=== PATIENT | female | born 1945 | race Caucasian/White ===

== ENCOUNTER 2018-01-27 08:42 | Emergency (ER) | payer MEDICARE ==
[2018-01-27 08:56] VITALS: BP 151/68; PULSE 87; O2SAT 97
--- NOTE | 2018-01-27 09:12 | ERPHSYRPT ---
- History of Present Illness Time Seen by Provider: 01/27/18 08:59 Source: patient, family Exam Limitations: no limitations Patient Subjective Stated Complaint: Wound/Rash to bilateral Skin folds under belly. Triage Nursing Assessment: Pt presents to the ED with complaints of rash at base of belly, where belly folds over waist line. Pt states she had a yeast infection in area for approximately 3 months, but states drainage began last week and worsened today. Pt denies other complaints, denies pain. No distress noted, skin pwd. Pt has been using nystatin cream daily for last week. Physician History: Patient with erythematous rash in the abdominal folds area for past 3 months. Initially had redness to the area then noted to other skin lesions where there was increasing redness and skin sloughing. Patient states these areas again to have weeping lesions with bloody drainage. Patient wears depends and areas were moist. Patient tried taking care of wound by herself and have not call her primary care provider. Patient denies any fever, chills, dizziness or weakness. Patient has been using nystatin cream to area with some relief Timing/Duration: week(s) (12), intermittent Quality: burning, itchy Severity: moderate Location: other (abdomianl folds) Possible Causes: other (wetness/moisture) Modifying Factors: Improves With: scratching (worsens) Associated Symptoms: blisters, change in skin texture, rash (erythematous rash with lesions and areas of skin irritation/sloughing), No edema, No fever, No numbness, No sore throat Allergies/Adverse Reactions: cefaclor [From Ceclor] Allergy (Intermediate, Verified 01/16/15 12:41) shellfish derived Allergy (Intermediate, Verified 01/16/15 12:41) sulfamethoxazole Allergy (Intermediate, Verified 01/16/15 12:41) venom-honey bee [bee venom (honey bee)] Allergy (Intermediate, Verified 12:41) cephalexin [From Keflex] Allergy (Mild, Verified 03/06/17 09:09) mouth sores Home Medications: Gemfibrozil 600 mg [Lopid 600 mg] 600 mg PO DAILY 01/16/15 [History] PARoxetine HCl [Paroxetine HCl] 20 mg PO DAILY 01/16/15 [History] Potassium Chloride 10 Meq Tab* [Klor Con 10 MEQ] 10 meq PO BID 01/16/15 [ History] Quetiapine Fumarate [Seroquel Xr] 100 mg PO DAILY 01/16/15 [History] Valsartan [Diovan] 320 mg PO DAILY 01/16/15 [History] Hydrocodone Bit/Acetaminophen [[place] 5/325Mg] 1 tab PO Q8H PRN PRN 02/13/16 [ History] metHOTREXate sodium [Methotrexate] 4 tab PO WEEKLY 02/13/16 [History] Cetirizine HCl [Zyrtec] 10 mg PO DAILY 03/06/17 [History] Diclofenac Sodium Gel [Voltaren GEL] 2 gm TP QID 03/06/17 [History] Docusate Sodium 100 mg [Colace 100 MG] 100 mg PO BID 03/06/17 [History] Donepezil HCl 10 mg [Aricept 10 MG] 10 mg PO DAILY 03/06/17 [History] Famotidine 20 mg [Pepcid 20 MG] 2 tab PO DAILY 03/06/17 [History] Fluticasone/Vilanterol [Breo Ellipta 100-25 Mcg INH] 1 each IH BID 03/06/17 [ History] Folic Acid 1 mg PO DAILY 03/06/17 [History] Furosemide 40 mg [Lasix 40 MG] 40 mg PO BID 03/06/17 [History] Glimepiride 1 mg PO BID 03/06/17 [History] Ipratropium/Albuterol Sulfate [Iprat-Albut 0.5-3(2.5) mg/3 ml] 3 ml IH UD PRN [History] Prednisone 10 mg [Deltasone 10 mg] 10 mg PO DAILY 03/06/17 [History] Hx Tetanus, Diphtheria Vaccination/Date Given: Yes Hx Influenza Vaccination/Date Given: Yes Hx Pneumococcal Vaccination/Date Given: Yes Immunizations Up to Date: Yes - Review of Systems Constitutional: No Fever, No Chills Eyes: No Symptoms Ears, Nose, & Throat: No Symptoms Respiratory: No Symptoms, No Cough, No Dyspnea Cardiac: No Symptoms, No Chest Pain, No Edema, No Syncope Abdominal/Gastrointestinal: No Symptoms, No Abdominal Pain, No Nausea, No Vomiting, No Diarrhea Genitourinary Symptoms: No Dysuria Musculoskeletal: No Back Pain, No Neck Pain Skin: Cellulitis, Rash (erythematous rash described above), Skin Lesions Neurological: No Symptoms, No Dizziness, No Focal Weakness, No Sensory Changes Psychological: No Symptoms Endocrine: No Symptoms All Other Systems: Reviewed and Negative - Past Medical History Pertinent Past Medical History: Yes Neurological History: Stroke, TIA ENT History: Cataracts Cardiac History: Congestive Heart Failure, High Cholesterol, Hypertension Respiratory History: Asthma, Pneumonia Endocrine Medical History: Diabetes Type II Musculoskeletal History: Osteoarthritis, Osteoporosis, Rheumatoid Arthritis GI Medical History: Esophageal Disorder, Other History: Renal Disease Psycho-Social History: Anxiety, Depression Female Reproductive Disorders: No Pertinent History Other Medical History: Anemia. broken shoulder, 11/19. hiatal hernia. skin cancer- nose - Past Surgical History Past Surgical History: Yes Neuro Surgical History: No Pertinent History Cardiac: No Pertinent History Respiratory: No Pertinent History Gastrointestinal: No Pertinent History Genitourinary: No Pertinent History Musculoskeletal: Joint Replacement Female Surgical History: Hysterectomy Other Surgical History: bilateral Knee replacement x2, right hip replacement, bladder lift - Social History Smoking Status: Former smoker Exposure to second hand smoke: No Drug Use: none Patient Lives Alone: Yes - Female History Hx Now: No - Nursing Vital Signs Nursing Vital Signs: Initial Vital Signs Temperature 98.9 F 01/27/18 08:49 Pulse Rate 87 01/27/18 08:49 Respiratory Rate 16 01/27/18 08:49 Blood Pressure 151/68 01/27/18 08:49 O2 Sat by Pulse Oximetry 97 01/27/18 08:49 Pain Scale Pain Intensity 0 - Physical Exam General Appearance: no apparent distress, alert Eye Exam: PERRL/EOMI, eyes nml inspection Ears, Nose, Throat Exam: normal ENT inspection, pharynx normal, moist mucous membranes Neck Exam: normal inspection, non-tender, supple, full range of motion Respiratory Exam: normal breath sounds, lungs clear, No respiratory distress Cardiovascular Exam: regular rate/rhythm, normal heart sounds Gastrointestinal/Abdomen Exam: soft, mass, No tenderness Back Exam: normal inspection, normal range of motion, No CVA tenderness, No vertebral tenderness Extremity Exam: normal inspection, normal range of motion Neurologic Exam: alert, oriented x 3, cooperative, normal mood/affect, sensation nml, No motor deficits Skin Exam: rash (erythematous moist rash to abdominal folds area. There are 2 lesions with some bloody drainage in bilateral lower abdominal wall area. There are some satellite lesions noted) SpO2: 97 Oxygen Delivery: Room Air - Course Nursing assessment & vital signs reviewed: Yes - Progress Progress: unchanged Counseled pt/family regarding: diagnosis - Departure Time of Disposition: 09:18 Departure Disposition: Home Clinical Impression: Abdominal wall cellulitis, Dermatitis associated with moisture Condition: Stable Critical Care Time: No Referrals: SANDHYA PIPER MD [Primary Care Provider] - Instructions: Cellulitis (Skin Infection), Adult (DC), Diaper Rash (DC) Additional Instructions: Rx: Bactrim DS/nystatin powder. Keep area clean and dry. Apply Neosporin on open wounds. May take Motrin/Tylenol for pain/fever. Follow-up with your doctor in 1-2 days. Return for worse redness, pain, pus from wound, continue bleeding, fever or any problems Prescriptions: Nystatin Powder 15 gm [Nystop Powder 15 gm] 15 gm TD BID 10 Days #15 powder Sulfamethoxazole/Trimethoprim [Bactrim Ds Tablet] 1 each PO BID 10 Days #20 tablet
== END 2018-01-27 09:51 | disposition home or self-care (01) ==
LOC: ED 08:42
DX: L03.311 Cellulitis of abdominal wall (principal); L30.9 Dermatitis, unspecified; Z79.899 Other long term (current) drug therapy
CPT/HCPCS: 99283

== ENCOUNTER 2018-04-05 17:56 | Inpatient (IN) | payer MEDICARE ==
[2018-04-05] MEDS ORDERED: DUONEB 0.5-3 MG/3 ml Neb IH ONE ×2 (18:51→18:58)
--- NOTE | 2018-04-05 18:57 | ERPHSYRPT ---
- History of Present Illness Source: patient Patient Subjective Stated Complaint: PT STATES SHE HAD OUTPATIENT LABS DONE TODAY AND HER PHYSICIAN CALLED HER AND TOLD HER TO COME TO ER DUE TO HGB OF 5 AND WBC OF 2. PT STATES SHE HAS BEEN SOB FOR APPROX 1 MONTH. HAS A WOUND ULCER ON LEFT FOOT SHE STATES HAS BEEN BLEEDING SIGNIFICANTLY FOR SOME TIME FROM THAT WOUND. Triage Nursing Assessment: PT ALERT AND ORIENTED X 3. SKIN COLOR PALE. LUNG SOUNDS DIMINISHED. BOWEL SOUNDS PRESENT DENIES N,V,D. LEFT FOOT IS WRAPPED WITH GAUZE DRESSING. SKIN LOOSE. Hx Tetanus, Diphtheria Vaccination/Date Given: Yes Hx Influenza Vaccination/Date Given: Yes Hx Pneumococcal Vaccination/Date Given: Yes <DENI RAMOS - Last Filed: 04/05/18 18:51> <ROOSEVELT ELLISON - Last Filed: 04/05/18 21:39> - History of Present Illness Time Seen by Provider: 04/05/18 18:51 Physician History: mild to mod shortness of breath and [place] for one month, hx anemia Hb 5 and WBC 2 today, no chest pain, +fatigue, no fever (DENI RAMOS) I had a brief discussion with the patient. She had routine blood work by her television service engineer today. She was called by her television service engineer and told to get to the emergency room quickly because her hemoglobin was 5. She's been having shortness of breath and weakness for the last 2 months. She takes iron for anemia. (ROOSEVELT ELLISON) Allergies/Adverse Reactions: cefaclor [From Ceclor] Allergy (Intermediate, Verified 01/16/15 12:41) shellfish derived Allergy (Intermediate, Verified 01/16/15 12:41) sulfamethoxazole Allergy (Intermediate, Verified 01/16/15 12:41) venom-honey bee [bee venom (honey bee)] Allergy (Intermediate, Verified 12:41) cephalexin [From Keflex] Allergy (Mild, Verified 03/06/17 09:09) mouth sores Home Medications: Gemfibrozil 600 mg [Lopid 600 mg] 600 mg PO DAILY 01/16/15 [History] PARoxetine HCl [Paroxetine HCl] 20 mg PO DAILY 01/16/15 [History] Potassium Chloride 10 Meq Tab* [Klor Con 10 MEQ] 10 meq PO BID 01/16/15 [ History] Quetiapine Fumarate [Seroquel Xr] 100 mg PO DAILY 01/16/15 [History] Valsartan [Diovan] 160 mg PO DAILY 01/16/15 [History] Hydrocodone Bit/Acetaminophen [[place] 5/325Mg] 1 tab PO Q8H PRN PRN 02/13/16 [ History] metHOTREXate sodium [Methotrexate] 4 tab PO WEEKLY 02/13/16 [History] Cetirizine HCl [Zyrtec] 10 mg PO DAILY 03/06/17 [History] Diclofenac Sodium Gel [Voltaren GEL] 2 gm TP QID 03/06/17 [History] Docusate Sodium 100 mg [Colace 100 MG] 100 mg PO BID 03/06/17 [History] Donepezil HCl 10 mg [Aricept 10 MG] 10 mg PO DAILY 03/06/17 [History] Famotidine 20 mg [Pepcid 20 MG] 2 tab PO DAILY 03/06/17 [History] Fluticasone/Vilanterol [Breo Ellipta 100-25 Mcg INH] 1 each IH BID 03/06/17 [ History] Folic Acid 1 mg PO DAILY 03/06/17 [History] Furosemide 40 mg [Lasix 40 MG] 40 mg PO BID 03/06/17 [History] Glimepiride 1 mg PO BID 03/06/17 [History] Ipratropium/Albuterol Sulfate [Iprat-Albut 0.5-3(2.5) mg/3 ml] 3 ml IH UD PRN [History] Prednisone 10 mg [Deltasone 10 mg] 10 mg PO DAILY 03/06/17 [History] - Review of Systems Constitutional: No Fever Eyes: No Vision Changes Ears, Nose, & Throat: No Mouth Pain Respiratory: Dyspnea Cardiac: No Chest Pain, No Other Abdominal/Gastrointestinal: No Vomiting, No Melena Genitourinary Symptoms: No Dysuria Musculoskeletal: No Neck Pain Skin: Skin Lesions Neurological: No Dizziness, No Focal Weakness Hematologic/Lymphatic: Anemia <DENI RAMOS - Last Filed: 04/05/18 18:51> - Past Medical History Pertinent Past Medical History: Yes Neurological History: Stroke, TIA ENT History: Cataracts Cardiac History: Congestive Heart Failure, High Cholesterol, Hypertension Respiratory History: Asthma, Pneumonia Endocrine Medical History: Diabetes Type II Musculoskeletal History: Osteoarthritis, Osteoporosis, Rheumatoid Arthritis GI Medical History: Esophageal Disorder, Other History: Renal Disease Psycho-Social History: Anxiety, Depression Female Reproductive Disorders: No Pertinent History Other Medical History: Anemia. broken shoulder, 11/19. hiatal hernia. skin cancer- nose - Past Surgical History Past Surgical History: Yes Neuro Surgical History: No Pertinent History Cardiac: No Pertinent History Respiratory: No Pertinent History Gastrointestinal: No Pertinent History Genitourinary: No Pertinent History Musculoskeletal: Joint Replacement Female Surgical History: Hysterectomy Other Surgical History: bilateral Knee replacement x2, right hip replacement, bladder lift - Social History Smoking Status: Former smoker Exposure to second hand smoke: No Drug Use: none Patient Lives Alone: Yes <DENI RAMOS - Last Filed: 04/05/18 18:51> - Physical Exam General Appearance: no apparent distress Eye Exam: PERRL/EOMI Ears, Nose, Throat Exam: normal pharynx Neck Exam: normal inspection Respiratory Exam: No respiratory distress Cardiovascular/Chest Exam: regular rate/rhythm, edema Abdominal/Gastrointestinal Exam: soft, No tenderness Extremity Exam: pelvis stable Neurologic Exam: alert, oriented x 3, cooperative Skin Exam: warm, dry SpO2 Interpretation: normal SpO2: 97 Oxygen Delivery: Room Air <DENI RAMOS - Last Filed: 04/05/18 18:51> - Nursing Vital Signs Nursing Vital Signs: Initial Vital Signs Pulse Rate 98 H 04/05/18 17:59 Respiratory Rate 18 04/05/18 17:59 Blood Pressure 169/73 04/05/18 17:59 O2 Sat by Pulse Oximetry 98 04/05/18 17:59 - Course EKG Interpreted by Me: RATE, Sinus Rhythm, Left Schriever Deviation, NORMAL INTERVALS , NORMAL QRS, NORMAL ST-T - Radiology Exams Chest X-ray Interpretation: Interpreted by me, Negative (comp 2V chest 02/20/18.) <ROOSEVELT ELLISON - Last Filed: 04/05/18 21:39> Ordered Tests: Active Orders 24 hr Category Date Time Status [employer] STAT Care 04/05/18 18:50 Active EKG-ER Only STAT Care 04/05/18 18:49 Active IV Insertion STAT Care 04/05/18 18:49 Active Oxygen-ED Only NASAL CANNULA 2 lpm Care 04/05/18 18:49 Active Oxygen-ED Only NASAL CANNULA 2 lpm Care 04/05/18 20:17 Active CHEST 1 VIEW (PORTABLE) Stat Exams 04/05/18 18:50 Taken CBC W DIFF Stat Lab 04/05/18 19:35 Completed CMP Stat Lab 04/05/18 19:35 Completed D-DIMER QUANTITATION Stat Lab 04/05/18 19:35 Completed Manual Differential NC Stat Lab 04/05/18 19:35 Completed NT PRO BNP Stat Lab 04/05/18 19:35 Completed Occult Blood-Screening Stat Lab 04/05/18 18:55 Ordered PROTIME WITH INR Stat Lab 04/05/18 19:35 Completed TROPONIN Q3H Lab 04/05/18 19:35 Completed TROPONIN Q3H Lab 04/05/18 22:00 Ordered TROPONIN Q3H Lab 04/06/18 01:00 Ordered TROPONIN Q3H Lab 04/06/18 04:00 Ordered TROPONIN Q3H Lab 04/06/18 07:00 Ordered Respiratory Nebulizer STAT RT 04/05/18 18:51 Completed Respiratory Therapy Assessment DAILY RT 04/05/18 19:13 Completed Medication Summary Discontinued Medications Generic Name Dose Route Start Last Admin Trade Name Freq PRN Reason Stop Dose Admin Albuterol/Ipratropium 3 ml 04/05/18 18:51 04/05/18 19:05 Duoneb 0.5-3 Mg/3 Ml Neb IH 04/05/18 18:52 3 ml STAT ONE Administration Albuterol/Ipratropium Confirm 04/05/18 18:58 Duoneb 0.5-3 Mg/3 Ml Neb Administered 04/05/18 18:59 Dose 3 ml IH .STK-MED ONE Lab/Rad Data: Laboratory Result Diagrams 04/05/18 19:35 04/05/18 19:35 Laboratory Results 04/05/18 04/05/18 04/05/18 Range/Units 19:35 19:35 19:35 WBC (4.0-10.5) K/mm3 RBC (4.1-5.4) M/mm3 Hgb (12.0-16.0) gm/dl Hct (35-47) % MCV (78-100) fl MCH (26-32) pg MCHC (32-36) g/dl RDW (11.5-14.0) % Plt Count (150-450) K/mm3 MPV (6-9.5) fl Absolute Granulocytes (1.4-6.9) PT 12.9 H (9.95-12.35) SECONDS INR 1.11 (0.8-3.0) D-Dimer 644 H* (215-500) ng/mL Sodium 145 (137-145) mmol/L Potassium 4.7 (3.5-5.1) mmol/L Chloride 110 H (98-107) mmol/L Carbon Dioxide 24 (22-30) mmol/L Anion Gap 16.0 H (5-15) MEQ/L BUN 36 H (7-17) mg/dL Creatinine 1.41 H (0.52-1.04) mg/dL Estimated GFR 38.6 ML/MIN Glucose 144 H (74-106) mg/dL Calcium 8.9 (8.4-10.2) mg/dL Total Bilirubin 0.50 (0.2-1.3) mg/dL AST 28 (14-36) U/L ALT 17 (0-35) U/L Alkaline Phosphatase 119 (38-126) U/L Troponin I < 0.012 (0.000-0.034) ng/mL NT-Pro-B Natriuret Pep 330 (0-1800) pg/mL Serum Total Protein 6.9 (6.3-8.2) g/dL Albumin 4.1 (3.5-5.0) g/dL 04/05/18 Range/Units 19:35 WBC 2.0 L (4.0-10.5) K/mm3 RBC 1.33 L* (4.1-5.4) M/mm3 Hgb 4.7 L* (12.0-16.0) gm/dl Hct 15.3 L (35-47) % MCV 115.0 H (78-100) fl MCH 35.3 H (26-32) pg MCHC 30.7 L (32-36) g/dl RDW 19.2 H (11.5-14.0) % Plt Count 27 L* (150-450) K/mm3 MPV 10.3 H (6-9.5) fl Absolute Granulocytes 0.91 L (1.4-6.9) PT (9.95-12.35) SECONDS INR (0.8-3.0) D-Dimer (215-500) ng/mL Sodium (137-145) mmol/L Potassium (3.5-5.1) mmol/L Chloride (98-107) mmol/L Carbon Dioxide (22-30) mmol/L Anion Gap (5-15) MEQ/L BUN (7-17) mg/dL Creatinine (0.52-1.04) mg/dL Estimated GFR ML/MIN Glucose (74-106) mg/dL Calcium (8.4-10.2) mg/dL Total Bilirubin (0.2-1.3) mg/dL AST (14-36) U/L ALT (0-35) U/L Alkaline Phosphatase (38-126) U/L Troponin I (0.000-0.034) ng/mL NT-Pro-B Natriuret Pep (0-1800) pg/mL Serum Total Protein (6.3-8.2) g/dL Albumin (3.5-5.0) g/dL <DENI RAMOS - Last Filed: 04/05/18 18:51> - Progress Progress: unchanged Air Movement: good Blood Culture(s) Obtained: No Antibiotics given: No Discussed with : Nedra Will see patient in: hospital (observation) Counseled pt/family regarding: lab results, diagnosis, need for follow-up, rad results <ROOSEVELT ELLISON - Last Filed: 04/05/18 21:39> - Progress Progress Note: 04/05/18 18:[address] Ellison at 19:00 (DENI RAMOS) Pt care discussed and care accepted from Dr Ramos at 19:00. 04/05/18 19:15 (ROOSEVELT ELLISON) <DENI RAMOS - Last Filed: 04/05/18 18:51> - Departure Time of Disposition: 21:34 Departure Disposition: Observation (per Dr Pipre) Critical Care Time: No <ROOSEVELT ELLISON - Last Filed: 04/05/18 21:39> - Departure Clinical Impression: Anemia Condition: Stable Referrals: SANDHYA PIPER MD [Primary Care Provider] -
[2018-04-05 19:57] LABS: Granulocyte Absolute (ANC) 0.91 (1.4-6.9); Hematocrit 15.3 % (35-47); Mean Corpuscular Hemoglobin 35.3 pg (26-32); Mean Corpuscular Hgb Concent. 30.7 g/dl (32-36); Mean Platelet Volume 10.3 fl (6-9.5); Red Cell Distribution Width 19.2 % (11.5-14.0)
[2018-04-05 20:10] LABS: Hemoglobin 4.7 gm/dl (12.0-16.0); Red Blood Count 1.33 M/mm3 (4.1-5.4)
[2018-04-05 20:11] LABS: Platelet Count 27 K/mm3 (150-450)
[2018-04-05 20:30] LABS: ALBUMIN 4.1 g/dL (3.5-5.0); BILIRUBIN,TOTAL 0.5 mg/dL (0.2-1.3); Calcium 8.9 mg/dL (8.4-10.2); Creatinine 1 1.41 mg/dL (0.52-1.04); Potassium 4.7 mmol/L (3.5-5.1); Total Protein 6.9 g/dL (6.3-8.2)
[2018-04-05 21:13] LABS: INR 1.11 (0.8-3.0)
[2018-04-05 22:07] LABS: ABO TYPING O; Antibody Screen NEGATIVE (NEGATIVE); RH TYPING POSITIVE
[2018-04-05] MEDS ORDERED: Zofran 4 MG/2 ML VIAL IV PRN (22:21)
[2018-04-05] MEDS ORDERED: TYLENOL 325 MG PO PRN (22:21)
[2018-04-05] MEDS: Sodium Chloride 0.9% 500 ML 500 ML IV SCH (23:44)
[2018-04-06] MEDS ORDERED: DUONEB 0.5-3 MG/3 ml Neb IH PRN (02:15)
[2018-04-06 02:41] LABS: Neutrophils 46 % (36.0-66.0); Total Cells Counted 100
[2018-04-06 02:42] LABS: ANISOCYTOSIS 1+; BAND 1 % (0.0-2.0); Eosinophil 7 % (0.00-3.0); Hypochromia 1+; Lymphocytes 45 % (24-44); Monocyte 1 % (0.0-12.0); Platelet Estimate DECREASED (NORMAL)
[2018-04-06] MEDS: NORCO 5/325 MG PO PRN ×3 (02:47→21:58)
[2018-04-06] MEDS: Advair Hfa 115/21 Common canister IH SCH ×2 (07:26→17:27)
--- NOTE | 2018-04-06 08:47 | XRAY ---
Indication: Short of breath. Comparison: February 20, 2018. Portable chest again hyperinflated with lingular atelectasis/scarring. Remaining lungs clear. Heart is not enlarged. Bony thorax intact again with osteopenia, mild degenerative changes, and old right humeral neck fracture. Impression: Stable nonacute chest with chronic features.
[2018-04-06 08:51] LABS: Calcium 8.6 mg/dL (8.4-10.2); Creatinine 1 1.3 mg/dL (0.52-1.04); Potassium 3.9 mmol/L (3.5-5.1)
[2018-04-06 08:57] LABS: BASOPHIL % 0.5 % (0.0-0.4); Basophil (Absolute #) 0.01 (0-0.4); Eosinophil % 5.4 % (0.00-5.0); Eosinophil (Absolute #) 0.11 (0-0.5); Granulocyte Absolute (ANC) 0.82 (1.4-6.9); Granulocytes % 40.6 % (36.0-66.0); Hematocrit 21.8 % (35-47); Lymphocytes % 49.5 % (24.0-44.0); Mean Cell Volume 102.8 fl (78-100); Mean Corpuscular Hgb Concent. 32.1 g/dl (32-36); Mean Platelet Volume 8.9 fl (6-9.5); Monocyte (Absolute #) 0.08 (0.0-1.3); Red Blood Count 2.12 M/mm3 (4.1-5.4); Red Cell Distribution Width 22.4 % (11.5-14.0)
[2018-04-06 09:07] LABS: Platelet Count 17 K/mm3 (150-450)
[2018-04-06] MEDS ORDERED: NORCO 5/325 MG PO PRN (10:05)
[2018-04-06] MEDS: Paxil 20 MG PO SCH (10:42)
[2018-04-06] MEDS: Colace 100 MG PO SCH (10:42)
[2018-04-06] MEDS: Pepcid 20 MG PO SCH (10:42)
[2018-04-06] MEDS: DELTASONE 5 MG PO SCH (10:43)
[2018-04-06] MEDS: Flonase NASAL NS SCH (10:43)
[2018-04-06] MEDS: FOLATE 1 MG PO SCH (10:43)
[2018-04-06] MEDS: Lasix 40 MG PO SCH ×2 (10:43→17:11)
[2018-04-06] MEDS: Klor Con 10 MEQ PO SCH ×2 (10:43→21:59)
[2018-04-06] MEDS: CLARITIN 10 MG PO SCH (10:43)
[2018-04-06] MEDS: LOPID 600 MG PO SCH (10:44)
--- NOTE | 2018-04-06 11:50 | PCM.HP ---
History of Present Illness - Chief Complaint Chief Complaint: Patient has low hgb. 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 - Review of Systems Constitutional: No Fever, No Chills Eyes: No Symptoms Ears, Nose, & Throat: No Symptoms Respiratory: No Cough, No Short Of Breath Cardiac: No Chest Pain, No Edema, No Syncope Abdominal/Gastrointestinal: No Abdominal Pain, No Nausea, No Vomiting, No Diarrhea Genitourinary Symptoms: No Dysuria Musculoskeletal: No Back Pain, No Neck Pain Skin: No Rash Neurological: No Dizziness, No Focal Weakness, No Sensory Changes Psychological: No Symptoms Endocrine: No Symptoms Hematologic/Lymphatic: No Symptoms Immunological/Allergic: No Symptoms Medications & Allergies Home Medications: Home Medication List Gemfibrozil 600 mg [Lopid 600 mg] 600 mg PO DAILY 01/16/15 [History Confirmed 04/05/18] PARoxetine HCl [Paroxetine HCl] 20 mg PO DAILY 01/16/15 [History Confirmed 04/05] Potassium Chloride 10 Meq Tab* [Klor Con 10 MEQ] 10 meq PO BID 01/16/15 [ History Confirmed 04/05/18] Quetiapine Fumarate [Seroquel Xr] 100 mg PO HS 01/16/15 [History Confirmed 04/05] Hydrocodone Bit/Acetaminophen [[place] 5/325Mg] 1 tab PO Q6H PRN PRN 02/13/16 [ History Confirmed 04/05/18] Cetirizine HCl [Zyrtec] 10 mg PO DAILY 03/06/17 [History Confirmed 04/05/18] Diclofenac Sodium Gel [Voltaren GEL] 2 gm TP QID 03/06/17 [History Confirmed 04/05/18] Docusate Sodium 100 mg [Colace 100 MG] 100 mg PO BID 03/06/17 [History Confirmed 04/05/18] Donepezil HCl 10 mg [Aricept 10 MG] 5 mg PO HS 03/06/17 [History Confirmed 04/05/18] Famotidine 20 mg [Pepcid 20 MG] 40 mg PO DAILY 03/06/17 [History Confirmed 04/05/18] Fluticasone/Vilanterol [Breo Ellipta 100-25 Mcg INH] 1 each IH BID 03/06/17 [ History Confirmed 04/05/18] Folic Acid 1 mg PO DAILY 03/06/17 [History Confirmed 04/05/18] Furosemide 40 mg [Lasix 40 MG] 40 mg PO BID 03/06/17 [History Confirmed ] Glimepiride 1 mg PO DAILY 03/06/17 [History Confirmed 04/05/18] Ipratropium/Albuterol Sulfate [Iprat-Albut 0.5-3(2.5) mg/3 ml] 3 ml IH UD PRN [History Confirmed 04/05/18] Prednisone 10 mg [Deltasone 10 mg] 5 mg PO DAILY 03/06/17 [History Confirmed 04/05/18] Albuterol Sulfate [Ventolin Hfa] 1 puff IH QID 04/05/18 [History Confirmed 04/05] Glimepiride 0.5 mg PO DAILY 04/05/18 [History Confirmed 04/05/18] Polyvinyl Alcohol [Akwa Tears] 1 drop OP DAILY 04/05/18 [History Confirmed 04/05] Fluticasone Propionate [Flonase NASAL] 1 spray NS DAILY 04/06/18 [History Confirmed 04/06/18] Allergies/Adverse Reactions: Allergies Allergy/AdvReac Type Severity Reaction Status Date / Time cefaclor [From Ceclor] Allergy Intermediate Verified 01/16/15 12:41 shellfish derived Allergy Intermediate Verified 01/16/15 12:41 sulfamethoxazole Allergy Intermediate Verified 01/16/15 12:41 venom-honey bee Allergy Intermediate Verified 01/16/15 12:41 [bee venom (honey bee)] cephalexin [From Keflex] Allergy Mild mouth sores Verified 03/06/17 09:09 - Past Medical History Past Medical History: Yes Neurological History: Stroke, TIA ENT History: Cataracts Cardiac History: Congestive Heart Failure, High Cholesterol, Hypertension Respiratory History: Asthma, Pneumonia Endocrine Medical History: Diabetes Type II Musculoskelatal History: Osteoarthritis, Osteoporosis, Rheumatoid Arthritis GI Medical History: Esophageal Disorder, Other History: Renal Disease Pyscho-Social History: Anxiety, Depression Reproductive Disorders: No Pertinent History Comment: Anemia. broken shoulder, 11/19. hiatal hernia. skin cancer- nose - Female History Are you now?: No - Past Surgical History Past Surgical History: Yes Neuro Surgical History: No Pertinent History Cardiac History: No Pertinent History Respiratory Surgery: No Pertinent History GI Surgical History: No Pertinent History Genitourinary Surgical Hx: No Pertinent History Musculskeletal Surgical Hx: Joint Replacement Female Surgical History: Hysterectomy Other Surgical History: bilateral Knee replacement x2, right hip replacement, bladder lift - Social History Smoking Status: Former smoker Exposure to second hand smoke: No Alcohol: None Drug Use: none - Physical Exam Vital Signs: Vital Signs - 24 hr Temp Pulse Resp BP Pulse Ox 04/06/18 08:00 98.1 F 70 18 179/77 100 04/06/18 07:31 77 16 98 04/06/18 04:00 98.9 F 76 16 159/69 99 04/06/18 01:48 84 20 98 04/05/18 23:52 98.2 F 93 H 20 139/63 98 04/05/18 23:14 98.8 F 95 H 16 149/67 97 04/05/18 21:39 96 H 21 152/71 98 04/05/18 20:50 90 13 98 04/05/18 20:45 88 13 98 04/05/18 19:50 134 H 20 170/91 99 04/05/18 19:13 89 22 98 04/05/18 18:57 97 04/05/18 18:49 92 H 17 04/05/18 18:14 24 97 04/05/18 17:59 98 H 18 169/73 98 Oxygen-Last 24 hours O2 Percentage 2 Liters = 28% O2 Percentage 2 Liters = 28% O2 Percentage 2 Liters = 28% General Appearance: no apparent distress, alert Neurologic Exam: alert, oriented x 3, cooperative, normal mood/affect, nml cerebellar function, nml station & gait, sensation nml, No motor deficits Eye Exam: PERRL/EOMI, eyes nml inspection Ears, Nose, Throat Exam: normal ENT inspection, TMs normal, pharynx normal, moist mucous membranes Neck Exam: normal inspection, non-tender, supple, full range of motion Respiratory Exam: normal breath sounds, lungs clear, No respiratory distress Cardiovascular Exam: regular rate/rhythm, normal heart sounds, normal peripheral pulses Gastrointestinal/Abdomen Exam: soft, normal bowel sounds, No tenderness, No mass Back Exam: normal inspection, normal range of motion, No CVA tenderness, No vertebral tenderness Extremity Exam: normal inspection, normal range of motion, pelvis stable Skin Exam: normal color, warm, dry, No rash Lymphatic Exam: No adenopathy Results - Labs Lab/Micro Results: Accuchecks Date 04/06/18 Time 07:30 Accucheck Value: 134 Lab Results-Last 24 Hours 04/05/18 04/05/18 04/05/18 Range/Units 19:35 19:35 19:35 WBC 2.0 L (4.0-10.5) K/mm3 RBC 1.33 L* (4.1-5.4) M/mm3 Hgb 4.7 L* (12.0-16.0) gm/dl Hct 15.3 L (35-47) % MCV 115.0 H (78-100) fl MCH 35.3 H (26-32) pg MCHC 30.7 L (32-36) g/dl RDW 19.2 H (11.5-14.0) % Plt Count 27 L* (150-450) K/mm3 MPV 10.3 H (6-9.5) fl Gran % (36.0-66.0) % Eos # (Auto) (0-0.5) Absolute Lymphs (auto) (1.0-4.6) Absolute Monos (auto) (0.0-1.3) Lymphocytes % (24.0-44.0) % Monocytes % (0.0-12.0) % Eosinophils % (0.00-5.0) % Basophils % (0.0-0.4) % Absolute Granulocytes 0.91 L (1.4-6.9) Segmented Neutrophils 46 (36.0-66.0) % Band Neutrophils 1 (0.0-2.0) % Lymphocytes (Manual) 45 H (24-44) % Monocytes (Manual) 1 (0.0-12.0) % Eosinophils (Manual) 7 H (0.00-3.0) % Basophils # (0-0.4) Hypochromia 1+ Platelet Estimate DECREASED (NORMAL) RBC Morphology ABNORMAL Anisocytosis 1+ Smear Path Review Pending PT 12.9 H (9.95-12.35) SECONDS INR 1.11 (0.8-3.0) D-Dimer 644 H* (215-500) ng/mL Sodium 145 (137-145) mmol/L Potassium 4.7 (3.5-5.1) mmol/L Chloride 110 H (98-107) mmol/L Carbon Dioxide 24 (22-30) mmol/L Anion Gap 16.0 H (5-15) MEQ/L BUN 36 H (7-17) mg/dL Creatinine 1.41 H (0.52-1.04) mg/dL Estimated GFR 38.6 ML/MIN Glucose 144 H (74-106) mg/dL Calcium 8.9 (8.4-10.2) mg/dL Total Bilirubin 0.50 (0.2-1.3) mg/dL AST 28 (14-36) U/L ALT 17 (0-35) U/L Alkaline Phosphatase 119 (38-126) U/L Troponin I (0.000-0.034) ng/mL NT-Pro-B Natriuret Pep 330 (0-1800) pg/mL Serum Total Protein 6.9 (6.3-8.2) g/dL Albumin 4.1 (3.5-5.0) g/dL Stool Occult Bld Scrn ABO Group Rh Factor Antibody Screen (NEGATIVE) Crossmatch (COMPATIBLE) 04/05/18 04/05/18 04/05/18 Range/Units 19:35 19:35 19:35 WBC (4.0-10.5) K/mm3 RBC (4.1-5.4) M/mm3 Hgb (12.0-16.0) gm/dl Hct (35-47) % MCV (78-100) fl MCH (26-32) pg MCHC (32-36) g/dl RDW (11.5-14.0) % Plt Count (150-450) K/mm3 MPV (6-9.5) fl Gran % (36.0-66.0) % Eos # (Auto) (0-0.5) Absolute Lymphs (auto) (1.0-4.6) Absolute Monos (auto) (0.0-1.3) Lymphocytes % (24.0-44.0) % Monocytes % (0.0-12.0) % Eosinophils % (0.00-5.0) % Basophils % (0.0-0.4) % Absolute Granulocytes (1.4-6.9) Segmented Neutrophils (36.0-66.0) % Band Neutrophils (0.0-2.0) % Lymphocytes (Manual) (24-44) % Monocytes (Manual) (0.0-12.0) % Eosinophils (Manual) (0.00-3.0) % Basophils # (0-0.4) Hypochromia Platelet Estimate (NORMAL) RBC Morphology Anisocytosis Smear Path Review PT (9.95-12.35) SECONDS INR (0.8-3.0) D-Dimer (215-500) ng/mL Sodium (137-145) mmol/L Potassium (3.5-5.1) mmol/L Chloride (98-107) mmol/L Carbon Dioxide (22-30) mmol/L Anion Gap (5-15) MEQ/L BUN (7-17) mg/dL Creatinine (0.52-1.04) mg/dL Estimated GFR ML/MIN Glucose (74-106) mg/dL Calcium (8.4-10.2) mg/dL Total Bilirubin (0.2-1.3) mg/dL AST (14-36) U/L ALT (0-35) U/L Alkaline Phosphatase (38-126) U/L Troponin I < 0.012 (0.000-0.034) ng/mL NT-Pro-B Natriuret Pep (0-1800) pg/mL Serum Total Protein (6.3-8.2) g/dL Albumin (3.5-5.0) g/dL Stool Occult Bld Scrn ABO Group O Rh Factor POSITIVE Antibody Screen NEGATIVE (NEGATIVE) Crossmatch COMPATIBLE (COMPATIBLE) 04/05/18 04/05/18 04/05/18 Range/Units 19:35 21:30 22:22 WBC (4.0-10.5) K/mm3 RBC (4.1-5.4) M/mm3 Hgb (12.0-16.0) gm/dl Hct (35-47) % MCV (78-100) fl MCH (26-32) pg MCHC (32-36) g/dl RDW (11.5-14.0) % Plt Count (150-450) K/mm3 MPV (6-9.5) fl Gran % (36.0-66.0) % Eos # (Auto) (0-0.5) Absolute Lymphs (auto) (1.0-4.6) Absolute Monos (auto) (0.0-1.3) Lymphocytes % (24.0-44.0) % Monocytes % (0.0-12.0) % Eosinophils % (0.00-5.0) % Basophils % (0.0-0.4) % Absolute Granulocytes (1.4-6.9) Segmented Neutrophils (36.0-66.0) % Band Neutrophils (0.0-2.0) % Lymphocytes (Manual) (24-44) % Monocytes (Manual) (0.0-12.0) % Eosinophils (Manual) (0.00-3.0) % Basophils # (0-0.4) Hypochromia Platelet Estimate (NORMAL) RBC Morphology Anisocytosis Smear Path Review PT (9.95-12.35) SECONDS INR (0.8-3.0) D-Dimer (215-500) ng/mL Sodium (137-145) mmol/L Potassium (3.5-5.1) mmol/L Chloride (98-107) mmol/L Carbon Dioxide (22-30) mmol/L Anion Gap (5-15) MEQ/L BUN (7-17) mg/dL Creatinine (0.52-1.04) mg/dL Estimated GFR ML/MIN Glucose (74-106) mg/dL Calcium (8.4-10.2) mg/dL Total Bilirubin (0.2-1.3) mg/dL AST (14-36) U/L ALT (0-35) U/L Alkaline Phosphatase (38-126) U/L Troponin I < 0.012 (0.000-0.034) ng/mL NT-Pro-B Natriuret Pep (0-1800) pg/mL Serum Total Protein (6.3-8.2) g/dL Albumin (3.5-5.0) g/dL Stool Occult Bld Scrn POSITIVE ABO Group Rh Factor Antibody Screen (NEGATIVE) Crossmatch COMPATIBLE (COMPATIBLE) 08/28/18 08/28/18 08/28/18 Range/Units 02:10 08:21 08:21 WBC 2.0 L (4.0-10.5) K/mm3 RBC 2.12 L (4.1-5.4) M/mm3 Hgb 7.0 L (12.0-16.0) gm/dl Hct 21.8 L (35-47) % MCV 102.8 H (78-100) fl MCH 33.0 H (26-32) pg MCHC 32.1 (32-36) g/dl RDW 22.4 H (11.5-14.0) % Plt Count 17 L* (150-450) K/mm3 MPV 8.9 (6-9.5) fl Gran % 40.6 (36.0-66.0) % Eos # (Auto) 0.11 (0-0.5) Absolute Lymphs (auto) 1.00 (1.0-4.6) Absolute Monos (auto) 0.08 (0.0-1.3) Lymphocytes % 49.5 H (24.0-44.0) % Monocytes % 4.0 (0.0-12.0) % Eosinophils % 5.4 H (0.00-5.0) % Basophils % 0.5 (0.0-0.4) % Absolute Granulocytes 0.82 L (1.4-6.9) Segmented Neutrophils (36.0-66.0) % Band Neutrophils (0.0-2.0) % Lymphocytes (Manual) (24-44) % Monocytes (Manual) (0.0-12.0) % Eosinophils (Manual) (0.00-3.0) % Basophils # 0.01 (0-0.4) Hypochromia Platelet Estimate (NORMAL) RBC Morphology Anisocytosis Smear Path Review PT (9.95-12.35) SECONDS INR (0.8-3.0) D-Dimer (215-500) ng/mL Sodium (137-145) mmol/L Potassium (3.5-5.1) mmol/L Chloride (98-107) mmol/L Carbon Dioxide (22-30) mmol/L Anion Gap (5-15) MEQ/L BUN (7-17) mg/dL Creatinine (0.52-1.04) mg/dL Estimated GFR ML/MIN Glucose (74-106) mg/dL Calcium (8.4-10.2) mg/dL Total Bilirubin (0.2-1.3) mg/dL AST (14-36) U/L ALT (0-35) U/L Alkaline Phosphatase (38-126) U/L Troponin I < 0.012 < 0.012 (0.000-0.034) ng/mL NT-Pro-B Natriuret Pep (0-1800) pg/mL Serum Total Protein (6.3-8.2) g/dL Albumin (3.5-5.0) g/dL Stool Occult Bld Scrn ABO Group Rh Factor Antibody Screen (NEGATIVE) Crossmatch (COMPATIBLE) 04/06/18 Range/Units 08:21 WBC (4.0-10.5) K/mm3 RBC (4.1-5.4) M/mm3 Hgb (12.0-16.0) gm/dl Hct (35-47) % MCV (78-100) fl MCH (26-32) pg MCHC (32-36) g/dl RDW (11.5-14.0) % Plt Count (150-450) K/mm3 MPV (6-9.5) fl Gran % (36.0-66.0) % Eos # (Auto) (0-0.5) Absolute Lymphs (auto) (1.0-4.6) Absolute Monos (auto) (0.0-1.3) Lymphocytes % (24.0-44.0) % Monocytes % (0.0-12.0) % Eosinophils % (0.00-5.0) % Basophils % (0.0-0.4) % Absolute Granulocytes (1.4-6.9) Segmented Neutrophils (36.0-66.0) % Band Neutrophils (0.0-2.0) % Lymphocytes (Manual) (24-44) % Monocytes (Manual) (0.0-12.0) % Eosinophils (Manual) (0.00-3.0) % Basophils # (0-0.4) Hypochromia Platelet Estimate (NORMAL) RBC Morphology Anisocytosis Smear Path Review PT (9.95-12.35) SECONDS INR (0.8-3.0) D-Dimer (215-500) ng/mL Sodium 145 (137-145) mmol/L Potassium 3.9 (3.5-5.1) mmol/L Chloride 111 H (98-107) mmol/L Carbon Dioxide 23 (22-30) mmol/L Anion Gap 15.0 (5-15) MEQ/L BUN 30 H (7-17) mg/dL Creatinine 1.30 H (0.52-1.04) mg/dL Estimated GFR 42.4 ML/MIN Glucose 120 H (74-106) mg/dL Calcium 8.6 (8.4-10.2) mg/dL Total Bilirubin (0.2-1.3) mg/dL AST (14-36) U/L ALT (0-35) U/L Alkaline Phosphatase (38-126) U/L Troponin I (0.000-0.034) ng/mL NT-Pro-B Natriuret Pep (0-1800) pg/mL Serum Total Protein (6.3-8.2) g/dL Albumin (3.5-5.0) g/dL Stool Occult Bld Scrn ABO Group Rh Factor Antibody Screen (NEGATIVE) Crossmatch (COMPATIBLE) Accuchecks Date 04/06/18 Time 07:30 Accucheck Value: 134 - Radiology Impressions Radiology Exams & Impressions: Radiology Procedures Category Date Time Status CHEST 1 VIEW (PORTABLE) Stat Exams 04/05/18 18:50 Completed - Other Procedures and Tests Respiratory Therapy 04/05/18 22:21 Oxygen NASAL CANNULA 2 lpm 04/06/18 01:30 Respiratory Therapy Assessment DAILY Assessment/Plan (1) Anemia Current Visit: Yes Status: Acute Qualifiers: 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
[2018-04-06] MEDS ORDERED: Amaryl 2 MG PO SCH (12:00)
[2018-04-06 13:26] LABS: Slide Review 1 YES
[2018-04-06] MEDS: Voltaren GEL TP SCH ×3 (14:10→22:01)
--- NOTE | 2018-04-06 14:57 | CONS ---
CONSULT DATE: 04/06/2018 This patient is seen for Dr. Saulo Olvera who is education reporter for our group today 04/06/2018. He notified of consult today. HISTORY: The patient came in and reportedly had a hemoglobin of 4.7. On admission she was given 2 units. She had white blood cell count of 2. Her hemoglobin was up to 7. She denies any current or prior bloody stools. PAST MEDICAL HISTORY: Heart disease, hypertension, hypercholesterolemia, diabetes, chronic obstructive pulmonary disease, history of pneumonia, osteoarthritis, renal disease. She has some depression and anxiety. History of transient ischemic attack in the past. History of broken shoulder in the past. Skin cancer in the past. PAST SURGICAL HISTORY: Hysterectomy in the past. Bilateral knee replacement x2. She had four knee replacements. She had right hip replacement. HOME MEDICATIONS: She is on prednisone 10 mg and uses for chronic obstructive pulmonary disease. She has Seroquel, Klor-Con, Aqua Tears, fluoxetine, ipratropium, Albuterol, hydrocodone, glimepiride, Gemfibrozil, Lasix, folic acid, Breo Ellipta, Flonase, Pepcid, Aricept, Colace, Voltaren, Zyrtec, Ventolin HFA. She had taken some iron in the past. ALLERGIES: CECLOR, KEFLEX BUT SHE HAS TAKEN PENICILLIN OK IN THE PAST. SULFA. SHELLFISH, BEE VENOM. FAMILY HISTORY: Negative in regards to this problem. SOCIAL HISTORY: No current smoking. No alcohol abuse. REVIEW OF SYSTEMS: Twelve systems reviewed per admission assessment. No chest pain or palpitations. A little shortness of breath. She is on some oxygen. She denied any bright bloody stools. She has some chronic mid abdominal aches unchanged. She said she had a hernia but she has no upper midline incisions. She has a history of hiatal hernia. LAB DATA AND TESTS: Hemoglobin is up to 7 from 4.7 after transfusion of a couple of units. PHYSICAL EXAMINATION: GENERAL: A chronically ill female in no acute distress. HEENT: Sclera nonicteric. CHEST: Equal excursion, labored respirations. CVS: Regular rhythm and pulse. ABDOMEN: Obese, soft. She complains of upper abdomen hernia although there are no incisions in this area. I am not sure what she is talking about with history of hiatal hernia. EXTREMITIES: No significant edema. NEURO: Alert, moving extremities grossly symmetrically. No gross motor deficits noted. RECTAL: Deferred timed to endoscopy. IMPRESSION: Severe anemia, some black stools, some history of iron use, unclear etiology. It could be gastritis, peptic ulcer disease, lower GI or small bowel etiology. Either way no emergent surgery necessary. She is not NPO so I do not feel she is a candidate for upper endoscopy at this moment otherwise could add her today. I feel she would benefit from upper and lower endoscopy as she has not had either one in a couple of years. I have a partner, Dr. Natalie Olvera, will be here tomorrow afternoon and will see if she has some time to add the case and if not will be with Dr. Olvera who could possibly just do colonoscopy. Again, no emergent surgery necessary but EGD and colonoscopy this admission. Risks and benefits explained in detail including but not limited to bleeding or infection, risk of bowel injury or perforation possibly requiring open procedure, risk of missed or nondiagnosis or incomplete exam possibly requiring barium enema, other studies or procedures, PillCam, other studies or referral, general risk of anesthesia or sedation but not limited to. She understands and agrees to the planned procedure and will see if Dr. Natalie Olvera has time to add on for a double scope tomorrow for EGD and colonoscopy otherwise may be . Again, this patient was seen for Dr. Saulo Olvera who is education reporter for group today.
[2018-04-06] MEDS ORDERED: Golytely Solution 4000 ML PO ONE (17:15)
[2018-04-06] MEDS ORDERED: Aricept 10 MG PO SCH (22:00)
[2018-04-06] MEDS ORDERED: QUETIAPINE FUMARATE 100 MG PO SCH (22:00)
[2018-04-06] MEDS ORDERED: Seroquel 100 MG PO SCH (22:00)
[2018-04-07] MEDS: Colace 100 MG PO SCH ×2 (00:33→09:44)
[2018-04-07] MEDS: Sodium Chloride 0.9% 500 ML 500 ML IV SCH (04:46)
[2018-04-07 07:15] VITALS: BP 136/61
[2018-04-07] MEDS: Advair Hfa 115/21 Common canister IH SCH (07:23)
[2018-04-07 07:31] VITALS: PULSE 92; O2SAT 96
[2018-04-07] MEDS ORDERED: Amaryl 2 MG PO SCH (08:00)
[2018-04-07 08:06] LABS: Mean Cell Volume 103.4 fl (78-100); Mean Corpuscular Hgb Concent. 32.4 g/dl (32-36); Mean Platelet Volume 10.3 fl (6-9.5); Red Blood Count 2.03 M/mm3 (4.1-5.4); Red Cell Distribution Width 22.4 % (11.5-14.0)
[2018-04-07 08:19] LABS: Mean Corpuscular Hemoglobin 33.4 pg (26-32); White Blood Count 0.8 K/mm3 (4.0-10.5)
[2018-04-07 08:20] LABS: Hemoglobin 6.8 gm/dl (12.0-16.0); Platelet Count 14 K/mm3 (150-450)
[2018-04-07] MEDS ORDERED: Lactated Ringers 1,000 ML IV SCH (08:30)
[2018-04-07 08:47] LABS: ALBUMIN 4.3 g/dL (3.5-5.0); ANION GAP 17.1 MEQ/L (5-15); BILIRUBIN,TOTAL 0.8 mg/dL (0.2-1.3); Calcium 9.1 mg/dL (8.4-10.2); Creatinine 1 1.14 mg/dL (0.52-1.04); Potassium 3.8 mmol/L (3.5-5.1); Total Protein 7.3 g/dL (6.3-8.2)
[2018-04-07] MEDS: Lasix 40 MG PO SCH (09:43)
[2018-04-07] MEDS: Klor Con 10 MEQ PO SCH (09:43)
[2018-04-07] MEDS: DELTASONE 5 MG PO SCH (09:43)
[2018-04-07] MEDS: CLARITIN 10 MG PO SCH (09:43)
[2018-04-07] MEDS: FOLATE 1 MG PO SCH (09:43)
[2018-04-07] MEDS: Paxil 20 MG PO SCH (09:43)
[2018-04-07] MEDS: Pepcid 20 MG PO SCH (09:43)
[2018-04-07] MEDS: Flonase NASAL NS SCH (09:44)
[2018-04-07] MEDS: LOPID 600 MG PO SCH (09:44)
[2018-04-07] MEDS: Voltaren GEL TP SCH (09:45)
[2018-04-07] MEDS: NORCO 5/325 MG PO PRN (09:49)
[2018-04-07 09:54] LABS: Slide Review YES
[2018-04-07] MEDS ORDERED: NON-FORMULARY ITEM (Cetirizine Hcl [Zyrtec] 10 MG) PO SCH (10:00)
[2018-04-07] MEDS ORDERED: DELTASONE 10 MG PO SCH (10:00)
[2018-04-07] MEDS ORDERED: GLIMEPIRIDE 0.5 MG PO SCH (10:00)
[2018-04-07] MEDS ORDERED: NON-FORMULARY ITEM (Glimepiride [Glimepiride] 1 MG) PO SCH (10:00)
[2018-04-07] MEDS ORDERED: Artificial Tears 15 ML OP SCH (10:00)
--- NOTE | 2018-04-07 11:21 | PCM.DS ---
Discharge Summary Date of Admission: 04/06/18 11:40 Admitting Physician: SANDHYA PIPER Consults: Consults on Case 04/06/18 12:10 Consult Surgery ROUTINE Primary Care Provider: SANDHYA PIPER Allergies Allergies cefaclor [From Ceclor] Allergy (Intermediate, Verified 01/16/15 12:41) shellfish derived Allergy (Intermediate, Verified 01/16/15 12:41) sulfamethoxazole Allergy (Intermediate, Verified 01/16/15 12:41) venom-honey bee [bee venom (honey bee)] Allergy (Intermediate, Verified 12:41) cephalexin [From Keflex] Allergy (Mild, Verified 03/06/17 09:09) mouth sores Hospital Summary - Hospital Course Hospital Course: Chief Complaint Diagnosis ANEMIA Allergies Allergy/AdvReac Type Severity Reaction Status Date / Time cefaclor [From Ceclor] Allergy Intermediate Verified 01/16/15 12:41 shellfish derived Allergy Intermediate Verified 01/16/15 12:41 sulfamethoxazole Allergy Intermediate Verified 01/16/15 12:41 venom-honey bee Allergy Intermediate Verified 01/16/15 12:41 [bee venom (honey bee)] cephalexin [From Keflex] Allergy Mild mouth sores Verified 03/06/17 09:09 Vital Signs (Last 24 hours) Temp Pulse Resp BP Pulse Ox 04/07/18 07:28 92 H 16 96 04/07/18 07:14 97.4 F 74 18 136/61 97 04/07/18 04:00 98.4 F 69 19 134/60 97 04/07/18 00:00 97.8 F 73 18 160/72 97 04/06/18 20:00 98.5 F 71 18 152/75 98 04/06/18 19:39 98 04/06/18 17:31 72 18 99 04/06/18 16:00 98.2 F 74 18 153/69 95 04/06/18 12:00 18 04/06/18 11:50 98.3 F 85 18 143/65 98 Home Medications Medication Instructions Recorded Confirmed Last Taken Type Albuterol Sulfate [Ventolin Hfa] 1 puff IH QID 04/05/18 04/05/18 Unknown History Glimepiride 0.5 mg PO DAILY 04/05/18 04/05/18 Unknown History Polyvinyl Alcohol [Akwa Tears] 1 drop OP DAILY 04/05/18 04/05/18 Unknown History Fluticasone Propionate [Flonase 1 spray NS DAILY 04/06/18 04/06/18 Unknown History NASAL] Current Medications Generic Name Dose Route Start Last Admin Trade Name Freq PRN Reason Stop Dose Admin Acetaminophen 650 mg 04/05/18 22:21 04/06/18 17:16 Tylenol 325 Mg PO 05/05/18 22:20 650 mg Q4H PRN PRN Administration PAIN AND/OR FEVER Hydrocodone Bitart/Acetaminophen 1 tab 04/06/18 02:43 04/07/18 09:49 Gardner 5/325 Mg PO 04/11/18 02:42 1 tab Q6H PRN PRN Administration PAIN Albuterol/Ipratropium 3 ml 04/06/18 02:15 Duoneb 0.5-3 Mg/3 Ml Neb IH 05/06/18 02:14 Q4HPRN PRN SHORTNESS OF BREATH/WHEEZING Artificial Tears 0 ml 04/07/18 10:00 04/07/18 09:59 Artificial Tears 15 Ml OP 05/07/18 09:59 Not Given DAILY PAOLA Diclofenac Sodium 0 gm 04/06/18 13:00 04/07/18 09:45 Voltaren Gel TP 05/06/18 12:59 1 gm QID PAOLA Administration Docusate Sodium 100 mg 04/06/18 10:00 04/07/18 09:44 Colace 100 Mg PO 05/06/18 09:59 Not Given BID PAOLA Donepezil HCl 5 mg 04/06/18 22:00 04/06/18 21:59 Aricept 10 Mg PO 05/06/18 21:59 5 mg HS PAOLA Administration Famotidine 40 mg 04/06/18 10:00 04/07/18 09:43 Pepcid 20 Mg PO 05/06/18 09:59 40 mg DAILY PAOLA Administration Fluticasone Propionate 0 gm 04/06/18 10:00 04/07/18 09:44 Flonase Nasal NS 05/06/18 09:59 16 gm DAILY PAOLA Administration Folic Acid 1 mg 04/06/18 10:00 04/07/18 09:43 Folate 1 Mg PO 05/06/18 09:59 1 mg DAILY PAOLA Administration Furosemide 40 mg 04/06/18 10:00 04/07/18 09:43 Lasix 40 Mg PO 05/06/18 09:59 40 mg BID DIURETIC PAOLA Administration Gemfibrozil 600 mg 04/06/18 10:00 04/07/18 09:44 Lopid 600 Mg PO 05/06/18 09:59 600 mg DAILY PAOLA Administration Glimepiride 1 mg 04/06/18 12:00 04/06/18 12:34 Amaryl 2 Mg PO 05/06/18 11:59 1 mg 1200 PAOLA Administration Glimepiride 0.5 mg 04/07/18 08:00 04/07/18 09:18 Amaryl 2 Mg PO 05/07/18 07:59 Not Given QAM@0800 PAOLA Sodium Chloride 500 mls @ 30 mls/hr 04/05/18 23:45 04/07/18 04:46 Sodium Chloride 0.9% 500 Ml IV 05/05/18 23:44 30 mls/hr .[id number] PAOLA Administration Lactated Ringer's 1,000 mls @ 50 mls/hr 04/07/18 08:30 Lactated Ringers IV 05/07/18 08:29 .Q20H PAOLA Loratadine 10 mg 04/06/18 10:00 04/07/18 09:43 Claritin 10 Mg PO 05/06/18 09:59 10 mg DAILY PAOLA Administration Ondansetron HCl 4 mg 04/05/18 22:21 Zofran 4 Mg/2 Ml Vial IV 05/05/18 22:20 Q6H PRN PRN NAUSEA/VOMITING Paroxetine HCl 20 mg 04/06/18 10:00 04/07/18 09:43 Paxil 20 Mg PO 05/06/18 09:59 20 mg DAILY PAOLA Administration Potassium Chloride 10 meq 04/06/18 10:00 04/07/18 09:43 Klor Con 10 Meq PO 05/06/18 09:59 10 meq BID PAOLA Administration Prednisone 5 mg 04/06/18 10:00 04/07/18 09:43 Deltasone 5 Mg PO 05/06/18 09:59 5 mg DAILY PAOLA Administration Quetiapine Fumarate 100 mg 04/06/18 22:00 04/06/18 22:00 Seroquel 100 Mg PO 05/06/18 21:59 100 mg HS PAOLA Administration Fluticasone/Salmeterol 2 puff 04/06/18 07:00 04/07/18 07:23 Advair Hfa 115/21 Common Canister* 05/06/18 06:59 2 puff BIDRT PAOLA Administration Discontinued Medications Generic Name Dose Route Start Last Admin Trade Name Jhonatanq PRN Reason Stop Dose Admin Albuterol/Ipratropium 3 ml 04/05/18 18:51 04/05/18 19:05 Duoneb 0.5-3 Mg/3 Ml Neb IH 04/05/18 18:52 3 ml STAT ONE Administration Albuterol/Ipratropium Confirm 04/05/18 18:58 Duoneb 0.5-3 Mg/3 Ml Neb Administered 04/05/18 18:59 Dose 3 ml IH .STK-MED ONE Polyethylene Glycol/Electrolytes 4,000 ml 04/06/18 17:15 04/06/18 17:11 Golytely Solution 4000 Ml PO 04/06/18 17:16 4,000 ml ONCE@1400 ONE Administration Intake & Output (Last 24 hours) 04/04/18 04/05/18 04/06/18 04/07/18 11:59 11:59 11:59 11:59 Intake Total 760 3000 Output Total 600 1200 Balance 160 1800 Weight 79.8 kg Laboratory Results (Last 24 hours) 04/07/18 04/07/18 04/06/18 08:13 08:00 08:21 WBC 0.8 L* RBC 2.03 L Hgb 6.8 L* Hct 21.0 L MCV 103.4 H MCH 33.4 H MCHC 32.4 RDW 22.4 H Plt Count 14 L* MPV 10.3 H Smear Path Review Sodium 147 H Potassium 3.8 Chloride 108 H Carbon Dioxide 26 Anion Gap 17.1 H BUN 26 H Creatinine 1.14 H Estimated GFR 49.4 Glucose 65 L Hemoglobin A1c Estim Average Glucose Calcium 9.1 Total Bilirubin 0.80 AST 22 ALT 16 Alkaline Phosphatase 108 Serum Total Protein 7.3 Albumin 4.3 Slides for Path Review YES YES Direct Antiglob Test 04/05/18 04/05/18 04/05/18 19:35 19:35 19:35 WBC RBC Hgb Hct MCV MCH MCHC RDW Plt Count MPV Smear Path Review Sodium Potassium Chloride Carbon Dioxide Anion Gap BUN Creatinine Estimated GFR Glucose Hemoglobin A1c 5.8 Estim Average Glucose 119.8 Calcium Total Bilirubin AST ALT Alkaline Phosphatase Serum Total Protein Albumin Slides for Path Review Direct Antiglob Test NEGATIVE Orders (Last 24 hours) Category Date Time Status Admission Status Change [Change to Full Admit] ROUTINE Care 04/06/18 11:40 Active CO2 Monitoring STAT Care 04/07/18 07:31 Completed Consent,Obtain ROUTINE Care 04/06/18 17:05 Active Isolation, Initiate & Maintain Q12H Care 04/07/18 08:47 Active Miscellaneous Nursing Order ROUTINE Care 04/06/18 17:43 Active Consult Surgery ROUTINE Cons 04/06/18 12:10 Active 1800 Calorie ADA Diet 04/07/18 Breakfast Active Discharge Routine Discharge 04/07/18 Ordered Discharge/Telephone Order Routine Discharge 04/07/18 Active CBC Urgent Lab 04/07/18 08:00 Completed CMP Urgent Lab 04/07/18 08:13 Completed PLATELETS,TO INFUSE Stat Lab 04/06/18 17:30 Completed Diclofenac Sodium Gel [Voltaren GEL] Med 04/06/18 13:00 Active 0 gm TP QID Donepezil HCl 10 mg [Aricept 10 MG] Med 04/06/18 22:00 Active 5 mg PO HS Glimepiride 2 mg [Amaryl 2 MG] Med 04/07/18 08:00 Active 0.5 mg PO QAM@0800 Glimepiride 2 mg [Amaryl 2 MG] Med 04/06/18 12:00 Active 1 mg PO 1200 Polyvinyl Alcohol Tears [Artificial Tears 15 ML] Med 04/07/18 10:00 Active 0 ml OP DAILY Quetiapine Fumarate 100 mg [Seroquel 100 MG] Med 04/06/18 22:00 Active 100 mg PO HS Ringers Solution,Lactated [Lactated Ringers] 1,000 ml Med 04/07/18 08:30 Active IV 50 mls/hr Sod Sulf/Sod/Nahco3/KCl/Peg's* [Golytely Solution 4000 Med 04/06/18 17:15 Discontinued ML] 4,000 ml PO ONCE@1400 ONE Patient Care Notes (Last 24 hours) 04/07/18 08:45 (created 04/07/18 08:58) Case Management Note by Ely Jacobo DR. CALLED TO REPORT THAT PT WILL TRANSFER TO [facility], ONCOLOGY FLOOR, C/O DR. Tiago ACE. WILL CONSULT DR. HATTIE MALDONADO (HEMATOLOGY/ONCOLOGY). PLACE IN REVERSE ISOLATION. Initialized on 04/07/18 08:58 - END OF NOTE 04/07/18 08:31 Nursing Note by Nay Lockhart Lab called and said CBC PLATELET COUNT WHITE COUNT 0.8 HGB 6.[address] PL[address] Piper he cancelled the colonscopy, and will be in to look at the Pt. I did let [facility] know of this. Initialized on 04/07/18 08:31 - END OF NOTE 04/07/18 07:02 Nursing Note by Godwin Newman Second unit of platelets infused, pt tolerated well, VS stable, post platelet count ordered Initialized on 04/07/18 07:02 - END OF NOTE 04/07/18 06:23 Nursing Note by Godwin Newman Infused 1 unit of platelets, pt tolerated well, VS stable Initialized on 04/07/18 06:23 - END OF NOTE 04/07/18 04:00 (created 04/07/18 06:31) Nursing Note by Godwin Newman Pt only able to drink 1/2 of prep, states she tried to drink as much as she could but fell asleep, assisted pt to commode, liquid not clear and brown in color Initialized on 04/07/18 06:31 - END OF NOTE 04/06/18 17:22 Nursing Note by Nay Lockhart Informed Pt. that she needs to drink all this by midnight for the prep to work. Pt. stated "I will try." Initialized on 04/06/18 17:22 - END OF NOTE 04/06/18 12:12 Nursing Note by Lori Park group contacted Initialized on 08/28/18 12:12 - END OF NOTE Patient complete blood count noted, will transfer patient to [facility] for further hematology-oncology speciality care - Vitals & Intake/Output Vital Signs: Vital Signs Temperature 97.4 F 04/07/18 07:14 Pulse Rate 92 H 04/07/18 07:28 Respiratory Rate 16 04/07/18 07:28 Blood Pressure 136/61 04/07/18 07:14 O2 Sat by Pulse Oximetry 96 04/07/18 07:28 Oxygen-Last Documented O2 Percentage 2 Liters = 28% Intake & Output: Intake & Output 04/04/18 04/05/18 04/06/18 04/07/18 11:59 11:59 11:59 11:59 Intake Total 760 3000 Output Total 600 1200 Balance 160 1800 Weight 79.8 kg - Lab Result Diagrams: 04/07/18 08:00 04/07/18 08:13 Lab Results-Last 24 Hrs: Accuchecks Date 04/06/18 Date 04/06/18 Date 04/06/18 Time 22:00 Time 16:30 Time 11:30 Accucheck Value: 173 Accucheck Value: 207 Accucheck Value: 112 Lab Results-Last 24 Hours 04/05/18 04/05/18 04/05/18 Range/Units 19:35 19:35 19:35 WBC (4.0-10.5) K/mm3 RBC (4.1-5.4) M/mm3 Hgb (12.0-16.0) gm/dl Hct (35-47) % MCV (78-100) fl MCH (26-32) pg MCHC (32-36) g/dl RDW (11.5-14.0) % Plt Count (150-450) K/mm3 MPV (6-9.5) fl Smear Path Review Sodium (137-145) mmol/L Potassium (3.5-5.1) mmol/L Chloride (98-107) mmol/L Carbon Dioxide (22-30) mmol/L Anion Gap (5-15) MEQ/L BUN (7-17) mg/dL Creatinine (0.52-1.04) mg/dL Estimated GFR ML/MIN Glucose (74-106) mg/dL Hemoglobin A1c 5.8 (4.6-5.9) % Estim Average Glucose 119.8 mg/dL Calcium (8.4-10.2) mg/dL Total Bilirubin (0.2-1.3) mg/dL AST (14-36) U/L ALT (0-35) U/L Alkaline Phosphatase (38-126) U/L Serum Total Protein (6.3-8.2) g/dL Albumin (3.5-5.0) g/dL Slides for Path Review Direct Antiglob Test NEGATIVE (NEGATIVE) 04/06/18 04/07/18 04/07/18 Range/Units 08:21 08:00 08:13 WBC 0.8 L* (4.0-10.5) K/mm3 RBC 2.03 L (4.1-5.4) M/mm3 Hgb 6.8 L* (12.0-16.0) gm/dl Hct 21.0 L (35-47) % MCV 103.4 H (78-100) fl MCH 33.4 H (26-32) pg MCHC 32.4 (32-36) g/dl RDW 22.4 H (11.5-14.0) % Plt Count 14 L* (150-450) K/mm3 MPV 10.3 H (6-9.5) fl Smear Path Review Sodium 147 H (137-145) mmol/L Potassium 3.8 (3.5-5.1) mmol/L Chloride 108 H (98-107) mmol/L Carbon Dioxide 26 (22-30) mmol/L Anion Gap 17.1 H (5-15) MEQ/L BUN 26 H (7-17) mg/dL Creatinine 1.14 H (0.52-1.04) mg/dL Estimated GFR 49.4 ML/MIN Glucose 65 L (74-106) mg/dL Hemoglobin A1c (4.6-5.9) % Estim Average Glucose mg/dL Calcium 9.1 (8.4-10.2) mg/dL Total Bilirubin 0.80 (0.2-1.3) mg/dL AST 22 (14-36) U/L ALT 16 (0-35) U/L Alkaline Phosphatase 108 (38-126) U/L Serum Total Protein 7.3 (6.3-8.2) g/dL Albumin 4.3 (3.5-5.0) g/dL Slides for Path Review YES YES Direct Antiglob Test (NEGATIVE) Micro Results-Entire Visit: Accuchecks Date 04/06/18 Date 04/06/18 Date 04/06/18 Time 22:00 Time 16:30 Time 11:30 Accucheck Value: 173 Accucheck Value: 207 Accucheck Value: 112 - Radiology Exams Ordered Rad Exams-Entire Visit: Radiology Procedures Category Date Time Status CHEST 1 VIEW (PORTABLE) Stat Exams 04/05/18 18:50 Completed - Procedures and Test Procedures and Tests throughout Hospitalization: Therapy Orders & Screens 04/05/18 18:51 Respiratory Nebulizer STAT Comment: Diagnosis: Shortness of Breath 04/05/18 19:13 Respiratory Therapy Assessment DAILY Comment: Diagnosis: Shortness of Breath 04/05/18 22:21 Oxygen NASAL CANNULA 2 lpm Comment: Diagnosis: Shortness of Breath 04/06/18 00:28 OT Screen per Nursing Assess ONCE Comment: Protocol Order Physician Instructions: Greater than 3 points order OT Admission Screening Reason For Exam: Triggered on Admission Diagnosis: anemia Open Wound/Cellutlitis/Pressure Ulcers: Yes Acute Fx/ORIF/Change in wt bearing status: No Severe MUSCULOSKELETAL pain: No ADL Dysfunction: No Acute CVA w/Hemiparesis/Hemiplegia: No Decreased Functional Mobility/Strength: No Sprain/Strain: No Acute Post-op Mobility Dysfunction: No Total Points: 5 PT Screen per Nursing Assess ONCE Comment: Protocol Order Physician Instructions: Greater than 3 points order PT Admission Screenin Reason For Exam: Triggered on Admission Diagnosis: anemia Open Wound/Cellutlitis/Pressure Ulcers: Yes Acute Fx/ORIF/Change in wt bearing status: No Severe MUSCULOSKELETAL pain: No ADL Dysfunction: No Acute CVA w/Hemiparesis/Hemiplegia: No Decreased Functional Mobility/Strength: No Sprain/Strain: No Acute Post-op Mobility Dysfunction: No Total Points: 5 RT Screen per Nursing Assess ONCE Comment: Protocol Order Physician Instructions: Greater than 3 points order RT Admission Screen Reason For Exam: Triggered on Admission Diagnosis: anemia Diagnosis: anemia Home O2: No Asthma: No CHF: Yes Home CPAP/BIPAP: No Home Nebs/MDI: Yes Total Points: 8 04/06/18 01:30 Respiratory Therapy Assessment DAILY Comment: Diagnosis: anemia 04/06/18 07:00 Respiratory MDI BID Comment: Diagnosis: anemia Discharge Exam General Appearance: no apparent distress, alert Neurologic Exam: alert, oriented x 3, cooperative, normal mood/affect, nml cerebellar function, sensation nml, No motor deficits Skin Exam: normal color, warm, dry Eye Exam: PERRL, EOMI, eyes nml inspection Ears, Nose, Throat Exam: normal ENT inspection, pharynx normal, moist mucous membranes Neck Exam: normal inspection, non-tender, supple, full range of motion Respiratory Exam: normal breath sounds, lungs clear, No respiratory distress Cardiovascular Exam: regular rate/rhythm, normal heart sounds Gastrointestinal/Abdomen Exam: soft, No tenderness, No mass Extremity Exam: normal inspection, normal range of motion Back Exam: normal inspection, normal range of motion, No CVA tenderness, No vertebral tenderness Pelvic Exam: deferred Rectal Exam: deferred Final Diagnosis/Problem List - Final Discharge Diagnosis/Problem (1) Pancytopenia, acquired Current Visit: Yes Status: Acute Assessment & Plan: will transfer patient for further care (2) Anemia Current Visit: Yes Status: Acute (3) Anemia of chronic renal failure Current Visit: Yes Status: Chronic (4) Hypertensive heart AND renal disease Current Visit: Yes Status: Chronic (5) Rheumatoid arthritis of hand joint Current Visit: Yes Status: Chronic - Discharge Discharge Date: 04/07/18 Disposition: DC TO [facility] Condition: Stable Prescriptions: No Action Potassium Chloride 10 Meq Tab* [Klor Con 10 MEQ] 10 meq PO BID PARoxetine HCl [Paroxetine HCl] 20 mg PO DAILY Gemfibrozil 600 mg [Lopid 600 mg] 600 mg PO DAILY Quetiapine Fumarate [Seroquel Xr] 100 mg PO HS Hydrocodone Bit/Acetaminophen [Gardner 5/325Mg] 1 tab PO Q6H PRN PRN PRN Reason: Pain Famotidine 20 mg [Pepcid 20 MG] 40 mg PO DAILY Folic Acid 1 mg PO DAILY Furosemide 40 mg [Lasix 40 MG] 40 mg PO BID Ipratropium/Albuterol Sulfate [Iprat-Albut 0.5-3(2.5) mg/3 ml] 3 ml IH UD PRN PRN Reason: copd Prednisone 10 mg [Deltasone 10 mg] 5 mg PO DAILY Fluticasone/Vilanterol [Breo Ellipta 100-25 Mcg INH] 1 each IH BID Donepezil HCl 10 mg [Aricept 10 MG] 5 mg PO HS Docusate Sodium 100 mg [Colace 100 MG] 100 mg PO BID Cetirizine HCl [Zyrtec] 10 mg PO DAILY Diclofenac Sodium Gel [Voltaren GEL] 2 gm TP QID Glimepiride 1 mg PO DAILY Polyvinyl Alcohol [Akwa Tears] 1 drop OP DAILY Glimepiride 0.5 mg PO DAILY Albuterol Sulfate [Ventolin Hfa] 1 puff IH QID Fluticasone Propionate [Flonase NASAL] 1 spray NS DAILY Instructions: Autoimmune Hemolytic Anemia Follow up with: HERSON SHARMA [NON-STAFF PHY W/O PRIVILEGES] - 08/06/18 11:15 am
== END 2018-04-07 11:27 | disposition short-term general hospital (02) | DRG 812 ==
LOC: ED 17:56 → MED SURG 22:16 → OBSVTOIN 04-06 11:40
PROVIDERS: ADMIT General Practice; ATTEND General Practice
DX: D63.8 Anemia in other chronic diseases classified elsewhere (principal); I13.0 Hypertensive heart and chronic kidney disease with heart failure and stage 1 through stage 4 chronic kidney disease, or unspecified chronic kidney disease; D64.9 Anemia, unspecified; Z86.73 Personal history of transient ischemic attack (TIA), and cerebral infarction without residual deficits; F41.8 Other specified anxiety disorders; I50.9 Heart failure, unspecified; E78.00 Pure hypercholesterolemia, unspecified; I10 Essential (primary) hypertension; J45.909 Unspecified asthma, uncomplicated; E11.9 Type 2 diabetes mellitus without complications; N18.9 Chronic kidney disease, unspecified; M19.90 Unspecified osteoarthritis, unspecified site; D63.1 Anemia in chronic kidney disease; M81.0 Age-related osteoporosis without current pathological fracture; M06.9 Rheumatoid arthritis, unspecified; Z85.828 Personal history of other malignant neoplasm of skin; Z79.899 Other long term (current) drug therapy
CPT/HCPCS: 36000; 36415; 71045; 80048; 80053; 82270; 82962; 83880; 84484; 85025; 85027; 85379; 85610; 86850; 86880; 86900; 86901; 86922; 87210; 93268; 94250; 94640; 94760; 99285; P9016; P9034; 36430; A9270-GY; G0378

== ENCOUNTER 2018-11-26 17:31 | Inpatient (IN) | payer MEDICARE ==
[2018-11-26] MEDS ORDERED: Levofloxacin 500MG/100ML D5W 500 MG/100 ML BAG IV STA (18:00)
[2018-11-26] MEDS ORDERED: DUONEB 0.5-3 MG/3 ml Neb IH ONE ×3 (18:10→23:14)
--- NOTE | 2018-11-26 18:11 | ERPHSYRPT ---
- History of Present Illness Time Seen by Provider: 11/26/18 17:45 Source: patient Exam Limitations: clinical condition Patient Subjective Stated Complaint: increasing confusion and loss of time for past 3 days, hx of UTIs, feels dehydrated Triage Nursing Assessment: Arrived by EMS, healthcare staff has noticed confusion for the past 3 days, vitals wnl, bilateral lower extremities edema and red, A&O x3, pulses normal, walks with a cane Physician History: PATIENT WITH A HISTORY OF CONGESTIVE HEART FAILURE, HYPERTENSION, TYPE 2 DIABETES AND RHEMUMATOID ARTHRITIS COMPLAINS OF A PRODUCTIVE COUGH X 3 DAYS, SHORTNESS OF BREATH, AND CONFUSION PER ASSISTANCE LIVING STAFF. DENIES FEVER, CHILLS OR CHEST PAIN. Activities at Onset: none Severity of Dyspnea-Max: moderate Severity of Dyspnea-Current: moderate Possible Cause: occasional episodes Associated Symptoms: cough International travel in last 2 weeks: No Allergies/Adverse Reactions: cefaclor [From Ceclor] Allergy (Intermediate, Verified 11/26/18 17:51) shellfish derived Allergy (Intermediate, Verified 11/26/18 17:51) sulfamethoxazole Allergy (Intermediate, Verified 11/26/18 17:51) venom-honey bee [bee venom (honey bee)] Allergy (Intermediate, Verified 17:51) cephalexin [From Keflex] Allergy (Mild, Verified 11/26/18 17:51) mouth sores Home Medications: Gemfibrozil 600 mg [Lopid 600 mg] 600 mg PO DAILY 01/16/15 [History] PARoxetine HCl [Paroxetine HCl] 20 mg PO DAILY 01/16/15 [History] Potassium Chloride 10 Meq Tab* [Klor Con 10 MEQ] 10 meq PO BID 01/16/15 [ History] Quetiapine Fumarate [Seroquel Xr] 100 mg PO HS 01/16/15 [History] Hydrocodone Bit/Acetaminophen [[place] 5/325Mg] 1 tab PO Q6H PRN PRN 02/13/16 [ History] Cetirizine HCl [Zyrtec] 10 mg PO DAILY 03/06/17 [History] Diclofenac Sodium Gel [Voltaren GEL] 2 gm TP QID 03/06/17 [History] Docusate Sodium 100 mg [Colace 100 MG] 100 mg PO BID 03/06/17 [History] Donepezil HCl 10 mg [Aricept 10 MG] 5 mg PO HS 03/06/17 [History] Famotidine 20 mg [Pepcid 20 MG] 40 mg PO DAILY 03/06/17 [History] Fluticasone/Vilanterol [Breo Ellipta 100-25 Mcg INH] 1 each IH BID 03/06/17 [ History] Folic Acid 1 mg PO DAILY 03/06/17 [History] Furosemide 40 mg [Lasix 40 MG] 40 mg PO DAILY 03/06/17 [History] Glimepiride 1 mg PO DAILY 03/06/17 [History] Ipratropium/Albuterol Sulfate [Iprat-Albut 0.5-3(2.5) mg/3 ml] 3 ml IH UD PRN [History] Prednisone 10 mg [Deltasone 10 mg] 10 mg PO DAILY 03/06/17 [History] Polyvinyl Alcohol [Akwa Tears] 1 drop OP DAILY 04/05/18 [History] Fluticasone Propionate [Flonase NASAL] 1 spray NS DAILY 04/06/18 [History] Adalimumab [Humira(Cf) Pen] 1 unit SQ UD 11/26/18 [History] Albuterol/Ipratropium 3ml Neb* [DUONEB 0.5-3 MG/3 ml Neb] 3 ml IH QID [History] Amlodipine Besylate 5 mg [Norvasc 5 mg] 2.5 mg PO DAILY 11/26/18 [History] Calcium Carbonate/Vitamin D3 [Oyster Shell Calcium-Vit D Tab] 1 each PO TID [History] Darifenacin Hydrobromide [Darifenacin ER] 7.5 mg PO DAILY 11/26/18 [History] Losartan Potassium 50 mg [Cozaar 50 MG] 100 mg PO DAILY 11/26/18 [History] Omeprazole 20 mg PO DAILY 11/26/18 [History] Torsemide 20 mg [Demadex 20 mg] 10 mg PO DAILY 11/26/18 [History] Hx Tetanus, Diphtheria Vaccination/Date Given: Yes Hx Influenza Vaccination/Date Given: Yes Hx Pneumococcal Vaccination/Date Given: Yes - Review of Systems Constitutional: No Fever, No Chills Eyes: No Symptoms Ears, Nose, & Throat: No Symptoms Respiratory: Cough, Dyspnea Cardiac: No Symptoms, No Chest Pain, No Edema, No Syncope Abdominal/Gastrointestinal: No Symptoms, No Abdominal Pain, No Nausea, No Vomiting, No Diarrhea Genitourinary Symptoms: No Symptoms, No Dysuria Musculoskeletal: No Symptoms, No Back Pain, No Neck Pain Skin: No Rash Neurological: No Dizziness, No Focal Weakness, No Sensory Changes Psychological: No Symptoms Endocrine: No Symptoms All Other Systems: Reviewed and Negative - Past Medical History Pertinent Past Medical History: Yes Neurological History: Stroke, TIA ENT History: Cataracts Cardiac History: Congestive Heart Failure, High Cholesterol, Hypertension Respiratory History: Asthma, Pneumonia Endocrine Medical History: Diabetes Type II Musculoskeletal History: Osteoarthritis, Osteoporosis, Rheumatoid Arthritis GI Medical History: Esophageal Disorder, Other History: Renal Disease Psycho-Social History: Anxiety, Depression Female Reproductive Disorders: No Pertinent History Other Medical History: Anemia. broken shoulder, 11/19. hiatal hernia. skin cancer- nose - Past Surgical History Past Surgical History: Yes Neuro Surgical History: No Pertinent History Cardiac: No Pertinent History Respiratory: No Pertinent History Gastrointestinal: No Pertinent History Genitourinary: No Pertinent History Musculoskeletal: Joint Replacement Female Surgical History: Hysterectomy Other Surgical History: bilateral Knee replacement x2, right hip replacement, bladder lift - Social History Smoking Status: Former smoker Exposure to second hand smoke: No Drug Use: none Patient Lives Alone: Yes - Nursing Vital Signs Nursing Vital Signs: Initial Vital Signs Temperature 97.8 F 11/26/18 17:32 Pulse Rate 100 H 11/26/18 17:32 Blood Pressure 143/71 11/26/18 17:32 O2 Sat by Pulse Oximetry 95 11/26/18 17:32 Pain Scale Pain Intensity 7 - Physical Exam General Appearance: no apparent distress Eye Exam: PERRL/EOMI Ears, Nose, Throat Exam: hearing grossly normal Neck Exam: normal inspection, supple Respiratory Exam: diminished breath sounds, other (DENIES WHEEZES, RHONCHI) Cardiovascular/Chest Exam: normal heart sounds, regular rate/rhythm Abdominal/Gastrointestinal Exam: soft, normal bowel sounds, No tenderness, No distention, No mass Extremity Exam: non-tender, normal range of motion, normal inspection, no calf tenderness, no pedal edema Peripheral Pulses Exam: carotid (R): 2+, carotid (L): 2+, femoral (R): 2+, femoral (L): 2+, dorsalis-pedis (R): 2+, dorsalis-pedis (L): 2+ Neurologic Exam: alert, oriented x 3, cooperative, 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, sensation nml, No motor deficits Skin Exam: normal color, warm, No dry SpO2 Interpretation: normal SpO2: 95 O2 Delivery: Room Air - Course EKG Interpreted by Me: RATE, Sinus Rhythm, Sinus Tach, Left [place] Deviation, 1st degree AV Block - Radiology Exams Chest X-ray Interpretation: Interpreted by me (NO EVIDENCE OF INFILTRATES) - CT Exams Head CT Interpretation: Tele-radiologist Report (NO DEFINITE ACUTE INTRACRANIAL FINDINGS, THERE IS BIFRONTAL ENCEPHALOMALACIA) Ordered Tests: Active Orders 24 hr Category Date Time Status Form Tamper Operator STAT Care 11/26/18 18:02 Active Clean Catch Urine Specimen STAT Care 11/26/18 18:00 Active EKG-ER Only STAT Care 11/26/18 18:00 Active IV Insertion STAT Care 11/26/18 18:00 Active Oxygen-ED Only Nasal Cannula 2 lpm Care 11/26/18 18:00 Active CHEST 1 VIEW (PORTABLE) Stat Exams 11/26/18 18:02 Taken HEAD WITHOUT CONTRAST [CT] Stat Exams 11/26/18 18:11 Taken BLOOD CULTURE Stat Lab 11/26/18 18:45 Received CBC W DIFF Stat Lab 11/26/18 18:45 Completed CMP Stat Lab 11/26/18 18:45 Completed Lactic Acid Stat Lab 11/26/18 18:20 Completed Lactic Acid Stat Lab 11/26/18 20:26 Ordered PROTIME WITH INR Stat Lab 11/26/18 18:45 Completed TROPONIN Q3H Lab 11/26/18 18:45 Completed TROPONIN Q3H Lab 11/26/18 21:15 Ordered TROPONIN Q3H Lab 11/27/18 00:15 Ordered TROPONIN Q3H Lab 11/27/18 03:15 Ordered TROPONIN Q3H Lab 11/27/18 06:15 Ordered UA W/RFX UR CULTURE Stat Lab 11/26/18 19:01 Completed Peak Expiratory Flow Rate ONCE RT 11/26/18 18:37 Active Respiratory Nebulizer STAT RT 11/26/18 18:10 Completed Respiratory Therapy Assessment DAILY RT 11/26/18 18:30 Active Medication Summary Generic Name Dose Route Start Last Admin Trade Name Freq PRN Reason Stop Dose Admin Sodium Chloride 1,000 mls @ 500 mls/hr 11/26/18 19:15 11/26/18 19:36 Sodium Chloride 0.9% 1000 Ml IV 12/26/18 19:14 500 mls/hr .Q2H PAOLA Administration Discontinued Medications Generic Name Dose Route Start Last Admin Trade Name Peace PRN Reason Stop Dose Admin Hydrocodone Bitart/Acetaminophen 1 tab 11/26/18 18:50 11/26/18 19:23 [place] 5/325 Mg PO 11/26/18 18:51 1 tab STAT ONE Administration Hydrocodone Bitart/Acetaminophen Confirm 11/26/18 19:06 [place] 5/325 Mg Administered 11/26/18 19:07 Dose 1 tab .ROUTE .STK-MED ONE Albuterol/Ipratropium 3 ml 11/26/18 18:10 11/26/18 18:34 Duoneb 0.5-3 Mg/3 Ml Neb IH 11/26/18 18:11 3 ml STAT ONE Administration Albuterol/Ipratropium Confirm 11/26/18 18:17 Duoneb 0.5-3 Mg/3 Ml Neb Administered 11/26/18 18:18 Dose 3 ml IH .STK-MED ONE Levofloxacin/Dextrose 500 mg in 100 mls @ 100 mls/hr 11/26/18 18:00 11/26/18 19:29 Levofloxacin 500mg/100ml D5w IV 11/26/18 18:59 Infused STAT STA Infusion Levofloxacin/Dextrose Confirm 11/26/18 18:27 Levofloxacin 500mg/100ml D5w Administered 11/26/18 18:28 Dose 500 mg in 100 mls @ ud IV .STK-MED ONE Lab/Rad Data: Laboratory Result Diagrams 11/26/18 18:45 11/26/18 18:45 Laboratory Results 11/26/18 11/26/18 11/26/18 Range/Units Unknown 19:01 18:45 WBC (4.0-10.5) K/mm3 RBC (4.1-5.4) M/mm3 Hgb (12.0-16.0) gm/dl Hct (35-47) % MCV (78-100) fl MCH (26-32) pg MCHC (32-36) g/dl RDW (11.5-14.0) % Plt Count (150-450) K/mm3 MPV (6-9.5) fl Gran % (36.0-66.0) % Eos # (Auto) (0-0.5) Absolute Lymphs (auto) (1.0-4.6) Absolute Monos (auto) (0.0-1.3) Lymphocytes % (24.0-44.0) % Monocytes % (0.0-12.0) % Eosinophils % (0.00-5.0) % Basophils % (0.0-0.4) % Absolute Granulocytes (1.4-6.9) Basophils # (0-0.4) PT (9.95-12.35) SECONDS INR (0.8-3.0) Sodium (137-145) mmol/L Potassium (3.5-5.1) mmol/L Chloride (98-107) mmol/L Carbon Dioxide (22-30) mmol/L Anion Gap (5-15) MEQ/L BUN (7-17) mg/dL Creatinine (0.52-1.04) mg/dL Estimated GFR ML/MIN Glucose (74-106) mg/dL Lactic Acid (0.4-2.0) Calcium (8.4-10.2) mg/dL Total Bilirubin (0.2-1.3) mg/dL AST (14-36) U/L ALT (0-35) U/L Alkaline Phosphatase (38-126) U/L Troponin I 0.013 (0.000-0.034) ng/mL Serum Total Protein (6.3-8.2) g/dL Albumin (3.5-5.0) g/dL Urine Color YELLOW (YELLOW) Urine Appearance SLIGHTLY CLOUDY (CLEAR) Urine pH 5.0 (5-6) Ur Specific Kermit 1.010 (1.005-1.025) Urine Protein 100 (Negative) Urine Ketones NEGATIVE (NEGATIVE) Urine Blood NEGATIVE (0-5) Shiv/ul Urine Nitrite NEGATIVE (NEGATIVE) Urine Bilirubin NEGATIVE (NEGATIVE) Urine Urobilinogen NEGATIVE (0-1) mg/dL Ur Leukocyte Esterase NEGATIVE (NEGATIVE) Urine WBC (Auto) 3-5 (0-5) /HPF Urine RBC (Auto) NONE (0-2) /HPF U Hyaline Cast (Auto) 6-10 (0-2) /LPF U Epithel Cells (Auto) RARE (FEW) /HPF Urine Bacteria (Auto) NONE (NEGATIVE) /HPF Urine Mucus (Auto) SLIGHT (NEGATIVE) /HPF Urine Culture Reflexed NO (NO) Urine Glucose 150 (NEGATIVE) mg/dL Influenza Type A Ag NEGATIVE (NEGATIVE) Influenza Type B Ag NEGATIVE (NEGATIVE) RSV (PCR) NEGATIVE (Negative) 11/26/18 11/26/18 11/26/18 Range/Units 18:45 18:45 18:45 WBC 7.3 (4.0-10.5) K/mm3 RBC 3.15 L (4.1-5.4) M/mm3 Hgb 10.2 L (12.0-16.0) gm/dl Hct 32.5 L (35-47) % MCV 103.2 H (78-100) fl MCH 32.3 H (26-32) pg MCHC 31.4 L (32-36) g/dl RDW 14.6 H (11.5-14.0) % Plt Count 169 (150-450) K/mm3 MPV 9.9 H (6-9.5) fl Gran % 57.9 (36.0-66.0) % Eos # (Auto) 0.32 (0-0.5) Absolute Lymphs (auto) 1.93 (1.0-4.6) Absolute Monos (auto) 0.80 (0.0-1.3) Lymphocytes % 26.4 (24.0-44.0) % Monocytes % 10.9 (0.0-12.0) % Eosinophils % 4.4 (0.00-5.0) % Basophils % 0.4 (0.0-0.4) % Absolute Granulocytes 4.23 (1.4-6.9) Basophils # 0.03 (0-0.4) PT 13.0 H (9.95-12.35) SECONDS INR 1.12 (0.8-3.0) Sodium 137 (137-145) mmol/L Potassium 3.5 (3.5-5.1) mmol/L Chloride 96 L (98-107) mmol/L Carbon Dioxide 29 (22-30) mmol/L Anion Gap 15.1 H (5-15) MEQ/L BUN 30 H (7-17) mg/dL Creatinine 2.13 H (0.52-1.04) mg/dL Estimated GFR 24.0 ML/MIN Glucose 340 H (74-106) mg/dL Lactic Acid (0.4-2.0) Calcium 10.6 H (8.4-10.2) mg/dL Total Bilirubin 0.60 (0.2-1.3) mg/dL AST 43 H (14-36) U/L ALT 28 (0-35) U/L Alkaline Phosphatase 110 (38-126) U/L Troponin I (0.000-0.034) ng/mL Serum Total Protein 7.2 (6.3-8.2) g/dL Albumin 3.8 (3.5-5.0) g/dL Urine Color (YELLOW) Urine Appearance (CLEAR) Urine pH (5-6) Ur Specific [place] (1.005-1.025) Urine Protein (Negative) Urine Ketones (NEGATIVE) Urine Blood (0-5) Shiv/ul Urine Nitrite (NEGATIVE) Urine Bilirubin (NEGATIVE) Urine Urobilinogen (0-1) mg/dL Ur Leukocyte Esterase (NEGATIVE) Urine WBC (Auto) (0-5) /HPF Urine RBC (Auto) (0-2) /HPF U Hyaline Cast (Auto) (0-2) /LPF U Epithel Cells (Auto) (FEW) /HPF Urine Bacteria (Auto) (NEGATIVE) /HPF Urine Mucus (Auto) (NEGATIVE) /HPF Urine Culture Reflexed (NO) Urine Glucose (NEGATIVE) mg/dL Influenza Type A Ag (NEGATIVE) Influenza Type B Ag (NEGATIVE) RSV (PCR) (Negative) 11/26/18 Range/Units 18:20 WBC (4.0-10.5) K/mm3 RBC (4.1-5.4) M/mm3 Hgb (12.0-16.0) gm/dl Hct (35-47) % MCV (78-100) fl MCH (26-32) pg MCHC (32-36) g/dl RDW (11.5-14.0) % Plt Count (150-450) K/mm3 MPV (6-9.5) fl Gran % (36.0-66.0) % Eos # (Auto) (0-0.5) Absolute Lymphs (auto) (1.0-4.6) Absolute Monos (auto) (0.0-1.3) Lymphocytes % (24.0-44.0) % Monocytes % (0.0-12.0) % Eosinophils % (0.00-5.0) % Basophils % (0.0-0.4) % Absolute Granulocytes (1.4-6.9) Basophils # (0-0.4) PT (9.95-12.35) SECONDS INR (0.8-3.0) Sodium (137-145) mmol/L Potassium (3.5-5.1) mmol/L Chloride (98-107) mmol/L Carbon Dioxide (22-30) mmol/L Anion Gap (5-15) MEQ/L BUN (7-17) mg/dL Creatinine (0.52-1.04) mg/dL Estimated GFR ML/MIN Glucose (74-106) mg/dL Lactic Acid 2.5 H (0.4-2.0) Calcium (8.4-10.2) mg/dL Total Bilirubin (0.2-1.3) mg/dL AST (14-36) U/L ALT (0-35) U/L Alkaline Phosphatase (38-126) U/L Troponin I (0.000-0.034) ng/mL Serum Total Protein (6.3-8.2) g/dL Albumin (3.5-5.0) g/dL Urine Color (YELLOW) Urine Appearance (CLEAR) Urine pH (5-6) Ur Specific [place] (1.005-1.025) Urine Protein (Negative) Urine Ketones (NEGATIVE) Urine Blood (0-5) Shiv/ul Urine Nitrite (NEGATIVE) Urine Bilirubin (NEGATIVE) Urine Urobilinogen (0-1) mg/dL Ur Leukocyte Esterase (NEGATIVE) Urine WBC (Auto) (0-5) /HPF Urine RBC (Auto) (0-2) /HPF U Hyaline Cast (Auto) (0-2) /LPF U Epithel Cells (Auto) (FEW) /HPF Urine Bacteria (Auto) (NEGATIVE) /HPF Urine Mucus (Auto) (NEGATIVE) /HPF Urine Culture Reflexed (NO) Urine Glucose (NEGATIVE) mg/dL Influenza Type A Ag (NEGATIVE) Influenza Type B Ag (NEGATIVE) RSV (PCR) (Negative) - Progress Progress Note: 11/26/18 20:44 ADMINISTERED DUONEB AEROSOL TX, IV NORMAL SALINE 500ML/HR LEVAQUIN 500MG IVPB AFTER 2 SETS OF BLOOD CULTURES OBTAINED.,LACTIC ACID 2.5 Blood Culture(s) Obtained: Yes Antibiotics given: Yes Discussed with Dr.: Harrington (DISCUSSED WITH DR HARRINGTON AT FOR OBSERVATION) - Departure Departure Disposition: Observation Clinical Impression: ACUTE EXACERBATION COPD, CONFUSION Condition: Stable Critical Care Time: No Referrals: BIANCA GOSS [Primary Care Provider] -
[2018-11-26 18:26] LABS: Lactic Acid 2.5 (0.4-2.0)
[2018-11-26] MEDS ORDERED: Levofloxacin 500MG/100ML D5W 500 MG/100 ML BAG IV ONE (18:27)
[2018-11-26] MEDS ORDERED: NORCO 5/325 MG PO ONE (18:50)
[2018-11-26] MEDS ORDERED: NORCO 5/325 MG ONE (19:06)
[2018-11-26 19:14] LABS: BASOPHIL % 0.4 % (0.0-0.4); Basophil (Absolute #) 0.03 (0-0.4); Eosinophil % 4.4 % (0.00-5.0); Eosinophil (Absolute #) 0.32 (0-0.5); Granulocyte Absolute (ANC) 4.23 (1.4-6.9); Granulocytes % 57.9 % (36.0-66.0); Hematocrit 32.5 % (35-47); Hemoglobin 10.2 gm/dl (12.0-16.0); Lymphocyte (Absolute #) 1.93 (1.0-4.6); Lymphocytes % 26.4 % (24.0-44.0); Mean Cell Volume 103.2 fl (78-100); Mean Corpuscular Hgb Concent. 31.4 g/dl (32-36); Mean Platelet Volume 9.9 fl (6-9.5); Monocytes % 10.9 % (0.0-12.0); Platelet Count 169 K/mm3 (150-450); Red Blood Count 3.15 M/mm3 (4.1-5.4); Red Cell Distribution Width 14.6 % (11.5-14.0); White Blood Count 7.3 K/mm3 (4.0-10.5)
[2018-11-26] MEDS ORDERED: Sodium Chloride 0.9% 1000 ML 1,000 ML IV SCH ×2 (19:15→21:28)
[2018-11-26 19:16] LABS: Mean Corpuscular Hemoglobin 32.3 pg (26-32)
[2018-11-26 19:16] LABS: Appearance SLIGHTLY CLOUDY (CLEAR); Bilirubin NEGATIVE (NEGATIVE); Blood NEGATIVE Ery/ul (0-5); Epithelial Cells RARE /HPF (FEW); Glucose 150 mg/dL (NEGATIVE); Ketones NEGATIVE (NEGATIVE); Leukocyte Esterase NEGATIVE (NEGATIVE); Mucus SLIGHT /HPF (NEGATIVE); Nitrite NEGATIVE (NEGATIVE); Protein,Urine Dip 100 (Negative); Urobilinogen NEGATIVE mg/dL (0-1)
[2018-11-26 19:30] LABS: INR 1.12 (0.8-3.0)
[2018-11-26] MEDS ORDERED: Sodium Chloride 0.9% 1000 ML 1,000 ML ONE (19:32)
[2018-11-26 19:34] LABS: ALBUMIN 3.8 g/dL (3.5-5.0); ANION GAP 15.1 MEQ/L (5-15); BILIRUBIN,TOTAL 0.6 mg/dL (0.2-1.3); Calcium 10.6 mg/dL (8.4-10.2); Creatinine 1 2.13 mg/dL (0.52-1.04); Potassium 3.5 mmol/L (3.5-5.1); Total Protein 7.2 g/dL (6.3-8.2)
[2018-11-26 20:15] LABS: INFLUENZA A NEGATIVE (NEGATIVE); INFLUENZA B NEGATIVE (NEGATIVE); RESPIRATORY SYNCTIAL VIRUS NEGATIVE (Negative)
[2018-11-26] MEDS ORDERED: NovoLIN R ONE (20:44)
[2018-11-26] MEDS ORDERED: NovoLIN R IV ONE (20:49)
[2018-11-26 20:55] LABS: Lactic Acid 2.2 (0.4-2.0)
[2018-11-26] MEDS ORDERED: Xopenex 1.25 MG/0.5 ML UD NEBULE IH PRN (21:28)
[2018-11-26] MEDS ORDERED: DUONEB 0.5-3 MG/3 ml Neb IH SCH (23:00)
--- NOTE | 2018-11-26 23:12 | XRAY ---
Indication: Cough 3 days. Weakness. Comparison: April 05, 2018. Portable chest unchanged again hyperinflated with lingular atelectasis/scarring. Remaining heart and lungs unremarkable. Bony thorax intact again with mild osteopenia, degenerative changes, and old right humeral neck fracture. Impression: Stable nonacute chest with chronic features.
[2018-11-27] MEDS: Aricept 10 MG PO SCH ×2 (00:26→21:35)
[2018-11-27] MEDS: Seroquel 100 MG PO SCH ×2 (00:28→21:35)
[2018-11-27] MEDS: Klor Con 10 MEQ PO SCH ×3 (00:28→21:34)
[2018-11-27] MEDS: Colace 100 MG PO SCH ×3 (00:29→21:34)
[2018-11-27] MEDS: solu-MEDROL 125 MG IV SCH ×5 (00:31→23:44)
[2018-11-27] MEDS: NORCO 5/325 MG PO PRN ×4 (01:40→23:44)
[2018-11-27] MEDS: NovoLOG Insulin SQ PRN ×3 (07:37→17:18)
--- NOTE | 2018-11-27 07:54 | XRAY ---
Indication: Confusion. Weakness. Multiple contiguous axial images obtained through the head without contrast. Comparison: February 13, 2016. Stable age-appropriate global atrophy and mild periventricular degenerative micro-ischemia bilaterally. New patchy bilateral occipital lobe subcortical hypoattenuations without mass effect, probable old infarcts. No acute intracranial hemorrhage, abnormal extra-axial fluid collection, or mass effect. Fourth ventricle is midline without hydrocephalus. Bony calvarium intact. Partially visualized right maxillary sinus 1 cm polyp/retention cyst. Remaining visualized paranasal sinuses and mastoid air cells are clear. Impression: 1. Again normal aging brain including atrophy and degenerative micro-ischemia. 2. New bilateral occipital lobe subcortical hypoattenuations, probable old infarcts. MRI may yield further information if there remains further clinical concern. 3. No acute intracranial abnormalities. 4. Incidental right maxillary sinus polyp/retention cyst. Comment: Preliminary interpretation was made by [facility]. No discrepancy. CTDI 67.80
[2018-11-27] MEDS: Amaryl 2 MG PO SCH (08:53)
[2018-11-27] MEDS: NORVASC 5 MG PO SCH (09:47)
[2018-11-27] MEDS: Lasix 40 MG PO SCH (09:47)
[2018-11-27] MEDS: Cozaar 50 MG PO SCH (09:48)
[2018-11-27] MEDS: Pepcid 20 MG PO SCH (09:48)
[2018-11-27] MEDS: Levaquin 250MG/50ML D5W 250 MG/50 ML BAG IV SCH (09:53)
[2018-11-27] MEDS ORDERED: Tessalon Perles 100 MG PO PRN (09:55)
[2018-11-27] MEDS ORDERED: DEMADEX 20 MG PO SCH (10:00)
[2018-11-27] MEDS: Tessalon Perles 100 MG PO PRN (10:03)
[2018-11-27] MEDS: DUONEB 0.5-3 MG/3 ml Neb IH SCH ×5 (10:53→19:24)
[2018-11-27] MEDS ORDERED: Lasix 40 MG PO SCH (11:00)
[2018-11-27] MEDS ORDERED: NORVASC 5 MG PO SCH (11:00)
[2018-11-27] MEDS: FOLATE 1 MG PO SCH (11:28)
[2018-11-27] MEDS: Voltaren GEL TP SCH ×4 (11:29→21:46)
[2018-11-27] MEDS: Artificial Tears 15 ML OP SCH (11:31)
[2018-11-27] MEDS: Flonase NASAL NS SCH (11:31)
[2018-11-27] MEDS: Protonix 40MG Tablet PO SCH (11:32)
[2018-11-27] MEDS: Advair Hfa 115/21 Common canister IH SCH ×2 (14:28→19:26)
[2018-11-27] MEDS ORDERED: NovoLOG Insulin SQ ONE ×2 (19:40→21:00)
[2018-11-27] MEDS ORDERED: Lantus Insulin SQ ONE (21:00)
[2018-11-28] MEDS: Tessalon Perles 100 MG PO PRN ×3 (03:17→21:14)
[2018-11-28 05:43] LABS: Basophil (Absolute #) 0 (0-0.4); Eosinophil % 0.1 % (0.00-5.0); Eosinophil (Absolute #) 0.01 (0-0.5); Granulocytes % 91.4 % (36.0-66.0); Hematocrit 28.1 % (35-47); Hemoglobin 8.8 gm/dl (12.0-16.0); Lymphocyte (Absolute #) 0.39 (1.0-4.6); Lymphocytes % 5.7 % (24.0-44.0); Mean Cell Volume 102.2 fl (78-100); Mean Corpuscular Hgb Concent. 31.3 g/dl (32-36); Mean Platelet Volume 9.9 fl (6-9.5); Monocyte (Absolute #) 0.19 (0.0-1.3); Monocytes % 2.8 % (0.0-12.0); Platelet Count 131 K/mm3 (150-450); Red Blood Count 2.75 M/mm3 (4.1-5.4); Red Cell Distribution Width 13.9 % (11.5-14.0); White Blood Count 6.8 K/mm3 (4.0-10.5)
[2018-11-28 05:51] LABS: ANION GAP 15.2 MEQ/L (5-15); Calcium 8.9 mg/dL (8.4-10.2); Creatinine 1 2.02 mg/dL (0.52-1.04); Potassium 3.7 mmol/L (3.5-5.1)
[2018-11-28] MEDS: solu-MEDROL 125 MG IV SCH ×3 (06:04→21:20)
[2018-11-28] MEDS: NORCO 5/325 MG PO PRN ×2 (06:05→19:27)
[2018-11-28 06:30] LABS: Slide Review 1 YES
[2018-11-28] MEDS: NovoLOG Insulin SQ PRN ×3 (07:36→21:12)
[2018-11-28] MEDS: DUONEB 0.5-3 MG/3 ml Neb IH SCH ×4 (08:32→19:42)
[2018-11-28] MEDS: Advair Hfa 115/21 Common canister IH SCH ×2 (08:33→19:43)
[2018-11-28] MEDS: Levaquin 250MG/50ML D5W 250 MG/50 ML BAG IV SCH (09:55)
[2018-11-28] MEDS: FOLATE 1 MG PO SCH (09:56)
[2018-11-28] MEDS: Amaryl 2 MG PO SCH (09:56)
[2018-11-28] MEDS: NORVASC 5 MG PO SCH (09:56)
[2018-11-28] MEDS: Klor Con 10 MEQ PO SCH ×2 (09:56→21:13)
[2018-11-28] MEDS: Protonix 40MG Tablet PO SCH (09:57)
[2018-11-28] MEDS: Paxil 20 MG PO SCH (09:57)
[2018-11-28] MEDS: Artificial Tears 15 ML OP SCH (09:58)
[2018-11-28] MEDS: Colace 100 MG PO SCH ×2 (09:58→21:13)
[2018-11-28] MEDS: Pepcid 20 MG PO SCH (09:58)
[2018-11-28] MEDS: Lasix 40 MG PO SCH (09:58)
[2018-11-28] MEDS ORDERED: Pepcid 20 MG PO SCH (10:00)
[2018-11-28] MEDS: Flonase NASAL NS SCH (10:00)
[2018-11-28] MEDS: Voltaren GEL TP SCH ×4 (10:01→21:21)
[2018-11-28] MEDS: Cozaar 50 MG PO SCH (10:01)
[2018-11-28] MEDS ORDERED: NovoLOG Insulin SQ ONE ×2 (11:24→19:27)
[2018-11-28] MEDS ORDERED: Lantus Insulin SQ ONE (11:40)
[2018-11-28] MEDS: Seroquel 100 MG PO SCH (21:14)
[2018-11-28] MEDS: Aricept 10 MG PO SCH (21:14)
[2018-11-29] MEDS: Tessalon Perles 100 MG PO PRN ×2 (00:07→07:51)
[2018-11-29] MEDS: solu-MEDROL 125 MG IV SCH ×3 (05:30→22:12)
[2018-11-29] MEDS: NORCO 5/325 MG PO PRN ×3 (05:30→22:12)
[2018-11-29 05:58] LABS: Hematocrit 28.8 % (35-47); Mean Cell Volume 102.1 fl (78-100); Mean Corpuscular Hemoglobin 31.9 pg (26-32); Mean Corpuscular Hgb Concent. 31.3 g/dl (32-36); Mean Platelet Volume 9.8 fl (6-9.5); Platelet Count 140 K/mm3 (150-450); Red Blood Count 2.82 M/mm3 (4.1-5.4); Red Cell Distribution Width 14.2 % (11.5-14.0)
[2018-11-29 06:31] LABS: ALBUMIN 3.6 g/dL (3.5-5.0); ANION GAP 17.3 MEQ/L (5-15); BILIRUBIN,TOTAL 0.3 mg/dL (0.2-1.3); Calcium 8.4 mg/dL (8.4-10.2); Creatinine 1 2.06 mg/dL (0.52-1.04); Potassium 3.5 mmol/L (3.5-5.1); Total Protein 6.7 g/dL (6.3-8.2)
[2018-11-29] MEDS: DUONEB 0.5-3 MG/3 ml Neb IH SCH ×4 (07:16→19:19)
[2018-11-29] MEDS: Advair Hfa 115/21 Common canister IH SCH ×2 (07:16→19:20)
[2018-11-29] MEDS: Amaryl 2 MG PO SCH (07:45)
[2018-11-29] MEDS: NovoLOG Insulin SQ PRN ×4 (07:46→22:12)
--- NOTE | 2018-11-29 08:38 | HP ---
CHIEF COMPLAINT: Confusion, productive cough, rheumatoid arthritis. HISTORY OF PRESENT ILLNESS: The patient is a 73 year-old white female a resident of a local assisted care living. The patient was having problems with increasing pain with her rheumatoid arthritis and productive cough and becoming more and more confused. She presented to the emergency room with the above complaints. The patient apparently recently had been changed over to a new biologic agent for injections weekly for her rheumatoid arthritis which has likely made her more susceptible to infection. The patient reports that she does have some night sweats along to clear to white productive cough. PAST MEDICAL/SURGICAL HISTORY: Again the patient's past medical history is significant for the severe rheumatoid arthritis, diabetes mellitus type 2, depression, mild dementia, hypertension and osteoporosis. HOME MEDICATIONS: Currently are Lopid 600 mg a day, fluoxetine 20 mg a day, potassium 10 mEq b.i.d., Seroquel 100 mg at night, hydrocodone 5/325 mg PRN pain, Zyrtec 10 mg a day, Voltaren gel, Colace 100 mg b.i.d., benazepril 5 mg at night, Pepcid 40 mg a day, Breo Ellipta, folic acid, Lasix 40 mg a day, Glimepiride 1 mg a day, ipratropium-albuterol MDI, prednisone 10 mg daily, fluticasone nasal spray, Humira injections, DuoNeb, Amlodipine 5 mg, Darifenacin extended release 7.5 mg a day, losartan 100 mg a day, omeprazole 20 mg a day, Torsemide 20 mg a day. ALLERGIES: CECLOR, SULFA, KEFLEX, METHOTREXATE. SHELLFISH, BEE VENOM. PHYSICAL EXAMINATION: Revealed an obese, white female currently in no distress. She is currently alert and oriented x3. Her temperature on admission was temperature 97.8F, pulse 100, blood pressure 143/71. O2 saturation 95%. HEENT: Normocephalic, atraumatic. Pupils equal round reactive to light. Extraocular movements intact. Oropharynx is pink and moist. NECK: Supple without lymphadenopathy, thyromegaly or JVD. CHEST: Clear to auscultation. HEART: Regular rate and rhythm. ABDOMEN: Soft without palpable masses. EXTREMITIES: Without cyanosis, clubbing or edema although she has ulnar deviation of the fingers consistent with severe rheumatoid arthritis. NEUROLOGIC: She is alert and oriented x3 with no focal deficits. LAB DATA AND TESTS: Sugar 340, BUN 30, creatinine 2.13. Electrolytes were normal. Liver enzymes were slightly elevated with AST of 43. International normalized ratio 1.12. Troponins 0.013. UA showed slightly cloudy urine with specific gravity of 1.010, white blood cells 3 to 5 per high power field, negative nitrite. Lactic acid 2.5. White blood cell count 7,300 with hemoglobin 10.2, PLT count 169,000. Influenza A/B and respiratory syncytial virus were negative. She had subsequent troponins less than 0.012. CT scan of the head revealed a normal aging brain with degenerative microischemia, bilateral occipital lobe subcortical hypoattenuation probably old, incidental maxillary sinusitis. ASSESSMENT: A patient with recent bronchitis, flare up of her rheumatoid arthritis and new institution of Humira. The patient is more clear this morning after IV fluid hydration. She has been placed on Solu-Medrol for rheumatoid arthritis and Levaquin for possible bacterial infection leading to bronchitis. We will continue the present medical course. The patient is already improving somewhat and will likely require at least of couple days with the present therapy before being able to return back to her assisted care living situation.
[2018-11-29] MEDS: Colace 100 MG PO SCH ×2 (10:04→22:13)
[2018-11-29] MEDS: Paxil 20 MG PO SCH (10:04)
[2018-11-29] MEDS: Cozaar 50 MG PO SCH (10:04)
[2018-11-29] MEDS: Pepcid 20 MG PO SCH (10:04)
[2018-11-29] MEDS: NORVASC 5 MG PO SCH (10:04)
[2018-11-29] MEDS: Klor Con 10 MEQ PO SCH ×2 (10:04→22:13)
[2018-11-29] MEDS: FOLATE 1 MG PO SCH (10:04)
[2018-11-29] MEDS: Flonase NASAL NS SCH (10:08)
[2018-11-29] MEDS: Artificial Tears 15 ML OP SCH (10:08)
[2018-11-29] MEDS: Lasix 40 MG PO SCH (10:08)
[2018-11-29] MEDS: Protonix 40MG Tablet PO SCH (10:08)
[2018-11-29] MEDS: Voltaren GEL TP SCH ×4 (10:09→22:13)
[2018-11-29] MEDS: Levaquin 250MG/50ML D5W 250 MG/50 ML BAG IV SCH (10:13)
[2018-11-29] MEDS ORDERED: Lantus Insulin SQ ONE (11:25)
--- NOTE | 2018-11-29 12:01 | PCM.HP ---
History of Present Illness - Chief Complaint Chief Complaint: c/o cough and chest congestion History of Present Illness: is a 73 year old female.increasing confusion and loss of time for past 3 days, hx of UTIs, feels dehydrated - Review of Systems Constitutional: No Fever, No Chills Eyes: No Symptoms Ears, Nose, & Throat: No Symptoms Respiratory: No Cough, No Short Of Breath Cardiac: No Chest Pain, No Edema, No Syncope Abdominal/Gastrointestinal: No Abdominal Pain, No Nausea, No Vomiting, No Diarrhea Genitourinary Symptoms: No Dysuria Musculoskeletal: No Back Pain, No Neck Pain Skin: No Rash Neurological: No Dizziness, No Focal Weakness, No Sensory Changes Psychological: No Symptoms Endocrine: No Symptoms Hematologic/Lymphatic: No Symptoms Immunological/Allergic: No Symptoms Medications & Allergies Home Medications: Home Medication List Gemfibrozil 600 mg [Lopid 600 mg] 600 mg PO DAILY 01/16/15 [History Confirmed 11/26/18] PARoxetine HCl [Paroxetine HCl] 20 mg PO DAILY 01/16/15 [History Confirmed 11/26] Potassium Chloride 10 Meq Tab* [Klor Con 10 MEQ] 10 meq PO BID 01/16/15 [ History Confirmed 11/26/18] Quetiapine Fumarate [Seroquel Xr] 100 mg PO HS 01/16/15 [History Confirmed 11/26] Hydrocodone Bit/Acetaminophen [[place] 5/325Mg] 1 tab PO Q6H PRN PRN 02/13/16 [ History Confirmed 11/26/18] Cetirizine HCl [Zyrtec] 10 mg PO DAILY 03/06/17 [History Confirmed 11/26/18] Diclofenac Sodium Gel [Voltaren GEL] 2 gm TP QID 03/06/17 [History Confirmed 11/26/18] Docusate Sodium 100 mg [Colace 100 MG] 100 mg PO BID 03/06/17 [History Confirmed 11/26/18] Donepezil HCl 10 mg [Aricept 10 MG] 5 mg PO HS 03/06/17 [History Confirmed 11/26/18] Famotidine 20 mg [Pepcid 20 MG] 40 mg PO DAILY 03/06/17 [History Confirmed 11/26/18] Fluticasone/Vilanterol [Breo Ellipta 100-25 Mcg INH] 1 each IH BID 03/06/17 [ History Confirmed 11/26/18] Folic Acid 1 mg PO DAILY 03/06/17 [History Confirmed 11/26/18] Furosemide 40 mg [Lasix 40 MG] 40 mg PO DAILY 03/06/17 [History Confirmed 11/26/18] Glimepiride 1 mg PO DAILY 03/06/17 [History Confirmed 11/26/18] Ipratropium/Albuterol Sulfate [Iprat-Albut 0.5-3(2.5) mg/3 ml] 3 ml IH UD PRN [History Confirmed 11/26/18] Prednisone 10 mg [Deltasone 10 mg] 10 mg PO DAILY 03/06/17 [History Confirmed 11/26/18] Polyvinyl Alcohol [Akwa Tears] 1 drop OP DAILY 04/05/18 [History Confirmed 11/26] Fluticasone Propionate [Flonase NASAL] 1 spray NS DAILY 04/06/18 [History Confirmed 11/26/18] Adalimumab [Humira(Cf) Pen] 1 unit SQ UD 11/26/18 [History Confirmed 11/26/18] Albuterol/Ipratropium 3ml Neb* [DUONEB 0.5-3 MG/3 ml Neb] 3 ml IH QID [History Confirmed 11/26/18] Amlodipine Besylate 5 mg [Norvasc 5 mg] 2.5 mg PO DAILY 11/26/18 [History Confirmed 11/26/18] Calcium Carbonate/Vitamin D3 [Oyster Shell Calcium-Vit D Tab] 1 each PO TID [History Confirmed 11/26/18] Losartan Potassium 50 mg [Cozaar 50 MG] 100 mg PO DAILY 11/26/18 [History Confirmed 11/26/18] Omeprazole 20 mg PO DAILY 11/26/18 [History Confirmed 11/26/18] Torsemide 20 mg [Demadex 20 mg] 10 mg PO DAILY 11/26/18 [History Confirmed 11/26/18] Allergies/Adverse Reactions: Allergies Allergy/AdvReac Type Severity Reaction Status Date / Time cefaclor [From Ceclor] Allergy Intermediate Verified 11/26/18 17:51 shellfish derived Allergy Intermediate Verified 11/26/18 17:51 sulfamethoxazole Allergy Intermediate Verified 11/26/18 17:51 venom-honey bee Allergy Intermediate Verified 11/26/18 17:51 [bee venom (honey bee)] cephalexin [From Keflex] Allergy Mild mouth sores Verified 11/26/18 17:51 - Past Medical History Past Medical History: Yes Neurological History: Stroke, TIA ENT History: Cataracts Cardiac History: Congestive Heart Failure, High Cholesterol, Hypertension Respiratory History: Asthma, COPD, Pneumonia Endocrine Medical History: Diabetes Type II Musculoskelatal History: Osteoarthritis, Osteoporosis, Rheumatoid Arthritis GI Medical History: Esophageal Disorder, GERD, Other History: Renal Disease Pyscho-Social History: Anxiety, Depression Reproductive Disorders: No Pertinent History Comment: Anemia. broken shoulder, 11/19. hiatal hernia. skin cancer- nose - Female History Are you now?: No - Past Surgical History Past Surgical History: Yes Neuro Surgical History: No Pertinent History Cardiac History: No Pertinent History Respiratory Surgery: No Pertinent History GI Surgical History: No Pertinent History Genitourinary Surgical Hx: No Pertinent History Musculskeletal Surgical Hx: Joint Replacement Female Surgical History: Hysterectomy Other Surgical History: bilateral Knee replacement x2, right hip replacement, bladder lift - Social History Smoking Status: Former smoker Exposure to second hand smoke: No Alcohol: None Drug Use: none - Physical Exam Vital Signs: Vital Signs - 24 hr Temp Pulse Resp BP Pulse Ox 11/29/18 11:34 98.1 F 86 18 160/72 97 11/29/18 10:47 88 18 95 11/29/18 08:00 97.8 F 62 16 167/72 95 11/29/18 07:19 62 16 95 11/29/18 04:00 98.2 F 70 18 138/65 96 11/29/18 00:00 19 11/28/18 23:54 97.8 F 97 H 19 128/59 93 L 11/28/18 20:00 20 11/28/18 19:49 98.1 F 83 20 139/62 98 11/28/18 19:46 98 H 20 98 11/28/18 16:00 18 11/28/18 15:45 98.6 F 101 H 18 122/58 95 11/28/18 14:46 85 16 100 General Appearance: no apparent distress, alert Neurologic Exam: alert, oriented x 3, cooperative, normal mood/affect, nml cerebellar function, nml station & gait, sensation nml, No motor deficits Eye Exam: PERRL/EOMI, eyes nml inspection Ears, Nose, Throat Exam: normal ENT inspection, TMs normal, pharynx normal, moist mucous membranes Neck Exam: normal inspection, non-tender, supple, full range of motion Respiratory Exam: diminished breath sounds, crackles/rales, rhonchi, wheezing, No respiratory distress Cardiovascular Exam: regular rate/rhythm, normal heart sounds, normal peripheral pulses Gastrointestinal/Abdomen Exam: soft, normal bowel sounds, No tenderness, No mass Back Exam: normal inspection, normal range of motion, No CVA tenderness, No vertebral tenderness Extremity Exam: normal inspection, normal range of motion, pelvis stable Skin Exam: normal color, warm, dry, No rash Lymphatic Exam: No adenopathy Results - Labs Lab/Micro Results: Accuchecks Date 11/28/18 Date 11/28/18 Time 22:00 Time 16:30 Accucheck Value: 454 Accucheck Value: 474 Lab Results-Last 24 Hours 11/28/18 11/29/18 11/29/18 Range/Units 11:43 05:19 05:19 WBC 6.0 (4.0-10.5) K/mm3 RBC 2.82 L (4.1-5.4) M/mm3 Hgb 9.0 L (12.0-16.0) gm/dl Hct 28.8 L (35-47) % MCV 102.1 H (78-100) fl MCH 31.9 (26-32) pg MCHC 31.3 L (32-36) g/dl RDW 14.2 H (11.5-14.0) % Plt Count 140 L (150-450) K/mm3 MPV 9.8 H (6-9.5) fl Sodium 140 (137-145) mmol/L Potassium 3.5 (3.5-5.1) mmol/L Chloride 103 (98-107) mmol/L Carbon Dioxide 23 (22-30) mmol/L Anion Gap 17.3 H (5-15) MEQ/L BUN 47 H (7-17) mg/dL Creatinine 2.06 H (0.52-1.04) mg/dL Estimated GFR 25.0 ML/MIN Glucose 581 H* 385 H (74-106) mg/dL Calcium 8.4 (8.4-10.2) mg/dL Total Bilirubin 0.30 (0.2-1.3) mg/dL AST 23 (14-36) U/L ALT 25 (0-35) U/L Alkaline Phosphatase 84 (38-126) U/L Serum Total Protein 6.7 (6.3-8.2) g/dL Albumin 3.6 (3.5-5.0) g/dL Microbiology 11/26/18 18:45 Blood Culture - Preliminary Blood NO GROWTH TO DATE 11/26/18 18:35 Blood Culture - Preliminary Blood NO GROWTH TO DATE Accuchecks Date 11/28/18 Date 11/28/18 Time 22:00 Time 16:30 Accucheck Value: 454 Accucheck Value: 474 Assessment/Plan (1) Acute exacerbation of chronic obstructive pulmonary disease (COPD) Current Visit: Yes Status: Acute Assessment & Plan: Last Vital Signs Temp 98.1 F 11/29/18 11:34 Pulse 86 11/29/18 11:34 Resp 18 11/29/18 11:34 BP 160/72 11/29/18 11:34 Pulse Ox 97 11/29/18 11:34 Allergies cefaclor [From Ceclor] Allergy (Intermediate, Verified 11/26/18 17:51) shellfish derived Allergy (Intermediate, Verified 11/26/18 17:51) sulfamethoxazole Allergy (Intermediate, Verified 11/26/18 17:51) venom-honey bee [bee venom (honey bee)] Allergy (Intermediate, Verified 17:51) cephalexin [From Keflex] Allergy (Mild, Verified 11/26/18 17:51) mouth sores Active Medications Hydrocodone Bitart/Acetaminophen ([place] 5/325 Mg) 1 tab PO Q6H PRN PRN PRN Reason: PAIN Stop: 12/01/18 23:28 Last Admin: 11/29/18 05:30 Dose: 1 tab Albuterol/Ipratropium (Duoneb 0.5-3 Mg/3 Ml Neb) 3 ml IH QIDRT [facility] Stop: 12/27/18 06:59 Last Admin: 11/29/18 10:45 Dose: 3 ml Amlodipine Besylate (Norvasc 5 Mg) 2.5 mg PO QAM [facility] Stop: 12/27/18 09:59 Last Admin: 11/29/18 10:04 Dose: 2.5 mg Artificial Tears (Artificial Tears 15 Ml) 0 ml OP DAILY [facility] Stop: 12/27/18 10:59 Last Admin: 11/29/18 10:08 Dose: 15 ml Benzonatate (Tessalon Perles 100 Mg) 100 mg PO BID PRN PRN PRN Reason: COUGH Stop: 12/27/18 09:56 Last Admin: 11/29/18 07:51 Dose: 100 mg Diclofenac Sodium (Voltaren Gel) 2 gm TP QID [facility] Stop: 12/27/18 12:59 Last Admin: 11/29/18 10:09 Dose: Not Given Docusate Sodium (Colace 100 Mg) 100 mg PO BID [facility] Stop: 12/26/18 21:59 Last Admin: 11/29/18 10:04 Dose: 100 mg Donepezil HCl (Aricept 10 Mg) 5 mg PO HS [facility] Stop: 12/26/18 21:59 Last Admin: 11/28/18 21:14 Dose: 5 mg Famotidine (Pepcid 20 Mg) 40 mg PO DAILY [facility] Stop: 12/27/18 09:59 Last Admin: 11/29/18 10:04 Dose: 40 mg Fluticasone Propionate (Flonase Nasal) 0 gm NS DAILY [facility] Stop: 12/27/18 10:59 Last Admin: 11/29/18 10:08 Dose: 1 gm Folic Acid (Folate 1 Mg) 1 mg PO DAILY [facility] Stop: 12/27/18 10:59 Last Admin: 11/29/18 10:04 Dose: 1 mg Furosemide (Lasix 40 Mg) 40 mg PO DAILY [facility] Stop: 12/27/18 09:59 Last Admin: 11/29/18 10:08 Dose: 40 mg Glimepiride (Amaryl 2 Mg) 1 mg PO BREAKFAST [facility] Stop: 12/27/18 07:59 Last Admin: 11/29/18 07:45 Dose: 1 mg Levofloxacin/Dextrose (Levaquin 250mg/50ml D5w) 250 mg in 50 mls @ 50 mls/hr IV Q24H10 [facility] Stop: 12/27/18 09:59 Last Admin: 11/29/18 10:13 Dose: 50 mls/hr Insulin Aspart (Novolog Insulin) 0 unit SQ UD PRN PRN Reason: HYPERGLYCEMIA Stop: 12/27/18 19:27 Last Admin: 11/29/18 07:46 Dose: 11 unit Levalbuterol HCl (Xopenex 1.25 Mg/0.5 Ml Ud Nebule) 1.25 mg IH Q2HPRN PRN PRN Reason: DIFFICULTY BREATHING Stop: 12/26/18 21:27 Losartan Potassium (Cozaar 50 Mg) 100 mg PO DAILY [facility] Stop: 12/27/18 09:59 Last Admin: 11/29/18 10:04 Dose: 100 mg Methylprednisolone Sodium Succinate (Solu-Medrol 125 Mg) 60 mg IV Q8HT [facility] Stop: 12/28/18 13:59 Last Admin: 11/29/18 05:30 Dose: 60 mg Pantoprazole Sodium (Protonix 40mg Tablet) 40 mg PO DAILY [facility] Stop: 12/27/18 11:14 Last Admin: 11/29/18 10:08 Dose: 40 mg Paroxetine HCl (Paxil 20 Mg) 20 mg PO DAILY [facility] Stop: 12/28/18 09:59 Last Admin: 11/29/18 10:04 Dose: 20 mg Potassium Chloride (Klor Con 10 Meq) 10 meq PO BID [facility] Stop: 12/26/18 21:59 Last Admin: 11/29/18 10:04 Dose: 10 meq Quetiapine Fumarate (Seroquel 100 Mg) 100 mg PO HS [facility] Stop: 12/26/18 21:59 Last Admin: 11/28/18 21:14 Dose: 100 mg Fluticasone/Salmeterol (Advair Hfa 115/21 Common Canister*) 2 puff IH BIDRT [facility] Stop: 12/27/18 06:59 Last Admin: 11/29/18 07:16 Dose: 2 puff Intake & Output 11/29/18 11/30/18 11:59 11:59 Intake Total 2460 Balance 2460 Weight 91.2 kg Lab Tests 11/28/18 11/29/18 11/29/18 11:43 05:19 05:19 WBC 6.0 RBC 2.82 L Hgb 9.0 L Hct 28.8 L MCV 102.1 H MCH 31.9 MCHC 31.3 L RDW 14.2 H Plt Count 140 L MPV 9.8 H Sodium 140 Potassium 3.5 Chloride 103 Carbon Dioxide 23 Anion Gap 17.3 H BUN 47 H Creatinine 2.06 H Estimated GFR 25.0 Glucose 581 H* 385 H Calcium 8.4 Total Bilirubin 0.30 AST 23 ALT 25 Alkaline Phosphatase 84 Serum Total Protein 6.7 Albumin 3.6 Microbiology 11/26/18 18:45 Blood Blood Culture - Preliminary NO GROWTH TO DATE 11/26/18 18:35 Blood Blood Culture - Preliminary NO GROWTH TO DATE Code(s): J44.1 - CHRONIC OBSTRUCTIVE PULMONARY DISEASE W (ACUTE) EXACERBATION (2) Rheumatoid arthritis of foot Current Visit: No Status: Acute Code(s): M06.9 - RHEUMATOID ARTHRITIS, UNSPECIFIED (3) Anemia of chronic renal failure Current Visit: No Status: Chronic Code(s): N18.9 - CHRONIC KIDNEY DISEASE, UNSPECIFIED; D63.1 - ANEMIA IN CHRONIC KIDNEY DISEASE (4) Hypertensive heart AND renal disease Current Visit: No Status: Chronic Code(s): I13.10 - HYP HRT & CHR KDNY DIS W /O HRT FAIL, W STG 1-4/UNSP CHR KDNY (5) Rheumatoid arthritis of hand joint Current Visit: No Status: Chronic Code(s): M06.9 - RHEUMATOID ARTHRITIS, UNSPECIFIED
[2018-11-29] MEDS: Seroquel 100 MG PO SCH (22:13)
[2018-11-29] MEDS: Aricept 10 MG PO SCH (22:13)
[2018-11-30] MEDS: solu-MEDROL 125 MG IV SCH (05:38)
[2018-11-30] MEDS: NORCO 5/325 MG PO PRN (05:38)
[2018-11-30 07:10] VITALS: BP 168/74
[2018-11-30] MEDS: DUONEB 0.5-3 MG/3 ml Neb IH SCH (07:22)
[2018-11-30] MEDS: Advair Hfa 115/21 Common canister IH SCH (07:25)
[2018-11-30 07:30] VITALS: PULSE 85; O2SAT 91
[2018-11-30] MEDS: NovoLOG Insulin SQ PRN (07:43)
[2018-11-30] MEDS: Amaryl 2 MG PO SCH (07:43)
[2018-11-30] MEDS: Tessalon Perles 100 MG PO PRN (07:43)
[2018-11-30] MEDS: Lasix 40 MG PO SCH (09:02)
[2018-11-30] MEDS: NORVASC 5 MG PO SCH (09:02)
[2018-11-30] MEDS: Klor Con 10 MEQ PO SCH (09:02)
[2018-11-30] MEDS: Cozaar 50 MG PO SCH (09:02)
[2018-11-30] MEDS: Pepcid 20 MG PO SCH (09:02)
[2018-11-30] MEDS: Paxil 20 MG PO SCH (09:03)
[2018-11-30] MEDS: Voltaren GEL TP SCH (09:03)
[2018-11-30] MEDS: Levaquin 250MG/50ML D5W 250 MG/50 ML BAG IV SCH (09:03)
[2018-11-30] MEDS: Flonase NASAL NS SCH (09:03)
[2018-11-30] MEDS: Colace 100 MG PO SCH (09:03)
[2018-11-30] MEDS: FOLATE 1 MG PO SCH (09:03)
[2018-11-30] MEDS: Protonix 40MG Tablet PO SCH (09:03)
[2018-11-30] MEDS: Artificial Tears 15 ML OP SCH (09:03)
== END 2018-11-30 09:22 | DRG 192 ==
LOC: ED 17:31 → MED SURG 21:22 → OBSVTOIN 11-27 09:50
PROVIDERS: ADMIT General Practice; ATTEND General Practice
DX: J44.1 Chronic obstructive pulmonary disease with (acute) exacerbation (principal); I13.10 Hypertensive heart and chronic kidney disease without heart failure, with stage 1 through stage 4 chronic kidney disease, or unspecified chronic kidney disease; E11.22 Type 2 diabetes mellitus with diabetic chronic kidney disease; D63.1 Anemia in chronic kidney disease; N18.9 Chronic kidney disease, unspecified; M06.9 Rheumatoid arthritis, unspecified; E78.00 Pure hypercholesterolemia, unspecified; F03.90 Unspecified dementia, unspecified severity, without behavioral disturbance, psychotic disturbance, mood disturbance, and anxiety; Z79.899 Other long term (current) drug therapy; R41.0 Disorientation, unspecified
CPT/HCPCS: 36415; 70450; 71045; 80048; 80053; 81001; 82947; 82962; 83036; 83605; 84484; 85025; 85027; 85610; 87040; 87631; 93005; 93041; 93268; 94150; 94640; 94760; 94762; 96360; 96361; 96365; 96375; 99285; G0378; J1956; J2930; A9270-GY

== ENCOUNTER 2019-01-28 08:21 | Inpatient (IN) | payer MEDICARE ==
[2019-01-28] MEDS ORDERED: MORPHINE SULFATE 2 MG INJ IV ONE ×2 (08:39→11:42)
[2019-01-28] MEDS ORDERED: Zofran 4 MG/2 ML VIAL IV ONE (08:39)
--- NOTE | 2019-01-28 08:52 | ERPHSYRPT ---
- History of Present Illness Time Seen by Provider: 01/28/19 08:24 Source: patient Exam Limitations: no limitations Patient Subjective Stated Complaint: pt here for via ambulance for a fall at 0400 this morning, pt states she dropped something and when she went to pick it up she lost her balance and fell, she co pain to left rib area and states she hit her head, she has aslo had a cough over a week Triage Nursing Assessment: pt alert, arrived per ambulance, alert, and oriented , resp easy, has non productive cough, moves all ext well, no bruising or abrasions noted, Physician History: Pt states, she went to the bathroom at 4 AM today, she fell on her way back, she could not get up spent 3-4 hours on the floor, she hit her head and left ribs, both knees, denies LOC, severe headaches, or difficulty breathing, no vomiting, other complaints, she is alert and oriented x4, but did not have her alarm on her. Her main complaint is left rib pain and tenderness. Occurred: this morning, hours ago (5) Reason for Fall: tripped Injuries/Pain Location: head, chest Loss of Consciousness: no loss of consciousness Quality: sharpness Severity of Pain-Max: moderate Severity of Pain-Current: moderate Modifying Factors: Improves With: immobilization, movement Associated Symptoms (Fall): denies symptoms, No abdominal pain, No confusion, No chest pain, No seizures, No shortness of breath, No slurred speech, No vomiting, No vision changes Allergies/Adverse Reactions: cefaclor [From Ceclor] Allergy (Intermediate, Verified 01/28/19 08:33) shellfish derived Allergy (Intermediate, Verified 01/28/19 08:33) sulfamethoxazole Allergy (Intermediate, Verified 01/28/19 08:33) venom-honey bee [bee venom (honey bee)] Allergy (Intermediate, Verified 08:33) cephalexin [From Keflex] Allergy (Mild, Verified 01/28/19 08:33) mouth sores Home Medications: Gemfibrozil 600 mg [Lopid 600 mg] 600 mg PO DAILY 01/16/15 [History] PARoxetine HCl [Paroxetine HCl] 20 mg PO DAILY 01/16/15 [History] Potassium Chloride 10 Meq Tab* [Klor Con 10 MEQ] 10 meq PO BID 01/16/15 [ History] Quetiapine Fumarate [Seroquel Xr] 100 mg PO HS 01/16/15 [History] Hydrocodone Bit/Acetaminophen [[place] 5/325Mg] 1 tab PO Q6H PRN PRN 02/13/16 [ History] Cetirizine HCl [Zyrtec] 10 mg PO DAILY 03/06/17 [History] Diclofenac Sodium Gel [Voltaren GEL] 2 gm TP QID 03/06/17 [History] Docusate Sodium 100 mg [Colace 100 MG] 100 mg PO BID 03/06/17 [History] Donepezil HCl 10 mg [Aricept 10 MG] 5 mg PO HS 03/06/17 [History] Famotidine 20 mg [Pepcid 20 MG] 40 mg PO DAILY 03/06/17 [History] Fluticasone/Vilanterol [Breo Ellipta 100-25 Mcg INH] 1 each IH BID 03/06/17 [ History] Folic Acid 1 mg PO DAILY 03/06/17 [History] Furosemide 40 mg [Lasix 40 MG] 40 mg PO DAILY 03/06/17 [History] Glimepiride 1 mg PO DAILY 03/06/17 [History] Ipratropium/Albuterol Sulfate [Iprat-Albut 0.5-3(2.5) mg/3 ml] 3 ml IH UD PRN [History] Prednisone 10 mg [Deltasone 10 mg] 10 mg PO DAILY 03/06/17 [History] Polyvinyl Alcohol [Artificial Tears] 1 drop OP DAILY 04/05/18 [History] Fluticasone Propionate [Flonase NASAL] 1 spray NS DAILY 04/06/18 [History] Adalimumab [Humira(Cf) Pen] 1 unit SQ UD 11/26/18 [History] Albuterol/Ipratropium 3ml Neb* [DUONEB 0.5-3 MG/3 ml Neb] 3 ml IH QID [History] Amlodipine Besylate 5 mg [Norvasc 5 mg] 2.5 mg PO DAILY 11/26/18 [History] Calcium Carbonate/Vitamin D3 [Oyster Shell 500-Vit D3 200 Tb] 1 each PO TID [History] Losartan Potassium 50 mg [Cozaar 50 MG] 100 mg PO DAILY 11/26/18 [History] Omeprazole 20 mg PO DAILY 11/26/18 [History] Torsemide 20 mg [Demadex 20 mg] 10 mg PO DAILY 11/26/18 [History] Hx Tetanus, Diphtheria Vaccination/Date Given: Yes Hx Influenza Vaccination/Date Given: Yes Hx Pneumococcal Vaccination/Date Given: Yes Immunizations Up to Date: Yes - Review of Systems Constitutional: No Symptoms Eyes: No Symptoms Ears, Nose, & Throat: No Symptoms Respiratory: Other (left lower rib pain) Cardiac: No Symptoms Abdominal/Gastrointestinal: No Symptoms Genitourinary Symptoms: No Symptoms Musculoskeletal: No Symptoms Skin: No Symptoms Neurological: No Symptoms All Other Systems: Reviewed and Negative - Past Medical History Pertinent Past Medical History: Yes Neurological History: Stroke, TIA ENT History: Cataracts Cardiac History: Congestive Heart Failure, High Cholesterol, Hypertension Respiratory History: Asthma, COPD, Pneumonia Endocrine Medical History: Diabetes Type II Musculoskeletal History: Osteoarthritis, Osteoporosis, Rheumatoid Arthritis GI Medical History: Esophageal Disorder, GERD, Other History: Renal Disease Psycho-Social History: Anxiety, Depression Female Reproductive Disorders: No Pertinent History Other Medical History: Anemia. broken shoulder, 11/19. hiatal hernia. skin cancer- nose - Past Surgical History Past Surgical History: Yes Neuro Surgical History: No Pertinent History Cardiac: No Pertinent History Respiratory: No Pertinent History Gastrointestinal: No Pertinent History Genitourinary: No Pertinent History Musculoskeletal: Joint Replacement Female Surgical History: Hysterectomy Other Surgical History: bilateral Knee replacement x2, right hip replacement, bladder lift - Social History Smoking Status: Former smoker Exposure to second hand smoke: No Drug Use: none Patient Lives Alone: No - Female History Hx Last Menstrual Period: post Hx Now: No - Nursing Vital Signs Nursing Vital Signs: Initial Vital Signs Temperature 100.6 F 01/28/19 08:27 Pulse Rate 120 H 01/28/19 08:27 Respiratory Rate 24 01/28/19 08:27 Blood Pressure 105/61 01/28/19 08:27 O2 Sat by Pulse Oximetry 94 L 01/28/19 08:27 Pain Scale Pain Intensity 0 - [place] Score Best Eye Response (Miguel A): (4) open spontaneously Best Verbal Response (Miguel A): (5) oriented Best Motor Response (Miguel A): (6) obeys commands Miguel A Total: 15 - Physical Exam General Appearance: no apparent distress Head Injury: no evidence of injury Eye Exam: PERRL/EOMI, eyes nml inspection ENT Exam: airway nml, No evidence of ENT injury Neck Exam: supple, trachea midline, normal alignment, normal inspection, tender lateral, No mid-line tenderness Respiratory/Chest Exam: chest tenderness (left lower anterior ribs, no crepitations or subcutaneous emphysema, no swelling, no ecchymosis.), normal breath sounds, No respiratory distress, No ecchymosis, No crepitus, No decreased breath sounds, No wheezing Cardiovascular Exam: normal heart sounds, regular rate/rhythm, normal peripheral pulses, No murmur, No edema Gastrointestinal Exam: soft, normal bowel sounds, tenderness (LUQ: moderate) Back Exam: normal inspection, CVA tenderness (left, mild) Extremity Exam: other (right anterior knee: old suffusion (dark, pigmented color ) no deformity, good, pain free motions. Left olecranon: slightly bruised, no deformity, good, pain free movements, good distal pulses an sensation.) Peripheral Pulses: dorsalis-pedis (R): 2+, dorsalis-pedis (L): 2+ Neurologic Exam: alert, oriented x 3, cooperative, normal mood/affect Skin Exam: normal color, warm, dry, No petechiae, No diaphoresis SpO2 Interpretation: normal SpO2: 94 O2 Delivery: Room Air - Course Nursing assessment & vital signs reviewed: Yes EKG Interpreted by Me: RATE, Sinus Tach (116/min), Left Lohn Deviation, Non- specific ST Changes, Other (LaFB) - Radiology Exams Left Ribs X-ray Interpretation: Reviewed by me, Negative Chest X-ray Interpretation: Reviewed by me, Negative Left Elbow X-ray Interpretation: Reviewed by me, Other (severe DJD, questionable radial head fracture) - CT Exams Abdomen/Pelvis CT Interpretation: Tele-radiologist Report, Other (bibasilar nodular infiltrates ) Head CT Interpretation: Negative, Tele-radiologist Report Cervical Spine CT Interpretation: Negative, Tele-radiologist Report Ordered Tests: Active Orders 24 hr Category Date Time Status EKG-ER Only STAT Care 01/28/19 08:39 Active IV Insertion STAT Care 01/28/19 08:39 Active Orthostatic Vital Signs STAT Care 01/28/19 09:57 Active ABDOMEN AND PELVIS W/0 CONTRAS [CT] Stat Exams 01/28/19 08:40 Completed CERVICAL SPINE WO CONTRAST [CT] Stat Exams 01/28/19 08:41 Completed CHEST 2 VIEWS (PA AND LAT) Stat Exams 01/28/19 08:40 Completed ELBOW (MINIMUM 3 VIEWS) Stat Exams 01/28/19 08:43 Completed HEAD WITHOUT CONTRAST [CT] Stat Exams 01/28/19 08:41 Completed RIBS UNILATERAL Stat Exams 01/28/19 08:43 Completed BLOOD CULTURE Stat Lab 01/28/19 10:25 Received CBC W DIFF Stat Lab 01/28/19 09:45 Completed CK-Creatinine Phosphokinase Stat Lab 01/28/19 09:45 Completed CMP Stat Lab 01/28/19 09:45 Completed CULTURE,URINE Stat Lab 01/28/19 10:33 Received Lactic Acid Stat Lab 01/28/19 10:02 Completed Lactic Acid Stat Lab 01/28/19 12:40 Ordered Manual Differential NC Stat Lab 01/28/19 09:45 Completed PROTIME WITH INR Stat Lab 01/28/19 09:45 Completed TROPONIN Q3H Lab 01/28/19 09:45 Completed TROPONIN Q3H Lab 01/28/19 11:50 Completed TROPONIN Q3H Lab 01/28/19 14:45 Ordered TROPONIN Q3H Lab 01/28/19 17:45 Ordered TROPONIN Q3H Lab 01/28/19 20:45 Ordered UA W/RFX UR CULTURE Stat Lab 01/28/19 10:33 Completed Medication Summary Generic Name Dose Route Start Last Admin Trade Name Freq PRN Reason Stop Dose Admin Sodium Chloride 1,000 mls @ 100 mls/hr 01/28/19 08:45 01/28/19 10:30 Sodium Chloride 0.9% 1000 Ml IV 02/27/19 08:44 999 mls/hr .Q10H PAOLA Infusion Discontinued Medications Generic Name Dose Route Start Last Admin Trade Name Freq PRN Reason Stop Dose Admin Sodium Chloride 500 mls @ 999 mls/hr 01/28/19 10:02 01/28/19 10:29 Sodium Chloride 0.9% 1000 Ml IV 01/28/19 10:32 Not Given .Q31M STA Levofloxacin/Dextrose 500 mg in 100 mls @ 100 mls/hr 01/28/19 11:19 01/28/19 11:31 Levofloxacin 500mg/100ml D5w IV 01/28/19 12:18 100 ml/hr STAT STA 100 mls/hr Administration Levofloxacin/Dextrose Confirm 01/28/19 11:30 Levofloxacin 500mg/100ml D5w Administered 01/28/19 11:31 Dose 500 mg in 100 mls @ ud IV .STK-MED ONE Morphine Sulfate 2 mg 01/28/19 08:39 01/28/19 09:38 Morphine Sulfate 2 Mg Inj IV 01/28/19 08:40 2 mg STAT ONE Administration Morphine Sulfate Confirm 01/28/19 09:37 Morphine Sulfate 2 Mg Inj Administered 01/28/19 09:38 Dose 2 mg .ROUTE .STK-MED ONE Morphine Sulfate 2 mg 01/28/19 11:42 01/28/19 12:03 Morphine Sulfate 2 Mg Inj IV 01/28/19 11:43 2 mg STAT ONE Administration Morphine Sulfate Confirm 01/28/19 12:02 Morphine Sulfate 2 Mg Inj Administered 01/28/19 12:03 Dose 2 mg .ROUTE .STK-MED ONE Ondansetron HCl 4 mg 01/28/19 08:39 01/28/19 09:38 Zofran 4 Mg/2 Ml Vial IV 01/28/19 08:40 4 mg STAT ONE Administration Ondansetron HCl Confirm 01/28/19 09:37 Zofran 4 Mg/2 Ml Vial Administered 01/28/19 09:38 Dose 4 mg .ROUTE .STK-MED ONE Lab/Rad Data: Laboratory Result Diagrams 01/28/19 09:45 01/28/19 09:45 Laboratory Results 01/28/19 01/28/19 01/28/19 Range/Units 11:50 10:33 10:02 WBC (4.0-10.5) K/mm3 RBC (4.1-5.4) M/mm3 Hgb (12.0-16.0) gm/dl Hct (35-47) % MCV (78-100) fl MCH (26-32) pg MCHC (32-36) g/dl RDW (11.5-14.0) % Plt Count (150-450) K/mm3 MPV (6-9.5) fl Absolute Granulocytes (1.4-6.9) Segmented Neutrophils (36.0-66.0) % Band Neutrophils (0.0-2.0) % Lymphocytes (Manual) (24-44) % Monocytes (Manual) (0.0-12.0) % Eosinophils (Manual) (0.00-3.0) % Basophils (Manual) (0.0-1.0) % Toxic Granulation Platelet Estimate (NORMAL) RBC Morphology Polychromasia Anisocytosis PT (9.95-12.35) SECONDS INR (0.8-3.0) Sodium (137-145) mmol/L Potassium (3.5-5.1) mmol/L Chloride (98-107) mmol/L Carbon Dioxide (22-30) mmol/L Anion Gap (5-15) MEQ/L BUN (7-17) mg/dL Creatinine (0.52-1.04) mg/dL Estimated GFR ML/MIN Glucose (74-106) mg/dL Lactic Acid 2.2 H (0.4-2.0) Calcium (8.4-10.2) mg/dL Total Bilirubin (0.2-1.3) mg/dL AST (14-36) U/L ALT (0-35) U/L Alkaline Phosphatase (38-126) U/L Creatine Kinase (30-135) U/L Troponin I 0.048 H* (0.000-0.034) ng/mL Serum Total Protein (6.3-8.2) g/dL Albumin (3.5-5.0) g/dL Urine Color YELLOW (YELLOW) Urine Appearance SLIGHTLY CLOUDY (CLEAR) Urine pH 6.0 (5-6) Ur Specific [place] 1.018 (1.005-1.025) Urine Protein >=500 (Negative) Urine Ketones NEGATIVE (NEGATIVE) Urine Blood NEGATIVE (0-5) Shiv/ul Urine Nitrite NEGATIVE (NEGATIVE) Urine Bilirubin NEGATIVE (NEGATIVE) Urine Urobilinogen NEGATIVE (0-1) mg/dL Ur Leukocyte Esterase TRACE (NEGATIVE) Urine WBC (Auto) 26-50 (0-5) /HPF Urine RBC (Auto) 0-2 (0-2) /HPF U Epithel Cells (Auto) NONE (FEW) /HPF Urine Bacteria (Auto) NONE (NEGATIVE) /HPF Urine Mucus (Auto) SLIGHT (NEGATIVE) /HPF Urine Culture Reflexed YES (NO) Urine Glucose 50 (NEGATIVE) mg/dL 01/28/19 01/28/19 01/28/19 Range/Units 09:45 09:45 09:45 WBC (4.0-10.5) K/mm3 RBC (4.1-5.4) M/mm3 Hgb (12.0-16.0) gm/dl Hct (35-47) % MCV (78-100) fl MCH (26-32) pg MCHC (32-36) g/dl RDW (11.5-14.0) % Plt Count (150-450) K/mm3 MPV (6-9.5) fl Absolute Granulocytes (1.4-6.9) Segmented Neutrophils (36.0-66.0) % Band Neutrophils (0.0-2.0) % Lymphocytes (Manual) (24-44) % Monocytes (Manual) (0.0-12.0) % Eosinophils (Manual) (0.00-3.0) % Basophils (Manual) (0.0-1.0) % Toxic Granulation Platelet Estimate (NORMAL) RBC Morphology Polychromasia Anisocytosis PT 14.4 H (9.95-12.35) SECONDS INR 1.27 (0.8-3.0) Sodium (137-145) mmol/L Potassium (3.5-5.1) mmol/L Chloride (98-107) mmol/L Carbon Dioxide (22-30) mmol/L Anion Gap (5-15) MEQ/L BUN (7-17) mg/dL Creatinine (0.52-1.04) mg/dL Estimated GFR ML/MIN Glucose (74-106) mg/dL Lactic Acid (0.4-2.0) Calcium (8.4-10.2) mg/dL Total Bilirubin (0.2-1.3) mg/dL AST (14-36) U/L ALT (0-35) U/L Alkaline Phosphatase (38-126) U/L Creatine Kinase 39 (30-135) U/L Troponin I 0.047 H* (0.000-0.034) ng/mL Serum Total Protein (6.3-8.2) g/dL Albumin (3.5-5.0) g/dL Urine Color (YELLOW) Urine Appearance (CLEAR) Urine pH (5-6) Ur Specific [place] (1.005-1.025) Urine Protein (Negative) Urine Ketones (NEGATIVE) Urine Blood (0-5) Shiv/ul Urine Nitrite (NEGATIVE) Urine Bilirubin (NEGATIVE) Urine Urobilinogen (0-1) mg/dL Ur Leukocyte Esterase (NEGATIVE) Urine WBC (Auto) (0-5) /HPF Urine RBC (Auto) (0-2) /HPF U Epithel Cells (Auto) (FEW) /HPF Urine Bacteria (Auto) (NEGATIVE) /HPF Urine Mucus (Auto) (NEGATIVE) /HPF Urine Culture Reflexed (NO) Urine Glucose (NEGATIVE) mg/dL 01/28/19 01/28/19 Range/Units 09:45 09:45 WBC 24.8 H (4.0-10.5) K/mm3 RBC 3.74 L (4.1-5.4) M/mm3 Hgb 11.7 L (12.0-16.0) gm/dl Hct 37.6 (35-47) % MCV 100.5 H (78-100) fl MCH 31.2 (26-32) pg MCHC 31.1 L (32-36) g/dl RDW 15.0 H (11.5-14.0) % Plt Count 222 (150-450) K/mm3 MPV 9.0 (6-9.5) fl Absolute Granulocytes 20.34 H (1.4-6.9) Segmented Neutrophils 63 (36.0-66.0) % Band Neutrophils 19 H (0.0-2.0) % Lymphocytes (Manual) 9 L (24-44) % Monocytes (Manual) 7 (0.0-12.0) % Eosinophils (Manual) 1 (0.00-3.0) % Basophils (Manual) 1 (0.0-1.0) % Toxic Granulation RARE Platelet Estimate NORMAL (NORMAL) RBC Morphology ABNORMAL Polychromasia 1+ Anisocytosis 1+ PT (9.95-12.35) SECONDS INR (0.8-3.0) Sodium 141 (137-145) mmol/L Potassium 3.5 (3.5-5.1) mmol/L Chloride 102 (98-107) mmol/L Carbon Dioxide 25 (22-30) mmol/L Anion Gap 17.6 H (5-15) MEQ/L BUN 29 H (7-17) mg/dL Creatinine 1.92 H (0.52-1.04) mg/dL Estimated GFR 27.0 ML/MIN Glucose 184 H (74-106) mg/dL Lactic Acid (0.4-2.0) Calcium 9.3 (8.4-10.2) mg/dL Total Bilirubin 1.10 (0.2-1.3) mg/dL AST 18 (14-36) U/L ALT 15 (0-35) U/L Alkaline Phosphatase 88 (38-126) U/L Creatine Kinase (30-135) U/L Troponin I (0.000-0.034) ng/mL Serum Total Protein 7.7 (6.3-8.2) g/dL Albumin 4.0 (3.5-5.0) g/dL Urine Color (YELLOW) Urine Appearance (CLEAR) Urine pH (5-6) Ur Specific [place] (1.005-1.025) Urine Protein (Negative) Urine Ketones (NEGATIVE) Urine Blood (0-5) Shiv/ul Urine Nitrite (NEGATIVE) Urine Bilirubin (NEGATIVE) Urine Urobilinogen (0-1) mg/dL Ur Leukocyte Esterase (NEGATIVE) Urine WBC (Auto) (0-5) /HPF Urine RBC (Auto) (0-2) /HPF U Epithel Cells (Auto) (FEW) /HPF Urine Bacteria (Auto) (NEGATIVE) /HPF Urine Mucus (Auto) (NEGATIVE) /HPF Urine Culture Reflexed (NO) Urine Glucose (NEGATIVE) mg/dL - Progress Progress: improved Progress Note: 01/28/19 13:07 Pt feels better after IV Morphine, Zofran, and fluids, she has been stable, reviewed her tests and discussed with DR Sneed, along with her current condition, he accepted patient to be admitted to Telemetry, patient was informed and agreed. Her repeat troponin 0.048, basically unchanged. She was started on IV Levaquin after blood and urine cultures. Discussed with : Nedra Will see patient in: hospital (full admit) Counseled pt/family regarding: lab results, diagnosis, rad results - Departure Departure Disposition: In-patient Admission Clinical Impression: Elevated troponin Urinary tract infection Qualifiers: Urinary tract infection type: site unspecified Hematuria presence: without hematuria Qualified Code(s): N39.0 - Urinary tract infection, site not specified Contusion of rib on left side Qualifiers: Encounter type: initial encounter Qualified Code(s): S20.212A - Contusion of left front wall of thorax, initial encounter Head injury Qualifiers: Encounter type: initial encounter Qualified Code(s): S09.90XA - Unspecified injury of head, initial encounter Radial head fracture, closed Qualifiers: Encounter type: initial encounter Fracture alignment: nondisplaced Laterality: left Qualified Code(s): S52.125A - Nondisplaced fracture of head of left radius , initial encounter for closed fracture Condition: Stable Critical Care Time: No Referrals: BIANCA GOSS [Primary Care Provider] -
[2019-01-28] MEDS ORDERED: Sodium Chloride 0.9% 1000 ML 1,000 ML ONE (09:37)
[2019-01-28] MEDS ORDERED: MORPHINE SULFATE 2 MG INJ ONE ×2 (09:37→12:02)
[2019-01-28] MEDS ORDERED: Zofran 4 MG/2 ML VIAL ONE (09:37)
[2019-01-28] MEDS: Sodium Chloride 0.9% 1000 ML 1,000 ML IV SCH ×2 (09:38→21:29)
--- NOTE | 2019-01-28 09:39 | XRAY ---
Indication: Status post fall. Multiple contiguous axial images obtained through the head without contrast. Comparison: November 26, 2018. Stable age-appropriate global atrophy, moderate periventricular degenerative micro-ischemia, and bilateral occipital lobe infarcts. No acute intracranial hemorrhage, abnormal extra-axial fluid collection, or mass effect. Fourth ventricle is midline. Bony calvarium intact. Again partially visualized right maxilla sinus polyp/retention cyst. Remaining visualized paranasal sinuses and mastoid air cells are clear. Impression: Stable CT head without contrast exam again demonstrating atrophy, degenerative micro-ischemia, bilateral occipital lobe infarcts, and right maxillary sinus polyp/retention cyst. No new/acute findings. CT DI 51.90
--- NOTE | 2019-01-28 09:46 | XRAY ---
Indication: Status post fall. Multiple contiguous axial images obtained through the cervical spine. Sagittal and coronal reformatted images obtained. Comparison: None. Axial images negative for acute fracture, suspicious bony lesions, or spinal canal stenosis. Minimal C4-C6 degenerative endplate spurring and mild multilevel bilateral degenerative facet hypertrophy. Also moderate atlantoaxial degenerative arthropathy. Sagittal and coronal reformatted images demonstrates cervical lordotic straightening positional versus paraspinal spasm and dextroscoliosis centered at C5. No acute compression fracture, subluxation, or jumped facet. Normal craniocervical junction. Visualized noncontrasted soft tissues demonstrates mild bilateral carotid calcifications. CT head reported separately. Impression: 1. Cervical lordotic straightening, positional versus paraspinal spasm. 2. Negative acute fracture/subluxation. 3. Mild multilevel degenerative changes and dextroscoliosis. CT DI 53.84
[2019-01-28 09:47] LABS: Hematocrit 37.6 % (35-47); Hemoglobin 11.7 gm/dl (12.0-16.0); Mean Cell Volume 100.5 fl (78-100); Mean Corpuscular Hgb Concent. 31.1 g/dl (32-36); Platelet Count 222 K/mm3 (150-450); Red Blood Count 3.74 M/mm3 (4.1-5.4); White Blood Count 24.8 K/mm3 (4.0-10.5)
[2019-01-28 09:49] LABS: Mean Corpuscular Hemoglobin 31.2 pg (26-32)
--- NOTE | 2019-01-28 09:51 | XRAY ---
Indication: Left abdomen pain. Status post fall. Cough. Multiple contiguous axial images obtained through the abdomen and pelvis without contrast as ordered. Comparison: None Lung bases demonstrate minimal scattered patchy bilateral lower lobe interstitial alveolar opacities without consolidation or effusion. Heart is not enlarged. Small hiatal hernia. Noncontrasted stomach and bowel loops appear nonobstructed. Normal appendix. Minimal sigmoid diverticulosis. Previous hysterectomy. No free fluid/air. Gallbladder markedly distended with a few tiny gallstones/gravel in the dependent portion. No gallbladder wall thickening or biliary distention. 1.8 cm right upper pole renal cyst. Remaining liver, pancreas, spleen, adrenal glands, kidneys, ureters, and bladder appear unremarkable for noncontrast exam. Mild scattered vascular calcifications, especially origin of the SMA and both renal arteries. No AAA. Osseous structures demonstrates mild/moderate multilevel degenerative spondylosis, greatest lower lumbar spine. Right hip arthroplasty with intact bipolar prosthesis. Old right inferior pubic bone fracture. Impression: 1. Abnormally distended gallbladder with tiny gallstones/gravel. Gallbladder sonogram may yield further information. 2. Incidental small hiatal hernia, sigmoid diverticulosis, right renal cysts, and scattered arteriosclerotic disease. 3. Minimal interstitial alveolar opacities in both lung bases. Rule out pneumonitis. CT DI 21.96
[2019-01-28 09:54] LABS: INR 1.27 (0.8-3.0); PROTIME 14.4 SECONDS (9.95-12.35)
[2019-01-28 09:58] LABS: ANION GAP 17.6 MEQ/L (5-15); BILIRUBIN,TOTAL 1.1 mg/dL (0.2-1.3); Calcium 9.3 mg/dL (8.4-10.2); Creatinine 1 1.92 mg/dL (0.52-1.04); Potassium 3.5 mmol/L (3.5-5.1); Total Protein 7.7 g/dL (6.3-8.2)
[2019-01-28 10:27] LABS: ANISOCYTOSIS 1+; BAND 19 % (0.0-2.0); Basophil 1 % (0.0-1.0); Eosinophil 1 % (0.00-3.0); Lymphocytes 9 % (24-44); Monocyte 7 % (0.0-12.0); Neutrophils 63 % (36.0-66.0); Platelet Estimate NORMAL (NORMAL); Total Cells Counted 100
[2019-01-28 10:28] LABS: Polychromasia 1+; Toxic Granulation RARE
[2019-01-28 10:29] LABS: Granulocyte Absolute (ANC) 20.34 (1.4-6.9)
[2019-01-28 10:40] LABS: Appearance SLIGHTLY CLOUDY (CLEAR); Bilirubin NEGATIVE (NEGATIVE); Blood NEGATIVE Ery/ul (0-5); Glucose 50 mg/dL (NEGATIVE); Ketones NEGATIVE (NEGATIVE); Leukocyte Esterase TRACE (NEGATIVE); Mucus SLIGHT /HPF (NEGATIVE); Nitrite NEGATIVE (NEGATIVE); Protein,Urine Dip >=500 (Negative); RBC 0-2 /HPF (0-2); Specific Gravity 1.018 (1.005-1.025); Urobilinogen NEGATIVE mg/dL (0-1); WBC 26-50 /HPF (0-5)
[2019-01-28 10:40] LABS: Lactic Acid 2.2 (0.4-2.0)
[2019-01-28] MEDS ORDERED: Levofloxacin 500MG/100ML D5W 500 MG/100 ML BAG IV STA (11:19)
[2019-01-28] MEDS ORDERED: Levofloxacin 500MG/100ML D5W 500 MG/100 ML BAG IV ONE (11:30)
--- NOTE | 2019-01-28 11:49 | XRAY ---
Indication: Status post fall. Comparison: None 2 views of the left ribs demonstrates osteopenia, mild multilevel degenerative spondylosis, and advanced left shoulder degenerative arthropathy. No other bony, articular, or soft tissue abnormalities.
--- NOTE | 2019-01-28 11:49 | XRAY ---
Indication: Status post fall. Comparison: November 26, 2018. PA/lateral chest again hyperinflated with lingular fibrosis/scarring. No focal infiltrate, consolidation, or large effusion. Heart is not enlarged. Bony thorax intact again with osteopenia and degenerative changes. Impression: Stable nonacute hyperinflated chest with chronic features.
--- NOTE | 2019-01-28 11:53 | XRAY ---
Indication: Status post fall. Comparison: None 3 views of the left elbow demonstrates anterior elbow joint curvilinear ossification on the crosstable lateral view concerning for radial head fracture. Elsewhere osteopenia and moderate degenerative changes including the olecranon process spurring. Soft tissues unremarkable.
[2019-01-28] MEDS ORDERED: NovoLOG Insulin SQ PRN (13:15)
[2019-01-28] MEDS ORDERED: CODEINE PHOSPHATE PO PRN (16:15)
[2019-01-28] MEDS ORDERED: GUAIFENESIN PO PRN (16:15)
[2019-01-28] MEDS ORDERED: Artificial Tears 15 ML OP PRN (16:15)
[2019-01-28] MEDS ORDERED: MEDICATION INTERVENTION PO SCH (16:45)
[2019-01-28] MEDS: ENOXAPARIN SODIUM SQ SCH (17:57)
[2019-01-28] MEDS: Robitussin AC Syrup Unit Dose Cup PO PRN ×2 (18:00→22:32)
[2019-01-28] MEDS: Voltaren GEL TP SCH ×2 (18:04→22:35)
[2019-01-28] MEDS ORDERED: DUONEB 0.5-3 MG/3 ml Neb IH SCH (19:00)
[2019-01-28] MEDS: NORCO 7.5/325 MG TAB PO PRN (20:34)
[2019-01-28] MEDS: TYLENOL 325 MG PO PRN (20:35)
[2019-01-28] MEDS: Ditropan XL 5 MG PO SCH (21:28)
[2019-01-28] MEDS: Calcium 500MG W/Vit D Tablet PO SCH (21:28)
[2019-01-28] MEDS: NORVASC 5 MG PO SCH (21:28)
[2019-01-28] MEDS: Advair Hfa 115/21 Common canister IH SCH (21:36)
[2019-01-28] MEDS ORDERED: NON-FORMULARY ITEM (Fluticasone/Vilanterol [Breo Ellipta 100-25 Mcg Inh] 1 EACH) IH SCH (22:00)
[2019-01-29] MEDS: NORCO 7.5/325 MG TAB PO PRN ×4 (02:28→23:33)
[2019-01-29] MEDS: Robitussin AC Syrup Unit Dose Cup PO PRN ×3 (02:28→21:32)
[2019-01-29 06:01] LABS: BASOPHIL % 0.1 % (0.0-0.4); Basophil (Absolute #) 0.02 (0-0.4); Eosinophil % 2.3 % (0.00-5.0); Eosinophil (Absolute #) 0.38 (0-0.5); Granulocyte Absolute (ANC) 12.36 (1.4-6.9); Granulocytes % 76.5 % (36.0-66.0); Hematocrit 32.4 % (35-47); Hemoglobin 9.8 gm/dl (12.0-16.0); Lymphocyte (Absolute #) 2.27 (1.0-4.6); Mean Cell Volume 102.5 fl (78-100); Mean Corpuscular Hgb Concent. 30.2 g/dl (32-36); Mean Platelet Volume 8.9 fl (6-9.5); Monocytes % 7.1 % (0.0-12.0); Platelet Count 177 K/mm3 (150-450); Red Blood Count 3.16 M/mm3 (4.1-5.4); Red Cell Distribution Width 15.4 % (11.5-14.0); White Blood Count 16.2 K/mm3 (4.0-10.5)
[2019-01-29 06:19] LABS: ANION GAP 15.9 MEQ/L (5-15); Calcium 7.7 mg/dL (8.4-10.2); Creatinine 1 3.15 mg/dL (0.52-1.04); Potassium 3.8 mmol/L (3.5-5.1)
--- NOTE | 2019-01-29 08:01 | PCM.HP ---
History of Present Illness - Chief Complaint Chief Complaint: left shoulder injury, pneumonia History of Present Illness: is a 74 year old female.pt states she dropped something and when she went to pick it up she lost her balance and fell, she co pain to left rib area and states she hit her head, she has aslo had a cough over a week. She went to the bathroom at 4 AM today, she fell on her way back, she could not get up spent 3-4 hours on the floor, she hit her head and left ribs, both knees, denies LOC, severe headaches, or difficulty breathing, no vomiting, other complaints, she is alert and oriented x4, but did not have her alarm on her. Her main complaint is left rib pain and tenderness. - Review of Systems Constitutional: Fever, Chills, Weakness Eyes: No Symptoms Ears, Nose, & Throat: No Symptoms Respiratory: Cough, Orthopnea, Short Of Breath Cardiac: No Chest Pain, No Edema, No Syncope Abdominal/Gastrointestinal: No Abdominal Pain, No Nausea, No Vomiting, No Diarrhea Genitourinary Symptoms: No Dysuria Musculoskeletal: Arthralgias, Back Pain, Neck Pain, Fall, Joint Redness, Joint Pain, Joint Swelling (left elbow) Skin: No Rash Neurological: No Dizziness, No Focal Weakness, No Sensory Changes Psychological: No Symptoms Endocrine: No Symptoms Hematologic/Lymphatic: No Symptoms Immunological/Allergic: No Symptoms Medications & Allergies Home Medications: Home Medication List Gemfibrozil 600 mg [Lopid 600 mg] 600 mg PO DAILY 01/16/15 [History Confirmed 01/29/19] Cetirizine HCl [Zyrtec] 10 mg PO DAILY 03/06/17 [History Confirmed 01/29/19] Diclofenac Sodium Gel [Voltaren GEL] 2 gm TP QID 03/06/17 [History Confirmed 01/29/19] Fluticasone/Vilanterol [Breo Ellipta 100-25 Mcg INH] 1 each IH BID 03/06/17 [ History Confirmed 01/29/19] Folic Acid 1 mg PO DAILY 03/06/17 [History Confirmed 01/29/19] Furosemide 40 mg [Lasix 40 MG] 40 mg PO DAILY 03/06/17 [History Confirmed 01/29/19] Glimepiride 1 mg PO DAILY 03/06/17 [History Confirmed 01/29/19] Polyvinyl Alcohol [Artificial Tears] 1 drop OP BIDPRN PRN 04/05/18 [History Confirmed 01/29/19] Fluticasone Propionate [Flonase NASAL] 1 spray NS DAILY 04/06/18 [History Confirmed 01/29/19] Albuterol/Ipratropium 3ml Neb* [DUONEB 0.5-3 MG/3 ml Neb] 3 ml IH QID [History Confirmed 01/29/19] Amlodipine Besylate 5 mg [Norvasc 5 mg] 2.5 mg PO HS 11/26/18 [History Confirmed 01/29/19] Calcium Carbonate/Vitamin D3 [Oyster Shell 500-Vit D3 200 Tb] 1 each PO TID [History Confirmed 01/29/19] Losartan Potassium 50 mg [Cozaar 50 MG] 100 mg PO DAILY 11/26/18 [History Confirmed 01/29/19] Omeprazole 20 mg PO DAILY 11/26/18 [History Confirmed 01/29/19] Torsemide 20 mg [Demadex 20 mg] 10 mg PO DAILY 11/26/18 [History Confirmed 01/29/19] Codeine Phosphate/Guaifenesin [Cheratussin AC Syrup] 10 ml PO Q4HPRN PRN [History Confirmed 01/29/19] Darifenacin Hydrobromide [Darifenacin ER] 7.5 mg PO DAILY 01/28/19 [History Confirmed 01/29/19] Ergocalciferol (Vitamin D2) [Vitamin D2] 1 cap PO UD 01/28/19 [History Confirmed 01/29/19] Hydrocodone Bit/Acetaminophen [Hydrocodon-Acetaminoph 7.5-325] 7.5 mg PO Q6HPRN PRN 01/28/19 [History Confirmed 01/29/19] Oxybutynin Chloride [Oxybutynin Chloride ER] 5 mg PO 199901/28/19 [History Confirmed 01/29/19] Allergies/Adverse Reactions: Allergies Allergy/AdvReac Type Severity Reaction Status Date / Time cefaclor [From [facility]] Allergy Intermediate Verified 01/28/19 08:33 shellfish derived Allergy Intermediate Verified 01/28/19 08:33 sulfamethoxazole Allergy Intermediate Verified 01/28/19 08:33 venom-honey bee Allergy Intermediate Verified 01/28/19 08:33 [bee venom (honey bee)] cephalexin [From Keflex] Allergy Mild mouth sores Verified 01/28/19 08:33 - Past Medical History Past Medical History: Yes Neurological History: Stroke, TIA ENT History: Cataracts Cardiac History: Congestive Heart Failure, High Cholesterol, Hypertension Respiratory History: Asthma, COPD, Pneumonia Endocrine Medical History: Diabetes Type II Musculoskelatal History: Osteoarthritis, Osteoporosis, Rheumatoid Arthritis GI Medical History: Esophageal Disorder, GERD, Other History: Renal Disease Pyscho-Social History: Anxiety, Depression Reproductive Disorders: No Pertinent History Comment: Anemia. broken shoulder, 11/19. hiatal hernia. skin cancer- nose - Female History Hx Last Menstrual Period: post Are you now?: No - Past Surgical History Past Surgical History: Yes Neuro Surgical History: No Pertinent History Cardiac History: No Pertinent History Respiratory Surgery: No Pertinent History GI Surgical History: No Pertinent History Genitourinary Surgical Hx: No Pertinent History Musculskeletal Surgical Hx: Joint Replacement Female Surgical History: Hysterectomy Other Surgical History: bilateral Knee replacement x2, right hip replacement, bladder lift - Social History Smoking Status: Former smoker How long have you smoked: 20 yrs Exposure to second hand smoke: Yes Alcohol: None Drug Use: none - Physical Exam Vital Signs: Vital Signs - 24 hr Temp Pulse Resp BP Pulse Ox 01/29/19 04:00 98.5 F 82 18 119/58 94 L 01/29/19 00:00 98.8 F 89 20 102/59 96 01/28/19 21:38 111 H 16 92 L 01/28/19 20:00 103.2 F 114 H 18 119/60 96 01/28/19 15:52 99 F 115 H 16 117/56 91 L 01/28/19 13:24 118 H 22 117/77 96 01/28/19 13:14 94 L 01/28/19 12:00 64 16 132/91 89 L 01/28/19 10:23 70 16 174/80 98 01/28/19 09:15 116 H 16 110/66 96 01/28/19 08:27 100.6 F 120 H 24 105/61 94 L Oxygen-Last 24 hours O2 Percentage 2 Liters = 28% O2 Percentage 2 Liters = 28% O2 Percentage 2 Liters = 28% General Appearance: mild distress, alert Neurologic Exam: alert, oriented x 3, cooperative, No motor deficits Eye Exam: PERRL/EOMI, eyes nml inspection Ears, Nose, Throat Exam: normal ENT inspection, TMs normal, pharynx normal, moist mucous membranes Neck Exam: normal inspection, non-tender, supple, full range of motion Respiratory Exam: chest tenderness, crackles/rales, rhonchi, wheezing, No respiratory distress Cardiovascular Exam: regular rate/rhythm, normal heart sounds, normal peripheral pulses Gastrointestinal/Abdomen Exam: soft, normal bowel sounds, No tenderness, No mass Back Exam: normal inspection, normal range of motion, No CVA tenderness, No vertebral tenderness Extremity Exam: normal inspection, normal range of motion, pelvis stable Skin Exam: normal color, warm, dry, No rash Wound Assessment: Skin/Wound Assessment Wound/Incision Assessment Start: 01/28/19 16: 29 Text: Status: Active Freq: Q6H Protocol: Document 01/29/19 02:00 EG (Rec: 01/29/19 03:28 EG [id number]) Wound/Incision Assessment Right Posterior Medial Buttock Wound Assessment Shift Assessment Wound Type Pressure Ulcer Wound Stage Stage II Drainage Amount None Length (cm) (cm) 2 Width (cm) (cm) 1 Surrounding Tissue [place] Comment see photo in chart Wound Photo Photo Taken Yes Date: 01/28/19 Time: 16:30 Lymphatic Exam: No adenopathy Results - Labs Lab/Micro Results: Accuchecks Accucheck Value: 114 Accucheck Value: 85 Accucheck Value: 93 Accucheck Value: 175 Lab Results-Last 24 Hours 01/28/19 01/28/19 01/28/19 Range/Units 09:45 09:45 09:45 WBC 24.8 H (4.0-10.5) K/mm3 RBC 3.74 L (4.1-5.4) M/mm3 Hgb 11.7 L (12.0-16.0) gm/dl Hct 37.6 (35-47) % MCV 100.5 H (78-100) fl MCH 31.2 (26-32) pg MCHC 31.1 L (32-36) g/dl RDW 15.0 H (11.5-14.0) % Plt Count 222 (150-450) K/mm3 MPV 9.0 (6-9.5) fl Gran % (36.0-66.0) % Eos # (Auto) (0-0.5) Absolute Lymphs (auto) (1.0-4.6) Absolute Monos (auto) (0.0-1.3) Lymphocytes % (24.0-44.0) % Monocytes % (0.0-12.0) % Eosinophils % (0.00-5.0) % Basophils % (0.0-0.4) % Absolute Granulocytes 20.34 H (1.4-6.9) Segmented Neutrophils 63 (36.0-66.0) % Band Neutrophils 19 H (0.0-2.0) % Lymphocytes (Manual) 9 L (24-44) % Monocytes (Manual) 7 (0.0-12.0) % Eosinophils (Manual) 1 (0.00-3.0) % Basophils (Manual) 1 (0.0-1.0) % Basophils # (0-0.4) Toxic Granulation RARE Platelet Estimate NORMAL (NORMAL) RBC Morphology ABNORMAL Polychromasia 1+ Anisocytosis 1+ PT 14.4 H (9.95-12.35) SECONDS INR 1.27 (0.8-3.0) Sodium 141 (137-145) mmol/L Potassium 3.5 (3.5-5.1) mmol/L Chloride 102 (98-107) mmol/L Carbon Dioxide 25 (22-30) mmol/L Anion Gap 17.6 H (5-15) MEQ/L BUN 29 H (7-17) mg/dL Creatinine 1.92 H (0.52-1.04) mg/dL Estimated GFR 27.0 ML/MIN Glucose 184 H (74-106) mg/dL Lactic Acid (0.4-2.0) Calcium 9.3 (8.4-10.2) mg/dL Total Bilirubin 1.10 (0.2-1.3) mg/dL AST 18 (14-36) U/L ALT 15 (0-35) U/L Alkaline Phosphatase 88 (38-126) U/L Creatine Kinase (30-135) U/L Troponin I (0.000-0.034) ng/mL Serum Total Protein 7.7 (6.3-8.2) g/dL Albumin 4.0 (3.5-5.0) g/dL Prealbumin (17.6-36.0) mg/dL Urine Color (YELLOW) Urine Appearance (CLEAR) Urine pH (5-6) Ur Specific [place] (1.005-1.025) Urine Protein (Negative) Urine Ketones (NEGATIVE) Urine Blood (0-5) Shiv/ul Urine Nitrite (NEGATIVE) Urine Bilirubin (NEGATIVE) Urine Urobilinogen (0-1) mg/dL Ur Leukocyte Esterase (NEGATIVE) Urine WBC (Auto) (0-5) /HPF Urine RBC (Auto) (0-2) /HPF U Epithel Cells (Auto) (FEW) /HPF Urine Bacteria (Auto) (NEGATIVE) /HPF Urine Mucus (Auto) (NEGATIVE) /HPF Urine Culture Reflexed (NO) Urine Glucose (NEGATIVE) mg/dL 01/28/19 01/28/19 01/28/19 Range/Units 09:45 09:45 10:02 WBC (4.0-10.5) K/mm3 RBC (4.1-5.4) M/mm3 Hgb (12.0-16.0) gm/dl Hct (35-47) % MCV (78-100) fl MCH (26-32) pg MCHC (32-36) g/dl RDW (11.5-14.0) % Plt Count (150-450) K/mm3 MPV (6-9.5) fl Gran % (36.0-66.0) % Eos # (Auto) (0-0.5) Absolute Lymphs (auto) (1.0-4.6) Absolute Monos (auto) (0.0-1.3) Lymphocytes % (24.0-44.0) % Monocytes % (0.0-12.0) % Eosinophils % (0.00-5.0) % Basophils % (0.0-0.4) % Absolute Granulocytes (1.4-6.9) Segmented Neutrophils (36.0-66.0) % Band Neutrophils (0.0-2.0) % Lymphocytes (Manual) (24-44) % Monocytes (Manual) (0.0-12.0) % Eosinophils (Manual) (0.00-3.0) % Basophils (Manual) (0.0-1.0) % Basophils # (0-0.4) Toxic Granulation Platelet Estimate (NORMAL) RBC Morphology Polychromasia Anisocytosis PT (9.95-12.35) SECONDS INR (0.8-3.0) Sodium (137-145) mmol/L Potassium (3.5-5.1) mmol/L Chloride (98-107) mmol/L Carbon Dioxide (22-30) mmol/L Anion Gap (5-15) MEQ/L BUN (7-17) mg/dL Creatinine (0.52-1.04) mg/dL Estimated GFR ML/MIN Glucose (74-106) mg/dL Lactic Acid 2.2 H (0.4-2.0) Calcium (8.4-10.2) mg/dL Total Bilirubin (0.2-1.3) mg/dL AST (14-36) U/L ALT (0-35) U/L Alkaline Phosphatase (38-126) U/L Creatine Kinase 39 (30-135) U/L Troponin I 0.047 H* (0.000-0.034) ng/mL Serum Total Protein (6.3-8.2) g/dL Albumin (3.5-5.0) g/dL Prealbumin (17.6-36.0) mg/dL Urine Color (YELLOW) Urine Appearance (CLEAR) Urine pH (5-6) Ur Specific [place] (1.005-1.025) Urine Protein (Negative) Urine Ketones (NEGATIVE) Urine Blood (0-5) Shiv/ul Urine Nitrite (NEGATIVE) Urine Bilirubin (NEGATIVE) Urine Urobilinogen (0-1) mg/dL Ur Leukocyte Esterase (NEGATIVE) Urine WBC (Auto) (0-5) /HPF Urine RBC (Auto) (0-2) /HPF U Epithel Cells (Auto) (FEW) /HPF Urine Bacteria (Auto) (NEGATIVE) /HPF Urine Mucus (Auto) (NEGATIVE) /HPF Urine Culture Reflexed (NO) Urine Glucose (NEGATIVE) mg/dL 01/28/19 01/28/19 01/28/19 Range/Units 10:33 11:50 12:40 WBC (4.0-10.5) K/mm3 RBC (4.1-5.4) M/mm3 Hgb (12.0-16.0) gm/dl Hct (35-47) % MCV (78-100) fl MCH (26-32) pg MCHC (32-36) g/dl RDW (11.5-14.0) % Plt Count (150-450) K/mm3 MPV (6-9.5) fl Gran % (36.0-66.0) % Eos # (Auto) (0-0.5) Absolute Lymphs (auto) (1.0-4.6) Absolute Monos (auto) (0.0-1.3) Lymphocytes % (24.0-44.0) % Monocytes % (0.0-12.0) % Eosinophils % (0.00-5.0) % Basophils % (0.0-0.4) % Absolute Granulocytes (1.4-6.9) Segmented Neutrophils (36.0-66.0) % Band Neutrophils (0.0-2.0) % Lymphocytes (Manual) (24-44) % Monocytes (Manual) (0.0-12.0) % Eosinophils (Manual) (0.00-3.0) % Basophils (Manual) (0.0-1.0) % Basophils # (0-0.4) Toxic Granulation Platelet Estimate (NORMAL) RBC Morphology Polychromasia Anisocytosis PT (9.95-12.35) SECONDS INR (0.8-3.0) Sodium (137-145) mmol/L Potassium (3.5-5.1) mmol/L Chloride (98-107) mmol/L Carbon Dioxide (22-30) mmol/L Anion Gap (5-15) MEQ/L BUN (7-17) mg/dL Creatinine (0.52-1.04) mg/dL Estimated GFR ML/MIN Glucose (74-106) mg/dL Lactic Acid 1.8 (0.4-2.0) Calcium (8.4-10.2) mg/dL Total Bilirubin (0.2-1.3) mg/dL AST (14-36) U/L ALT (0-35) U/L Alkaline Phosphatase (38-126) U/L Creatine Kinase (30-135) U/L Troponin I 0.048 H* (0.000-0.034) ng/mL Serum Total Protein (6.3-8.2) g/dL Albumin (3.5-5.0) g/dL Prealbumin (17.6-36.0) mg/dL Urine Color YELLOW (YELLOW) Urine Appearance SLIGHTLY CLOUDY (CLEAR) Urine pH 6.0 (5-6) Ur Specific [place] 1.018 (1.005-1.025) Urine Protein >=500 (Negative) Urine Ketones NEGATIVE (NEGATIVE) Urine Blood NEGATIVE (0-5) Shiv/ul Urine Nitrite NEGATIVE (NEGATIVE) Urine Bilirubin NEGATIVE (NEGATIVE) Urine Urobilinogen NEGATIVE (0-1) mg/dL Ur Leukocyte Esterase TRACE (NEGATIVE) Urine WBC (Auto) 26-50 (0-5) /HPF Urine RBC (Auto) 0-2 (0-2) /HPF U Epithel Cells (Auto) NONE (FEW) /HPF Urine Bacteria (Auto) NONE (NEGATIVE) /HPF Urine Mucus (Auto) SLIGHT (NEGATIVE) /HPF Urine Culture Reflexed YES (NO) Urine Glucose 50 (NEGATIVE) mg/dL 01/28/19 01/28/19 01/28/19 Range/Units 14:45 18:05 18:25 WBC (4.0-10.5) K/mm3 RBC (4.1-5.4) M/mm3 Hgb (12.0-16.0) gm/dl Hct (35-47) % MCV (78-100) fl MCH (26-32) pg MCHC (32-36) g/dl RDW (11.5-14.0) % Plt Count (150-450) K/mm3 MPV (6-9.5) fl Gran % (36.0-66.0) % Eos # (Auto) (0-0.5) Absolute Lymphs (auto) (1.0-4.6) Absolute Monos (auto) (0.0-1.3) Lymphocytes % (24.0-44.0) % Monocytes % (0.0-12.0) % Eosinophils % (0.00-5.0) % Basophils % (0.0-0.4) % Absolute Granulocytes (1.4-6.9) Segmented Neutrophils (36.0-66.0) % Band Neutrophils (0.0-2.0) % Lymphocytes (Manual) (24-44) % Monocytes (Manual) (0.0-12.0) % Eosinophils (Manual) (0.00-3.0) % Basophils (Manual) (0.0-1.0) % Basophils # (0-0.4) Toxic Granulation Platelet Estimate (NORMAL) RBC Morphology Polychromasia Anisocytosis PT (9.95-12.35) SECONDS INR (0.8-3.0) Sodium (137-145) mmol/L Potassium (3.5-5.1) mmol/L Chloride (98-107) mmol/L Carbon Dioxide (22-30) mmol/L Anion Gap (5-15) MEQ/L BUN (7-17) mg/dL Creatinine (0.52-1.04) mg/dL Estimated GFR ML/MIN Glucose (74-106) mg/dL Lactic Acid (0.4-2.0) Calcium (8.4-10.2) mg/dL Total Bilirubin (0.2-1.3) mg/dL AST (14-36) U/L ALT (0-35) U/L Alkaline Phosphatase (38-126) U/L Creatine Kinase (30-135) U/L Troponin I 0.045 H* 0.044 H* (0.000-0.034) ng/mL Serum Total Protein (6.3-8.2) g/dL Albumin (3.5-5.0) g/dL Prealbumin 14.67 L (17.6-36.0) mg/dL Urine Color (YELLOW) Urine Appearance (CLEAR) Urine pH (5-6) Ur Specific [place] (1.005-1.025) Urine Protein (Negative) Urine Ketones (NEGATIVE) Urine Blood (0-5) Shiv/ul Urine Nitrite (NEGATIVE) Urine Bilirubin (NEGATIVE) Urine Urobilinogen (0-1) mg/dL Ur Leukocyte Esterase (NEGATIVE) Urine WBC (Auto) (0-5) /HPF Urine RBC (Auto) (0-2) /HPF U Epithel Cells (Auto) (FEW) /HPF Urine Bacteria (Auto) (NEGATIVE) /HPF Urine Mucus (Auto) (NEGATIVE) /HPF Urine Culture Reflexed (NO) Urine Glucose (NEGATIVE) mg/dL 01/28/19 01/29/19 01/29/19 Range/Units 21:27 05:35 05:35 WBC 16.2 H (4.0-10.5) K/mm3 RBC 3.16 L (4.1-5.4) M/mm3 Hgb 9.8 L (12.0-16.0) gm/dl Hct 32.4 L (35-47) % MCV 102.5 H (78-100) fl MCH 31.0 (26-32) pg MCHC 30.2 L (32-36) g/dl RDW 15.4 H (11.5-14.0) % Plt Count 177 (150-450) K/mm3 MPV 8.9 (6-9.5) fl Gran % 76.5 H (36.0-66.0) % Eos # (Auto) 0.38 (0-0.5) Absolute Lymphs (auto) 2.27 (1.0-4.6) Absolute Monos (auto) 1.15 (0.0-1.3) Lymphocytes % 14.0 L (24.0-44.0) % Monocytes % 7.1 (0.0-12.0) % Eosinophils % 2.3 (0.00-5.0) % Basophils % 0.1 (0.0-0.4) % Absolute Granulocytes 12.36 H (1.4-6.9) Segmented Neutrophils (36.0-66.0) % Band Neutrophils (0.0-2.0) % Lymphocytes (Manual) (24-44) % Monocytes (Manual) (0.0-12.0) % Eosinophils (Manual) (0.00-3.0) % Basophils (Manual) (0.0-1.0) % Basophils # 0.02 (0-0.4) Toxic Granulation Platelet Estimate (NORMAL) RBC Morphology Polychromasia Anisocytosis PT (9.95-12.35) SECONDS INR (0.8-3.0) Sodium 138 (137-145) mmol/L Potassium 3.8 (3.5-5.1) mmol/L Chloride 101 (98-107) mmol/L Carbon Dioxide 25 (22-30) mmol/L Anion Gap 15.9 H (5-15) MEQ/L BUN 43 H (7-17) mg/dL Creatinine 3.15 H (0.52-1.04) mg/dL Estimated GFR 15.2 ML/MIN Glucose 88 (74-106) mg/dL Lactic Acid (0.4-2.0) Calcium 7.7 L D (8.4-10.2) mg/dL Total Bilirubin (0.2-1.3) mg/dL AST (14-36) U/L ALT (0-35) U/L Alkaline Phosphatase (38-126) U/L Creatine Kinase (30-135) U/L Troponin I 0.043 H* (0.000-0.034) ng/mL Serum Total Protein (6.3-8.2) g/dL Albumin (3.5-5.0) g/dL Prealbumin (17.6-36.0) mg/dL Urine Color (YELLOW) Urine Appearance (CLEAR) Urine pH (5-6) Ur Specific [place] (1.005-1.025) Urine Protein (Negative) Urine Ketones (NEGATIVE) Urine Blood (0-5) Shiv/ul Urine Nitrite (NEGATIVE) Urine Bilirubin (NEGATIVE) Urine Urobilinogen (0-1) mg/dL Ur Leukocyte Esterase (NEGATIVE) Urine WBC (Auto) (0-5) /HPF Urine RBC (Auto) (0-2) /HPF U Epithel Cells (Auto) (FEW) /HPF Urine Bacteria (Auto) (NEGATIVE) /HPF Urine Mucus (Auto) (NEGATIVE) /HPF Urine Culture Reflexed (NO) Urine Glucose (NEGATIVE) mg/dL Accuchecks Accucheck Value: 114 Accucheck Value: 85 Accucheck Value: 93 Accucheck Value: 175 - Radiology Impressions Radiology Exams & Impressions: Radiology Procedures Category Date Time Status ABDOMEN AND PELVIS W/0 CONTRAS [CT] Stat Exams 01/28/19 08:40 Completed CERVICAL SPINE WO CONTRAST [CT] Stat Exams 01/28/19 08:41 Completed CHEST 2 VIEWS (PA AND LAT) Stat Exams 01/28/19 08:40 Completed ELBOW (MINIMUM 3 VIEWS) Stat Exams 01/28/19 08:43 Completed HEAD WITHOUT CONTRAST [CT] Stat Exams 01/28/19 08:41 Completed RIBS UNILATERAL Stat Exams 01/28/19 08:43 Completed - Other Procedures and Tests Respiratory Therapy 01/28/19 13:15 Oxygen Nasal Cannula 2 lpm 01/28/19 16:58 Peak Expiratory Flow Rate ONCE Respiratory Therapy Assessment DAILY Assessment/Plan (1) Pneumonia Current Visit: Yes Status: Acute Qualifiers: Pneumonia type: due to unspecified organism Lung location: unspecified part of lung Assessment & Plan: Last Vital Signs Temp 98.5 F 01/29/19 04:00 Pulse 82 01/29/19 04:00 Resp 18 01/29/19 04:00 BP 119/58 01/29/19 04:00 Pulse Ox 94 L 01/29/19 04:00 Allergies cefaclor [From Ceclor] Allergy (Intermediate, Verified 01/28/19 08:33) shellfish derived Allergy (Intermediate, Verified 01/28/19 08:33) sulfamethoxazole Allergy (Intermediate, Verified 01/28/19 08:33) venom-honey bee [bee venom (honey bee)] Allergy (Intermediate, Verified 08:33) cephalexin [From Keflex] Allergy (Mild, Verified 01/28/19 08:33) mouth sores Active Medications Acetaminophen (Tylenol 325 Mg) 650 mg PO Q4H PRN PRN PRN Reason: PAIN AND/OR FEVER Stop: 02/27/19 13:14 Last Admin: 01/28/19 20:35 Dose: 650 mg Hydrocodone Bitart/Acetaminophen (Stout 7.5/325 Mg Tab) 1 tab PO Q6HPRN PRN PRN Reason: PAIN Stop: 02/02/19 16:14 Last Admin: 01/29/19 02:28 Dose: 1 tab Albuterol/Ipratropium (Duoneb 0.5-3 Mg/3 Ml Neb) 3 ml IH Q4HPRN PRN PRN Reason: SHORTNESS OF BREATH/WHEEZING Stop: 02/27/19 13:14 Amlodipine Besylate (Norvasc 5 Mg) 2.5 mg PO HS [facility] Stop: 02/27/19 21:59 Last Admin: 01/28/19 21:28 Dose: 2.5 mg Artificial Tears (Artificial Tears 15 Ml) 0 ml OP BIDPRN PRN PRN Reason: dry eyes Stop: 02/27/19 16:14 Calcium Carbonate (Calcium 500mg W/Vit D Tablet) 1 tab PO TID [facility] Stop: 02/27/19 21:59 Last Admin: 01/28/19 21:28 Dose: 1 tab Diclofenac Sodium (Voltaren Gel) 2 gm TP QID [facility] Stop: 02/27/19 16:59 Last Admin: 01/28/19 22:35 Dose: 2 gm Enoxaparin Sodium (Enoxaparin Sodium) 30 mg SQ DAILY [facility] Stop: 02/27/19 16:59 Last Admin: 01/28/19 17:57 Dose: 30 mg Ergocalciferol (Vitamin D2) 50,000 unit PO 1000 [facility] Stop: 03/08/19 09:59 Fluticasone Propionate (Flonase Nasal) 0 gm NS DAILY [facility] Stop: 02/28/19 09:59 Folic Acid (Folate 1 Mg) 1 mg PO DAILY [facility] Stop: 02/28/19 09:59 Furosemide (Lasix 40 Mg) 40 mg PO DAILY [facility] Stop: 02/28/19 09:59 Gemfibrozil (Lopid 600 Mg) 600 mg PO DAILY [facility] Stop: 02/28/19 09:59 Glimepiride (Amaryl 2 Mg) 1 mg PO BREAKFAST [facility] Stop: 02/28/19 07:59 Guaifenesin/Codeine Phosphate (Robitussin Ac Syrup Unit Dose Cup) 10 ml PO Q4H PRN PRN PRN Reason: COUGH Stop: 02/27/19 16:31 Last Admin: 01/29/19 02:28 Dose: 10 ml Sodium Chloride (Sodium Chloride 0.9% 1000 Ml) 1,000 mls @ 100 mls/hr IV .Q10H [facility] Stop: 02/27/19 08:44 Last Admin: 01/28/19 21:29 Dose: 999 mls/hr Levofloxacin/Dextrose (Levaquin 250mg/50ml D5w) 250 mg in 50 mls @ 50 mls/hr IV DAILY [facility] Stop: 02/28/19 09:59 Insulin Aspart (Novolog Insulin) 0 unit SQ UD PRN PRN Reason: HYPERGLYCEMIA Stop: 02/27/19 13:14 Last Admin: 01/28/19 18:14 Dose: 3 unit Loratadine (Claritin 10 Mg) 10 mg PO DAILY [facility] Stop: 02/28/19 09:59 Losartan Potassium (Cozaar 50 Mg) 100 mg PO DAILY [facility] Stop: 02/28/19 09:59 Miscellaneous Information (Medication Intervention) 1 each PO .RN TO CHECK ON PAOLA Stop: 02/27/19 16:44 Morphine Sulfate (Morphine Sulfate 2 Mg Inj) 2 mg IV Q4H PRN PRN PRN Reason: PAIN Stop: 02/02/19 13:14 Ondansetron HCl (Zofran 4 Mg/2 Ml Vial) 4 mg IV Q6H PRN PRN PRN Reason: NAUSEA/VOMITING Stop: 02/27/19 13:14 Oxybutynin Chloride (Ditropan Xl 5 Mg) 5 mg PO 1999 [facility] Stop: 02/27/19 19:59 Last Admin: 01/28/19 21:28 Dose: 5 mg Pantoprazole Sodium (Protonix 40mg Tablet) 40 mg PO DAILY [facility] Stop: 02/28/19 09:59 Fluticasone/Salmeterol (Advair Hfa Common Canister*) 2 puff IH BIDRT [facility] Stop: 02/27/19 18:59 Last Admin: 01/28/19 21:36 Dose: 2 puff Torsemide (Demadex 20 Mg) 10 mg PO DAILY [facility] Stop: 02/28/19 09:59 Intake & Output 01/28/19 01/29/19 11:59 11:59 Intake Total 2410 Balance 2410 Weight 81.647 kg 79.1 kg Orders 01/28/19 16:15 Hydrocodone /APAP 7.5/325 mg [Stout 7.5/325 mg Tab] 1 tab PO Q6HPRN PRN Polyvinyl Alcohol Tears [Artificial Tears 15 ML] 0 ml OP BIDPRN PRN 01/28/19 16:32 Guaifenesin/Codeine 5 ml [Robitussin AC Syrup Unit Dose Cup] 10 ml PO Q4H PRN PRN 01/28/19 16:45 Medication Intervention 1 each PO .RN TO CHECK ON 01/28/19 16:58 Peak Expiratory Flow Rate ONCE Respiratory Therapy Assessment DAILY 01/28/19 17:00 Diclofenac Sodium Gel [Voltaren GEL] 2 gm TP QID Enoxaparin Sodium [Enoxaparin Sodium] 30 mg SQ DAILY 01/28/19 19:00 Fluticasone/Salmeterol 115/21 [Advair Hfa Common canister*] 2 puff IH BIDRT 01/28/19 20:00 Oxybutynin Chloride Xl 5 mg [Ditropan XL 5 MG] 5 mg PO 199901/28/19 21:38 Pulse Oximetry .spot check 01/28/19 22:00 Amlodipine Besylate 5 mg [Norvasc 5 mg] 2.5 mg PO HS Calcium Carb/Vitamin D 500 mg* [Calcium 500MG W/Vit D Tablet] 1 tab PO TID 01/29/19 08:00 Glimepiride 2 mg [Amaryl 2 MG] 1 mg PO BREAKFAST 01/29/19 10:00 Fluticasone Propionate [Flonase NASAL] 0 gm NS DAILY Folic Acid 1 mg [Folate 1 mg] 1 mg PO DAILY Furosemide 40 mg [Lasix 40 MG] 40 mg PO DAILY Gemfibrozil 600 mg [Lopid 600 mg] 600 mg PO DAILY Levofloxacin [Levaquin 250MG/50ML D5W] 250 mg in 50 ml IV DAILY Loratadine 10 mg [Claritin 10 mg] 10 mg PO DAILY Losartan Potassium 50 mg [Cozaar 50 MG] 100 mg PO DAILY PANTOPRAZOLE 40 mg Tablet [Protonix 40MG Tablet] 40 mg PO DAILY Torsemide 20 mg [Demadex 20 mg] 10 mg PO DAILY 02/06/19 10:00 Ergocalciferol (Vitamin D2) [Vitamin D2] 50,000 unit PO 1000 Lab Tests 01/28/19 01/28/19 01/28/19 09:45 09:45 09:45 WBC 24.8 H RBC 3.74 L Hgb 11.7 L Hct 37.6 MCV 100.5 H MCH 31.2 MCHC 31.1 L RDW 15.0 H Plt Count 222 MPV 9.0 Gran % Eos # (Auto) Absolute Lymphs (auto) Absolute Monos (auto) Lymphocytes % Monocytes % Eosinophils % Basophils % Absolute Granulocytes 20.34 H Segmented Neutrophils 63 Band Neutrophils 19 H Lymphocytes (Manual) 9 L Monocytes (Manual) 7 Eosinophils (Manual) 1 Basophils (Manual) 1 Basophils # Toxic Granulation RARE Platelet Estimate NORMAL RBC Morphology ABNORMAL Polychromasia 1+ Anisocytosis 1+ PT 14.4 H INR 1.27 Sodium 141 Potassium 3.5 Chloride 102 Carbon Dioxide 25 Anion Gap 17.6 H BUN 29 H Creatinine 1.92 H Estimated GFR 27.0 Glucose 184 H Lactic Acid Calcium 9.3 Total Bilirubin 1.10 AST 18 ALT 15 Alkaline Phosphatase 88 Creatine Kinase Troponin I Serum Total Protein 7.7 Albumin 4.0 Prealbumin Urine Color Urine Appearance Urine pH Ur Specific [place] Urine Protein Urine Ketones Urine Blood Urine Nitrite Urine Bilirubin Urine Urobilinogen Ur Leukocyte Esterase Urine WBC (Auto) Urine RBC (Auto) U Epithel Cells (Auto) Urine Bacteria (Auto) Urine Mucus (Auto) Urine Culture Reflexed Urine Glucose 01/28/19 01/28/19 01/28/19 09:45 09:45 10:02 WBC RBC Hgb Hct MCV MCH MCHC RDW Plt Count MPV Gran % Eos # (Auto) Absolute Lymphs (auto) Absolute Monos (auto) Lymphocytes % Monocytes % Eosinophils % Basophils % Absolute Granulocytes Segmented Neutrophils Band Neutrophils Lymphocytes (Manual) Monocytes (Manual) Eosinophils (Manual) Basophils (Manual) Basophils # Toxic Granulation Platelet Estimate RBC Morphology Polychromasia Anisocytosis PT INR Sodium Potassium Chloride Carbon Dioxide Anion Gap BUN Creatinine Estimated GFR Glucose Lactic Acid 2.2 H Calcium Total Bilirubin AST ALT Alkaline Phosphatase Creatine Kinase 39 Troponin I 0.047 H* Serum Total Protein Albumin Prealbumin Urine Color Urine Appearance Urine pH Ur Specific [place] Urine Protein Urine Ketones Urine Blood Urine Nitrite Urine Bilirubin Urine Urobilinogen Ur Leukocyte Esterase Urine WBC (Auto) Urine RBC (Auto) U Epithel Cells (Auto) Urine Bacteria (Auto) Urine Mucus (Auto) Urine Culture Reflexed Urine Glucose 01/28/19 01/28/19 01/28/19 10:33 11:50 12:40 WBC RBC Hgb Hct MCV MCH MCHC RDW Plt Count MPV Gran % Eos # (Auto) Absolute Lymphs (auto) Absolute Monos (auto) Lymphocytes % Monocytes % Eosinophils % Basophils % Absolute Granulocytes Segmented Neutrophils Band Neutrophils Lymphocytes (Manual) Monocytes (Manual) Eosinophils (Manual) Basophils (Manual) Basophils # Toxic Granulation Platelet Estimate RBC Morphology Polychromasia Anisocytosis PT INR Sodium Potassium Chloride Carbon Dioxide Anion Gap BUN Creatinine Estimated GFR Glucose Lactic Acid 1.8 Calcium Total Bilirubin AST ALT Alkaline Phosphatase Creatine Kinase Troponin I 0.048 H* Serum Total Protein Albumin Prealbumin Urine Color YELLOW Urine Appearance SLIGHTLY CLOUDY Urine pH 6.0 Ur Specific [place] 1.018 Urine Protein >=500 Urine Ketones NEGATIVE Urine Blood NEGATIVE Urine Nitrite NEGATIVE Urine Bilirubin NEGATIVE Urine Urobilinogen NEGATIVE Ur Leukocyte Esterase TRACE Urine WBC (Auto) 26-50 Urine RBC (Auto) 0-2 U Epithel Cells (Auto) NONE Urine Bacteria (Auto) NONE Urine Mucus (Auto) SLIGHT Urine Culture Reflexed YES Urine Glucose 50 01/28/19 01/28/19 01/28/19 14:45 18:05 18:25 WBC RBC Hgb Hct MCV MCH MCHC RDW Plt Count MPV Gran % Eos # (Auto) Absolute Lymphs (auto) Absolute Monos (auto) Lymphocytes % Monocytes % Eosinophils % Basophils % Absolute Granulocytes Segmented Neutrophils Band Neutrophils Lymphocytes (Manual) Monocytes (Manual) Eosinophils (Manual) Basophils (Manual) Basophils # Toxic Granulation Platelet Estimate RBC Morphology Polychromasia Anisocytosis PT INR Sodium Potassium Chloride Carbon Dioxide Anion Gap BUN Creatinine Estimated GFR Glucose Lactic Acid Calcium Total Bilirubin AST ALT Alkaline Phosphatase Creatine Kinase Troponin I 0.045 H* 0.044 H* Serum Total Protein Albumin Prealbumin 14.67 L Urine Color Urine Appearance Urine pH Ur Specific [place] Urine Protein Urine Ketones Urine Blood Urine Nitrite Urine Bilirubin Urine Urobilinogen Ur Leukocyte Esterase Urine WBC (Auto) Urine RBC (Auto) U Epithel Cells (Auto) Urine Bacteria (Auto) Urine Mucus (Auto) Urine Culture Reflexed Urine Glucose 01/28/19 01/29/19 01/29/19 21:27 05:35 05:35 WBC 16.2 H RBC 3.16 L Hgb 9.8 L Hct 32.4 L MCV 102.5 H MCH 31.0 MCHC 30.2 L RDW 15.4 H Plt Count 177 MPV 8.9 Gran % 76.5 H Eos # (Auto) 0.38 Absolute Lymphs (auto) 2.27 Absolute Monos (auto) 1.15 Lymphocytes % 14.0 L Monocytes % 7.1 Eosinophils % 2.3 Basophils % 0.1 Absolute Granulocytes 12.36 H Segmented Neutrophils Band Neutrophils Lymphocytes (Manual) Monocytes (Manual) Eosinophils (Manual) Basophils (Manual) Basophils # 0.02 Toxic Granulation Platelet Estimate RBC Morphology Polychromasia Anisocytosis PT INR Sodium 138 Potassium 3.8 Chloride 101 Carbon Dioxide 25 Anion Gap 15.9 H BUN 43 H Creatinine 3.15 H Estimated GFR 15.2 Glucose 88 Lactic Acid Calcium 7.7 L D Total Bilirubin AST ALT Alkaline Phosphatase Creatine Kinase Troponin I 0.043 H* Serum Total Protein Albumin Prealbumin Urine Color Urine Appearance Urine pH Ur Specific [place] Urine Protein Urine Ketones Urine Blood Urine Nitrite Urine Bilirubin Urine Urobilinogen Ur Leukocyte Esterase Urine WBC (Auto) Urine RBC (Auto) U Epithel Cells (Auto) Urine Bacteria (Auto) Urine Mucus (Auto) Urine Culture Reflexed Urine Glucose Code(s): J18.9 - PNEUMONIA, UNSPECIFIED ORGANISM (2) Urinary tract infection Current Visit: Yes Status: Acute Qualifiers: Urinary tract infection type: site unspecified Hematuria presence: without hematuria Qualified Code(s): N39.0 - Urinary tract infection, site not specified Code(s): N39.0 - URINARY TRACT INFECTION, SITE NOT SPECIFIED (3) Contusion of rib on left side Current Visit: Yes Status: Acute Qualifiers: Encounter type: initial encounter Qualified Code(s): S20.212A - Contusion of left front wall of thorax, initial encounter Code(s): S20.212A - CONTUSION OF LEFT FRONT WALL OF THORAX, INITIAL ENCOUNTER (4) Radial head fracture, closed Current Visit: Yes Status: Acute Qualifiers: Encounter type: initial encounter Fracture alignment: nondisplaced Laterality: left Qualified Code(s): S52.125A - Nondisplaced fracture of head of left radius, initial encounter for closed fracture Code(s): S52.123A - DISP FX OF HEAD OF UNSP RADIUS, INIT FOR CLOS FX
[2019-01-29] MEDS: DUONEB 0.5-3 MG/3 ml Neb IH PRN ×3 (08:07→15:22)
[2019-01-29] MEDS: Advair Hfa 115/21 Common canister IH SCH ×2 (08:08→19:31)
[2019-01-29] MEDS: Amaryl 2 MG PO SCH (08:37)
[2019-01-29] MEDS: DEMADEX 20 MG PO SCH (08:45)
[2019-01-29] MEDS: FOLATE 1 MG PO SCH (08:45)
[2019-01-29] MEDS: Calcium 500MG W/Vit D Tablet PO SCH ×3 (08:46→21:32)
[2019-01-29] MEDS: Lasix 40 MG PO SCH (08:46)
[2019-01-29] MEDS: CLARITIN 10 MG PO SCH (08:46)
[2019-01-29] MEDS: Cozaar 50 MG PO SCH (08:46)
[2019-01-29] MEDS: Protonix 40MG Tablet PO SCH (08:46)
[2019-01-29] MEDS: Flonase NASAL NS SCH (08:50)
[2019-01-29] MEDS: LOPID 600 MG PO SCH (08:51)
[2019-01-29] MEDS: ENOXAPARIN SODIUM SQ SCH (08:56)
[2019-01-29] MEDS: Voltaren GEL TP SCH ×4 (09:24→21:33)
[2019-01-29] MEDS ORDERED: DARIFENACIN HYDROBROMIDE 7.5 MG PO SCH (10:00)
[2019-01-29] MEDS ORDERED: Levaquin 250MG/50ML D5W 250 MG/50 ML BAG IV SCH (10:00)
[2019-01-29] MEDS ORDERED: Levofloxacin 500MG/100ML D5W 500 MG/100 ML BAG IV SCH (10:00)
[2019-01-29] MEDS ORDERED: NON-FORMULARY ITEM (Cetirizine Hcl [Zyrtec] 10 MG) PO SCH (10:00)
[2019-01-29] MEDS ORDERED: NON-FORMULARY ITEM (Glimepiride [Glimepiride] 1 MG) PO SCH (10:00)
[2019-01-29] MEDS: Sodium Chloride 0.9% 1000 ML 1,000 ML IV SCH ×2 (10:08→20:11)
[2019-01-29] MEDS: TYLENOL 325 MG PO PRN ×2 (14:49→23:56)
[2019-01-29] MEDS: Zofran 4 MG/2 ML VIAL IV PRN (16:08)
[2019-01-29] MEDS: DUONEB 0.5-3 MG/3 ml Neb IH SCH (19:30)
[2019-01-29] MEDS: NORVASC 5 MG PO SCH (21:32)
[2019-01-29] MEDS: Ditropan XL 5 MG PO SCH (21:33)
[2019-01-29] MEDS: MORPHINE SULFATE 2 MG INJ IV PRN (23:56)
[2019-01-30] MEDS: Robitussin AC Syrup Unit Dose Cup PO PRN ×3 (06:08→20:43)
[2019-01-30] MEDS: NORCO 7.5/325 MG TAB PO PRN ×3 (06:08→20:43)
[2019-01-30] MEDS: Sodium Chloride 0.9% 1000 ML 1,000 ML IV SCH ×2 (06:15→19:32)
--- NOTE | 2019-01-30 07:44 | PCM.NOTE ---
Date and Time: 01/30/19 0743 Subjective Assessment: still c/o cough, last 24 hours events noted - Review of Systems Constitutional: No Fever, No Chills Eyes: No Symptoms Ears, Nose, & Throat: No Symptoms Respiratory: Cough, Short Of Breath Cardiac: No Chest Pain, No Edema, No Syncope Abdominal/Gastrointestinal: No Abdominal Pain, No Nausea, No Vomiting, No Diarrhea Genitourinary Symptoms: No Dysuria Musculoskeletal: No Back Pain, No Neck Pain Skin: No Rash Neurological: No Dizziness, No Focal Weakness, No Sensory Changes Psychological: No Symptoms Endocrine: No Symptoms Hematologic/Lymphatic: No Symptoms Immunological/Allergic: No Symptoms Objective Exam General Appearance: no apparent distress, alert Neurologic Exam: alert, oriented x 3, cooperative, normal mood/affect, nml cerebellar function, sensation nml, No motor deficits Skin Exam: normal color, warm, dry Wound Assessment: Skin/Wound Assessment Wound/Incision Assessment Start: 01/28/19 16: 29 Text: Status: Active Freq: Q6H Protocol: Document 01/30/19 02:00 EG (Rec: 01/30/19 04:13 EG [id number]) Wound/Incision Assessment Right Posterior Medial Buttock Wound Assessment Shift Assessment Wound Type Pressure Ulcer Wound Stage Stage II Drainage Amount None Length (cm) (cm) 2 Width (cm) (cm) 1 Surrounding Tissue [place] Comment see photo in chart Wound Photo Photo Taken Yes Date: 01/28/19 Time: 16:30 Eye Exam: PERRL, EOMI, eyes nml inspection Ears, Nose, Throat Exam: normal ENT inspection, pharynx normal, moist mucous membranes Neck Exam: normal inspection, non-tender, supple, full range of motion Respiratory Exam: diminished breath sounds, crackles/rales, rhonchi, wheezing, No respiratory distress Cardiovascular Exam: regular rate/rhythm, normal heart sounds Gastrointestinal/Abdomen Exam: soft, No tenderness, No mass Extremity Exam: normal inspection, normal range of motion Back Exam: normal inspection, normal range of motion, No CVA tenderness, No vertebral tenderness Pelvic Exam: deferred Rectal Exam: deferred OBJECTIVE DATA Vital Signs: Vital Signs - 24 hr Temp Pulse Resp BP Pulse Ox 01/30/19 07:41 97.7 F 67 20 128/58 96 01/30/19 04:00 98.6 F 87 20 129/63 98 01/30/19 00:25 100.6 F 102 H 22 137/63 91 L 01/29/19 20:00 98.8 F 97 H 20 102/49 95 01/29/19 19:31 94 H 20 93 L 01/29/19 16:00 99.9 F 104 H 20 100/50 94 L 01/29/19 15:24 84 18 96 01/29/19 12:00 99.9 F 87 21 141/62 95 01/29/19 11:25 91 H 18 93 L 01/29/19 08:24 87 18 91 L 01/29/19 08:00 98.6 F 86 20 124/62 93 L Oxygen-Last 24 hours O2 Percentage 2 Liters = 28% O2 Percentage 2 Liters = 28% O2 Percentage 2 Liters = 28% O2 Percentage 2 Liters = 28% O2 Percentage 2 Liters = 28% O2 Percentage 2 Liters = 28% O2 Percentage 2 Liters = 28% Pain Assessment - Last Documented Pain Intensity 8 Pain Scale Used 0-10 Pain Scale Intake and Output: Intake & Output 01/27/19 01/28/19 01/29/19 01/30/19 11:59 11:59 11:59 11:59 Intake Total 2410 5360 Balance 2410 5360 Weight 81.647 kg 79.1 kg Lab Results: Accuchecks Date 01/30/19 Time 06:30 Time 04:30 Accucheck Value: 80 Accucheck Value: 61 Accucheck Value: 80 Accucheck Value: 56 Accucheck Value: 111 Accucheck Value: 89 Accucheck Value: 99 Accucheck Value: 76 Radiology Exams: Radiology Procedures Category Date Time Status ABDOMEN AND PELVIS W/0 CONTRAS [CT] Stat Exams 01/28/19 08:40 Completed CERVICAL SPINE WO CONTRAST [CT] Stat Exams 01/28/19 08:41 Completed CHEST 2 VIEWS (PA AND LAT) Stat Exams 01/28/19 08:40 Completed ELBOW (MINIMUM 3 VIEWS) Stat Exams 01/28/19 08:43 Completed HEAD WITHOUT CONTRAST [CT] Stat Exams 01/28/19 08:41 Completed RIBS UNILATERAL Stat Exams 01/28/19 08:43 Completed Multi-Disciplinary Progress Notes: Multi-Disciplinary Progress Notes 01/29/19 10:11 Pharmacy Note by Bobby Black Estimated creatinine clearance worse today at 13ml/min. Will reduce Levaquin to q48h schedule. Initialized on 01/29/19 10:11 - END OF NOTE Assessment/Plan (1) Pneumonia Current Visit: Yes Status: Acute Qualifiers: Pneumonia type: due to unspecified organism Lung location: unspecified part of lung Code(s): J18.9 - PNEUMONIA, UNSPECIFIED ORGANISM (2) Urinary tract infection Current Visit: Yes Status: Acute Qualifiers: Urinary tract infection type: site unspecified Hematuria presence: without hematuria Qualified Code(s): N39.0 - Urinary tract infection, site not specified Code(s): N39.0 - URINARY TRACT INFECTION, SITE NOT SPECIFIED (3) Contusion of rib on left side Current Visit: Yes Status: Acute Qualifiers: Encounter type: initial encounter Qualified Code(s): S20.212A - Contusion of left front wall of thorax, initial encounter Code(s): S20.212A - CONTUSION OF LEFT FRONT WALL OF THORAX, INITIAL ENCOUNTER (4) Radial head fracture, closed Current Visit: Yes Status: Acute Qualifiers: Encounter type: initial encounter Fracture alignment: nondisplaced Laterality: left Qualified Code(s): S52.125A - Nondisplaced fracture of head of left radius, initial encounter for closed fracture Code(s): S52.123A - DISP FX OF HEAD OF UNSP RADIUS, INIT FOR CLOS FX
[2019-01-30] MEDS: Amaryl 2 MG PO SCH (08:38)
[2019-01-30] MEDS ORDERED: NovoLOG Insulin SQ PRN (08:40)
[2019-01-30] MEDS: Cozaar 50 MG PO SCH (09:20)
[2019-01-30] MEDS: Protonix 40MG Tablet PO SCH (09:20)
[2019-01-30] MEDS: CLARITIN 10 MG PO SCH (09:20)
[2019-01-30] MEDS: Lasix 40 MG PO SCH (09:20)
[2019-01-30] MEDS: FOLATE 1 MG PO SCH (09:20)
[2019-01-30] MEDS: DEMADEX 20 MG PO SCH (09:20)
[2019-01-30] MEDS: Calcium 500MG W/Vit D Tablet PO SCH ×3 (09:20→22:26)
[2019-01-30] MEDS: Voltaren GEL TP SCH ×4 (09:21→22:27)
[2019-01-30] MEDS: LOPID 600 MG PO SCH (09:21)
[2019-01-30] MEDS: Flonase NASAL NS SCH (09:24)
[2019-01-30] MEDS: ENOXAPARIN SODIUM SQ SCH (09:24)
[2019-01-30] MEDS: Advair Hfa 115/21 Common canister IH SCH ×2 (09:29→21:29)
[2019-01-30] MEDS: DUONEB 0.5-3 MG/3 ml Neb IH SCH ×4 (09:29→21:27)
[2019-01-30] MEDS: Zofran 4 MG/2 ML VIAL IV PRN (13:41)
[2019-01-30] MEDS: MORPHINE SULFATE 2 MG INJ IV PRN (15:21)
[2019-01-30] MEDS ORDERED: D50W 50 ml Abboject IV ONE (20:21)
[2019-01-30] MEDS ORDERED: D50W 50ML Vial IV ONE (20:30)
[2019-01-30] MEDS: Ditropan XL 5 MG PO SCH (20:43)
[2019-01-30] MEDS: NORVASC 5 MG PO SCH (22:26)
[2019-01-31] MEDS: Dextrose 5%-NS IV Solution 1000 ML 1,000 ML IV SCH ×2 (00:07→12:57)
[2019-01-31] MEDS: Robitussin AC Syrup Unit Dose Cup PO PRN ×3 (03:26→21:18)
[2019-01-31] MEDS: TYLENOL 325 MG PO PRN ×2 (04:31→15:56)
[2019-01-31] MEDS: Advair Hfa 115/21 Common canister IH SCH ×2 (07:47→20:34)
[2019-01-31] MEDS: DUONEB 0.5-3 MG/3 ml Neb IH SCH ×3 (07:47→15:20)
--- NOTE | 2019-01-31 08:47 | XRAY ---
Indication: Short of breath. Comparison: January 28, 2019. Portable chest remains hyperinflated with bibasilar atelectasis/scarring and right upper lobe calcified granuloma. New right mid peripheral infiltrate/atelectasis. Heart is not enlarged. Bony thorax intact again with mild osteopenia, degenerative changes, and old right humeral neck fracture. Impression: New right midlung infiltrate/atelectasis. Correlate clinically. Comment: Right lung finding not reported on preliminary interpretation by the ER clinician. Telephone report given to Dr. Alfaro at 0843 hrs. on January 31, 2019.
[2019-01-31] MEDS ORDERED: Colace 100 MG PO PRN (09:16)
[2019-01-31 09:49] LABS: Hemoglobin 7.9 gm/dl (12.0-16.0); Mean Cell Volume 100.4 fl (78-100); Mean Corpuscular Hemoglobin 30.5 pg (26-32); Mean Corpuscular Hgb Concent. 30.4 g/dl (32-36); Mean Platelet Volume 8.9 fl (6-9.5); Platelet Count 142 K/mm3 (150-450); Red Blood Count 2.59 M/mm3 (4.1-5.4); Red Cell Distribution Width 15.1 % (11.5-14.0); White Blood Count 9.1 K/mm3 (4.0-10.5)
[2019-01-31] MEDS: NORCO 7.5/325 MG TAB PO PRN ×2 (09:51→21:21)
[2019-01-31] MEDS: Cozaar 50 MG PO SCH ×2 (09:51→15:23)
[2019-01-31] MEDS: DEMADEX 20 MG PO SCH (09:51)
[2019-01-31] MEDS: Protonix 40MG Tablet PO SCH (09:51)
[2019-01-31] MEDS: Calcium 500MG W/Vit D Tablet PO SCH ×3 (09:52→21:17)
[2019-01-31] MEDS: FOLATE 1 MG PO SCH (09:52)
[2019-01-31] MEDS: Voltaren GEL TP SCH ×4 (09:52→21:56)
[2019-01-31] MEDS: Lasix 40 MG PO SCH (09:52)
[2019-01-31] MEDS: Tessalon Perles 100 MG PO SCH ×4 (09:52→21:17)
[2019-01-31] MEDS: ENOXAPARIN SODIUM SQ SCH (09:53)
[2019-01-31] MEDS: CLARITIN 10 MG PO SCH (09:53)
[2019-01-31] MEDS: Flonase NASAL NS SCH (09:53)
[2019-01-31] MEDS: LOPID 600 MG PO SCH (09:56)
[2019-01-31] MEDS ORDERED: Levaquin 250MG/50ML D5W 250 MG/50 ML BAG IV SCH (10:00)
[2019-01-31 10:06] LABS: ALBUMIN 2.8 g/dL (3.5-5.0); ANION GAP 14.9 MEQ/L (5-15); BILIRUBIN,TOTAL 0.5 mg/dL (0.2-1.3); Calcium 8.2 mg/dL (8.4-10.2); Creatinine 1 2.89 mg/dL (0.52-1.04); Potassium 3.9 mmol/L (3.5-5.1)
[2019-01-31] MEDS: MORPHINE SULFATE 2 MG INJ IV PRN (13:06)
[2019-01-31] MEDS: Coreg 3.125 MG PO SCH (15:24)
[2019-01-31] MEDS ORDERED: Cardizem IV 50 MG/10 ML IV ONE (16:16)
[2019-01-31] MEDS ORDERED: CARDIZEM DRIP 100 MG/100 ML D5W 100 ML IV PRN (17:40)
[2019-01-31] MEDS: Ditropan XL 5 MG PO SCH (21:17)
[2019-01-31] MEDS: NORVASC 5 MG PO SCH (21:17)
[2019-01-31] MEDS ORDERED: Coreg 3.125 MG PO SCH (22:00)
[2019-02-01] MEDS: Dextrose 5%-NS IV Solution 1000 ML 1,000 ML IV SCH (01:02)
[2019-02-01] MEDS: DUONEB 0.5-3 MG/3 ml Neb IH SCH (02:45)
[2019-02-01] MEDS: Advair Hfa 115/21 Common canister IH SCH (07:50)
[2019-02-01] MEDS: DEMADEX 20 MG PO SCH (09:29)
[2019-02-01] MEDS: ENOXAPARIN SODIUM SQ SCH (09:29)
[2019-02-01] MEDS: FOLATE 1 MG PO SCH (09:29)
[2019-02-01] MEDS: Lasix 40 MG PO SCH (09:29)
[2019-02-01] MEDS: Cozaar 50 MG PO SCH (09:29)
[2019-02-01] MEDS: Calcium 500MG W/Vit D Tablet PO SCH (09:29)
[2019-02-01] MEDS: LOPID 600 MG PO SCH (09:30)
[2019-02-01] MEDS: Flonase NASAL NS SCH (09:30)
[2019-02-01] MEDS: Coreg 3.125 MG PO SCH (09:30)
[2019-02-01] MEDS: Tessalon Perles 100 MG PO SCH ×2 (09:30→12:49)
[2019-02-01] MEDS: Protonix 40MG Tablet PO SCH (09:30)
[2019-02-01] MEDS: Voltaren GEL TP SCH ×2 (09:31→13:18)
[2019-02-01] MEDS: CLARITIN 10 MG PO SCH (09:32)
--- NOTE | 2019-02-01 11:33 | PCM.NOTE ---
Date and Time: 01/31/19 1131 Subjective Assessment: doing ok, heart rate is around 140, - Review of Systems Constitutional: No Fever, No Chills Eyes: No Symptoms Ears, Nose, & Throat: No Symptoms Respiratory: No Cough, No Short Of Breath Cardiac: Palpitations, No Chest Pain, No Edema, No Syncope Abdominal/Gastrointestinal: No Abdominal Pain, No Nausea, No Vomiting, No Diarrhea Genitourinary Symptoms: No Dysuria Musculoskeletal: No Back Pain, No Neck Pain Skin: No Rash Neurological: No Dizziness, No Focal Weakness, No Sensory Changes Psychological: No Symptoms Endocrine: No Symptoms Hematologic/Lymphatic: No Symptoms Immunological/Allergic: No Symptoms Objective Exam General Appearance: no apparent distress, alert Neurologic Exam: alert, oriented x 3, cooperative, normal mood/affect, nml cerebellar function, sensation nml, No motor deficits Skin Exam: normal color, warm, dry Wound Assessment: Skin/Wound Assessment Wound/Incision Assessment Start: 01/28/19 16: 29 Text: Status: Active Freq: Q6H Protocol: Document 02/01/19 08:00 BA (Rec: 02/01/19 08:15 BA [id number]) Wound/Incision Assessment Left Medial Buttock Wound Assessment Shift Assessment Wound Type Pressure Ulcer Wound Stage Stage II Drainage Amount None General Appearance Unapproximated Wound Bed Greatest Portion Pale [place] Surrounding Tissue [place] Comment barrier rikki applied, repos w pillows Right Posterior Medial Buttock Wound Assessment Shift Assessment Wound Type Pressure Ulcer Wound Stage Stage II Drainage Amount None Surrounding Tissue [place] Comment repositioning w pillows Eye Exam: PERRL, EOMI, eyes nml inspection Ears, Nose, Throat Exam: normal ENT inspection, pharynx normal, moist mucous membranes Neck Exam: normal inspection, non-tender, supple, full range of motion Respiratory Exam: normal breath sounds, lungs clear, No respiratory distress Cardiovascular Exam: regular rate/rhythm, normal heart sounds Gastrointestinal/Abdomen Exam: soft, No tenderness, No mass Extremity Exam: normal inspection, normal range of motion Back Exam: normal inspection, normal range of motion, No CVA tenderness, No vertebral tenderness Pelvic Exam: deferred Rectal Exam: deferred OBJECTIVE DATA Vital Signs: Vital Signs - 24 hr Temp Pulse Resp BP BP Pulse Ox 02/01/19 08:00 99.8 F 82 22 109/48 96 02/01/19 07:00 99.2 F 82 18 120/46 95 02/01/19 05:45 82 20 105/49 96 02/01/19 04:29 99.8 F 89 21 135/52 97 02/01/19 03:55 99.8 F 88 22 135/52 98 02/01/19 03:00 91 H 24 126/55 98 02/01/19 02:00 87 24 110/76 98 02/01/19 00:45 100.2 F 88 14 134/56 96 02/01/19 00:00 100.2 F 88 14 134/68 99 01/31/19 23:33 91 H 01/31/19 23:00 88 14 113/69 99 01/31/19 22:00 91 H 22 113/53 98 01/31/19 21:00 95 H 21 113/69 98 01/31/19 20:34 93 H 19 98 01/31/19 20:00 98.1 F 90 24 113/53 92 L 01/31/19 19:00 98.1 F 87 24 113/53 92 L 01/31/19 18:15 139 H 26 H 104/75 96 01/31/19 18:03 130 H 18 104/75 01/31/19 16:00 98.4 F 132 H 18 125/58 94 L 01/31/19 11:47 98.5 F 102 H 18 95/66 96 Oxygen-Last 24 hours O2 Percentage 2 Liters = 28% O2 Percentage 2 Liters = 28% O2 Percentage 2 Liters = 28% O2 Percentage 2 Liters = 28% O2 Percentage 2 Liters = 28% O2 Percentage 2 Liters = 28% O2 Percentage 2 Liters = 28% O2 Percentage 2 Liters = 28% O2 Percentage 2 Liters = 28% O2 Percentage 2 Liters = 28% O2 Percentage 2 Liters = 28% O2 Percentage 2 Liters = 28% O2 Percentage 2 Liters = 28% O2 Percentage 2 Liters = 28% O2 Percentage 2 Liters = 28% O2 Percentage 3 Liters = 32% O2 Percentage 3 Liters = 32% Oxygen Flowrate (L/min)-RT 2 Pain Assessment - Last Documented Pain Intensity 3 Pain Scale Used 0-10 Pain Scale,FLACC Intake and Output: Intake & Output 01/29/19 01/30/19 01/31/19 02/01/19 11:59 11:59 11:59 11:59 Intake Total 9113 5360 1432 2451 Output Total 600 1300 Balance 2410 5360 832 1151 Weight 79.1 kg 87.4 kg Lab Results: Accuchecks Date 02/01/19 Date 02/01/19 Date 02/01/19 Date 01/31/19 Date 01/31/19 Date 01/31/19 Time 07:30 Time 03:40 Time 00:15 Time 21:00 Time 16:30 Time 12:00 Accucheck Value: 200 Accucheck Value: 184 Accucheck Value: 193 Accucheck Value: 217 Accucheck Value: 182 Accucheck Value: 149 Radiology Exams: Radiology Procedures Category Date Time Status CHEST 1 VIEW (PORTABLE) Routine Exams 01/31/19 06:00 Completed Multi-Disciplinary Progress Notes: Multi-Disciplinary Progress Notes 01/31/19 12:29 Case Management Note by Ely Jacobo MD ORDER TO DC TO [facility] WHEN BED AVAILABLE, SALINE LOCK WITH ROUTINE FLUSH, LEVAQUIN 250MG IV Q48 HOURS X 5 DOSES, TESSALON PERLE 100MG PO QID X 5 DAYS, CONTINUE HOME MEDS, PT/OT EVAL AND TREAT, ACCU CHECK AC/ HS, 2L OXYGEN NEEDED TO KEEP SPO2 >92% - 1800 ADA AND CARDIAC DIET. Initialized on 01/31/19 12:29 - END OF NOTE Assessment/Plan (1) Pneumonia Current Visit: Yes Status: Acute Qualifiers: Pneumonia type: due to unspecified organism Lung location: unspecified part of lung Code(s): J18.9 - PNEUMONIA, UNSPECIFIED ORGANISM (2) Urinary tract infection Current Visit: Yes Status: Acute Qualifiers: Urinary tract infection type: site unspecified Hematuria presence: without hematuria Qualified Code(s): N39.0 - Urinary tract infection, site not specified Code(s): N39.0 - URINARY TRACT INFECTION, SITE NOT SPECIFIED (3) Contusion of rib on left side Current Visit: Yes Status: Acute Qualifiers: Encounter type: initial encounter Qualified Code(s): S20.212A - Contusion of left front wall of thorax, initial encounter Code(s): S20.212A - CONTUSION OF LEFT FRONT WALL OF THORAX, INITIAL ENCOUNTER (4) Radial head fracture, closed Current Visit: Yes Status: Acute Qualifiers: Encounter type: initial encounter Fracture alignment: nondisplaced Laterality: left Qualified Code(s): S52.125A - Nondisplaced fracture of head of left radius, initial encounter for closed fracture Code(s): S52.123A - DISP FX OF HEAD OF UNSP RADIUS, INIT FOR CLOS FX (5) Atrial fibrillation Current Visit: Yes Status: Acute Qualifiers: Atrial fibrillation type: paroxysmal Qualified Code(s): I48.0 - Paroxysmal atrial fibrillation Assessment & Plan: will start on cardizem drip Code(s): I48.91 - UNSPECIFIED ATRIAL FIBRILLATION
--- NOTE | 2019-02-01 11:39 | PCM.DS ---
Discharge Summary Date of Admission: 01/31/19 17:41 Date of Discharge: 02/01/2019 Admitting Physician: SANDHYA PIPER Primary Care Provider: CRIS Allergies Allergies cefaclor [From Ceclor] Allergy (Intermediate, Verified 01/28/19 08:33) shellfish derived Allergy (Intermediate, Verified 01/28/19 08:33) sulfamethoxazole Allergy (Intermediate, Verified 01/28/19 08:33) venom-honey bee [bee venom (honey bee)] Allergy (Intermediate, Verified 08:33) cephalexin [From Keflex] Allergy (Mild, Verified 01/28/19 08:33) mouth sores Hospital Summary - Hospital Course Hospital Course: Last Vital Signs Temp 99.8 F 02/01/19 08:00 Pulse 82 02/01/19 08:00 Resp 22 02/01/19 08:00 BP 109/48 02/01/19 08:00 Pulse Ox 96 02/01/19 08:00 Allergies cefaclor [From Ceclor] Allergy (Intermediate, Verified 01/28/19 08:33) shellfish derived Allergy (Intermediate, Verified 01/28/19 08:33) sulfamethoxazole Allergy (Intermediate, Verified 01/28/19 08:33) venom-honey bee [bee venom (honey bee)] Allergy (Intermediate, Verified 08:33) cephalexin [From Keflex] Allergy (Mild, Verified 01/28/19 08:33) mouth sores Active Medications Acetaminophen (Tylenol 325 Mg) 650 mg PO Q4H PRN PRN PRN Reason: PAIN AND/OR FEVER Stop: 02/27/19 13:14 Last Admin: 01/31/19 15:56 Dose: 650 mg Hydrocodone Bitart/Acetaminophen ([place] 7.5/325 Mg Tab) 1 tab PO Q6HPRN PRN PRN Reason: PAIN Stop: 02/02/19 16:14 Last Admin: 01/31/19 21:21 Dose: 1 tab Albuterol/Ipratropium (Duoneb 0.5-3 Mg/3 Ml Neb) 3 ml IH Q4HPRN PRN PRN Reason: SHORTNESS OF BREATH/WHEEZING Stop: 02/27/19 13:14 Last Admin: 01/29/19 15:22 Dose: 3 ml Albuterol/Ipratropium (Duoneb 0.5-3 Mg/3 Ml Neb) 3 ml IH QIDRT [facility] Stop: 02/28/19 18:59 Last Admin: 02/01/19 02:45 Dose: Not Given Amlodipine Besylate (Norvasc 5 Mg) 2.5 mg PO HS [facility] Stop: 02/27/19 21:59 Last Admin: 01/31/19 21:17 Dose: 2.5 mg Artificial Tears (Artificial Tears 15 Ml) 0 ml OP BIDPRN PRN PRN Reason: dry eyes Stop: 02/27/19 16:14 Last Admin: 01/31/19 16:01 Dose: 1 ml Benzonatate (Tessalon Perles 100 Mg) 100 mg PO QID [facility] Stop: 03/02/19 09:59 Last Admin: 02/01/19 09:30 Dose: 100 mg Calcium Carbonate (Calcium 500mg W/Vit D Tablet) 1 tab PO TID [facility] Stop: 02/27/19 21:59 Last Admin: 02/01/19 09:29 Dose: 1 tab Carvedilol (Coreg 3.125 Mg) 3.125 mg PO BID [facility] Stop: 03/02/19 15:13 Last Admin: 02/01/19 09:30 Dose: 3.125 mg Diclofenac Sodium (Voltaren Gel) 2 gm TP QID [facility] Stop: 02/27/19 16:59 Last Admin: 02/01/19 09:31 Dose: 2 gm Docusate Sodium (Colace 100 Mg) 100 mg PO BIDPRN PRN PRN Reason: CONSTIPATION Stop: 03/02/19 09:15 Last Admin: 01/31/19 09:52 Dose: 100 mg Enoxaparin Sodium (Enoxaparin Sodium) 30 mg SQ DAILY [facility] Stop: 02/27/19 16:59 Last Admin: 02/01/19 09:29 Dose: 30 mg Ergocalciferol (Vitamin D2) 50,000 unit PO 1000 [facility] Stop: 03/08/19 09:59 Fluticasone Propionate (Flonase Nasal) 0 gm NS DAILY [facility] Stop: 02/28/19 09:59 Last Admin: 02/01/19 09:30 Dose: 1 gm Folic Acid (Folate 1 Mg) 1 mg PO DAILY [facility] Stop: 02/28/19 09:59 Last Admin: 02/01/19 09:29 Dose: 1 mg Furosemide (Lasix 40 Mg) 40 mg PO DAILY [facility] Stop: 02/28/19 09:59 Last Admin: 02/01/19 09:29 Dose: 40 mg Gemfibrozil (Lopid 600 Mg) 600 mg PO DAILY [facility] Stop: 02/28/19 09:59 Last Admin: 02/01/19 09:30 Dose: 600 mg Glimepiride (Amaryl 2 Mg) 1 mg PO BREAKFAST [facility] Stop: 02/28/19 07:59 Last Admin: 01/30/19 08:38 Dose: Not Given Guaifenesin/Codeine Phosphate (Robitussin Ac Syrup Unit Dose Cup) 10 ml PO Q4H PRN PRN PRN Reason: COUGH Stop: 02/27/19 16:31 Last Admin: 01/31/19 21:18 Dose: 10 ml Levofloxacin/Dextrose (Levaquin 250mg/50ml D5w) 250 mg in 50 mls @ 50 mls/hr IV Q48H [facility] Stop: 03/02/19 09:59 Last Admin: 01/31/19 09:54 Dose: 50 mls/hr Dextrose/Sodium Chloride (Dextrose 5%-Ns Iv Solution 1000 Ml) 1,000 mls @ 100 mls/hr IV .Q10H [facility] Stop: 03/02/19 00:00 Last Admin: 02/01/19 01:02 Dose: 100 mls/hr Diltiazem HCl (Cardizem Drip 100 Mg/100 Ml D5w) 100 mls @ 5 mls/hr IV .Q20H PRN ; Protocol PRN Reason: HEART RATE/ A-FIB Stop: 03/02/19 17:39 Last Admin: 01/31/19 18:03 Dose: 10 mg/hr, 10 mls/hr Insulin Aspart (Novolog Insulin) 0 unit SQ UD PRN PRN Reason: HYPERGLYCEMIA Stop: 03/01/19 08:39 Loratadine (Claritin 10 Mg) 10 mg PO DAILY [facility] Stop: 02/28/19 09:59 Last Admin: 02/01/19 09:32 Dose: 10 mg Losartan Potassium (Cozaar 50 Mg) 100 mg PO DAILY [facility] Stop: 02/28/19 09:59 Last Admin: 02/01/19 09:29 Dose: 100 mg Miscellaneous Information (Medication Intervention) 1 each PO .RN TO CHECK ON PAOLA Stop: 02/27/19 16:44 Morphine Sulfate (Morphine Sulfate 2 Mg Inj) 2 mg IV Q4H PRN PRN PRN Reason: PAIN Stop: 02/02/19 13:14 Last Admin: 01/31/19 13:06 Dose: 2 mg Ondansetron HCl (Zofran 4 Mg/2 Ml Vial) 4 mg IV Q6H PRN PRN PRN Reason: NAUSEA/VOMITING Stop: 02/27/19 13:14 Last Admin: 01/30/19 13:41 Dose: 4 mg Oxybutynin Chloride (Ditropan Xl 5 Mg) 5 mg PO 2000 [facility] Stop: 02/27/19 19:59 Last Admin: 01/31/19 21:17 Dose: 5 mg Pantoprazole Sodium (Protonix 40mg Tablet) 40 mg PO DAILY [facility] Stop: 02/28/19 09:59 Last Admin: 02/01/19 09:30 Dose: 40 mg Fluticasone/Salmeterol (Advair Hfa 115/21 Common Canister*) 2 puff IH BIDRT [facility] Stop: 02/27/19 18:59 Last Admin: 02/01/19 07:50 Dose: 2 puff Torsemide (Demadex 20 Mg) 10 mg PO DAILY [facility] Stop: 02/28/19 09:59 Last Admin: 02/01/19 09:29 Dose: 10 mg Intake & Output 01/31/19 02/01/19 11:59 11:59 Intake Total 1432 2451 Output Total 600 1300 Balance 832 1151 Weight 87.4 kg Orders 01/31/19 15:14 Carvedilol 3.125 mg [Coreg 3.125 MG] 3.125 mg PO BID 01/31/19 17:40 Diltiazem HCl 100 mg/100 ml [Cardizem Drip 100 mg/100 ml D5w] 100 ml IV 5 mg/hr 01/31/19 17:41 Miscellaneous Nursing Order ROUTINE 02/06/19 10:00 Ergocalciferol (Vitamin D2) [Vitamin D2] 50,000 unit PO 1000 Micro[facility] 01/31/19 03:10 Urine, Indwelling Catheter Urine Culture - Final NO GROWTH - Vitals & Intake/Output Vital Signs: Vital Signs Temperature 99.8 F 02/01/19 08:00 Pulse Rate 82 02/01/19 08:00 Respiratory Rate 22 02/01/19 08:00 Blood Pressure 109/48 02/01/19 08:00 O2 Sat by Pulse Oximetry 96 02/01/19 08:00 Oxygen-Last Documented O2 Percentage 2 Liters = 28% Intake & Output: Intake & Output 01/29/19 01/30/19 01/31/19 02/01/19 11:59 11:59 11:59 11:59 Intake Total 2410 5360 1432 2451 Output Total 600 1300 Balance 2410 5360 832 1151 Weight 79.1 kg 87.4 kg - Lab Result Diagrams: 01/31/19 09:46 01/31/19 09:46 Lab Results-Last 24 Hrs: Accuchecks Date 02/01/19 Date 02/01/19 Date 02/01/1901/31/19 Date 01/31/19 Date 01/31/19 Time 07:30 Time 03:40 Time 00:15 Time 21:00 Time 16:30 Time 12:00 Accucheck Value: 200 Accucheck Value: 184 Accucheck Value: 193 Accucheck Value: 217 Accucheck Value: 182 Accucheck Value: 149 Micro Results-Entire Visit: Microbiology 01/31/19 03:10 Urine Culture - Final Urine, Indwelling Catheter NO GROWTH 01/28/19 10:33 Urine Culture - Final Urine, Catheterized Proteus Mirabilis 01/28/19 10:25 Blood Culture - Preliminary Blood NO GROWTH TO DATE 01/28/19 09:40 Blood Culture - Preliminary Blood NO GROWTH TO DATE Accuchecks Date 02/01/19 Date 02/01/19 Date 02/01/19 Date 01/31/19 Date 01/31/19 Date 01/31/19 Time 07:30 Time 03:40 Time 00:15 Time 21:00 Time 16:30 Time 12:00 Accucheck Value: 200 Accucheck Value: 184 Accucheck Value: 193 Accucheck Value: 217 Accucheck Value: 182 Accucheck Value: 149 - Radiology Exams Ordered Rad Exams-Entire Visit: Radiology Procedures Category Date Time Status CHEST 1 VIEW (PORTABLE) Routine Exams 01/31/19 06:00 Completed - Procedures and Test Procedures and Tests throughout Hospitalization: Therapy Orders & Screens 01/28/19 13:15 Oxygen Nasal Cannula 2 lpm Comment: 01/28/19 16:58 Peak Expiratory Flow Rate ONCE Comment: Reason For Exam: Diagnosis: left shoulder injury, pneumonia Respiratory Therapy Assessment DAILY Comment: Diagnosis: left shoulder injury, pneumonia 01/29/19 08:11 Flutter Therapy UD Comment: Diagnosis: left shoulder injury, pneumonia Discharge Exam General Appearance: no apparent distress, alert Neurologic Exam: alert, oriented x 3, cooperative, normal mood/affect, nml cerebellar function, sensation nml, No motor deficits Eye Exam: PERRL, EOMI, eyes nml inspection Ears, Nose, Throat Exam: normal ENT inspection, pharynx normal, moist mucous membranes Neck Exam: normal inspection, non-tender, supple, full range of motion Respiratory Exam: normal breath sounds, lungs clear, No respiratory distress Cardiovascular Exam: regular rate/rhythm, normal heart sounds Gastrointestinal/Abdomen Exam: soft, No tenderness, No mass Pelvic Exam: deferred Rectal Exam: deferred Back Exam: normal inspection, normal range of motion, No CVA tenderness, No vertebral tenderness Extremity Exam: normal inspection, normal range of motion Skin Exam: normal color, warm, dry Wound Assessment: Skin/Wound Assessment Wound/Incision Assessment Start: 01/28/19 16: 29 Text: Status: Active Freq: Q6H Protocol: Document 02/01/19 08:00 (Rec: 02/01/19 08:15 [id number]) Wound/Incision Assessment Left Medial Buttock Wound Assessment Shift Assessment Wound Type Pressure Ulcer Wound Stage Stage II Drainage Amount None General Appearance Unapproximated Wound Bed Greatest Portion Pale [place] Surrounding Tissue [place] Comment barrier rikki applied, repos w pillows Right Posterior Medial Buttock Wound Assessment Shift Assessment Wound Type Pressure Ulcer Wound Stage Stage II Drainage Amount None Surrounding Tissue [place] Comment repositioning w pillows Final Diagnosis/Problem List - Final Discharge Diagnosis/Problem (1) Atrial fibrillation Current Visit: Yes Status: Resolved Code(s): I48.91 - UNSPECIFIED ATRIAL FIBRILLATION (2) Pneumonia Current Visit: Yes Status: Resolved Code(s): J18.9 - PNEUMONIA, UNSPECIFIED ORGANISM (3) Urinary tract infection Current Visit: Yes Status: Resolved Code(s): N39.0 - URINARY TRACT INFECTION , SITE NOT SPECIFIED (4) Contusion of rib on left side Current Visit: Yes Status: Resolved Code(s): S20.212A - CONTUSION OF LEFT FRONT WALL OF THORAX, INITIAL ENCOUNTER (5) Radial head fracture, closed Current Visit: Yes Status: Chronic Code(s): S52.123A - DISP FX OF HEAD OF UNSP RADIUS, INIT FOR CLOS FX - Discharge Discharge Date: 02/01/19 Disposition: Skilled Care @ [facility] Condition: Stable Prescriptions: New Levofloxacin/D5w [Levofloxacin 250 mg/50 ml-D5w] 250 mg IV Q48H #5 piggyback Normal Saline [Saline Flush] 5 ml IJ Q8H 10 Days disp.syrin Benzonatate [Tessalon Perle] 100 mg PO QID 5 Days #20 capsule Carvedilol 3.125 mg [Coreg 3.125 MG] 3.125 mg PO BID #60 tablet Levofloxacin [Levaquin] 250 mg PO Q48H #5 tablet Continue Gemfibrozil 600 mg [Lopid 600 mg] 600 mg PO DAILY Folic Acid 1 mg PO DAILY Furosemide 40 mg [Lasix 40 MG] 40 mg PO DAILY Fluticasone/Vilanterol [Breo Ellipta 100-25 Mcg INH] 1 each IH BID Cetirizine HCl [Zyrtec] 10 mg PO DAILY Diclofenac Sodium Gel [Voltaren GEL] 2 gm TP QID Glimepiride 1 mg PO DAILY Polyvinyl Alcohol [Artificial Tears] 1 drop OP BIDPRN PRN PRN Reason: dry eyes Fluticasone Propionate [Flonase NASAL] 1 spray NS DAILY Torsemide 20 mg [Demadex 20 mg] 10 mg PO DAILY Omeprazole 20 mg PO DAILY Albuterol/Ipratropium 3ml Neb* [DUONEB 0.5-3 MG/3 ml Neb] 3 ml IH QID Calcium Carbonate/Vitamin D3 [Oyster Shell 500-Vit D3 200 Tb] 1 each PO TID Losartan Potassium 50 mg [Cozaar 50 MG] 100 mg PO DAILY Amlodipine Besylate 5 mg [Norvasc 5 mg] 2.5 mg PO HS Codeine Phosphate/Guaifenesin [Cheratussin AC Syrup] 10 ml PO Q4HPRN PRN PRN Reason: Cough Darifenacin Hydrobromide [Darifenacin ER] 7.5 mg PO DAILY Ergocalciferol (Vitamin D2) [Vitamin D2] 1 cap PO UD Hydrocodone Bit/Acetaminophen [Hydrocodon-Acetaminoph 7.5-325] 7.5 mg PO Q6HPRN PRN PRN Reason: Pain Oxybutynin Chloride [Oxybutynin Chloride ER] 5 mg PO 1999 Additional Instructions: [facility] ORDERS: PT/OT EVAL AND TREAT SEE ATTACHED FOR CURRENT MED ORDERS SALINE LOCK WITH ROUTINE FLUSH AACU CHECK AC/HS 1800 ADA CARDIAC DIET 2L OXYGEN PER NC KEEP SPO2 > 92% Follow up with: BIANCA GOSS [Primary Care Provider] - 1 Week SANDHYA PIPER MD [Family Provider] - 1 Week
[2019-02-01] MEDS: NORCO 7.5/325 MG TAB PO PRN (12:49)
[2019-02-01 13:04] VITALS: PULSE 80
[2019-02-01 13:33] VITALS: BP 111/50; O2SAT 98
[2019-02-06] MEDS ORDERED: VITAMIN D2 PO SCH (10:00)
== END 2019-02-01 14:20 | DRG 308 ==
LOC: ED 08:21 → OBSVTOIN 14:00 → INTOOBSV 14:00 → UNDOADMOB 14:00 → ICU 14:00 → UNDOADMOB 01-31 17:41 → INTOOBSV 01-31 17:41 → OBSVTOIN 01-31 17:41 → ICU 01-31 17:41 → UNDODISIN 02-01 14:20
PROVIDERS: ADMIT General Practice; ATTEND General Practice
DX: I48.91 Unspecified atrial fibrillation (principal); J18.9 Pneumonia, unspecified organism; N39.0 Urinary tract infection, site not specified; E11.9 Type 2 diabetes mellitus without complications; I10 Essential (primary) hypertension; L89.322 Pressure ulcer of left buttock, stage 2; L89.312 Pressure ulcer of right buttock, stage 2; R51 Headache; R79.89 Other specified abnormal findings of blood chemistry; J44.9 Chronic obstructive pulmonary disease, unspecified; S52.125A Nondisplaced fracture of head of left radius, initial encounter for closed fracture; E78.00 Pure hypercholesterolemia, unspecified; S20.212A Contusion of left front wall of thorax, initial encounter; W18.30XA Fall on same level, unspecified, initial encounter; Y92.002 Bathroom of unspecified non-institutional (private) residence as the place of occurrence of the external cause; Z86.73 Personal history of transient ischemic attack (TIA), and cerebral infarction without residual deficits; Z79.899 Other long term (current) drug therapy
CPT/HCPCS: 36000; 36415; 70450; 71045; 71046; 71100; 72125; 73080; 74176; 80048; 80053; 81001; 82550; 82962; 83605; 84134; 84484; 85025; 85027; 85610; 87040; 87077; 87086; 87186; 93005; 94150; 94640; 94667; 94668; 94760; 96360; 96361; 96365; 96374; 96375; 96376; 99285; J1650; J1956; J2270; J2405; A9270-GY

== ENCOUNTER 2019-02-02 11:14 | Emergency (ER) | payer MEDICARE ==
[2019-02-02 11:25] VITALS: BP 107/47
[2019-02-02] MEDS ORDERED: DUONEB 0.5-3 MG/3 ml Neb IH ONE ×2 (11:29→11:49)
--- NOTE | 2019-02-02 11:36 | ERPHSYRPT ---
- History of Present Illness Time Seen by Provider: 02/02/19 11:31 Source: patient, senior living records Physician History: 74-year-old white female with history of cataracts, CVA, TIA, congestive heart failure, hyperlipidemia, high blood pressure, asthma, COPD, pneumonia, diabetes type 2 Patient recently admitted after having a fall with complaint of a left rib contusion, urinary tract infection and had elevated troponin Patient apparently during hospital admission was noted to have a pneumonia. Patient apparently transferred to the senior living. Patient apparently noted the senior living to be short of breath with wheezing. Patient on my arrival appears to be somewhat somnolent she complains of pain in her left lower ribs. States that she's been short of breath. Past medical history includes cataracts, CVA, TIA, congestive heart failure, hyperlipidemia, high blood pressure, asthma, COPD, pneumonia, diabetes type 2, osteoarthritis, osteoporosis, rheumatoid arthritis, esophageal disorder, GERD, renal disease, anxiety, depression, anemia, fractured shoulder, hiatal hernia, skin cancer to the nose. past surgical history includes joint replacement hysterectomy, bilateral knee replacement, left hip replaced. Timing/Duration: today Activities at Onset: none Severity of Dyspnea-Max: moderate Severity of Dyspnea-Current: mild Associated Symptoms: chest pain/discomfort (pain left ribs), wheezing, painful breathing, No edema, No fever, No insomnia, No loss of appetite, No lightheadedness, No weakness, No ankle swelling, No chills, No hemoptysis, No calf pain, No dizziness, No heaviness, No lightheadedness, No leg swelling, No muscle spasms feet, No muscle spasms hands, No productive cough, No sweating, No tightness, No tingling face International travel in last 2 weeks: No Allergies/Adverse Reactions: cefaclor [From Ceclor] Allergy (Intermediate, Verified 01/28/19 08:33) shellfish derived Allergy (Intermediate, Verified 01/28/19 08:33) sulfamethoxazole Allergy (Intermediate, Verified 01/28/19 08:33) venom-honey bee [bee venom (honey bee)] Allergy (Intermediate, Verified 08:33) cephalexin [From Keflex] Allergy (Mild, Verified 01/28/19 08:33) mouth sores Home Medications: Gemfibrozil 600 mg [Lopid 600 mg] 600 mg PO DAILY 01/16/15 [History] Cetirizine HCl [Zyrtec] 10 mg PO DAILY 03/06/17 [History] Diclofenac Sodium Gel [Voltaren GEL] 2 gm TP QID 03/06/17 [History] Fluticasone/Vilanterol [Breo Ellipta 100-25 Mcg INH] 1 each IH BID 03/06/17 [ History] Folic Acid 1 mg PO DAILY 03/06/17 [History] Furosemide 40 mg [Lasix 40 MG] 40 mg PO DAILY 03/06/17 [History] Glimepiride 1 mg PO DAILY 03/06/17 [History] Polyvinyl Alcohol [Artificial Tears] 1 drop OP BIDPRN PRN 04/05/18 [History] Fluticasone Propionate [Flonase NASAL] 1 spray NS DAILY 04/06/18 [History] Albuterol/Ipratropium 3ml Neb* [DUONEB 0.5-3 MG/3 ml Neb] 3 ml IH QID [History] Amlodipine Besylate 5 mg [Norvasc 5 mg] 2.5 mg PO HS 11/26/18 [History] Calcium Carbonate/Vitamin D3 [Oyster Shell 500-Vit D3 200 Tb] 1 each PO TID [History] Losartan Potassium 50 mg [Cozaar 50 MG] 100 mg PO DAILY 11/26/18 [History] Omeprazole 20 mg PO DAILY 11/26/18 [History] Torsemide 20 mg [Demadex 20 mg] 10 mg PO DAILY 11/26/18 [History] Codeine Phosphate/Guaifenesin [Cheratussin AC Syrup] 10 ml PO Q4HPRN PRN [History] Darifenacin Hydrobromide [Darifenacin ER] 7.5 mg PO DAILY 01/28/19 [History] Ergocalciferol (Vitamin D2) [Vitamin D2] 1 cap PO UD 01/28/19 [History] Hydrocodone Bit/Acetaminophen [Hydrocodon-Acetaminoph 7.5-325] 7.5 mg PO Q6HPRN PRN 01/28/19 [History] Oxybutynin Chloride [Oxybutynin Chloride ER] 5 mg PO 199901/28/19 [History] Hx Tetanus, Diphtheria Vaccination/Date Given: Yes Hx Influenza Vaccination/Date Given: Yes Hx Pneumococcal Vaccination/Date Given: Yes - Review of Systems Constitutional: No Fever, No Chills Eyes: No Symptoms Ears, Nose, & Throat: No Symptoms Respiratory: Cough, Dyspnea, Wheezing, Other (left rib pain) Cardiac: Chest Pain (left rib pain) Abdominal/Gastrointestinal: No Abdominal Pain, No Nausea, No Vomiting, No Diarrhea Genitourinary Symptoms: No Dysuria Musculoskeletal: No Back Pain, No Neck Pain Skin: No Rash Neurological: No Dizziness, No Focal Weakness, No Sensory Changes Psychological: No Symptoms Endocrine: No Symptoms All Other Systems: Reviewed and Negative - Past Medical History Pertinent Past Medical History: Yes Neurological History: Stroke, TIA ENT History: Cataracts Cardiac History: Congestive Heart Failure, High Cholesterol, Hypertension Respiratory History: Asthma, COPD, Pneumonia Endocrine Medical History: Diabetes Type II Musculoskeletal History: Osteoarthritis, Osteoporosis, Rheumatoid Arthritis GI Medical History: Esophageal Disorder, GERD, Other History: Renal Disease Psycho-Social History: Anxiety, Depression Female Reproductive Disorders: No Pertinent History Other Medical History: Anemia. broken shoulder, 11/19. hiatal hernia. skin cancer- nose - Past Surgical History Past Surgical History: Yes Neuro Surgical History: No Pertinent History Cardiac: No Pertinent History Respiratory: No Pertinent History Gastrointestinal: No Pertinent History Genitourinary: No Pertinent History Musculoskeletal: Joint Replacement Female Surgical History: Hysterectomy Other Surgical History: bilateral Knee replacement x2, right hip replacement, bladder lift - Social History Smoking Status: Former smoker How long have you smoked: 20 yrs Exposure to second hand smoke: Yes Drug Use: none Patient Lives Alone: No - Nursing Vital Signs Nursing Vital Signs: Initial Vital Signs Temperature 99.6 F 02/02/19 11:15 Pulse Rate 89 02/02/19 11:15 Respiratory Rate 22 02/02/19 11:15 Blood Pressure 107/47 02/02/19 11:15 O2 Sat by Pulse Oximetry 94 L 02/02/19 11:15 Pain Scale Pain Intensity 5 - Physical Exam General Appearance: mild distress, other (patient somnolent, arouses easily. 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 as tested, normal mood/affect, sensation nml, No alert (somnolent arouses easily), No oriented x 3 (oriented to self) Skin Exam: normal color, warm, No dry SpO2 Interpretation: normal (94%) SpO2: 94 O2 Delivery: Nasal Cannula (4l) - Course Nursing assessment & vital signs reviewed: Yes EKG Interpreted by Me: RATE (84 bpm), Sinus Rhythm, NORMAL AXIS, Other (EKG: Sinus rhythm, 84 beats per minute, normal axis, no acute ST or T wave changes, compared to January 28, 2019) - Radiology Exams Chest X-ray Interpretation: Discussed w/ radiologist (chest x-ray: Impression: Portable chest unchanged demonstrating bibasilar atelectasis/scarring left greater than right. Right mid lung infiltrate/atelectasis, and humeral neck fracture technique uppAP portable technique. 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 Care 02/02/19 11:29 Active EKG-ER Only STAT Care 02/02/19 11:29 Active IV Insertion STAT Care 02/02/19 11:29 Active Oxygen-ED Only Nasal Cannula 4 lpm Care 02/02/19 11:42 Active Pulse Oximetry (ED) STAT Care 02/02/19 11:29 Active CHEST 1 VIEW (PORTABLE) Stat Exams 02/02/19 11:29 Completed AMYLASE Stat Lab 02/02/19 12:05 Completed BLOOD CULTURE Stat Lab 02/02/19 12:00 Received CBC W DIFF Stat Lab 02/02/19 11:50 Completed CMP Stat Lab 02/02/19 11:50 Completed CULTURE,URINE Stat Lab 02/02/19 11:36 Ordered D-DIMER QUANTITATION Stat Lab 02/02/19 11:50 Completed LIPASE Stat Lab 02/02/19 12:05 Completed Lactic Acid Stat Lab 02/02/19 11:45 Completed Manual Differential NC Stat Lab 02/02/19 11:50 Completed NT PRO BNP Stat Lab 02/02/19 11:50 Completed PROTIME WITH INR Stat Lab 02/02/19 11:50 Completed PTT Stat Lab 02/02/19 11:50 Completed TROPONIN Q3H Lab 02/02/19 11:50 Completed TROPONIN Q3H Lab 02/02/19 14:43 Completed UA W/RFX UR CULTURE Stat Lab 02/02/19 12:00 Completed VENOUS BLOOD GAS Stat Lab 02/02/19 11:45 Completed Respiratory Therapy Assessment DAILY RT 02/02/19 11:58 Active Medication Summary Discontinued Medications Generic Name Dose Route Start Last Admin Trade Name Freq PRN Reason Stop Dose Admin Albuterol/Ipratropium 3 ml 02/02/19 11:29 02/02/19 11:54 Duoneb 0.5-3 Mg/3 Ml Neb IH 02/02/19 11:30 3 ml STAT ONE Administration Albuterol/Ipratropium Confirm 02/02/19 11:49 Duoneb 0.5-3 Mg/3 Ml Neb Administered 02/02/19 11:50 Dose 3 ml IH .STK-MED ONE Sodium Chloride 1,000 mls @ 100 mls/hr 02/02/19 12:45 02/02/19 12:50 Sodium Chloride 0.9% 1000 Ml IV 03/04/19 12:44 100 mls/hr .Q10H PAOLA Administration Levofloxacin/Dextrose 500 mg in 100 mls @ 100 mls/hr 02/02/19 14:06 02/02/19 14:30 Levofloxacin 500mg/100ml D5w IV 02/02/19 15:05 100 mls/hr STAT STA 100 mls/hr Administration Levofloxacin/Dextrose Confirm 02/02/19 14:07 Levofloxacin 500mg/100ml D5w Administered 02/02/19 14:08 Dose 500 mg in 100 mls @ ud IV .STK-MED ONE Sodium Chloride Confirm 02/02/19 12:44 Sodium Chloride 0.9% 1000 Ml Administered 02/02/19 12:45 Dose 1,000 mls @ ud .ROUTE .STK-MED ONE Lab/Rad Data: Laboratory Result Diagrams 02/02/19 11:50 02/02/19 11:50 Laboratory Results 02/02/19 02/02/19 02/02/19 Range/Units 14:43 12:05 12:00 WBC (4.0-10.5) K/mm3 RBC (4.1-5.4) M/mm3 Hgb (12.0-16.0) gm/dl Hct (35-47) % MCV (78-100) fl MCH (26-32) pg MCHC (32-36) g/dl RDW (11.5-14.0) % Plt Count (150-450) K/mm3 MPV (6-9.5) fl Segmented Neutrophils (36.0-66.0) % Band Neutrophils (0.0-2.0) % Lymphocytes (Manual) (24-44) % Monocytes (Manual) (0.0-12.0) % Eosinophils (Manual) (0.00-3.0) % Basophils (Manual) (0.0-1.0) % Hypochromia Toxic Granulation Platelet Estimate (NORMAL) RBC Morphology Polychromasia PT (9.95-12.35) SECONDS INR (0.8-3.0) APTT (25.3-37.0) SECONDS D-Dimer (215-500) ng/mL pO2/FiO2 Ratio % VBG pH (7.32-7.42) VBG pCO2 at Pat Temp (42-55) mm/Hg VBG pO2 at Pat Temp (25-40) mm/Hg VBG HCO3 (22-28) meq/L VBG O2 Sat (Yary) (95-100) VBG Base Excess (-2.0-2.0) VBG Hemoglobin VBG Carboxyhemoglobin (0.0-6.9) % T HGB POC Potassium (3.5-5.1) Sodium (137-145) mmol/L Potassium (3.5-5.1) mmol/L Chloride (98-107) mmol/L Carbon Dioxide (22-30) mmol/L Anion Gap (5-15) MEQ/L BUN (7-17) mg/dL Creatinine (0.52-1.04) mg/dL Estimated GFR ML/MIN Glucose (74-106) mg/dL Lactic Acid (0.4-2.0) Calcium (8.4-10.2) mg/dL Total Bilirubin (0.2-1.3) mg/dL AST (14-36) U/L ALT (0-35) U/L Alkaline Phosphatase (38-126) U/L Troponin I < 0.012 (0.000-0.034) ng/mL NT-Pro-B Natriuret Pep (0-1800) pg/mL Serum Total Protein (6.3-8.2) g/dL Albumin (3.5-5.0) g/dL Amylase 44 (30-110) U/L Lipase 71 (23-300) U/L Urine Color YELLOW (YELLOW) Urine Appearance SLIGHTLY CLOUDY (CLEAR) Urine pH 5.0 (5-6) Ur Specific [place] 1.006 (1.005-1.025) Urine Protein NEGATIVE (Negative) Urine Ketones NEGATIVE (NEGATIVE) Urine Blood MODERATE (0-5) Shiv/ul Urine Nitrite NEGATIVE (NEGATIVE) Urine Bilirubin NEGATIVE (NEGATIVE) Urine Urobilinogen NEGATIVE (0-1) mg/dL Ur Leukocyte Esterase NEGATIVE (NEGATIVE) Urine WBC (Auto) 3-5 (0-5) /HPF Urine RBC (Auto) 0-2 (0-2) /HPF U Epithel Cells (Auto) RARE (FEW) /HPF Urine Bacteria (Auto) RARE (NEGATIVE) /HPF Urine Mucus (Auto) SLIGHT (NEGATIVE) /HPF Urine Culture Reflexed NO (NO) Urine Glucose NEGATIVE (NEGATIVE) mg/dL 02/02/19 02/02/19 02/02/19 Range/Units 11:50 11:50 11:50 WBC (4.0-10.5) K/mm3 RBC (4.1-5.4) M/mm3 Hgb (12.0-16.0) gm/dl Hct (35-47) % MCV (78-100) fl MCH (26-32) pg MCHC (32-36) g/dl RDW (11.5-14.0) % Plt Count (150-450) K/mm3 MPV (6-9.5) fl Segmented Neutrophils (36.0-66.0) % Band Neutrophils (0.0-2.0) % Lymphocytes (Manual) (24-44) % Monocytes (Manual) (0.0-12.0) % Eosinophils (Manual) (0.00-3.0) % Basophils (Manual) (0.0-1.0) % Hypochromia Toxic Granulation Platelet Estimate (NORMAL) RBC Morphology Polychromasia PT 15.5 H (9.95-12.35) SECONDS INR 1.36 (0.8-3.0) APTT 37.2 H (25.3-37.0) SECONDS D-Dimer 1974 H* (215-500) ng/mL pO2/FiO2 Ratio % VBG pH (7.32-7.42) VBG pCO2 at Pat Temp (42-55) mm/Hg VBG pO2 at Pat Temp (25-40) mm/Hg VBG HCO3 (22-28) meq/L VBG O2 Sat (Yary) (95-100) VBG Base Excess (-2.0-2.0) VBG Hemoglobin VBG Carboxyhemoglobin (0.0-6.9) % T HGB POC Potassium (3.5-5.1) Sodium 144 (137-145) mmol/L Potassium 3.9 (3.5-5.1) mmol/L Chloride 110 H (98-107) mmol/L Carbon Dioxide 21 L (22-30) mmol/L Anion Gap 17.0 H (5-15) MEQ/L BUN 41 H (7-17) mg/dL Creatinine 3.00 H (0.52-1.04) mg/dL Estimated GFR 16.1 ML/MIN Glucose 104 (74-106) mg/dL Lactic Acid (0.4-2.0) Calcium 9.7 (8.4-10.2) mg/dL Total Bilirubin 0.50 (0.2-1.3) mg/dL AST 30 (14-36) U/L ALT 16 (0-35) U/L Alkaline Phosphatase 102 (38-126) U/L Troponin I < 0.012 (0.000-0.034) ng/mL NT-Pro-B Natriuret Pep 3160 H (0-1800) pg/mL Serum Total Protein 6.6 (6.3-8.2) g/dL Albumin 3.0 L (3.5-5.0) g/dL Amylase (30-110) U/L Lipase (23-300) U/L Urine Color (YELLOW) Urine Appearance (CLEAR) Urine pH (5-6) Ur Specific [place] (1.005-1.025) Urine Protein (Negative) Urine Ketones (NEGATIVE) Urine Blood (0-5) Shiv/ul Urine Nitrite (NEGATIVE) Urine Bilirubin (NEGATIVE) Urine Urobilinogen (0-1) mg/dL Ur Leukocyte Esterase (NEGATIVE) Urine WBC (Auto) (0-5) /HPF Urine RBC (Auto) (0-2) /HPF U Epithel Cells (Auto) (FEW) /HPF Urine Bacteria (Auto) (NEGATIVE) /HPF Urine Mucus (Auto) (NEGATIVE) /HPF Urine Culture Reflexed (NO) Urine Glucose (NEGATIVE) mg/dL 02/02/19 02/02/19 Range/Units 11:50 11:45 WBC 9.1 (4.0-10.5) K/mm3 RBC 2.81 L (4.1-5.4) M/mm3 Hgb 8.7 L (12.0-16.0) gm/dl Hct 28.6 L (35-47) % MCV 101.8 H (78-100) fl MCH 30.9 (26-32) pg MCHC 30.4 L (32-36) g/dl RDW 15.4 H (11.5-14.0) % Plt Count 188 (150-450) K/mm3 MPV 9.1 (6-9.5) fl Segmented Neutrophils 82 H (36.0-66.0) % Band Neutrophils 3 H (0.0-2.0) % Lymphocytes (Manual) 8 L (24-44) % Monocytes (Manual) 2 (0.0-12.0) % Eosinophils (Manual) 4 H (0.00-3.0) % Basophils (Manual) 1 (0.0-1.0) % Hypochromia 1+ Toxic Granulation 1+ Platelet Estimate NORMAL (NORMAL) RBC Morphology ABNORMAL Polychromasia 1+ PT (9.95-12.35) SECONDS INR (0.8-3.0) APTT (25.3-37.0) SECONDS D-Dimer (215-500) ng/mL pO2/FiO2 Ratio 36.0 % VBG pH 7.27 L (7.32-7.42) VBG pCO2 at Pat Temp 46 (42-55) mm/Hg VBG pO2 at Pat Temp 40 (25-40) mm/Hg VBG HCO3 21.1 L (22-28) meq/L VBG O2 Sat (Yary) 74.2 L (95-100) VBG Base Excess -5.9 L (-2.0-2.0) VBG Hemoglobin 14.7 VBG Carboxyhemoglobin 1.7 (0.0-6.9) % T HGB POC Potassium 3.9 (3.5-5.1) Sodium (137-145) mmol/L Potassium (3.5-5.1) mmol/L Chloride (98-107) mmol/L Carbon Dioxide (22-30) mmol/L Anion Gap (5-15) MEQ/L BUN (7-17) mg/dL Creatinine (0.52-1.04) mg/dL Estimated GFR ML/MIN Glucose (74-106) mg/dL Lactic Acid 0.9 (0.4-2.0) Calcium (8.4-10.2) mg/dL Total Bilirubin (0.2-1.3) mg/dL AST (14-36) U/L ALT (0-35) U/L Alkaline Phosphatase (38-126) U/L Troponin I (0.000-0.034) ng/mL NT-Pro-B Natriuret Pep (0-1800) pg/mL Serum Total Protein (6.3-8.2) g/dL Albumin (3.5-5.0) g/dL Amylase (30-110) U/L Lipase (23-300) U/L Urine Color (YELLOW) Urine Appearance (CLEAR) Urine pH (5-6) Ur Specific [place] (1.005-1.025) Urine Protein (Negative) Urine Ketones (NEGATIVE) Urine Blood (0-5) Shiv/ul Urine Nitrite (NEGATIVE) Urine Bilirubin (NEGATIVE) Urine Urobilinogen (0-1) mg/dL Ur Leukocyte Esterase (NEGATIVE) Urine WBC (Auto) (0-5) /HPF Urine RBC (Auto) (0-2) /HPF U Epithel Cells (Auto) (FEW) /HPF Urine Bacteria (Auto) (NEGATIVE) /HPF Urine Mucus (Auto) (NEGATIVE) /HPF Urine Culture Reflexed (NO) Urine Glucose (NEGATIVE) mg/dL - Progress Progress: improved Air Movement: fair Progress Note: 02/02/19 14:38 This is a 74-year-old white female with history of cataracts, CVA, TIA, congestive heart failure, hyperlipidemia, high blood pressure, asthma, COPD, pneumonia, diabetes type 2, osteoarthritis, osteoporosis, rheumatoid arthritis, esophageal disorder, GERD, renal disease, anxiety, depression, anemia Patient is brought from the senior living patient was recently admitted to this hospital after a fall she was noted to have increased troponin she was also have a chest contusion also noted to have a urinary tract infection During her hospital stay patient apparently was noted to have a right middle lobe pneumonia she was treated with Levaquin And she is also noted to have COPD. She was transferred back to the senior living yesterday. However was noted this morning to be short of breath and wheezing at the senior living. On arrival patient was somewhat somnolent but easily aroused and was able to talk and converse she did moan when disturbed this appears to be fairly constant the patient did not appear to be in acute distress she had somewhat decreased breath sounds patient had stable vitals with a temperature of 99 6 rectally pulse 89 respiration 22 blood pressure 107/47 saturations were 94% patient with a CBC white blood cell 9.1 hemoglobin 8.7 hematocrit 28.6 platelets were 188 unfortunately the patient's d-dimer was 1974 patient had an INR of 1.36 Patient with venous gases showing a pH of 7.2 7P CO2 was 46 patient's chemistry sodium 144 potassium 3.9 chloride 110 bicarbonate 21 BUN 41 creatinine 3.0 glucose 100 for patient's troponin was less than 0.012 BNP was 3160 lactate was 0.9 patient's chest x-ray showed unchanged by basilar atelectasis/scarring left greater than right and in the right midlung infiltrate/atelectasis in right upper lobe calcified granuloma patient was given IV normal saline 100 mL per hour she was given duo neb treatment. And patient was given Levaquin 500 mg IV. I've discussed the case with Dr. Rico The diagnosis was 1 pneumonia 2. COPD 3. Elevated d-dimer 4. Renal failure Dr. Rico was concerned with the patient's increasing BUN and creatinine she apparently had a substantial increase since the earlier in January. And this appears to be increasing over time he felt that it would be best if the patient be transferred to [facility] where she would have access to a renal physician as well as other specialist. I contacted Dr. Bernard through [facility] one call and discussed the patient's case with him and he has accepted the patient for transfer. . - Departure Departure Disposition: Transfer Clinical Impression: Shortness of breath, increased d-dimer Pneumonia Qualifiers: Pneumonia type: due to unspecified organism Laterality: right Lung location: middle lobe of lung Qualified Code(s): J18.1 - Lobar pneumonia, unspecified organism COPD (chronic obstructive pulmonary disease) Qualifiers: COPD type: COPD with acute exacerbation Qualified Code(s): J44.1 - Chronic obstructive pulmonary disease with (acute) exacerbation Renal failure Qualifiers: Renal failure chronicity: acute on chronic Acute renal failure type: unspecified Chronic kidney disease stage: unspecified stage Qualified Code(s): N17.9 - Acute kidney failure, unspecified Condition: Fair Critical Care Time: No Referrals: BIANCA GOSS [Primary Care Provider] - Instructions: Chronic Obstructive Pulmonary Disease
[2019-02-02 12:13] LABS: Lactic Acid 0.9 (0.4-2.0); VBG BASE EXCESS -5.9 (-2.0-2.0); VBG CARBOXYHEMOGLOBIN 1.7 % T HGB (0.0-6.9); VBG HCO3- 21.1 meq/L (22-28); VBG HEMOGLOBIN 14.7; VBG O2 SATURATION 74.2 (95-100); VBG POTASSIUM 3.9 (3.5-5.1); VBG pH 7.27 (7.32-7.42)
--- NOTE | 2019-02-02 12:30 | XRAY ---
Indication: Short of breath. Comparison: 2 days ago. Portable chest unchanged again demonstrating bibasilar atelectasis/scarring left greater than right, right midlung infiltrate/atelectasis, and right upper lobe calcified granuloma. Heart is not enlarged for AP portable technique. Bony thorax again demonstrates osteopenia, degenerative changes, and old right humeral neck fracture.
[2019-02-02 12:41] LABS: AMYLASE 44 U/L (30-110)
[2019-02-02] MEDS ORDERED: Sodium Chloride 0.9% 1000 ML 1,000 ML ONE (12:44)
[2019-02-02] MEDS ORDERED: Sodium Chloride 0.9% 1000 ML 1,000 ML IV SCH (12:45)
[2019-02-02 12:51] LABS: BILIRUBIN,TOTAL 0.5 mg/dL (0.2-1.3); Calcium 9.7 mg/dL (8.4-10.2); Potassium 3.9 mmol/L (3.5-5.1); Total Protein 6.6 g/dL (6.3-8.2)
[2019-02-02 12:56] LABS: Appearance SLIGHTLY CLOUDY (CLEAR); Bacteria RARE /HPF (NEGATIVE); Bilirubin NEGATIVE (NEGATIVE); Blood MODERATE Ery/ul (0-5); Epithelial Cells RARE /HPF (FEW); Glucose NEGATIVE (NEGATIVE); Ketones NEGATIVE (NEGATIVE); Leukocyte Esterase NEGATIVE (NEGATIVE); Mucus SLIGHT /HPF (NEGATIVE); Nitrite NEGATIVE (NEGATIVE); Protein,Urine Dip NEGATIVE (Negative); RBC 0-2 /HPF (0-2); Specific Gravity 1.006 (1.005-1.025); Urobilinogen NEGATIVE mg/dL (0-1)
[2019-02-02 13:10] LABS: INR 1.36 (0.8-3.0); PROTIME 15.5 SECONDS (9.95-12.35)
[2019-02-02 13:12] LABS: PTT 37.2 SECONDS (25.3-37.0)
[2019-02-02 13:24] LABS: Hematocrit 28.6 % (35-47); Hemoglobin 8.7 gm/dl (12.0-16.0); Mean Cell Volume 101.8 fl (78-100); Mean Corpuscular Hemoglobin 30.9 pg (26-32); Mean Corpuscular Hgb Concent. 30.4 g/dl (32-36); Mean Platelet Volume 9.1 fl (6-9.5); Platelet Count 188 K/mm3 (150-450); Red Blood Count 2.81 M/mm3 (4.1-5.4); Red Cell Distribution Width 15.4 % (11.5-14.0); White Blood Count 9.1 K/mm3 (4.0-10.5)
[2019-02-02] MEDS ORDERED: Levofloxacin 500MG/100ML D5W 500 MG/100 ML BAG IV STA (14:06)
[2019-02-02] MEDS ORDERED: Levofloxacin 500MG/100ML D5W 500 MG/100 ML BAG IV ONE (14:07)
[2019-02-02 14:22] LABS: BAND 3 % (0.0-2.0); Basophil 1 % (0.0-1.0); Eosinophil 4 % (0.00-3.0); Lymphocytes 8 % (24-44); Monocyte 2 % (0.0-12.0); Neutrophils 82 % (36.0-66.0); Total Cells Counted 100
[2019-02-02 14:23] LABS: Platelet Estimate NORMAL (NORMAL); Toxic Granulation 1+
[2019-02-02 14:34] LABS: Hypochromia 1+; Polychromasia 1+
[2019-02-02 14:39] VITALS: PULSE 90
[2019-02-02 14:43] VITALS: O2SAT 94
== END 2019-02-02 15:27 | disposition short-term general hospital (02) ==
LOC: ED 11:14
DX: R79.89 Other specified abnormal findings of blood chemistry (principal); J18.1 Lobar pneumonia, unspecified organism; J44.1 Chronic obstructive pulmonary disease with (acute) exacerbation; N17.9 Acute kidney failure, unspecified; Z86.73 Personal history of transient ischemic attack (TIA), and cerebral infarction without residual deficits; I50.9 Heart failure, unspecified; R06.02 Shortness of breath; E78.5 Hyperlipidemia, unspecified; J45.909 Unspecified asthma, uncomplicated; E11.9 Type 2 diabetes mellitus without complications; M19.90 Unspecified osteoarthritis, unspecified site; M81.0 Age-related osteoporosis without current pathological fracture; F41.8 Other specified anxiety disorders; M06.9 Rheumatoid arthritis, unspecified; Z79.899 Other long term (current) drug therapy
CPT/HCPCS: 36000; 36415; 71045; 80053; 81001; 82150; 82805; 83605; 83690; 83880; 84484; 85025; 85379; 85610; 85730; 87040; 87086; 93005; 93041; 94640; 96360; 96365; 99285; J1956; A9270-GY

== ENCOUNTER 2019-03-28 08:12 | Emergency (ER) | payer MEDICARE ==
[2019-03-28] MEDS ORDERED: BENADRYL 50 MG/ML IV ONE (08:28)
[2019-03-28] MEDS ORDERED: Reglan 10 MG/2 ML IV ONE (08:28)
[2019-03-28] MEDS ORDERED: TORAdol 30 mg Injection IV ONE (08:28)
[2019-03-28] MEDS ORDERED: Sodium Chloride 0.9% 1000 ML 1,000 ML IV SCH (08:30)
[2019-03-28] MEDS ORDERED: Catapres 0.1 MG PO ONE (08:31)
--- NOTE | 2019-03-28 08:36 | ERPHSYRPT ---
- History of Present Illness Time Seen by Provider: 03/28/19 08:20 Source: patient Exam Limitations: no limitations Physician History: Pt started c/o frontal headaches 2 days ago, vomited once this morning, did not take her medications this morning, nauseated, her blood pressure was elevated, called 911. She denies focal weakness, chest pain, SOB, slurred speech, but c/o double vision. Timing/Duration: day(s) (2) Quality: throbbing Head Pain Location: frontal Severity of Pain-Max: severe Severity of Pain-Current: severe Recent Head Trauma: occasional headaches Associated Symptoms: nausea/vomiting Previous symptoms: same symptoms as today Allergies/Adverse Reactions: cefaclor [From Ceclor] Allergy (Intermediate, Verified 01/28/19 08:33) shellfish derived Allergy (Intermediate, Verified 01/28/19 08:33) sulfamethoxazole Allergy (Intermediate, Verified 01/28/19 08:33) venom-honey bee [bee venom (honey bee)] Allergy (Intermediate, Verified 08:33) cephalexin [From Keflex] Allergy (Mild, Verified 01/28/19 08:33) mouth sores Home Medications: Gemfibrozil 600 mg [Lopid 600 mg] 600 mg PO DAILY 01/16/15 [History] Cetirizine HCl [Zyrtec] 10 mg PO DAILY 03/06/17 [History] Diclofenac Sodium Gel [Voltaren GEL] 2 gm TP QID 03/06/17 [History] Fluticasone/Vilanterol [Breo Ellipta 100-25 Mcg INH] 1 each IH BID 03/06/17 [ History] Folic Acid 1 mg PO DAILY 03/06/17 [History] Furosemide 40 mg [Lasix 40 MG] 40 mg PO DAILY 03/06/17 [History] Glimepiride 1 mg PO DAILY 03/06/17 [History] Polyvinyl Alcohol [Artificial Tears] 1 drop OP BIDPRN PRN 04/05/18 [History] Fluticasone Propionate [Flonase NASAL] 1 spray NS DAILY 04/06/18 [History] Albuterol/Ipratropium 3ml Neb* [DUONEB 0.5-3 MG/3 ml Neb] 3 ml IH QID [History] Amlodipine Besylate 5 mg [Norvasc 5 mg] 2.5 mg PO HS 11/26/18 [History] Calcium Carbonate/Vitamin D3 [Oyster Shell 500-Vit D3 200 Tb] 1 each PO TID [History] Losartan Potassium 50 mg [Cozaar 50 MG] 100 mg PO DAILY 11/26/18 [History] Omeprazole 20 mg PO DAILY 11/26/18 [History] Torsemide 20 mg [Demadex 20 mg] 10 mg PO DAILY 11/26/18 [History] Codeine Phosphate/Guaifenesin [Cheratussin AC Syrup] 10 ml PO Q4HPRN PRN [History] Darifenacin Hydrobromide [Darifenacin ER] 7.5 mg PO DAILY 01/28/19 [History] Ergocalciferol (Vitamin D2) [Vitamin D2] 1 cap PO UD 01/28/19 [History] Hydrocodone Bit/Acetaminophen [Hydrocodon-Acetaminoph 7.5-325] 7.5 mg PO Q6HPRN PRN 01/28/19 [History] Oxybutynin Chloride [Oxybutynin Chloride ER] 5 mg PO 2000 01/28/19 [History] Hx Tetanus, Diphtheria Vaccination/Date Given: Yes Hx Influenza Vaccination/Date Given: Yes Hx Pneumococcal Vaccination/Date Given: Yes - Review of Systems Constitutional: No Symptoms Eyes: Double Vision Ears, Nose, & Throat: No Symptoms Respiratory: No Symptoms Cardiac: No Symptoms Abdominal/Gastrointestinal: Nausea, Vomiting Genitourinary Symptoms: No Symptoms Musculoskeletal: No Symptoms Skin: No Symptoms Neurological: Headache All Other Systems: Reviewed and Negative - Past Medical History Pertinent Past Medical History: Yes Neurological History: Stroke, TIA ENT History: Cataracts Cardiac History: Congestive Heart Failure, High Cholesterol, Hypertension Respiratory History: Asthma, COPD, Pneumonia Endocrine Medical History: Diabetes Type II Musculoskeletal History: Osteoarthritis, Osteoporosis, Rheumatoid Arthritis GI Medical History: Esophageal Disorder, GERD, Other History: Renal Disease Psycho-Social History: Anxiety, Depression Female Reproductive Disorders: No Pertinent History Other Medical History: Anemia. broken shoulder, 11/19. hiatal hernia. skin cancer- nose - Past Surgical History Past Surgical History: Yes Neuro Surgical History: No Pertinent History Cardiac: No Pertinent History Respiratory: No Pertinent History Gastrointestinal: No Pertinent History Genitourinary: No Pertinent History Musculoskeletal: Joint Replacement Female Surgical History: Hysterectomy Other Surgical History: bilateral Knee replacement x2, right hip replacement, bladder lift - Social History Smoking Status: Former smoker How long have you smoked: 20 yrs Exposure to second hand smoke: Yes Drug Use: none Patient Lives Alone: No - Nursing Vital Signs Nursing Vital Signs: Initial Vital Signs Temperature 98.4 F 03/28/19 08:20 Pulse Rate 90 03/28/19 08:20 Respiratory Rate 20 03/28/19 08:20 Blood Pressure 178/102 03/28/19 08:20 O2 Sat by Pulse Oximetry 97 03/28/19 08:20 Pain Scale Pain Intensity 9 - Physical Exam General Appearance: no apparent distress Eye Exam: PERRL/EOMI, eyes nml inspection Ears, Nose, Throat Exam: pharynx normal, dry mucous membranes Neck Exam: normal inspection, non-tender, supple, No mass, No carotid bruit, No JVD Respiratory Exam: normal breath sounds, lungs clear, airway intact, No chest tenderness Cardiovascular Exam: regular rate/rhythm, normal heart sounds, normal peripheral pulses, No murmur Gastrointestinal/Abdominal Exam: soft, normal bowel sounds, No tenderness Back Exam: normal inspection, No CVA tenderness, No vertebral tenderness Extremity Exam: normal inspection, other (chronic stasis changes on both ankles) Mental Status Exam: alert, oriented x 3, 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: normal speech Motor/Sensory Exam: no motor deficit DTR Exam: bicep (R): 2+, bicep (L): 2+, knee (R): 2+, knee (L): 2+ Skin Exam: normal color, warm, dry, No rash, No petechiae, No diaphoresis Lymphatic Exam: No adenopathy SpO2 Interpretation: normal O2 Delivery: Room Air - Course Nursing assessment & vital signs reviewed: Yes EKG Interpreted by Me: RATE (87/min), Left Roxana Deviation, NORMAL INTERVALS, Non -specific ST Changes ([facility]) - Radiology Exams Chest X-ray Interpretation: Reviewed by me, Negative (minimal bibasilar atelectasism / scarring and cardiomegaly) - CT Exams Head CT Interpretation: Tele-radiologist Report, Other (stable atrophy, degenerative micro ischemia and bilateral occipital lobe infarcts, no new abnormalities.) Ordered Tests: Active Orders 24 hr Category Date Time Status Financial Administrative Assistant STAT Care 03/28/19 08:29 Active EKG-ER Only STAT Care 03/28/19 08:30 Active IV Insertion STAT Care 03/28/19 08:28 Active Pulse Oximetry (ED) STAT Care 03/28/19 08:28 Active cath [Cath for Specimen-Straight] STAT Care 03/28/19 10:08 Active CHEST 1 VIEW (PORTABLE) Stat Exams 03/28/19 08:31 Completed HEAD WITHOUT CONTRAST [CT] Stat Exams 03/28/19 08:29 Completed CBC W DIFF Stat Lab 03/28/19 09:00 Completed CK-Creatinine Phosphokinase Stat Lab 03/28/19 09:00 Completed CMP Stat Lab 03/28/19 09:00 Completed Erythrocyte Sedimentation Rate Stat Lab 03/28/19 09:00 Completed NT PRO BNP Stat Lab 03/28/19 09:00 Completed PROTIME WITH INR Stat Lab 03/28/19 09:00 Completed TROPONIN Q3H Lab 03/28/19 09:00 Completed TROPONIN Q3H Lab 03/28/19 11:10 Received TROPONIN Q3H Lab 03/28/19 14:30 Ordered TROPONIN Q3H Lab 03/28/19 17:30 Ordered TROPONIN Q3H Lab 03/28/19 20:30 Ordered UA W/RFX UR CULTURE Stat Lab 03/28/19 Completed Medication Summary Generic Name Dose Route Start Last Admin Trade Name Freq PRN Reason Stop Dose Admin Sodium Chloride 1,000 mls @ 100 mls/hr 03/28/19 08:30 03/28/19 09:23 Sodium Chloride 0.9% 1000 Ml IV 04/27/19 08:29 100 mls/hr .Q10H PAOLA Administration Discontinued Medications Generic Name Dose Route Start Last Admin Trade Name Freq PRN Reason Stop Dose Admin Clonidine 0.1 mg 03/28/19 08:31 03/28/19 09:23 Catapres 0.1 Mg PO 03/28/19 08:32 0.1 mg STAT ONE Administration Clonidine Confirm 03/28/19 09:13 Catapres 0.1 Mg Administered 03/28/19 09:14 Dose 0.1 mg .ROUTE .STK-MED ONE Diphenhydramine HCl 25 mg 03/28/19 08:28 03/28/19 09:22 Benadryl 50 Mg/Ml IV 03/28/19 08:29 25 mg STAT ONE Administration Diphenhydramine HCl Confirm 03/28/19 09:13 Benadryl 50 Mg/Ml Administered 03/28/19 09:14 Dose 50 mg .ROUTE .STK-MED ONE Fentanyl Citrate 50 mcg 03/28/19 10:08 03/28/19 10:20 Sublimaze 100 Mcg/2 Ml IV 03/28/19 10:09 50 mcg STAT ONE Administration Fentanyl Citrate Confirm 03/28/19 10:18 Sublimaze 100 Mcg/2 Ml Administered 03/28/19 10:19 Dose 100 mcg .ROUTE .STK-MED ONE Ketorolac Tromethamine 30 mg 03/28/19 08:28 03/28/19 09:34 Toradol 30 Mg Injection IV 03/28/19 08:29 30 mg STAT ONE Administration Ketorolac Tromethamine Confirm 03/28/19 09:33 Toradol 30 Mg Injection Administered 03/28/19 09:34 Dose 30 mg .ROUTE .STK-MED ONE Metoclopramide HCl 10 mg 03/28/19 08:28 03/28/19 09:22 Reglan 10 Mg/2 Ml IV 03/28/19 08:29 10 mg STAT ONE Administration Metoclopramide HCl Confirm 03/28/19 09:14 Reglan 10 Mg/2 Ml Administered 03/28/19 09:15 Dose 10 mg .ROUTE .STK-MED ONE Potassium Bicarbonate 25 meq 03/28/19 10:16 03/28/19 10:49 K-Lyte 25 Meq PO 03/28/19 10:17 25 meq STAT ONE Administration Potassium Bicarbonate Confirm 03/28/19 10:48 K-Lyte 25 Meq Administered 03/28/19 10:49 Dose 25 meq .ROUTE .STK-MED ONE Lab/Rad Data: Laboratory Result Diagrams 03/28/19 09:00 03/28/19 09:00 Laboratory Results 03/28/19 03/28/19 03/28/19 Range/Units Unknown 09:00 09:00 WBC (4.0-10.5) K/mm3 RBC (4.1-5.4) M/mm3 Hgb (12.0-16.0) gm/dl Hct (35-47) % MCV (78-100) fl MCH (26-32) pg MCHC (32-36) g/dl RDW (11.5-14.0) % Plt Count (150-450) K/mm3 MPV (6-9.5) fl Gran % (36.0-66.0) % Eos # (Auto) (0-0.5) Absolute Lymphs (auto) (1.0-4.6) Absolute Monos (auto) (0.0-1.3) Lymphocytes % (24.0-44.0) % Monocytes % (0.0-12.0) % Eosinophils % (0.00-5.0) % Basophils % (0.0-0.4) % Absolute Granulocytes (1.4-6.9) Basophils # (0-0.4) ESR (0-20) mm/hr PT (9.95-12.35) SECONDS INR (0.8-3.0) Sodium (137-145) mmol/L Potassium (3.5-5.1) mmol/L Chloride (98-107) mmol/L Carbon Dioxide (22-30) mmol/L Anion Gap (5-15) MEQ/L BUN (7-17) mg/dL Creatinine (0.52-1.04) mg/dL Estimated GFR ML/MIN Glucose (74-106) mg/dL Calcium (8.4-10.2) mg/dL Total Bilirubin (0.2-1.3) mg/dL AST (14-36) U/L ALT (0-35) U/L Alkaline Phosphatase (38-126) U/L Creatine Kinase < 20 L (30-135) U/L Troponin I 0.019 (0.000-0.034) ng/mL NT-Pro-B Natriuret Pep 3930 H (0-1800) pg/mL Serum Total Protein (6.3-8.2) g/dL Albumin (3.5-5.0) g/dL Urine Color YELLOW (YELLOW) Urine Appearance CLEAR (CLEAR) Urine pH 6.0 (5-6) Ur Specific [place] 1.015 (1.005-1.025) Urine Protein >=500 (Negative) Urine Ketones NEGATIVE (NEGATIVE) Urine Blood NEGATIVE (0-5) Shiv/ul Urine Nitrite NEGATIVE (NEGATIVE) Urine Bilirubin NEGATIVE (NEGATIVE) Urine Urobilinogen NEGATIVE (0-1) mg/dL Ur Leukocyte Esterase NEGATIVE (NEGATIVE) Urine WBC (Auto) 0-2 (0-5) /HPF Urine RBC (Auto) 3-5 (0-2) /HPF U Epithel Cells (Auto) NONE (FEW) /HPF Urine Bacteria (Auto) RARE (NEGATIVE) /HPF Urine Mucus (Auto) SLIGHT (NEGATIVE) /HPF Urine Culture Reflexed NO (NO) Urine Glucose 150 (NEGATIVE) mg/dL 03/28/19 03/28/19 03/28/19 Range/Units 09:00 09:00 09:00 WBC 7.4 (4.0-10.5) K/mm3 RBC 3.58 L (4.1-5.4) M/mm3 Hgb 11.1 L (12.0-16.0) gm/dl Hct 35.9 (35-47) % MCV 100.3 H (78-100) fl MCH 31.0 (26-32) pg MCHC 30.9 L (32-36) g/dl RDW 16.0 H (11.5-14.0) % Plt Count 161 (150-450) K/mm3 MPV 9.1 (6-9.5) fl Gran % 64.9 (36.0-66.0) % Eos # (Auto) 0.23 (0-0.5) Absolute Lymphs (auto) 1.66 (1.0-4.6) Absolute Monos (auto) 0.69 (0.0-1.3) Lymphocytes % 22.4 L (24.0-44.0) % Monocytes % 9.3 (0.0-12.0) % Eosinophils % 3.1 (0.00-5.0) % Basophils % 0.3 (0.0-0.4) % Absolute Granulocytes 4.81 (1.4-6.9) Basophils # 0.02 (0-0.4) ESR 98 H (0-20) mm/hr PT 12.6 H (9.95-12.35) SECONDS INR 1.11 (0.8-3.0) Sodium 143 (137-145) mmol/L Potassium 3.1 L (3.5-5.1) mmol/L Chloride 108 H (98-107) mmol/L Carbon Dioxide 26 (22-30) mmol/L Anion Gap 13.0 (5-15) MEQ/L BUN 23 H (7-17) mg/dL Creatinine 1.58 H (0.52-1.04) mg/dL Estimated GFR 33.8 ML/MIN Glucose 196 H (74-106) mg/dL Calcium 9.7 (8.4-10.2) mg/dL Total Bilirubin 0.50 (0.2-1.3) mg/dL AST 21 (14-36) U/L ALT 13 (0-35) U/L Alkaline Phosphatase 108 (38-126) U/L Creatine Kinase (30-135) U/L Troponin I (0.000-0.034) ng/mL NT-Pro-B Natriuret Pep (0-1800) pg/mL Serum Total Protein 7.1 (6.3-8.2) g/dL Albumin 3.6 (3.5-5.0) g/dL Urine Color (YELLOW) Urine Appearance (CLEAR) Urine pH (5-6) Ur Specific [place] (1.005-1.025) Urine Protein (Negative) Urine Ketones (NEGATIVE) Urine Blood (0-5) Shiv/ul Urine Nitrite (NEGATIVE) Urine Bilirubin (NEGATIVE) Urine Urobilinogen (0-1) mg/dL Ur Leukocyte Esterase (NEGATIVE) Urine WBC (Auto) (0-5) /HPF Urine RBC (Auto) (0-2) /HPF U Epithel Cells (Auto) (FEW) /HPF Urine Bacteria (Auto) (NEGATIVE) /HPF Urine Mucus (Auto) (NEGATIVE) /HPF Urine Culture Reflexed (NO) Urine Glucose (NEGATIVE) mg/dL - Progress Progress: improved Air Movement: good Progress Note: 03/28/19 11:46 Pt states, she fees much better, headaches resolved, denies double vision, her blood pressure is controlled: 156/76, no nausea, dizziness, chest pain, or other complaints. We reviewed her results, called Dr Sneed, discussed our findings and her current condition, he agreed to discharge her home and he will follow up in few days as an outpatient. Pt was informed and agreed. Blood Culture(s) Obtained: No Antibiotics given: No Discussed with : Nedra Will see patient in: office Counseled pt/family regarding: lab results, diagnosis, need for follow-up, rad results - Departure Departure Disposition: Home Clinical Impression: Headache Qualifiers: Headache type: unspecified Headache chronicity pattern: acute headache Intractability: not intractable Qualified Code(s): R51 - Headache Hypertension Qualifiers: Hypertension type: unspecified Qualified Code(s): I10 - Essential (primary) hypertension Clinical Impression: (Ruled Out): Hypotension, Dermatitis associated with moisture Condition: Good Critical Care Time: No Referrals: BIANCA GOSS [Primary Care Provider] - Instructions: Headache, Adult (DC), High Blood Pressure (DC) Additional Instructions: Rest x 2-3 days, and continue blood pressure medicines as directed, follow up with your physician in 2-3 days, return if severe headaches, vomiting, severe weakness, dizziness, chest pain, or blood pressure > 200/120!
[2019-03-28 09:13] LABS: BASOPHIL % 0.3 % (0.0-0.4); Basophil (Absolute #) 0.02 (0-0.4); Eosinophil % 3.1 % (0.00-5.0); Eosinophil (Absolute #) 0.23 (0-0.5); Granulocyte Absolute (ANC) 4.81 (1.4-6.9); Granulocytes % 64.9 % (36.0-66.0); Hematocrit 35.9 % (35-47); Hemoglobin 11.1 gm/dl (12.0-16.0); Lymphocyte (Absolute #) 1.66 (1.0-4.6); Lymphocytes % 22.4 % (24.0-44.0); Mean Cell Volume 100.3 fl (78-100); Mean Corpuscular Hgb Concent. 30.9 g/dl (32-36); Mean Platelet Volume 9.1 fl (6-9.5); Monocyte (Absolute #) 0.69 (0.0-1.3); Monocytes % 9.3 % (0.0-12.0); Platelet Count 161 K/mm3 (150-450); Red Blood Count 3.58 M/mm3 (4.1-5.4); White Blood Count 7.4 K/mm3 (4.0-10.5)
[2019-03-28] MEDS ORDERED: Catapres 0.1 MG ONE (09:13)
[2019-03-28] MEDS ORDERED: BENADRYL 50 MG/ML ONE (09:13)
[2019-03-28] MEDS ORDERED: Sodium Chloride 0.9% 1000 ML 1,000 ML ONE (09:14)
[2019-03-28] MEDS ORDERED: Reglan 10 MG/2 ML ONE (09:14)
[2019-03-28 09:16] LABS: INR 1.11 (0.8-3.0); PROTIME 12.6 SECONDS (9.95-12.35)
[2019-03-28 09:21] LABS: ALBUMIN 3.6 g/dL (3.5-5.0); BILIRUBIN,TOTAL 0.5 mg/dL (0.2-1.3); Calcium 9.7 mg/dL (8.4-10.2); Creatinine 1 1.58 mg/dL (0.52-1.04); Potassium 3.1 mmol/L (3.5-5.1); Total Protein 7.1 g/dL (6.3-8.2)
[2019-03-28 09:29] LABS: NT PRO BNP 3930 pg/mL (0-1800)
[2019-03-28 09:33] LABS: CK-Creatinine Phosphokinase < 20 U/L (30-135)
[2019-03-28] MEDS ORDERED: TORAdol 30 mg Injection ONE (09:33)
[2019-03-28 09:40] LABS: Erythrocyte Sedimentation Rate 98 mm/hr (0-20)
--- NOTE | 2019-03-28 09:41 | XRAY ---
Indication: Headache. High blood pressure. Multiple contiguous axial images obtained through the head without contrast. Comparison: January 28, 2019. Stable age-appropriate global atrophy, moderate periventricular degenerative micro-ischemia bilaterally, and bilateral occipital lobe infarcts. No acute intracranial hemorrhage, abnormal extra-axial fluid collection, or mass effect. Fourth ventricle is midline. Bony calvarium intact. Visualized paranasal sinuses and mastoid air cells are clear. Impression: Stable atrophy, degenerative micro-ischemia, and bilateral occipital lobe infarcts. No new or acute intracranial abnormalities. CT DI 67.00
--- NOTE | 2019-03-28 09:42 | XRAY ---
Indication: Vomiting. Headache. Comparison: February 02, 2019. Portable chest demonstrates stable minimal bibasilar atelectasis/scarring and borderline cardiomegaly. Remaining heart and lungs unremarkable. No new/acute findings.
[2019-03-28] MEDS ORDERED: SUBLIMAZE 100 MCG/2 ML IV ONE (10:08)
[2019-03-28] MEDS ORDERED: K-LYTE 25 MEQ PO ONE (10:16)
[2019-03-28] MEDS ORDERED: SUBLIMAZE 100 MCG/2 ML ONE (10:18)
[2019-03-28 10:44] LABS: Appearance CLEAR (CLEAR); Bacteria RARE /HPF (NEGATIVE); Bilirubin NEGATIVE (NEGATIVE); Blood NEGATIVE Ery/ul (0-5); Glucose 150 mg/dL (NEGATIVE); Ketones NEGATIVE (NEGATIVE); Leukocyte Esterase NEGATIVE (NEGATIVE); Mucus SLIGHT /HPF (NEGATIVE); Nitrite NEGATIVE (NEGATIVE); Protein,Urine Dip >=500 (Negative); Specific Gravity 1.015 (1.005-1.025); Urobilinogen NEGATIVE mg/dL (0-1); WBC 0-2 /HPF (0-5)
[2019-03-28] MEDS ORDERED: K-LYTE 25 MEQ ONE (10:48)
[2019-03-28 12:13] VITALS: BP 156/78; PULSE 72; O2SAT 96
== END 2019-03-28 12:11 | disposition home or self-care (01) ==
LOC: ED 08:12
DX: R51 Headache (principal); I10 Essential (primary) hypertension; I95.9 Hypotension, unspecified; L30.9 Dermatitis, unspecified; Z79.899 Other long term (current) drug therapy; E11.9 Type 2 diabetes mellitus without complications; J44.9 Chronic obstructive pulmonary disease, unspecified; I50.9 Heart failure, unspecified; E78.00 Pure hypercholesterolemia, unspecified; N28.9 Disorder of kidney and ureter, unspecified; F41.9 Anxiety disorder, unspecified; F32.9 Major depressive disorder, single episode, unspecified
CPT/HCPCS: 36000; 36415; 70450; 71045; 80053; 81001; 82550; 83880; 84484; 85025; 85610; 85652; 93005; 93041; 94760; 96360; 96361; 96374; 96375; 99285; P9612; J1200; J1885; J3010; A9270-GY

== ENCOUNTER 2019-05-18 12:55 | Emergency (ER) | payer MEDICARE ==
--- NOTE | 2019-05-18 13:32 | ERPHSYRPT ---
- History of Present Illness Time Seen by Provider: 05/18/19 13:32 Source: patient, EMS, skilled nursing records Exam Limitations: no limitations Patient Subjective Stated Complaint: Pt fell at home on carpet and hit her left forehead, right hand, left wrist, large bruise to the left forehead, left wrist and right hand Triage Nursing Assessment: Pt brought to ER via EMS, hypertensive, hx of RA and is complaining of pain everywhere, pulses normal, denies losing consciousness Physician History: 74 y/o white female fell and hit head and landed on her hands as well at [place]. 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 no loc. pt has sever rheumatoid arthritis Occurred: just prior to arrival Reason for Fall: tripped, fell from standing pos Injuries/Pain Location: head, upper extremity Loss of Consciousness: no loss of consciousness Quality: aching Severity of Pain-Max: mild Severity of Pain-Current: mild Associated Symptoms (Fall): extremity injury, headache (mild), No neck pain Allergies/Adverse Reactions: cefaclor [From Ceclor] Allergy (Intermediate, Verified 05/18/19 13:21) shellfish derived Allergy (Intermediate, Verified 05/18/19 13:21) sulfamethoxazole Allergy (Intermediate, Verified 05/18/19 13:21) venom-honey bee [bee venom (honey bee)] Allergy (Intermediate, Verified 13:21) cephalexin [From Keflex] Allergy (Mild, Verified 05/18/19 13:21) mouth sores Home Medications: Gemfibrozil 600 mg [Lopid 600 mg] 600 mg PO BID 01/16/15 [History] Diclofenac Sodium Gel [Voltaren GEL] 2 gm TP Q4H 03/06/17 [History] Folic Acid 1 mg PO DAILY 03/06/17 [History] Glimepiride 2 mg PO DAILY 03/06/17 [History] Amlodipine Besylate 5 mg [Norvasc 5 mg] 5 mg PO HS 11/26/18 [History] Calcium Carbonate/Vitamin D3 [Oyster Shell 500-Vit D3 200 Tb] 1 each PO TID [History] Darifenacin Hydrobromide [Darifenacin ER] 7.5 mg PO DAILY 01/28/19 [History] Albuterol 8 gm Mdi Hfa [Ventolin Hfa MDI] 2 puffs PO QID 05/18/19 [History ] Bumetanide 1 mg PO BID 05/18/19 [History] Cholecalciferol (Vitamin D3) [Vitamin D3] 1,000 unit PO DAILY 05/18/19 [History] Docusate Sodium [Stool Softener] 200 mg PO DAILY 05/18/19 [History] Donepezil HCl [Aricept] 5 mg PO HS 05/18/19 [History] Famotidine [Pepcid] 40 mg PO DAILY 05/18/19 [History] Ferrous Sulfate 325 mg [Feosol 325 mg] 325 mg PO BID 05/18/19 [History] Fluticasone/Salmeterol 115/21 [Advair Hfa 115/21 Common canister*] 2 puffs PO BID 05/18/19 [History] Gabapentin 200 mg PO BID 05/18/19 [History] Magnesium Oxide [Magnesium] 400 mg PO DAILY 05/18/19 [History] Nystatin Cream 30 gm [Nystop 30 gm Cream] 1 gm TP TID 05/18/19 [History] Paroxetine HCl 20 mg [Paxil 20 MG] 20 mg PO DAILY 05/18/19 [History] Prednisone 10 mg [Deltasone 10 mg] 10 mg PO DAILY 05/18/19 [History] Quetiapine Fumarate 25 mg [Seroquel 25 MG] 25 mg PO DAILY 05/18/19 [ History] Solifenacin Succinate [Vesicare] 5 mg PO DAILY 05/18/19 [History] Tofacitinib Citrate [Xeljanz] 5 mg PO DAILY 05/18/19 [History] Hx Tetanus, Diphtheria Vaccination/Date Given: Yes Hx Influenza Vaccination/Date Given: Yes Hx Pneumococcal Vaccination/Date Given: Yes - Review of Systems Constitutional: No Symptoms Eyes: No Symptoms Ears, Nose, & Throat: No Symptoms Respiratory: No Symptoms Cardiac: No Symptoms Abdominal/Gastrointestinal: No Symptoms Genitourinary Symptoms: No Symptoms Musculoskeletal: Arthralgias, Fall, Injury, Myalgias Neurological: Headache (mild) Psychological: No Symptoms Endocrine: No Symptoms Hematologic/Lymphatic: No Symptoms Immunological/Allergic: No Symptoms All Other Systems: Reviewed and Negative - Past Medical History Pertinent Past Medical History: Yes Neurological History: Stroke, TIA ENT History: Cataracts Cardiac History: Congestive Heart Failure, High Cholesterol, Hypertension Respiratory History: Asthma, COPD, Pneumonia Endocrine Medical History: Diabetes Type II Musculoskeletal History: Osteoarthritis, Osteoporosis, Rheumatoid Arthritis GI Medical History: Esophageal Disorder, GERD, Other History: Renal Disease Psycho-Social History: Anxiety, Depression Female Reproductive Disorders: No Pertinent History Other Medical History: Anemia. broken shoulder, 11/19. hiatal hernia. skin cancer- nose - Past Surgical History Past Surgical History: Yes Neuro Surgical History: No Pertinent History Cardiac: No Pertinent History Respiratory: No Pertinent History Gastrointestinal: No Pertinent History Genitourinary: No Pertinent History Musculoskeletal: Joint Replacement Female Surgical History: Hysterectomy Other Surgical History: bilateral Knee replacement x2, right hip replacement, bladder lift - Social History Smoking Status: Former smoker How long have you smoked: 20 yrs Exposure to second hand smoke: No Drug Use: none Patient Lives Alone: No - Female History Hx Now: No - Nursing Vital Signs Nursing Vital Signs: Initial Vital Signs Temperature 98.0 F 05/18/19 12:57 Pulse Rate 104 H 05/18/19 12:57 Blood Pressure 216/101 05/18/19 12:57 O2 Sat by Pulse Oximetry 96 05/18/19 12:57 Pain Scale Pain Intensity 8 - Pandora Coma Score Best Eye Response (Pandora): (4) open spontaneously Best Verbal Response (Pandora): (5) oriented Best Motor Response (Pandora): (6) obeys commands Pandora Total: 15 - Physical Exam General Appearance: mild distress, alert, anxiety Head Injury: contusions, ecchymosis (left forehead) Eye Exam: PERRL/EOMI, eyes nml inspection ENT Exam: airway nml, nml ext.inspection Neck Exam: supple, trachea midline, full range of motion, normal alignment Respiratory/Chest Exam: normal breath sounds, No chest tenderness, No respiratory distress, No ecchymosis, No crepitus Cardiovascular Exam: normal heart sounds, regular rate/rhythm Gastrointestinal Exam: soft, normal bowel sounds, No tenderness Extremity Exam: tenderness (bilat hands and left wrist. severe ra) Neurologic Exam: alert, oriented x 3, cooperative, vp software II-XII nml as tested Skin Exam: normal color, warm, dry SpO2 Interpretation: normal SpO2: 96 O2 Delivery: Room Air - Course Nursing assessment & vital signs reviewed: Yes Ordered Tests: Active Orders 24 hr Category Date Time Status CERVICAL SPINE WO CONTRAST [CT] Stat Exams 05/18/19 13:46 Completed HAND (MINIMUM 3 VIEWS) Stat Exams 05/18/19 13:33 Completed HAND (MINIMUM 3 VIEWS) Stat Exams 05/18/19 13:34 Completed HEAD WITHOUT CONTRAST [CT] Stat Exams 05/18/19 13:32 Completed WRIST (MIN 3 VIEWS) Stat Exams 05/18/19 13:33 Completed Medication Summary Discontinued Medications Generic Name Dose Route Start Last Admin Trade Name Peace PRN Reason Stop Dose Admin Hydrocodone Bitart/Acetaminophen 1 tab 05/18/19 13:42 05/18/19 14:49 [place] 7.5/325 Mg Tab PO 05/18/19 13:43 1 tab STAT ONE Administration Clonidine 0.1 mg 05/18/19 15:23 05/18/19 15:30 Catapres 0.1 Mg PO 05/18/19 15:24 0.1 mg STAT ONE Administration Clonidine Confirm 05/18/19 15:28 Catap[place] 0.1 Mg Administered 05/18/19 15:29 Dose 0.1 mg .ROUTE .STK-MED ONE - Progress Progress: improved, pain not gone completely, re-examined Progress Note: 05/18/19 15:[address] scans negative for acute processes. 05/18/19 16:23 bp improved. no new complaints. pt still to take this afternoons bp med at [facility] Counseled pt/family regarding: diagnosis, need for follow-up, rad results - Departure Departure Disposition: Home Clinical Impression: Fall, Contusion, Asymptomatic hypertensive urgency Condition: Stable Critical Care Time: Yes Critical Care Time(excluding separately billable procedures): Critical 30-74 mins Referrals: BIANCA GOSS [Primary Care Provider] - Additional Instructions: take medications as prescribed. primary doctor to address high blood pressure issues as an outpatient
[2019-05-18] MEDS ORDERED: NORCO 7.5/325 MG TAB PO ONE (13:42)
--- NOTE | 2019-05-18 14:14 | XRAY ---
Indication: Pain. Arthritis. Comparison: None 3 views of the right hand demonstrates 4th finger ring, osteopenia, advanced osteoarthritis all MCP/IP joints with ulnar deviation, moderate wrist degenerative changes, and mild vascular calcifications. No other bony, articular, or soft tissue abnormalities.
--- NOTE | 2019-05-18 14:30 | XRAY ---
Indication: Pain. Arthritis. Comparison: None 3 views of the left wrist demonstrate osteopenia and advanced degenerative changes as evidence by joint space loss, sclerosis, and spurring. No other bony, articular, or soft tissue abnormalities.
--- NOTE | 2019-05-18 14:30 | XRAY ---
Indication: Pain. Arthritis. Comparison: None 3 views of the left hand demonstrates 4th finger ring, osteopenia, moderate/advanced osteoarthritis all MCP/IP joints with ulnar deviation, and advanced wrist degenerative changes. No other bony, articular, or soft tissue abnormalities.
--- NOTE | 2019-05-18 14:56 | XRAY ---
Indication: Left frontal/temporal pain and bruising following fall. Multiple contiguous axial images obtained through the head without contrast. Comparison: March 28, 2019. New small left frontal scalp hematoma. Stable age-appropriate global atrophy, moderate periventricular degenerative micro-ischemia bilaterally, and bilateral occipital lobe infarcts. No acute intracranial hemorrhage, abnormal extra- axial fluid collection, or mass effect. Fourth ventricle is midline. Bony calvarium intact. Visualized paranasal sinuses and mastoid air cells are clear. Impression: New left frontal scalp hematoma without underlying fracture. Stable atrophy, degenerative micro-ischemia, and bilateral occipital lobe infarcts. No acute intracranial abnormalities. CT DI 51.54
--- NOTE | 2019-05-18 15:00 | XRAY ---
Indication: Pain following post fall. Multiple contiguous axial images obtained through the cervical spine. Sagittal and coronal reformatted images obtained. Comparison: None. Stable osteopenia. Axial images again negative for acute fracture, suspicious bony lesions, or spinal canal stenosis. Stable C4-C6 degenerative endplate spurring, atlantoaxial degenerative arthropathy, and mild multilevel bilateral degenerative facet hypertrophy. Sagittal and coronal reformatted images again demonstrates cervical lordotic straightening positional versus paraspinal spasm and dextroscoliosis centered at C5. No acute compression fracture, subluxation, or jumped facet. Normal craniocervical junction. Visualized noncontrasted soft tissues again demonstrates mild bilateral carotid calcifications. CT head reported separately. Impression: 1. Stable cervical lordotic straightening, positional versus paraspinal spasm. 2. Again negative acute fracture/subluxation. 3. Stable incidental osteopenia, multilevel degenerative changes, dextroscoliosis, and carotid calcifications. CT DI 55.38
[2019-05-18] MEDS ORDERED: Catapres 0.1 MG PO ONE (15:23)
[2019-05-18] MEDS ORDERED: Catapres 0.1 MG ONE (15:28)
[2019-05-18 16:22] VITALS: BP 186/92; PULSE 105; O2SAT 96
== END 2019-05-18 16:39 | disposition home or self-care (01) ==
LOC: ED 12:55
DX: S00.83XA Contusion of other part of head, initial encounter (principal); M79.642 Pain in left hand; M79.641 Pain in right hand; M25.532 Pain in left wrist; W18.39XA Other fall on same level, initial encounter; Y93.89 Activity, other specified; Y92.129 Unspecified place in nursing home as the place of occurrence of the external cause; R51 Headache; M06.9 Rheumatoid arthritis, unspecified; Z79.899 Other long term (current) drug therapy; M79.10 Myalgia, unspecified site; I50.9 Heart failure, unspecified; E78.00 Pure hypercholesterolemia, unspecified; I10 Essential (primary) hypertension; J45.909 Unspecified asthma, uncomplicated; J44.9 Chronic obstructive pulmonary disease, unspecified; E11.9 Type 2 diabetes mellitus without complications; M81.0 Age-related osteoporosis without current pathological fracture; N28.9 Disorder of kidney and ureter, unspecified; F41.9 Anxiety disorder, unspecified; F32.9 Major depressive disorder, single episode, unspecified
CPT/HCPCS: 70450; 72125; 73110; 73130; 99284; 99291; A9270-GY

== ENCOUNTER 2019-05-22 09:00 | Observation (INO) | payer MEDICARE ==
[2019-05-22] MEDS ORDERED: Sodium Chloride 0.9% 1000 ML 1,000 ML IV STA (09:23)
[2019-05-22] MEDS ORDERED: Zofran 4 MG/2 ML VIAL IV PRN (09:23)
--- NOTE | 2019-05-22 09:35 | PCM.HP ---
History of Present Illness - Chief Complaint Chief Complaint: c/o fever, weakness for 3 days, had fall early AM History of Present Illness: is a 74 year old female with significant past medical history of rheumatoid arthritis, chronic renal insufficiency secondary to rheumatoid arthritis and hypertension, type 2 diabetes mellitus, hypertension, chronic congestive heart failure, started having fever and weakness for last 2-3 days associated with loss of appetite today morning she fell at her home, so she was brought into [facility] and from where she was admitted as a direct admit. - Review of Systems Constitutional: Fever, Chills, Lethargy, Weakness Eyes: No Symptoms Ears, Nose, & Throat: No Symptoms Respiratory: Cough, Short Of Breath Cardiac: Orthopnea, No Chest Pain, No Edema, No Syncope Abdominal/Gastrointestinal: No Abdominal Pain, No Nausea, No Vomiting, No Diarrhea Genitourinary Symptoms: No Dysuria Musculoskeletal: Fall, Other (left scalp hematoma), No Back Pain, No Neck Pain Skin: No Rash Neurological: Dizziness, No Focal Weakness, No Sensory Changes Psychological: No Symptoms Endocrine: No Symptoms Hematologic/Lymphatic: Easy Bruising Immunological/Allergic: No Symptoms Medications & Allergies Home Medications: Home Medication List Gemfibrozil 600 mg [Lopid 600 mg] 600 mg PO BID 01/16/15 [History Confirmed 01/29/19] Diclofenac Sodium Gel [Voltaren GEL] 2 gm TP Q4H 03/06/17 [History Confirmed 01/29/19] Folic Acid 1 mg PO DAILY 03/06/17 [History Confirmed 01/29/19] Glimepiride 2 mg PO DAILY 03/06/17 [History Confirmed 01/29/19] Amlodipine Besylate 5 mg [Norvasc 5 mg] 5 mg PO HS 11/26/18 [History Confirmed 01/29/19] Calcium Carbonate/Vitamin D3 [Oyster Shell 500-Vit D3 200 Tb] 1 each PO TID [History Confirmed 01/29/19] Darifenacin Hydrobromide [Darifenacin ER] 7.5 mg PO DAILY 01/28/19 [History Confirmed 01/29/19] Benzonatate [Tessalon Perle] 100 mg PO QID 5 Days #20 capsule 01/31/19 [Rx] Carvedilol 3.125 mg [Coreg 3.125 MG] 3.125 mg PO BID #60 tablet 02/01/19 [ Rx] Albuterol 8 gm Mdi Hfa [Ventolin Hfa MDI] 2 puffs PO QID 05/18/19 [ History Confirmed 05/18/19] Bumetanide 1 mg PO BID 05/18/19 [History Confirmed 05/18/19] Cholecalciferol (Vitamin D3) [Vitamin D3] 1,000 unit PO DAILY 05/18/19 [History Confirmed 05/18/19] Docusate Sodium [Stool Softener] 200 mg PO DAILY 05/18/19 [History Confirmed 04/28] Donepezil HCl [Aricept] 5 mg PO HS 05/18/19 [History Confirmed 05/18/19] Famotidine [Pepcid] 40 mg PO DAILY 05/18/19 [History Confirmed 05/18/19] Ferrous Sulfate 325 mg [Feosol 325 mg] 325 mg PO BID 05/18/19 [History Confirmed 05/18/19] Fluticasone/Salmeterol 115/21 [Advair Hfa 115/21 Common canister*] 2 puffs PO BID 05/18/19 [History Confirmed 05/18/19] Gabapentin 200 mg PO BID 05/18/19 [History Confirmed 05/18/19] Magnesium Oxide [Magnesium] 400 mg PO DAILY 05/18/19 [History Confirmed 05/18/19 ] Nystatin Cream 30 gm [Nystop 30 gm Cream] 1 gm TP TID 05/18/19 [History Confirmed 05/18/19] Paroxetine HCl 20 mg [Paxil 20 MG] 20 mg PO DAILY 05/18/19 [History Confirmed 05/18/19] Prednisone 10 mg [Deltasone 10 mg] 10 mg PO DAILY 05/18/19 [History Confirmed 05/18/19] Quetiapine Fumarate 25 mg [Seroquel 25 MG] 25 mg PO DAILY 05/18/19 [ History Confirmed 05/18/19] Solifenacin Succinate [Vesicare] 5 mg PO DAILY 05/18/19 [History Confirmed 05/18] Tofacitinib Citrate [Xeljanz] 5 mg PO DAILY 05/18/19 [History Confirmed 05/18/19 ] Allergies/Adverse Reactions: Allergies Allergy/AdvReac Type Severity Reaction Status Date / Time cefaclor [From Ceclor] Allergy Intermediate Verified 05/18/19 13:21 shellfish derived Allergy Intermediate Verified 05/18/19 13:21 sulfamethoxazole Allergy Intermediate Verified 05/18/19 13:21 venom-honey bee Allergy Intermediate Verified 05/18/19 13:21 [bee venom (honey bee)] cephalexin [From Keflex] Allergy Mild mouth sores Verified 05/18/19 13:21 - Past Medical History Past Medical History: Yes Neurological History: Stroke, TIA ENT History: Cataracts Cardiac History: Congestive Heart Failure, High Cholesterol, Hypertension Respiratory History: Asthma, COPD, Pneumonia Endocrine Medical History: Diabetes Type II Musculoskelatal History: Osteoarthritis, Osteoporosis, Rheumatoid Arthritis GI Medical History: Esophageal Disorder, GERD, Other History: Renal Disease Pyscho-Social History: Anxiety, Depression Reproductive Disorders: No Pertinent History Comment: Anemia. broken shoulder, 11/19. hiatal hernia. skin cancer- nose - Past Surgical History Past Surgical History: Yes Neuro Surgical History: No Pertinent History Cardiac History: No Pertinent History Respiratory Surgery: No Pertinent History GI Surgical History: No Pertinent History Genitourinary Surgical Hx: No Pertinent History Musculskeletal Surgical Hx: Joint Replacement Female Surgical History: Hysterectomy Other Surgical History: bilateral Knee replacement x2, right hip replacement, bladder lift - Social History Smoking Status: Former smoker How long have you smoked: 20 yrs Exposure to second hand smoke: No Alcohol: None Drug Use: none - Physical Exam General Appearance: mild distress, alert, lethargy Neurologic Exam: alert, oriented x 3, cooperative, normal mood/affect, nml cerebellar function, nml station & gait, sensation nml, No motor deficits Eye Exam: PERRL/EOMI, eyes nml inspection Ears, Nose, Throat Exam: normal ENT inspection, TMs normal, pharynx normal, moist mucous membranes Neck Exam: normal inspection, non-tender, supple, full range of motion Respiratory Exam: diminished breath sounds, crackles/rales, wheezing, No respiratory distress Cardiovascular Exam: irregular Gastrointestinal/Abdomen Exam: soft, normal bowel sounds, No tenderness, No mass Back Exam: normal inspection, normal range of motion, No CVA tenderness, No vertebral tenderness Extremity Exam: normal inspection, normal range of motion, pelvis stable Skin Exam: normal color, warm, dry, No rash Lymphatic Exam: No adenopathy Results - Radiology Impressions Radiology Exams & Impressions: Radiology Procedures Category Date Time Status CHEST 2 VIEWS (PA AND LAT) Stat Exams 05/22/19 Ordered - Other Procedures and Tests Respiratory Therapy 05/22/19 09:23 EKG STAT Oxygen Oxymizer LPM 2% Respiratory Therapy Consult ROUTINE Assessment/Plan (1) Weakness Current Visit: Yes Status: Acute Assessment & Plan: observation, routine labs, CT head, continue all home meds Code(s): R53.1 - WEAKNESS (2) Scalp hematoma Current Visit: Yes Status: Acute Qualifiers: Encounter type: initial encounter Qualified Code(s): S00.03XA - Contusion of scalp, initial encounter Code(s): S00.03XA - CONTUSION OF SCALP, INITIAL ENCOUNTER (3) Head injury Current Visit: Yes Status: Acute Qualifiers: Encounter type: initial encounter Qualified Code(s): S09.90XA - Unspecified injury of head, initial encounter Code(s): S09.90XA - UNSPECIFIED INJURY OF HEAD, INITIAL ENCOUNTER (4) Hypertension Current Visit: Yes Status: Chronic Qualifiers: Hypertension type: essential hypertension Qualified Code(s): I10 - Essential (primary) hypertension Code(s): I10 - ESSENTIAL (PRIMARY) HYPERTENSION (5) Hypertensive heart AND renal disease Current Visit: Yes Status: Chronic Code(s): I13.10 - HYP HRT & CHR KDNY DIS W/O HRT FAIL, W STG 1-4/UNSP CHR KDNY (6) Atrial fibrillation Current Visit: Yes Status: Chronic Qualifiers: Atrial fibrillation type: paroxysmal Qualified Code(s): I48.0 - Paroxysmal atrial fibrillation Code(s): I48.91 - UNSPECIFIED ATRIAL FIBRILLATION (7) Fall at home Current Visit: Yes Status: Acute Qualifiers: Encounter type: initial encounter Qualified Code(s): W19.XXXA - Unspecified fall, initial encounter; Y92.009 - Unspecified place in unspecified non-institutional (private) residence as the place of occurrence of the external cause Code(s): W19.XXXA - UNSPECIFIED FALL, INITIAL ENCOUNTER; Y92.009 - UNSP PLACE IN [facility] NON-[facility] (PRIVATE) RESIDENCE PLACE
[2019-05-22] MEDS ORDERED: ROCEPHIN 1 Gm-D5w 50 ml Bag** 1 G/50 ML IVPB IV SCH (10:00)
[2019-05-22] MEDS ORDERED: Zithromax 500 MG/ 250 ML NaCl Premix 500 MG/250 ML IVPB IV SCH (10:00)
[2019-05-22] MEDS: MERREM 500MG 500 MG in Sodium Chloride 100ML MINI-BAG PLUS 100 ML IV SCH ×2 (11:15→22:28)
[2019-05-22 11:22] LABS: Absolute Neutrophil Ct (ANC) 6.99 (1.4-6.9); BASOPHIL % 0.2 % (0.0-0.4); Basophil (Absolute #) 0.02 (0-0.4); Eosinophil % 1.8 % (0.00-5.0); Eosinophil (Absolute #) 0.17 (0-0.5); Hematocrit 32.5 % (35-47); Hemoglobin 10.2 gm/dl (12.0-16.0); Lymphocyte (Absolute #) 1.29 (1.0-4.6); Lymphocytes % 13.8 % (24.0-44.0); Mean Cell Volume 96.7 fl (78-100); Mean Corpuscular Hgb Concent. 31.4 g/dl (32-36); Mean Platelet Volume 8.8 fl (6-9.5); Monocyte (Absolute #) 0.89 (0.0-1.3); Monocytes % 9.5 % (0.0-12.0); Neutrophil % 74.7 % (36.0-66.0); Platelet Count 246 K/mm3 (150-450); Red Blood Count 3.36 M/mm3 (4.1-5.4); Red Cell Distribution Width 15.3 % (11.5-14.0); White Blood Count 9.4 K/mm3 (4.0-10.5)
[2019-05-22 11:39] LABS: ALBUMIN 3.1 g/dL (3.5-5.0); ANION GAP 13.4 MEQ/L (5-15); BILIRUBIN,TOTAL 0.5 mg/dL (0.2-1.3); Calcium 8.5 mg/dL (8.4-10.2); Creatinine 1 2.79 mg/dL (0.52-1.04); Potassium 3.1 mmol/L (3.5-5.1); Total Protein 6.8 g/dL (6.3-8.2)
[2019-05-22 11:46] LABS: Mean Corpuscular Hemoglobin 30.3 pg (26-32)
[2019-05-22] MEDS: NORCO 7.5/325 MG TAB PO PRN ×2 (12:22→21:34)
[2019-05-22] MEDS: Sodium Chloride 0.9% 1000 ML 1,000 ML IV SCH ×2 (12:27→23:18)
[2019-05-22] MEDS ORDERED: GUAIFENESIN PO PRN (14:21)
[2019-05-22] MEDS ORDERED: CODEINE PHOS PO PRN (14:21)
[2019-05-22] MEDS ORDERED: Robitussin AC Syrup Unit Dose Cup PO PRN (14:53)
[2019-05-22] MEDS: Amaryl 2 MG PO SCH (15:58)
[2019-05-22] MEDS: Lasix 40 MG PO SCH (15:58)
[2019-05-22] MEDS: Colace 100 MG PO SCH (15:59)
[2019-05-22] MEDS: BUMEX 1 MG PO SCH (16:00)
[2019-05-22] MEDS: PROVENTIL COMMON CANISTER IH SCH ×2 (16:00→20:24)
[2019-05-22] MEDS: Calcium 500MG W/Vit D Tablet PO SCH ×2 (16:00→21:36)
[2019-05-22] MEDS: Protonix 40MG Tablet PO SCH (16:01)
[2019-05-22] MEDS: DELTASONE 10 MG PO SCH (16:01)
[2019-05-22] MEDS: CLARITIN 10 MG PO SCH (16:01)
[2019-05-22] MEDS: Paxil 20 MG PO SCH (16:01)
[2019-05-22] MEDS: VITAMIN D PO SCH (16:01)
[2019-05-22] MEDS: Tessalon Perles 100 MG PO PRN ×2 (16:01→22:00)
[2019-05-22] MEDS: MAG-OX 400 PO SCH (16:01)
[2019-05-22] MEDS: FOLATE 1 MG PO SCH (16:02)
[2019-05-22] MEDS: Cozaar 50 MG PO SCH (16:06)
[2019-05-22] MEDS: Voltaren GEL TP SCH ×2 (16:10→22:28)
[2019-05-22] MEDS ORDERED: Tessalon Perles 100 MG PO SCH (17:00)
[2019-05-22] MEDS ORDERED: Ventolin Hfa MDI IH SCH (17:00)
[2019-05-22 18:29] LABS: Appearance SLIGHTLY CLOUDY (CLEAR); Bilirubin NEGATIVE (NEGATIVE); Blood SMALL Ery/ul (0-5); Epithelial Cells RARE /HPF (FEW); Glucose >=500 mg/dL (NEGATIVE); Ketones TRACE (NEGATIVE); Leukocyte Esterase NEGATIVE (NEGATIVE); Mucus SLIGHT /HPF (NEGATIVE); Nitrite NEGATIVE (NEGATIVE); Protein,Urine Dip >=500 (Negative); Specific Gravity 1.015 (1.005-1.025); Urobilinogen NEGATIVE mg/dL (0-1)
[2019-05-22] MEDS: Advair Hfa 115/21 Common canister IH SCH (20:25)
--- NOTE | 2019-05-22 20:45 | XRAY ---
Indication: Cough. Comparison: March 28, 2019. Portable chest again hyperinflated with minimal bibasilar atelectasis/scarring, cardiomegaly, osteopenia, old right humeral fracture, and bony degenerative changes, and mild scoliosis. No new/acute findings.
--- NOTE | 2019-05-22 20:45 | XRAY ---
Indication: Frontal head bruising following fall one week ago. Frequent falls. Multiple contiguous axial images obtained through the head without contrast. Comparison: May 18, 2019. Stable age-appropriate global atrophy, moderate periventricular degenerative micro-ischemia, and bilateral occipital lobe infarcts. No acute intracranial hemorrhage, abnormal extra-axial fluid collection, or mass effect. Fourth ventricle is midline. Bony calvarium intact with resolving left frontal scalp hematoma. Visualized paranasal sinuses and mastoid air cells are clear. Impression: Again nonacute senile brain with bilateral occipital lobe infarcts and resolving left frontal scalp hematoma. Comment: Preliminary interpretation was made by [facility]. No discrepancy. CTDI 59.64
[2019-05-22] MEDS: Neurontin 100 MG PO SCH (21:36)
[2019-05-22] MEDS: Seroquel 100 MG PO SCH (21:37)
[2019-05-22] MEDS: NORVASC 5 MG PO SCH (21:37)
[2019-05-22] MEDS: Ditropan 5 MG PO SCH (21:38)
[2019-05-22] MEDS: Pepcid 20 MG PO SCH (21:38)
[2019-05-22] MEDS: Klor Con 10 MEQ PO SCH (21:38)
[2019-05-22] MEDS: Coreg 3.125 MG PO SCH (21:38)
[2019-05-22] MEDS: Aricept 10 MG PO SCH (21:39)
[2019-05-22] MEDS: FEOSOL 325 MG PO SCH (21:39)
[2019-05-22] MEDS: Artificial Tears 15 ML OP SCH (21:41)
[2019-05-22] MEDS ORDERED: NON-FORMULARY ITEM (Donepezil Hcl [Aricept] 5 MG) PO SCH (22:00)
[2019-05-22] MEDS ORDERED: NON-FORMULARY ITEM (Famotidine [Pepcid] 40 MG) PO SCH (22:00)
[2019-05-22] MEDS ORDERED: Seroquel 25 MG PO SCH (22:00)
[2019-05-22] MEDS: Flonase NASAL NS SCH (22:06)
[2019-05-22] MEDS: NovoLOG Insulin SQ PRN (23:38)
[2019-05-23] MEDS: NORCO 7.5/325 MG TAB PO PRN ×3 (03:32→17:20)
[2019-05-23 04:51] LABS: Absolute Neutrophil Ct (ANC) 5.21 (1.4-6.9); BASOPHIL % 0.1 % (0.0-0.4); Basophil (Absolute #) 0.01 (0-0.4); Eosinophil % 0.3 % (0.00-5.0); Eosinophil (Absolute #) 0.02 (0-0.5); Hematocrit 26.7 % (35-47); Hemoglobin 8.3 gm/dl (12.0-16.0); Lymphocyte (Absolute #) 1.07 (1.0-4.6); Lymphocytes % 15.5 % (24.0-44.0); Mean Cell Volume 97.4 fl (78-100); Mean Corpuscular Hgb Concent. 31.1 g/dl (32-36); Monocyte (Absolute #) 0.59 (0.0-1.3); Monocytes % 8.6 % (0.0-12.0); Neutrophil % 75.5 % (36.0-66.0); Platelet Count 203 K/mm3 (150-450); Red Blood Count 2.74 M/mm3 (4.1-5.4); Red Cell Distribution Width 15.2 % (11.5-14.0); White Blood Count 6.9 K/mm3 (4.0-10.5)
[2019-05-23 04:56] LABS: ALBUMIN 2.5 g/dL (3.5-5.0); ANION GAP 11.2 MEQ/L (5-15); BILIRUBIN,TOTAL 0.4 mg/dL (0.2-1.3); Calcium 7.4 mg/dL (8.4-10.2); Creatinine 1 2.52 mg/dL (0.52-1.04); Potassium 3.4 mmol/L (3.5-5.1); Total Protein 5.7 g/dL (6.3-8.2)
[2019-05-23 05:00] LABS: Mean Corpuscular Hemoglobin 30.2 pg (26-32)
[2019-05-23] MEDS: Advair Hfa 115/21 Common canister IH SCH ×2 (06:45→21:18)
[2019-05-23] MEDS: PROVENTIL COMMON CANISTER IH SCH ×4 (06:45→21:17)
[2019-05-23] MEDS ORDERED: NON-FORMULARY ITEM (Omeprazole [Omeprazole] 20 MG) PO SCH (10:00)
[2019-05-23] MEDS ORDERED: DOCUSATE SODIUM 200 MG PO SCH (10:00)
[2019-05-23] MEDS ORDERED: NON-FORMULARY ITEM (Glimepiride [Glimepiride] 1 MG) PO SCH (10:00)
[2019-05-23] MEDS ORDERED: NON-FORMULARY ITEM (Magnesium Oxide [Magnesium] 400 MG) PO SCH (10:00)
[2019-05-23] MEDS ORDERED: NON-FORMULARY ITEM (Cholecalciferol (Vitamin D3) [Vitamin D3] 1,000 UNIT) PO SCH (10:00)
[2019-05-23] MEDS ORDERED: NON-FORMULARY ITEM (Cetirizine Hcl [Cetirizine Hcl] 10 MG) PO SCH (10:00)
[2019-05-23] MEDS ORDERED: NON-FORMULARY ITEM (Torsemide [Demadex] 10 MG) PO SCH (10:00)
[2019-05-23] MEDS ORDERED: NON-FORMULARY ITEM (Solifenacin Succinate [Vesicare] 5 MG) PO SCH (10:00)
[2019-05-23] MEDS ORDERED: Fosamax 70 MG PO SCH (10:00)
[2019-05-23] MEDS: Coreg 3.125 MG PO SCH ×2 (10:37→20:48)
[2019-05-23] MEDS: MAG-OX 400 PO SCH (10:37)
[2019-05-23] MEDS: VITAMIN D PO SCH (10:37)
[2019-05-23] MEDS: THERAGRAN MULTIVITAMIN PO SCH (10:37)
[2019-05-23] MEDS: BUMEX 1 MG PO SCH ×2 (10:37→16:36)
[2019-05-23] MEDS: Paxil 20 MG PO SCH (10:37)
[2019-05-23] MEDS: FOLATE 1 MG PO SCH (10:38)
[2019-05-23] MEDS: CLARITIN 10 MG PO SCH (10:38)
[2019-05-23] MEDS: Neurontin 100 MG PO SCH ×2 (10:38→20:48)
[2019-05-23] MEDS: Cozaar 50 MG PO SCH (10:39)
[2019-05-23] MEDS: Klor Con 10 MEQ PO SCH ×2 (10:39→20:45)
[2019-05-23] MEDS: Colace 100 MG PO SCH ×2 (10:39→11:17)
[2019-05-23] MEDS: DELTASONE 10 MG PO SCH (10:39)
[2019-05-23] MEDS: Protonix 40MG Tablet PO SCH (10:40)
[2019-05-23] MEDS: Lasix 40 MG PO SCH (10:40)
[2019-05-23] MEDS: Ditropan 5 MG PO SCH ×2 (10:40→20:48)
[2019-05-23] MEDS: Calcium 500MG W/Vit D Tablet PO SCH ×3 (10:40→20:46)
[2019-05-23] MEDS: Amaryl 2 MG PO SCH (10:40)
[2019-05-23] MEDS: FEOSOL 325 MG PO SCH ×2 (10:40→20:45)
[2019-05-23] MEDS: LOPID 600 MG PO SCH (10:40)
[2019-05-23] MEDS: Artificial Tears 15 ML OP SCH ×2 (10:41→21:07)
[2019-05-23] MEDS: Flonase NASAL NS SCH (10:41)
[2019-05-23] MEDS: Voltaren GEL TP SCH ×4 (10:42→21:08)
[2019-05-23] MEDS: MERREM 500MG 500 MG in Sodium Chloride 100ML MINI-BAG PLUS 100 ML IV SCH ×2 (11:09→21:06)
--- NOTE | 2019-05-23 13:28 | PCM.NOTE ---
Date and Time: 05/23/19 1327 Subjective Assessment: doing ok - Review of Systems Constitutional: No Fever, No Chills Eyes: No Symptoms Ears, Nose, & Throat: No Symptoms Respiratory: No Cough, No Short Of Breath Cardiac: No Chest Pain, No Edema, No Syncope Abdominal/Gastrointestinal: No Abdominal Pain, No Nausea, No Vomiting, No Diarrhea Genitourinary Symptoms: No Dysuria Musculoskeletal: No Back Pain, No Neck Pain Skin: No Rash Neurological: No Dizziness, No Focal Weakness, No Sensory Changes Psychological: No Symptoms Endocrine: No Symptoms Hematologic/Lymphatic: No Symptoms Immunological/Allergic: No Symptoms Objective Exam General Appearance: no apparent distress, alert Neurologic Exam: alert, oriented x 3, cooperative, normal mood/affect, nml cerebellar function, sensation nml, No motor deficits Skin Exam: normal color, warm, dry Wound Assessment: Skin/Wound Assessment Wound/Incision Assessment Start: 05/22/19 15: 03 Text: Status: Active Freq: Q6H Protocol: Document 05/23/19 08:00 (Rec: 05/23/19 08:14 [id number]) Wound/Incision Assessment Posterior Medial Buttock Wound Assessment Shift Assessment Wound Type Pressure Ulcer Wound Stage Stage II Drainage Amount None Surrounding Tissue [place] Comment bilat medial buttock stage II. barrier cream applied Wound Photo Photo Taken Yes Date: 05/22/19 Eye Exam: PERRL, EOMI, eyes nml inspection Ears, Nose, Throat Exam: normal ENT inspection, pharynx normal, moist mucous membranes Neck Exam: normal inspection, non-tender, supple, full range of motion Respiratory Exam: normal breath sounds, lungs clear, No respiratory distress Cardiovascular Exam: regular rate/rhythm, normal heart sounds Gastrointestinal/Abdomen Exam: soft, No tenderness, No mass Extremity Exam: normal inspection, normal range of motion Back Exam: normal inspection, normal range of motion, No CVA tenderness, No vertebral tenderness Pelvic Exam: deferred Rectal Exam: deferred OBJECTIVE DATA Vital Signs: Vital Signs - 24 hr Temp Pulse Resp BP Pulse Ox 05/23/19 12:09 97.9 F 71 114/59 99 05/23/19 11:28 70 18 97 05/23/19 07:33 97.7 F 80 17 100/49 95 05/23/19 06:53 76 19 96 05/23/19 05:15 98.4 F 05/23/19 04:00 99.9 F 90 23 120/61 99 05/23/19 00:00 99.6 F 102 H 18 131/60 96 05/22/19 20:45 98.2 F 96 H 23 150/68 97 05/22/19 20:26 99 H 19 94 L 05/22/19 16:06 102 H 20 92 L 05/22/19 16:01 102 H 20 92 L 05/22/19 16:00 98.6 F 100 H 19 131/60 99 Pain Assessment - Last Documented Pain Intensity 3 Pain Scale Used 0-10 Pain Scale Intake and Output: Intake & Output 05/21/19 05/22/19 05/23/19 05/24/19 11:59 11:59 11:59 11:59 Intake Total 4113 Balance 4113 Weight 37.376 kg Lab Results: Accuchecks Date 05/23/19 Date 05/23/19 Date 05/23/19 Time 11:30 Time 08:12 Accucheck Value: 136 Accucheck Value: 186 Accucheck Value: 276 Accucheck Value: 127 Lab Results-Last 24 Hours 05/22/19 05/22/19 05/23/19 Range/Units 11:15 17:59 04:51 WBC 6.9 (4.0-10.5) K/mm3 RBC 2.74 L (4.1-5.4) M/mm3 Hgb 8.3 L (12.0-16.0) gm/dl Hct 26.7 L (35-47) % MCV 97.4 (78-100) fl MCH 30.2 (26-32) pg MCHC 31.1 L (32-36) g/dl RDW 15.2 H (11.5-14.0) % Plt Count 203 (150-450) K/mm3 MPV 9.0 (6-9.5) fl Gran % 75.5 H (36.0-66.0) % Eos # (Auto) 0.02 (0-0.5) Absolute Lymphs (auto) 1.07 (1.0-4.6) Absolute Monos (auto) 0.59 (0.0-1.3) Lymphocytes % 15.5 L (24.0-44.0) % Monocytes % 8.6 (0.0-12.0) % Eosinophils % 0.3 (0.00-5.0) % Basophils % 0.1 (0.0-0.4) % Absolute Granulocytes 5.21 (1.4-6.9) Basophils # 0.01 (0-0.4) Sodium (137-145) mmol/L Potassium (3.5-5.1) mmol/L Chloride (98-107) mmol/L Carbon Dioxide (22-30) mmol/L Anion Gap (5-15) MEQ/L BUN (7-17) mg/dL Creatinine (0.52-1.04) mg/dL Estimated GFR ML/MIN Glucose (74-106) mg/dL Hemoglobin A1c (4.5-6.0) % Calcium (8.4-10.2) mg/dL Total Bilirubin (0.2-1.3) mg/dL AST (14-36) U/L ALT (0-35) U/L Alkaline Phosphatase (38-126) U/L Serum Total Protein (6.3-8.2) g/dL Albumin (3.5-5.0) g/dL Prealbumin 9.09 L (17.6-36.0) mg/dL Urine Color YELLOW (YELLOW) Urine Appearance SLIGHTLY CLOUDY (CLEAR) Urine pH 6.0 (5-6) Ur Specific [place] 1.015 (1.005-1.025) Urine Protein >=500 (Negative) Urine Ketones TRACE (NEGATIVE) Urine Blood SMALL (0-5) Shiv/ul Urine Nitrite NEGATIVE (NEGATIVE) Urine Bilirubin NEGATIVE (NEGATIVE) Urine Urobilinogen NEGATIVE (0-1) mg/dL Ur Leukocyte Esterase NEGATIVE (NEGATIVE) Urine WBC (Auto) 3-5 (0-5) /HPF Urine RBC (Auto) 16-25 (0-2) /HPF U Hyaline Cast (Auto) 3-5 (0-2) /LPF U Epithel Cells (Auto) RARE (FEW) /HPF Urine Bacteria (Auto) NONE (NEGATIVE) /HPF Urine Mucus (Auto) SLIGHT (NEGATIVE) /HPF Urine Culture Reflexed YES (NO) Urine Glucose >=500 (NEGATIVE) mg/dL 05/23/19 05/23/19 Range/Units 04:51 08:35 WBC (4.0-10.5) K/mm3 RBC (4.1-5.4) M/mm3 Hgb (12.0-16.0) gm/dl Hct (35-47) % MCV (78-100) fl MCH (26-32) pg MCHC (32-36) g/dl RDW (11.5-14.0) % Plt Count (150-450) K/mm3 MPV (6-9.5) fl Gran % (36.0-66.0) % Eos # (Auto) (0-0.5) Absolute Lymphs (auto) (1.0-4.6) Absolute Monos (auto) (0.0-1.3) Lymphocytes % (24.0-44.0) % Monocytes % (0.0-12.0) % Eosinophils % (0.00-5.0) % Basophils % (0.0-0.4) % Absolute Granulocytes (1.4-6.9) Basophils # (0-0.4) Sodium 141 (137-145) mmol/L Potassium 3.4 L (3.5-5.1) mmol/L Chloride 110 H (98-107) mmol/L Carbon Dioxide 23 (22-30) mmol/L Anion Gap 11.2 (5-15) MEQ/L BUN 22 H (7-17) mg/dL Creatinine 2.52 H (0.52-1.04) mg/dL Estimated GFR 19.7 ML/MIN Glucose 186 H (74-106) mg/dL Hemoglobin A1c 6.65 H (4.5-6.0) % Calcium 7.4 L (8.4-10.2) mg/dL Total Bilirubin 0.40 (0.2-1.3) mg/dL AST 20 (14-36) U/L ALT 8 (0-35) U/L Alkaline Phosphatase 77 (38-126) U/L Serum Total Protein 5.7 L (6.3-8.2) g/dL Albumin 2.5 L (3.5-5.0) g/dL Prealbumin (17.6-36.0) mg/dL Urine Color (YELLOW) Urine Appearance (CLEAR) Urine pH (5-6) Ur Specific [place] (1.005-1.025) Urine Protein (Negative) Urine Ketones (NEGATIVE) Urine Blood (0-5) Shiv/ul Urine Nitrite (NEGATIVE) Urine Bilirubin (NEGATIVE) Urine Urobilinogen (0-1) mg/dL Ur Leukocyte Esterase (NEGATIVE) Urine WBC (Auto) (0-5) /HPF Urine RBC (Auto) (0-2) /HPF U Hyaline Cast (Auto) (0-2) /LPF U Epithel Cells (Auto) (FEW) /HPF Urine Bacteria (Auto) (NEGATIVE) /HPF Urine Mucus (Auto) (NEGATIVE) /HPF Urine Culture Reflexed (NO) Urine Glucose (NEGATIVE) mg/dL Radiology Exams: Radiology Procedures Category Date Time Status CHEST 1 VIEW (PORTABLE) Stat Exams 05/22/19 10:42 Completed HEAD WITHOUT CONTRAST [CT] Stat Exams 05/22/19 09:39 Completed Assessment/Plan (1) Weakness Current Visit: Yes Status: Acute Assessment & Plan: improving Code(s): R53.1 - WEAKNESS (2) Scalp hematoma Current Visit: Yes Status: Acute Qualifiers: Encounter type: initial encounter Qualified Code(s): S00.03XA - Contusion of scalp, initial encounter Code(s): S00.03XA - CONTUSION OF SCALP, INITIAL ENCOUNTER (3) Head injury Current Visit: Yes Status: Acute Qualifiers: Encounter type: initial encounter Qualified Code(s): S09.90XA - Unspecified injury of head, initial encounter Code(s): S09.90XA - UNSPECIFIED INJURY OF HEAD, INITIAL ENCOUNTER (4) Hypertension Current Visit: Yes Status: Chronic Qualifiers: Hypertension type: essential hypertension Qualified Code(s): I10 - Essential (primary) hypertension Code(s): I10 - ESSENTIAL (PRIMARY) HYPERTENSION (5) Hypertensive heart AND renal disease Current Visit: Yes Status: Chronic Code(s): I13.10 - HYP HRT & CHR KDNY DIS W/O HRT FAIL, W STG 1-4/UNSP CHR KDNY (6) Atrial fibrillation Current Visit: Yes Status: Chronic Qualifiers: Atrial fibrillation type: paroxysmal Qualified Code(s): I48.0 - Paroxysmal atrial fibrillation Code(s): I48.91 - UNSPECIFIED ATRIAL FIBRILLATION (7) Fall at home Current Visit: Yes Status: Acute Qualifiers: Encounter type: initial encounter Qualified Code(s): W19.XXXA - Unspecified fall, initial encounter; Y92.009 - Unspecified place in unspecified non-institutional (private) residence as the place of occurrence of the external cause Assessment & Plan: will transfer her to [facility] Code(s): W19.XXXA - UNSPECIFIED FALL, INITIAL ENCOUNTER; Y92.009 - UNSP PLACE IN [facility] (PR[facility] RESIDENCE PLACE
[2019-05-23] MEDS: Sodium Chloride 0.9% 1000 ML 1,000 ML IV SCH ×2 (15:44→20:35)
[2019-05-23] MEDS ORDERED: Haldol 5 MG IM PRN (20:30)
[2019-05-23] MEDS: Pepcid 20 MG PO SCH (20:45)
[2019-05-23] MEDS: NORVASC 5 MG PO SCH (20:46)
[2019-05-23] MEDS: Aricept 10 MG PO SCH (20:47)
[2019-05-23] MEDS: Seroquel 100 MG PO SCH (20:49)
[2019-05-23] MEDS: NovoLOG Insulin SQ PRN (21:42)
[2019-05-24] MEDS ORDERED: D50W 50ML Vial IV ONE (07:39)
[2019-05-24] MEDS: Sodium Chloride 0.9% 1000 ML 1,000 ML IV SCH (07:59)
[2019-05-24] MEDS: MAG-OX 400 PO SCH (09:19)
[2019-05-24] MEDS: BUMEX 1 MG PO SCH (09:19)
[2019-05-24] MEDS: THERAGRAN MULTIVITAMIN PO SCH (09:19)
[2019-05-24] MEDS: FOLATE 1 MG PO SCH (09:19)
[2019-05-24] MEDS: VITAMIN D PO SCH (09:20)
[2019-05-24] MEDS: Amaryl 2 MG PO SCH (09:20)
[2019-05-24] MEDS: Neurontin 100 MG PO SCH (09:20)
[2019-05-24] MEDS: NORCO 7.5/325 MG TAB PO PRN (09:20)
[2019-05-24] MEDS: FEOSOL 325 MG PO SCH (09:20)
[2019-05-24] MEDS: DELTASONE 10 MG PO SCH (09:21)
[2019-05-24] MEDS: Coreg 3.125 MG PO SCH (09:21)
[2019-05-24] MEDS: Paxil 20 MG PO SCH (09:21)
[2019-05-24] MEDS: CLARITIN 10 MG PO SCH (09:21)
[2019-05-24] MEDS: Lasix 40 MG PO SCH (09:21)
[2019-05-24] MEDS: Protonix 40MG Tablet PO SCH (09:21)
[2019-05-24] MEDS: Ditropan 5 MG PO SCH (09:21)
[2019-05-24] MEDS: Artificial Tears 15 ML OP SCH (09:21)
[2019-05-24] MEDS: Cozaar 50 MG PO SCH (09:21)
[2019-05-24] MEDS: LOPID 600 MG PO SCH (09:21)
[2019-05-24] MEDS: Colace 100 MG PO SCH (09:22)
[2019-05-24] MEDS: Calcium 500MG W/Vit D Tablet PO SCH (09:22)
[2019-05-24] MEDS: Voltaren GEL TP SCH ×2 (09:22→12:59)
[2019-05-24] MEDS: Klor Con 10 MEQ PO SCH (09:35)
[2019-05-24] MEDS: MERREM 500MG 500 MG in Sodium Chloride 100ML MINI-BAG PLUS 100 ML IV SCH (09:41)
[2019-05-24] MEDS: PROVENTIL COMMON CANISTER IH SCH ×2 (10:19→10:31)
[2019-05-24] MEDS: Advair Hfa 115/21 Common canister IH SCH (10:21)
[2019-05-24 11:54] VITALS: BP 144/71; PULSE 60; O2SAT 97
[2019-05-24] MEDS: Tessalon Perles 100 MG PO PRN (14:46)
== END 2019-05-24 14:48 ==
LOC: ICU 09:00
PROVIDERS: ADMIT General Practice; ATTEND General Practice
DX: R53.1 Weakness (principal); E11.9 Type 2 diabetes mellitus without complications; I50.9 Heart failure, unspecified; J44.9 Chronic obstructive pulmonary disease, unspecified; Z86.73 Personal history of transient ischemic attack (TIA), and cerebral infarction without residual deficits; M06.9 Rheumatoid arthritis, unspecified; E78.00 Pure hypercholesterolemia, unspecified; S00.03XA Contusion of scalp, initial encounter; I13.10 Hypertensive heart and chronic kidney disease without heart failure, with stage 1 through stage 4 chronic kidney disease, or unspecified chronic kidney disease; I48.91 Unspecified atrial fibrillation; L89.322 Pressure ulcer of left buttock, stage 2; L89.312 Pressure ulcer of right buttock, stage 2; W19.XXXA Unspecified fall, initial encounter; Y92.009 Unspecified place in unspecified non-institutional (private) residence as the place of occurrence of the external cause
CPT/HCPCS: 36415; 70450; 71045; 80053; 81001; 82962; 83036; 83880; 84134; 85025; 87040; 87086; 93005; 93268; 94640; 94760; 94762; 97161; 97166; 97530; G0378; J1630; A9270-GY

== ENCOUNTER 2019-05-27 07:53 | Emergency (ER) | payer MEDICARE ==
[2019-05-27] MEDS ORDERED: Zofran 4 MG/2 ML VIAL IV ONE (07:59)
--- NOTE | 2019-05-27 08:00 | ERPHSYRPT ---
- History of Present Illness Time Seen by Provider: 05/27/19 07:59 Source: patient, EMS, residential records Exam Limitations: no limitations Physician History: 74 y/o diabetic white female presents to ED via ems for evaluation because earlier this am pt was confused and was found to have a low blood glucose of 52. pt was given glucagon and juice. blood glucose was in normal range and pts mental status cleared to baseline. pt arrives via ems without complaints. Timing/Duration: today, improved Severity: mild Modifying Factors: Improves With: eating (improved sx) Associated Symptoms: denies symptoms Allergies/Adverse Reactions: cefaclor [From Ceclor] Allergy (Intermediate, Verified 05/27/19 08:39) shellfish derived Allergy (Intermediate, Verified 05/27/19 08:39) sulfamethoxazole Allergy (Intermediate, Verified 05/27/19 08:39) venom-honey bee [bee venom (honey bee)] Allergy (Intermediate, Verified 08:39) cephalexin [From Keflex] Allergy (Mild, Verified 05/27/19 08:39) mouth sores fentanyl Allergy (Verified 05/27/19 08:39) Home Medications: Gemfibrozil 600 mg [Lopid 600 mg] 600 mg PO DAILY 01/16/15 [History] Diclofenac Sodium Gel [Voltaren GEL] 2 gm TP QID 03/06/17 [History] Folic Acid 1 mg PO DAILY 03/06/17 [History] Glimepiride 1 mg PO DAILY 03/06/17 [History] Amlodipine Besylate 5 mg [Norvasc 5 mg] 2.5 mg PO HS 11/26/18 [History] Calcium Carbonate/Vitamin D3 [Oyster Shell 500-Vit D3 200 Tb] 1 each PO TID [History] Albuterol 8 gm Mdi Hfa [Ventolin Hfa MDI] 2 puffs PO QID 05/18/19 [History ] Bumetanide 1 mg PO BID 05/18/19 [History] Cholecalciferol (Vitamin D3) [Vitamin D3] 1,000 unit PO DAILY 05/18/19 [History] Docusate Sodium [Stool Softener] 200 mg PO DAILY 05/18/19 [History] Donepezil HCl [Aricept] 5 mg PO HS 05/18/19 [History] Famotidine [Pepcid] 40 mg PO HS 05/18/19 [History] Ferrous Sulfate 325 mg [Feosol 325 mg] 325 mg PO BID 05/18/19 [History] Fluticasone/Salmeterol 115/21 [Advair Hfa 115/21 Common canister*] 2 puffs PO BID 05/18/19 [History] Gabapentin 200 mg PO BID 05/18/19 [History] Magnesium Oxide [Magnesium] 400 mg PO DAILY 05/18/19 [History] Paroxetine HCl 20 mg [Paxil 20 MG] 20 mg PO DAILY 05/18/19 [History] Prednisone 10 mg [Deltasone 10 mg] 10 mg PO DAILY 05/18/19 [History] Quetiapine Fumarate 25 mg [Seroquel 25 MG] 100 mg PO HS 05/18/19 [History] Solifenacin Succinate [Vesicare] 5 mg PO DAILY 05/18/19 [History] Alendronate Sodium 70 mg [Fosamax 70 MG] 70 mg PO DAILY 05/22/19 [History] Cetirizine HCl 10 mg PO DAILY 05/22/19 [History] Fluticasone Propionate [Flonase NASAL] 1 spray NS HS 05/22/19 [History] Furosemide 40 mg PO DAILY 05/22/19 [History] Guaifenesin/Codeine Phos [Cheratussin AC Syrup] 10 ml PO Q4HPRN PRN 05/22/19 [ History] Hydrocodone Bit/Acetaminophen [Hydrocodon-Acetaminoph 7.5-325] 1 tab PO Q6HPRN PRN 05/22/19 [History] Losartan Potassium 50 mg [Cozaar 50 MG] 100 mg PO DAILY 05/22/19 [History] Multivitamins,Therapeutic Tab* [Theragran Multivitamin] 1 tab PO DAILY [History] Omeprazole 20 mg PO DAILY 05/22/19 [History] Polyvinyl Alcohol Tears [Artificial Tears 15 ML] 1 drop OP BID 05/22/19 [ History] Potassium Chloride 10 Meq Tab* [Klor Con 10 MEQ] 10 meq PO BID 05/22/19 [ History] Torsemide [Demadex] 10 mg PO DAILY 05/22/19 [History] Hx Tetanus, Diphtheria Vaccination/Date Given: Yes Hx Influenza Vaccination/Date Given: Yes Hx Pneumococcal Vaccination/Date Given: Yes - Review of Systems Constitutional: No Symptoms, Other (confused ealier. now at baseline) Eyes: No Symptoms Ears, Nose, & Throat: No Symptoms Respiratory: No Symptoms Cardiac: No Symptoms Abdominal/Gastrointestinal: No Symptoms Genitourinary Symptoms: No Symptoms Musculoskeletal: No Symptoms Skin: No Symptoms Neurological: No Symptoms Psychological: No Symptoms Endocrine: No Symptoms Hematologic/Lymphatic: No Symptoms - Past Medical History Pertinent Past Medical History: Yes Neurological History: Stroke, TIA ENT History: Cataracts Cardiac History: Congestive Heart Failure, High Cholesterol, Hypertension Respiratory History: Asthma, COPD, Pneumonia Endocrine Medical History: Diabetes Type II Musculoskeletal History: Osteoarthritis, Osteoporosis, Rheumatoid Arthritis GI Medical History: Esophageal Disorder, GERD, Other History: Renal Disease Psycho-Social History: Anxiety, Depression Female Reproductive Disorders: No Pertinent History Other Medical History: Anemia. broken shoulder, 11/19. hiatal hernia. skin cancer- nose - Past Surgical History Past Surgical History: Yes Neuro Surgical History: No Pertinent History Cardiac: No Pertinent History Respiratory: No Pertinent History Gastrointestinal: No Pertinent History Genitourinary: No Pertinent History Musculoskeletal: Joint Replacement Female Surgical History: Hysterectomy Other Surgical History: bilateral Knee replacement x2, right hip replacement, bladder lift - Social History Smoking Status: Former smoker How long have you smoked: 20 yrs Exposure to second hand smoke: No Drug Use: none Patient Lives Alone: No - Nursing Vital Signs Nursing Vital Signs: Initial Vital Signs Temperature 97.8 F 05/27/19 08:21 Pulse Rate 71 05/27/19 08:21 Respiratory Rate 18 05/27/19 08:21 Blood Pressure 211/88 05/27/19 08:21 O2 Sat by Pulse Oximetry 98 05/27/19 08:21 Pain Scale Pain Intensity 8 - Physical Exam General Appearance: no apparent distress, alert Eye Exam: PERRL/EOMI, eyes nml inspection Ears, Nose, Throat Exam: normal ENT inspection, moist mucous membranes Neck Exam: normal inspection, non-tender, supple, full range of motion Respiratory Exam: normal breath sounds, lungs clear, No chest tenderness, No respiratory distress, No airway intact Cardiovascular Exam: regular rate/rhythm, normal heart sounds, normal peripheral pulses Gastrointestinal/Abdomen Exam: soft, normal bowel sounds, No tenderness Pelvic Exam: not done Rectal Exam: not done Back Exam: normal inspection, normal range of motion, No CVA tenderness, No vertebral tenderness Extremity Exam: normal inspection, normal range of motion, pelvis stable Neurologic Exam: alert, oriented x 3, cooperative, 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, normal mood/affect Skin Exam: normal color, warm, dry Lymphatic Exam: No adenopathy SpO2 Interpretation: normal O2 Delivery: Room Air Ordered Tests: Active Orders 24 hr Category Date Time Status Accucheck STAT Care 05/27/19 07:59 Active Cath for Specimen-Straight STAT Care 05/27/19 08:00 Active IV Insertion STAT Care 05/27/19 07:59 Active 1800 Calorie ADA Diet 05/27/19 Lunch Active BMP Stat Lab 05/27/19 08:12 Completed CBC W DIFF Stat Lab 05/27/19 08:12 Completed CULTURE,URINE Stat Lab 05/27/19 08:22 Received Manual Differential NC Stat Lab 05/27/19 08:12 Completed UA W/RFX UR CULTURE Stat Lab 05/27/19 08:22 Completed Medication Summary Discontinued Medications Generic Name Dose Route Start Last Admin Trade Name Peace PRN Reason Stop Dose Admin Clonidine 0.1 mg 05/27/19 09:09 05/27/19 09:19 Catapres 0.1 Mg PO 05/27/19 09:10 0.1 mg STAT ONE Administration Clonidine Confirm 05/27/19 09:18 Catapres 0.1 Mg Administered 05/27/19 09:19 Dose 0.1 mg .ROUTE .STK-MED ONE Sodium Chloride 500 mls @ 500 mls/hr 05/27/19 08:01 05/27/19 08:25 Sodium Chloride 0.9% 500 Ml IV 05/27/19 09:00 500 mls/hr .Q1H ONE Administration Sodium Chloride Confirm 05/27/19 08:23 Sodium Chloride 0.9% 500 Ml Administered 05/27/19 08:24 Dose 500 mls @ ud IV .STK-MED ONE Ondansetron HCl 4 mg 05/27/19 07:59 05/27/19 08:24 Zofran 4 Mg/2 Ml Vial IV 05/27/19 08:00 4 mg STAT ONE Administration Ondansetron HCl Confirm 05/27/19 08:23 Zofran 4 Mg/2 Ml Vial Administered 05/27/19 08:24 Dose 4 mg .ROUTE .STK-MED ONE Lab/Rad Data: Laboratory Result Diagrams 05/27/19 08:12 05/27/19 08:12 Laboratory Results 05/27/19 05/27/19 05/27/19 Range/Units 08:22 08:12 08:12 WBC 7.5 (4.0-10.5) K/mm3 RBC 3.74 L (4.1-5.4) M/mm3 Hgb 11.3 L (12.0-16.0) gm/dl Hct 36.6 (35-47) % MCV 97.9 (78-100) fl MCH 30.2 (26-32) pg MCHC 30.9 L (32-36) g/dl RDW 15.4 H (11.5-14.0) % Plt Count 275 (150-450) K/mm3 MPV 8.5 (6-9.5) fl Absolute Granulocytes 4.85 (1.4-6.9) Segmented Neutrophils 63 (36.0-66.0) % Band Neutrophils 2 (0.0-2.0) % Lymphocytes (Manual) 25 (24-44) % Monocytes (Manual) 6 (0.0-12.0) % Eosinophils (Manual) 4 H (0.00-3.0) % Platelet Estimate NORMAL (NORMAL) RBC Morphology ABNORMAL Poikilocytosis 1+ Anisocytosis 1+ Sodium 145 (137-145) mmol/L Potassium 4.1 (3.5-5.1) mmol/L Chloride 110 H (98-107) mmol/L Carbon Dioxide 26 (22-30) mmol/L Anion Gap 13.9 (5-15) MEQ/L BUN 33 H (7-17) mg/dL Creatinine 2.19 H (0.52-1.04) mg/dL Estimated GFR 23.2 ML/MIN Glucose 119 H (74-106) mg/dL Calcium 8.8 (8.4-10.2) mg/dL Urine Color YELLOW (YELLOW) Urine Appearance CLEAR (CLEAR) Urine pH 6.0 (5-6) Ur Specific Lamar 1.013 (1.005-1.025) Urine Protein >=500 (Negative) Urine Ketones NEGATIVE (NEGATIVE) Urine Blood NEGATIVE (0-5) Shiv/ul Urine Nitrite NEGATIVE (NEGATIVE) Urine Bilirubin NEGATIVE (NEGATIVE) Urine Urobilinogen NEGATIVE (0-1) mg/dL Ur Leukocyte Esterase NEGATIVE (NEGATIVE) Urine WBC (Auto) 3-5 (0-5) /HPF Urine RBC (Auto) NONE (0-2) /HPF U Hyaline Cast (Auto) 11-25 (0-2) /LPF U Epithel Cells (Auto) NONE (FEW) /HPF Urine Bacteria (Auto) RARE (NEGATIVE) /HPF Urine Mucus (Auto) SLIGHT (NEGATIVE) /HPF Urine Culture Reflexed ORDERED SEPARATELY (NO) Urine Glucose 50 (NEGATIVE) mg/dL - Progress Progress: improved Progress Note: 05/27/19 09:27 we were getting ready to discharge pt and found pt bp to be elevated. pt has not received her am meds. we will provide a one time dose of clonidine 0.1mg and then send pt back to residential realizing she will still receive her am bp meds. Counseled pt/family regarding: lab results, diagnosis - Departure Departure Disposition: Home Clinical Impression: Hypoglycemia, Hypertension Condition: Stable Critical Care Time: No Referrals: BIANCA GOSS [Primary Care Provider] - Additional Instructions: residential diet, medications, and instructions as before.
[2019-05-27] MEDS ORDERED: Sodium Chloride 0.9% 500 ML 500 ML IV ONE ×2 (08:01→08:23)
[2019-05-27 08:21] LABS: Hematocrit 36.6 % (35-47); Hemoglobin 11.3 gm/dl (12.0-16.0); Mean Cell Volume 97.9 fl (78-100); Mean Corpuscular Hemoglobin 30.2 pg (26-32); Mean Corpuscular Hgb Concent. 30.9 g/dl (32-36); Mean Platelet Volume 8.5 fl (6-9.5); Platelet Count 275 K/mm3 (150-450); Red Blood Count 3.74 M/mm3 (4.1-5.4); Red Cell Distribution Width 15.4 % (11.5-14.0); White Blood Count 7.5 K/mm3 (4.0-10.5)
[2019-05-27] MEDS ORDERED: Zofran 4 MG/2 ML VIAL ONE (08:23)
[2019-05-27 08:33] VITALS: O2SAT 98
[2019-05-27 08:38] LABS: ANION GAP 13.9 MEQ/L (5-15); Calcium 8.8 mg/dL (8.4-10.2); Creatinine 1 2.19 mg/dL (0.52-1.04); Potassium 4.1 mmol/L (3.5-5.1)
[2019-05-27 08:38] LABS: Appearance CLEAR (CLEAR); Bacteria RARE /HPF (NEGATIVE); Bilirubin NEGATIVE (NEGATIVE); Blood NEGATIVE Ery/ul (0-5); Glucose 50 mg/dL (NEGATIVE); Ketones NEGATIVE (NEGATIVE); Leukocyte Esterase NEGATIVE (NEGATIVE); Mucus SLIGHT /HPF (NEGATIVE); Nitrite NEGATIVE (NEGATIVE); Protein,Urine Dip >=500 (Negative); Specific Gravity 1.013 (1.005-1.025); Urobilinogen NEGATIVE mg/dL (0-1)
[2019-05-27 08:43] LABS: BAND 2 % (0.0-2.0); Eosinophil 4 % (0.00-3.0); Lymphocytes 25 % (24-44); Monocyte 6 % (0.0-12.0); Neutrophils 63 % (36.0-66.0); Total Cells Counted 100
[2019-05-27 08:44] LABS: Platelet Estimate NORMAL (NORMAL)
[2019-05-27 08:45] LABS: ANISOCYTOSIS 1+; Absolute Neutrophil Ct (ANC) 4.85 (1.4-6.9); Poikilocytosis 1+
[2019-05-27] MEDS ORDERED: Catapres 0.1 MG PO ONE (09:09)
[2019-05-27] MEDS ORDERED: Catapres 0.1 MG ONE (09:18)
[2019-05-27 09:58] VITALS: BP 156/107; PULSE 73
== END 2019-05-27 10:00 | disposition home or self-care (01) ==
LOC: ED 07:53
DX: E11.649 Type 2 diabetes mellitus with hypoglycemia without coma (principal); I10 Essential (primary) hypertension; I50.9 Heart failure, unspecified; E78.00 Pure hypercholesterolemia, unspecified; J44.9 Chronic obstructive pulmonary disease, unspecified; M81.0 Age-related osteoporosis without current pathological fracture; M06.9 Rheumatoid arthritis, unspecified; Z79.899 Other long term (current) drug therapy; K21.9 Gastro-esophageal reflux disease without esophagitis; F41.9 Anxiety disorder, unspecified; F32.9 Major depressive disorder, single episode, unspecified
CPT/HCPCS: 36000; 36415; 70450; 71045; 80048; 80053; 81001; 82962; 85025; 87086; 96365; 96374; 99284; P9612; J2405; A9270-GY

== ENCOUNTER 2019-05-27 16:42 | Emergency (ER) | payer MEDICARE ==
[2019-05-27] MEDS ORDERED: DEXTROSE 10% 250 ML 250 ML IV ONE (16:47)
[2019-05-27] MEDS ORDERED: Zofran 4 MG/2 ML VIAL IV ONE (16:53)
[2019-05-27] MEDS ORDERED: Dextrose 5%-NS IV Solution 1000 ML 1,000 ML IV SCH (17:00)
[2019-05-27] MEDS ORDERED: Dextrose 5%-NS IV Solution 1000 ML 1,000 ML IV ONE (17:02)
[2019-05-27 17:21] LABS: BASOPHIL % 0.3 % (0.0-0.4); Basophil (Absolute #) 0.02 (0-0.4); Eosinophil % 5.3 % (0.00-5.0); Eosinophil (Absolute #) 0.36 (0-0.5); Hematocrit 29.9 % (35-47); Hemoglobin 9.4 gm/dl (12.0-16.0); Lymphocyte (Absolute #) 1.46 (1.0-4.6); Lymphocytes % 21.3 % (24.0-44.0); Mean Corpuscular Hemoglobin 30.8 pg (26-32); Mean Corpuscular Hgb Concent. 31.4 g/dl (32-36); Mean Platelet Volume 8.8 fl (6-9.5); Monocyte (Absolute #) 0.51 (0.0-1.3); Monocytes % 7.4 % (0.0-12.0); Neutrophil % 65.7 % (36.0-66.0); Platelet Count 255 K/mm3 (150-450); Red Blood Count 3.05 M/mm3 (4.1-5.4); Red Cell Distribution Width 15.3 % (11.5-14.0); White Blood Count 6.9 K/mm3 (4.0-10.5)
[2019-05-27] MEDS ORDERED: DEXTROSE 10% IV SCH (17:30)
[2019-05-27 17:35] LABS: ALBUMIN 2.8 g/dL (3.5-5.0); ANION GAP 13.7 MEQ/L (5-15); BILIRUBIN,TOTAL 0.2 mg/dL (0.2-1.3); Calcium 8.1 mg/dL (8.4-10.2); Creatinine 1 2.01 mg/dL (0.52-1.04); Potassium 3.3 mmol/L (3.5-5.1); Total Protein 6.1 g/dL (6.3-8.2)
[2019-05-27] MEDS ORDERED: Tessalon Perles 100 MG PO ONE (17:47)
[2019-05-27] MEDS ORDERED: Zofran 4 MG/2 ML VIAL ONE (17:48)
--- NOTE | 2019-05-27 17:57 | ERPHSYRPT ---
- History of Present Illness Time Seen by Provider: 05/27/19 16:45 Source: patient, EMS Exam Limitations: no limitations Patient Subjective Stated Complaint: EMS REPORTS THAT AT SCENE AT [facility] PATIENT WAS UNRESPONSIVE. THEY CHECKED HER BS AND IT WAS 30 AT THE [facility]. EMS WAS INITIALLY CALLED THERE FOR PATIENT WITH "STROKE SYMPTOMS". EMS ADMINISTERED GLUCAGON IM AND BROUGHT HER TO ER. Triage Nursing Assessment: ON ARRIVAL PATIENT CONTINUES TO BE SEMI RESPONSIVE, INCOHERENT. ACCU CHECK IS 38. SKIN COOL/DRY. RESP NONLABORED. IV ESTAB IN ER AND 140 ML OF D10 GIVEN. Physician History: 74 y/o white female pt returns to ED after discharge from here this morning from [facility]. EMS called because pt experiencing stroke symptoms. no blood glucose taken by [facility]. ems arrives and bs 30. pt given glucagon.. no iv placed. upon arrival to ED pts bs 38 pt more awake and alert. pts ua this am reveals no infection. pt denies headache, head injury, cp , soa or abd pain. pt does have a cough. Timing/Duration: today, gradual onset, improved Severity: moderate Associated Symptoms: cough, No nausea, No vomiting, No abdominal pain, No shortness of breath, No chest pain, No fever Allergies/Adverse Reactions: cefaclor [From Ceclor] Allergy (Intermediate, Verified 05/27/19 08:39) shellfish derived Allergy (Intermediate, Verified 05/27/19 08:39) sulfamethoxazole Allergy (Intermediate, Verified 05/27/19 08:39) venom-honey bee [bee venom (honey bee)] Allergy (Intermediate, Verified 08:39) cephalexin [From Keflex] Allergy (Mild, Verified 05/27/19 08:39) mouth sores fentanyl Allergy (Verified 05/27/19 08:39) Home Medications: Gemfibrozil 600 mg [Lopid 600 mg] 600 mg PO DAILY 01/16/15 [History] Folic Acid 1 mg PO DAILY 03/06/17 [History] Amlodipine Besylate 5 mg [Norvasc 5 mg] 2.5 mg PO HS 11/26/18 [History] Calcium Carbonate/Vitamin D3 [Oyster Shell 500-Vit D3 200 Tb] 1 each PO TID [History] Albuterol 8 gm Mdi Hfa [Ventolin Hfa MDI] 2 puffs PO QID 05/18/19 [History ] Bumetanide 1 mg PO BID 05/18/19 [History] Cholecalciferol (Vitamin D3) [Vitamin D3] 1,000 unit PO DAILY 05/18/19 [History] Docusate Sodium [Stool Softener] 200 mg PO DAILY 05/18/19 [History] Donepezil HCl [Aricept] 5 mg PO HS 05/18/19 [History] Ferrous Sulfate 325 mg [Feosol 325 mg] 325 mg PO BID 05/18/19 [History] Gabapentin 200 mg PO BID 05/18/19 [History] Magnesium Oxide [Magnesium] 400 mg PO DAILY 05/18/19 [History] Paroxetine HCl 20 mg [Paxil 20 MG] 20 mg PO DAILY 05/18/19 [History] Prednisone 10 mg [Deltasone 10 mg] 10 mg PO DAILY 05/18/19 [History] Quetiapine Fumarate 25 mg [Seroquel 25 MG] 100 mg PO HS 05/18/19 [History] Solifenacin Succinate [Vesicare] 5 mg PO DAILY 05/18/19 [History] Alendronate Sodium 70 mg [Fosamax 70 MG] 70 mg PO DAILY 05/22/19 [History] Fluticasone Propionate [Flonase NASAL] 1 spray NS HS 05/22/19 [History] Hydrocodone Bit/Acetaminophen [Hydrocodon-Acetaminoph 7.5-325] 1 tab PO QID [History] Omeprazole 20 mg PO DAILY 05/22/19 [History] Polyvinyl Alcohol Tears [Artificial Tears 15 ML] 1 drop OP BID 05/22/19 [ History] Potassium Chloride 10 Meq Tab* [Klor Con 10 MEQ] 10 meq PO BID 05/22/19 [ History] Torsemide [Demadex] 10 mg PO DAILY 05/22/19 [History] Darifenacin Hydrobromide [Enablex] 7.5 mg PO DAILY 05/27/19 [History] Fluticasone/Vilanterol [Breo Ellipta 200-25 Mcg INH] 1 each IH DAILY 05/27/19 [ History] Glimepiride 2 mg [Amaryl 2 MG] 2 mg PO DAILY 05/27/19 [History] Tofacitinib Citrate [Xeljanz] 5 mg PO DAILY 05/27/19 [History] Hx Tetanus, Diphtheria Vaccination/Date Given: Yes Hx Influenza Vaccination/Date Given: Yes Hx Pneumococcal Vaccination/Date Given: Yes - Review of Systems Constitutional: No Symptoms Eyes: No Symptoms Ears, Nose, & Throat: No Symptoms Respiratory: Cough Cardiac: No Symptoms Abdominal/Gastrointestinal: No Symptoms Genitourinary Symptoms: No Symptoms Musculoskeletal: No Symptoms Skin: No Symptoms Neurological: Lethargy (and confusion resolving upon arrival) Psychological: No Symptoms Endocrine: No Symptoms Hematologic/Lymphatic: No Symptoms Immunological/Allergic: No Symptoms All Other Systems: Reviewed and Negative - Past Medical History Pertinent Past Medical History: Yes Neurological History: Stroke, TIA ENT History: Cataracts Cardiac History: Congestive Heart Failure, High Cholesterol, Hypertension Respiratory History: Asthma, COPD, Pneumonia Endocrine Medical History: Diabetes Type II Musculoskeletal History: Osteoarthritis, Osteoporosis, Rheumatoid Arthritis GI Medical History: Esophageal Disorder, GERD, Other History: Renal Disease Psycho-Social History: Anxiety, Depression Female Reproductive Disorders: No Pertinent History Other Medical History: Anemia. broken shoulder, 11/19. hiatal hernia. skin cancer- nose - Past Surgical History Past Surgical History: Yes Neuro Surgical History: No Pertinent History Cardiac: No Pertinent History Respiratory: No Pertinent History Gastrointestinal: No Pertinent History Genitourinary: No Pertinent History Musculoskeletal: Joint Replacement Female Surgical History: Hysterectomy Other Surgical History: bilateral Knee replacement x2, right hip replacement, bladder lift - Social History Smoking Status: Former smoker How long have you smoked: 20 yrs Exposure to second hand smoke: No Drug Use: none Patient Lives Alone: No - Nursing Vital Signs Nursing Vital Signs: Initial Vital Signs Temperature 98.2 F 05/27/19 16:43 Pulse Rate 70 05/27/19 16:43 Respiratory Rate 16 05/27/19 16:43 Blood Pressure 158/79 05/27/19 16:43 O2 Sat by Pulse Oximetry 97 05/27/19 16:43 Pain Scale Pain Intensity 0 - Physical Exam General Appearance: no apparent distress, alert Eye Exam: PERRL/EOMI, eyes nml inspection Ears, Nose, Throat Exam: normal ENT inspection, moist mucous membranes Neck Exam: normal inspection, non-tender, supple, full range of motion Respiratory Exam: normal breath sounds, lungs clear, airway intact, No chest tenderness, No respiratory distress Cardiovascular Exam: regular rate/rhythm, normal heart sounds, normal peripheral pulses Pelvic Exam: not done Rectal Exam: not done Back Exam: normal inspection, normal range of motion, No CVA tenderness, No vertebral tenderness Extremity Exam: normal inspection, normal range of motion, pelvis stable Neurologic Exam: alert, oriented x 3, 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, 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, normal mood/affect Skin Exam: normal color, warm, dry Lymphatic Exam: No adenopathy SpO2 Interpretation: normal SpO2: 98 O2 Delivery: Room Air Ordered Tests: Active Orders 24 hr Category Date Time Status Accucheck STAT Care 05/27/19 16:53 Active IV Insertion STAT Care 05/27/19 16:53 Active CHEST 1 VIEW (PORTABLE) Stat Exams 05/27/19 17:05 Taken HEAD WITHOUT CONTRAST [CT] Stat Exams 05/27/19 16:55 Taken CBC W DIFF Stat Lab 05/27/19 17:12 Completed CMP Stat Lab 05/27/19 17:12 Completed Medication Summary Generic Name Dose Route Start Last Admin Trade Name Freq PRN Reason Stop Dose Admin Dextrose/Sodium Chloride 1,000 mls @ 100 mls/hr 05/27/19 17:00 05/27/19 17:05 Dextrose 5%-Ns Iv Solution 1000 Ml IV 06/26/19 16:59 100 mls/hr .Q10H PAOLA Administration Dextrose 140 mls @ 999 mls/hr 05/27/19 17:30 05/27/19 16:56 Dextrose 10% 250 Ml IV 06/26/19 17:29 Infused .Q9M PAOLA Infusion Discontinued Medications Generic Name Dose Route Start Last Admin Trade Name Freq PRN Reason Stop Dose Admin Benzonatate 100 mg 05/27/19 17:47 05/27/19 18:01 Tessalon Perles 100 Mg PO 05/27/19 17:48 100 mg STAT ONE Administration Dextrose Confirm 05/27/19 16:47 Dextrose 10% 250 Ml Administered 05/27/19 16:48 Dose 250 mls @ ud IV .STK-MED ONE Ondansetron HCl 4 mg 05/27/19 16:53 05/27/19 17:53 Zofran 4 Mg/2 Ml Vial IV 05/27/19 16:54 4 mg STAT ONE Administration Ondansetron HCl Confirm 05/27/19 17:48 Zofran 4 Mg/2 Ml Vial Administered 05/27/19 17:49 Dose 4 mg .ROUTE .STK-MED ONE Lab/Rad Data: Laboratory Result Diagrams 05/27/19 17:12 05/27/19 17:12 Laboratory Results 05/27/19 05/27/19 Range/Units 17:12 17:12 WBC 6.9 (4.0-10.5) K/mm3 RBC 3.05 L (4.1-5.4) M/mm3 Hgb 9.4 L (12.0-16.0) gm/dl Hct 29.9 L (35-47) % MCV 98.0 (78-100) fl MCH 30.8 (26-32) pg MCHC 31.4 L (32-36) g/dl RDW 15.3 H (11.5-14.0) % Plt Count 255 (150-450) K/mm3 MPV 8.8 (6-9.5) fl Gran % 65.7 (36.0-66.0) % Eos # (Auto) 0.36 (0-0.5) Absolute Lymphs (auto) 1.46 (1.0-4.6) Absolute Monos (auto) 0.51 (0.0-1.3) Lymphocytes % 21.3 L (24.0-44.0) % Monocytes % 7.4 (0.0-12.0) % Eosinophils % 5.3 H (0.00-5.0) % Basophils % 0.3 (0.0-0.4) % Absolute Granulocytes 4.50 (1.4-6.9) Basophils # 0.02 (0-0.4) Sodium 144 (137-145) mmol/L Potassium 3.3 L (3.5-5.1) mmol/L Chloride 110 H (98-107) mmol/L Carbon Dioxide 23 (22-30) mmol/L Anion Gap 13.7 (5-15) MEQ/L BUN 36 H (7-17) mg/dL Creatinine 2.01 H (0.52-1.04) mg/dL Estimated GFR 25.6 ML/MIN Glucose 114 H (74-106) mg/dL Calcium 8.1 L (8.4-10.2) mg/dL Total Bilirubin 0.20 (0.2-1.3) mg/dL AST 22 (14-36) U/L ALT 10 (0-35) U/L Alkaline Phosphatase 99 (38-126) U/L Serum Total Protein 6.1 L (6.3-8.2) g/dL Albumin 2.8 L (3.5-5.0) g/dL - Progress Progress: improved, re-examined Progress Note: 05/27/19 18:52 ct head-no acute intracranial pathology. 05/27/19 19:[address] polk. i reviewed pt hx, lab and ct head with him. he states pt can be discharged back to [facility]. Discussed with : Danny Counseled pt/family regarding: lab results, diagnosis, rad results - Departure Departure Disposition: Home, Extended Care Facility Clinical Impression: Hypoglycemia Condition: Stable Critical Care Time: No Referrals: BIANCA GOSS [Primary Care Provider] - Additional Instructions: hold all diabetic medications. resume other medications, diet and activity
[2019-05-27 18:09] VITALS: PULSE 64
[2019-05-27 20:25] VITALS: BP 108/68; O2SAT 95
--- NOTE | 2019-05-27 21:54 | XRAY ---
Indication: Cough and confusion. Comparison: May 22, 2019. Portable chest unchanged again hyperinflated with chronic lung markings, a few calcified granulomas, borderline cardiomegaly, and chronic bony findings. No new/acute abnormalities.
--- NOTE | 2019-05-27 21:58 | XRAY ---
Indication: Confusion. Multiple contiguous axial images obtained through the head without contrast. Comparison: May 22, 2019. Stable age-appropriate global atrophy, moderate periventricular degenerative micro-ischemia, and old bilateral occipital lobe infarcts. Again no acute intracranial hemorrhage, abnormal extra-axial fluid collection, or mass effect. Fourth ventricle is midline. Bony calvarium intact. Visualized paranasal sinuses and mastoid air cells are clear. Impression: Stable nonacute senile brain with old bilateral occipital lobe infarcts. Comment: Preliminary interpretation was made by [facility]. No discrepancy. CTDI 67.99
== END 2019-05-27 20:20 ==
LOC: ED 16:42
DX: E11.649 Type 2 diabetes mellitus with hypoglycemia without coma (principal); I10 Essential (primary) hypertension; I50.9 Heart failure, unspecified; E78.00 Pure hypercholesterolemia, unspecified; J44.9 Chronic obstructive pulmonary disease, unspecified; M81.0 Age-related osteoporosis without current pathological fracture; I00 Rheumatic fever without heart involvement; K21.9 Gastro-esophageal reflux disease without esophagitis; F41.9 Anxiety disorder, unspecified; F32.9 Major depressive disorder, single episode, unspecified; Z79.899 Other long term (current) drug therapy; N28.9 Disorder of kidney and ureter, unspecified
CPT/HCPCS: 36000; 36415; 70450; 71045; 80053; 82962; 85025; 96374; 99284; J2405; A9270-GY

== ENCOUNTER 2020-07-05 19:30 | Inpatient (IN) | payer MEDICARE ==
--- NOTE | 2020-07-05 19:47 | ERPHSYRPT ---
- History of Present Illness Time Seen by Provider: 07/05/20 19:42 Source: patient, family, EMS Exam Limitations: no limitations Physician History: pt fell at assisted living and has bruises and tenderness both knees, and right tenple. no LOC , denies blood thinners, has tender abd and pelvis so discussed CT and pt consents to head neck and abd/pelvis. tender neck with rotation Occurred: just prior to arrival Reason for Fall: slipped, tripped Injuries/Pain Location: head, neck, abdomen, pelvis, lower extremity Loss of Consciousness: no loss of consciousness Quality: sharpness Severity of Pain-Max: moderate Severity of Pain-Current: moderate Modifying Factors: Improves With: immobilization, movement Associated Symptoms (Fall): abdominal pain Allergies/Adverse Reactions: cefaclor [From Ceclor] Allergy (Intermediate, Verified 07/05/20 19:54) shellfish derived Allergy (Intermediate, Verified 07/05/20 19:54) sulfamethoxazole Allergy (Intermediate, Verified 07/05/20 19:54) venom-honey bee [bee venom (honey bee)] Allergy (Intermediate, Verified 07/05/20 19:54) cephalexin [From Keflex] Allergy (Mild, Verified 07/05/20 19:54) mouth sores fentanyl Allergy (Verified 07/05/20 19:54) Home Medications: Gemfibrozil 600 mg [Lopid 600 mg] 600 mg PO DAILY 01/16/15 [History] Folic Acid 1 mg PO DAILY 03/06/17 [History] Amlodipine Besylate 5 mg [Norvasc 5 mg] 2.5 mg PO DAILY 11/26/18 [History] Calcium Carbonate/Vitamin D3 [Oyster Shell 500-Vit D3 200 Tb] 1 each PO TID 11/26/18 [History] Albuterol 8 gm Mdi Hfa [Ventolin Hfa MDI] 2 puffs PO QID 05/18/19 [H istory] Bumetanide 1 mg PO BID 05/18/19 [History] Cholecalciferol (Vitamin D3) [Vitamin D3] 1,000 unit PO DAILY 05/18/19 [History] Docusate Sodium [Stool Softener] 200 mg PO DAILY 05/18/19 [History] Donepezil HCl [Aricept] 5 mg PO HS 05/18/19 [History] Ferrous Sulfate 325 mg [Feosol 325 mg] 325 mg PO BID 05/18/19 [History] Gabapentin 200 mg PO BID 05/18/19 [History] Magnesium Oxide [Magnesium] 400 mg PO DAILY 05/18/19 [History] Paroxetine HCl 20 mg [Paxil 20 MG] 20 mg PO DAILY 05/18/19 [History] Prednisone 10 mg [Deltasone 10 mg] 10 mg PO DAILY 05/18/19 [History] Quetiapine Fumarate 25 mg [Seroquel 25 MG] 100 mg PO HS 05/18/19 [History] Alendronate Sodium 70 mg [Fosamax 70 MG] 70 mg PO WEEKLY 05/22/19 [History] Hydrocodone Bit/Acetaminophen [Hydrocodon-Acetaminoph 7.5-325] 1 tab PO QID 05/22/19 [History] Omeprazole 20 mg PO DAILY 05/22/19 [History] Polyvinyl Alcohol Tears [Artificial Tears 15 ML] 1 drop OP BID 05/22/19 [History] Potassium Chloride 10 Meq Tab* [Klor Con 10 MEQ] 10 meq PO BID 05/22/19 [History] Fluticasone/Vilanterol [Breo Ellipta 200-25 Mcg INH] 1 each IH DAILY 05/27/19 [History] Tofacitinib Citrate [Xeljanz] 5 mg PO DAILY 05/27/19 [History] Acetaminophen 325 mg [Tylenol 325 mg] 650 mg PO Q4HPRN PRN 07/05/20 [History] Albuterol 8 gm Mdi Hfa [Ventolin Hfa MDI] 2 puff IH Q4HPRN PRN 07/05/20 [History] Furosemide [Lasix] 20 mg PO DAILY 07/05/20 [History] Omeprazole Magnesium [Prilosec Otc] 1 tab PO BID 07/05/20 [History] Oxybutynin Chloride Xl 5 mg [Ditropan XL 5 MG] 5 mg PO BID 07/05/20 [History] Sitagliptin Phos/Metformin HCl [Janumet Xr 100-1,000 mg Tablet] 1 tab PO DAILY 07/05/20 [History] lisinopriL [Lisinopril] 5 mg PO DAILY 07/05/20 [History] Hx Tetanus, Diphtheria Vaccination/Date Given: Yes Hx Influenza Vaccination/Date Given: Yes Hx Pneumococcal Vaccination/Date Given: Yes - Review of Systems Constitutional: No Fever, No Chills Eyes: No Symptoms Ears, Nose, & Throat: No Symptoms Respiratory: No Cough, No Dyspnea Cardiac: No Chest Pain, No Edema, No Syncope Abdominal/Gastrointestinal: Abdominal Pain, No Nausea, No Vomiting, No Diarrhea Genitourinary Symptoms: No Dysuria Musculoskeletal: Neck Pain, Fall, Joint Pain, No Back Pain Skin: Other (echymosis), No Rash Neurological: No Dizziness, No Focal Weakness, No Sensory Changes Psychological: No Symptoms Endocrine: No Symptoms Hematologic/Lymphatic: No Symptoms Immunological/Allergic: No Symptoms All Other Systems: Reviewed and Negative - Past Medical History Pertinent Past Medical History: Yes Neurological History: Stroke, TIA ENT History: Cataracts Cardiac History: Congestive Heart Failure, High Cholesterol, Hypertension Respiratory History: Asthma, COPD, Pneumonia Endocrine Medical History: Diabetes Type II Musculoskeletal History: Osteoarthritis, Osteoporosis, Rheumatoid Arthritis GI Medical History: Esophageal Disorder, GERD, Other History: Renal Disease Psycho-Social History: Anxiety, Depression Female Reproductive Disorders: No Pertinent History Other Medical History: Anemia. broken shoulder, 11/19. hiatal hernia. skin cancer- nose - Past Surgical History Past Surgical History: Yes Neuro Surgical History: No Pertinent History Cardiac: No Pertinent History Respiratory: No Pertinent History Gastrointestinal: No Pertinent History Genitourinary: No Pertinent History Musculoskeletal: Joint Replacement Female Surgical History: Hysterectomy Other Surgical History: bilateral Knee replacement x2, right hip replacement,bladder lift - Social History Smoking Status: Former smoker How long have you smoked: 20 yrs Exposure to second hand smoke: No Drug Use: none Patient Lives Alone: No - Nursing Vital Signs Nursing Vital Signs: Initial Vital Signs Temperature 97.4 F 07/05/20 19:36 Pulse Rate 76 07/05/20 19:36 Respiratory Rate 20 07/05/20 19:36 Blood Pressure 148/71 07/05/20 19:36 O2 Sat by Pulse Oximetry 100 07/05/20 19:36 Pain Scale Pain Intensity 8 - Miguel A Coma Score Best Eye Response ([place]): (4) open spontaneously Best Verbal Response (Miguel A): (5) oriented Best Motor Response (Miguel A): (6) obeys commands Miguel A Total: 15 - Physical Exam General Appearance: no apparent distress, alert Head Injury: no evidence of injury Eye Exam: PERRL/EOMI ENT Exam: airway nml, No dental injury, No midface instability, No clotted nasal blood, No oral injury Neck Exam: trachea midline, normal inspection, pain on movement of neck, No tenderness Respiratory/Chest Exam: normal breath sounds, No chest tenderness, No respiratory distress Cardiovascular Exam: normal heart sounds, regular rate/rhythm Gastrointestinal Exam: soft, No tenderness, No distention, No guarding, No ecchymosis Rectal Exam: deferred Back Exam: normal inspection, No vertebral tenderness Extremity Exam: normal inspection, normal range of motion, pelvis stable, No deformities Peripheral Pulses: carotid (R): 2+, carotid (L): 2+, femoral (R): 2+, femoral (L): 2+, dorsalis-pedis (R): 2+, dorsalis-pedis (L): 2+ Neurologic Exam: alert, oriented x 3, cooperative, sensation nml, No motor deficits Skin Exam: normal color, warm, dry, ecchymosis, laceration (left forearm skin flap/avulsion) SpO2 Interpretation: normal SpO2: 100 O2 Delivery: Room Air Procedures - Laceration/Wound Repair Left Arm Wound Location: Left, lower arm Wound Length (cm): 2 Wound's Depth, Shape: superficial, flap Wound Explored: no foreign body noted Irrigated: Yes Hibiclens Prep: Yes Volume Anesthetic (ccs): 0 Wound Repaired With: Steri-strips, Dermabond Layer Closure?: No Sterile Dressing Applied?: Yes Splint Applied?: No Sling Applied?: No - Course Nursing assessment & vital signs reviewed: Yes EKG Interpreted by Me: Sinus Rhythm, Left [place] Deviation, Non-specific ST Changes - Radiology Exams Chest X-ray Interpretation: Reviewed by me, Non-displaced Fracture (appears old nondisplace bilateral humeral head/neck compression fxs - sending for rad read. ) Right Knee X-ray Interpretation: Reviewed by me, No Fracture, Nml Alignment, Other (prosthesis in place - no obvious Fx) Left Knee X-ray Interpretation: Reviewed by me, No Fracture, Other (prosthesis in place - no obvious fx ) Left Hip X-ray Interpretation: Reviewed by me, Non-displaced Fracture (left acetabulum fx unknown age - sent fo rrad read), Other Right Hip X-ray Interpretation: Reviewed by me, No Fracture, Other (right prosthesis in place - no obvious fx) - CT Exams Head CT Interpretation: Tele-radiologist Report, No/Intracranial Hemorrhag Cervical Spine CT Interpretation: Tele-radiologist Report, DJD, No Fracture, No Subluxation Abdomen/Pelvis CT Interpretation: Tele-radiologist Report, DJD, Normal Appendix, No appendicitis Ordered Tests: Active Orders 24 hr Category Date Time Status Cath [Catheter-[place] [facility]] STAT Care 07/05/20 22:00 Active EKG-ER Only STAT Care 07/05/20 19:50 Active IV Insertion STAT Care 07/05/20 19:50 Active IV Insertion-2nd Peripheral STAT Care 07/05/20 22:33 Active Wound Care STAT Care 07/05/20 20:38 Active ABDOMEN AND PELVIS W/0 CONTRAS [CT] Stat Exams 07/05/20 19:51 Taken CERVICAL SPINE WO CONTRAST [CT] Stat Exams 07/05/20 19:52 Taken CHEST 1 VIEW (PORTABLE) Stat Exams 07/05/20 19:51 Taken HEAD WITHOUT CONTRAST [CT] Stat Exams 07/05/20 19:52 Taken HIP SARKIS (4V) INCL PELV IF DONE Stat Exams 07/05/20 19:55 Taken KNEE (3 VIEWS) Stat Exams 07/05/20 19:53 Taken KNEE (3 VIEWS) Stat Exams 07/05/20 19:53 Taken AMYLASE Stat Lab 07/05/20 20:45 Completed CBC W DIFF Stat Lab 07/05/20 20:45 Completed CMP Stat Lab 07/05/20 20:45 Completed CULTURE,URINE Stat Lab 07/05/20 22:01 Received LIPASE Stat Lab 07/05/20 20:45 Completed Lactic Acid Stat Lab 07/05/20 20:43 Completed Lactic Acid Stat Lab 07/05/20 22:50 Received PROTIME WITH INR Stat Lab 07/05/20 20:50 Completed PTT Stat Lab 07/05/20 20:50 Completed TROPONIN Q3H Lab 07/05/20 20:45 Completed TROPONIN Q3H Lab 07/05/20 23:00 Ordered TROPONIN Q3H Lab 07/06/20 02:00 Ordered TROPONIN Q3H Lab 07/06/20 05:00 Ordered TROPONIN Q3H Lab 07/06/20 08:00 Ordered UA W/RFX UR CULTURE Stat Lab 07/05/20 22:01 Completed Medication Summary Generic Name Dose Route Start Last Admin Trade Name Peace PRN Reason Stop Dose Admin Sodium Chloride 1,000 mls @ 100 mls/hr 07/05/20 20:00 07/05/20 21:39 Sodium Chloride 0.9% 1000 Ml IV 08/04/20 19:59 100 mls/hr .Q10H PAOLA Administration Discontinued Medications Generic Name Dose Route Start Last Admin Trade Name Peace PRN Reason Stop Dose Admin Diphtheria/Tetanus/Acell Pertussis 0.5 ml 07/05/20 20:36 07/05/20 21:42 Adacel Vial IM 07/05/20 20:37 Not Given .ONCE ONE Morphine Sulfate 5 mg 07/05/20 20:36 07/05/20 20:41 Morphine Sulfate 10 Mg/Ml IV 07/05/20 20:37 5 mg STAT ONE Administration Morphine Sulfate Confirm 07/05/20 20:41 Morphine Sulfate 10 Mg/Ml Administered 07/05/20 20:42 Dose 10 mg .ROUTE .STK-MED ONE Lab/Rad Data: Laboratory Result Diagrams 07/05/20 20:45 07/05/20 20:45 Laboratory Results 07/05/20 07/05/20 07/05/20 Range/Units 22:01 20:50 20:50 WBC (4.0-10.5) K/mm3 RBC (4.1-5.4) M/mm3 Hgb (12.0-16.0) gm/dl Hct (35-47) % MCV (78-100) fl MCH (26-32) pg MCHC (32-36) g/dl RDW (11.5-14.0) % Plt Count (150-450) K/mm3 MPV (7.5-11.0) fl Gran % (36.0-66.0) % Eos # (Auto) (0-0.5) Absolute Lymphs (auto) (1.0-4.6) Absolute Monos (auto) (0.0-1.3) Lymphocytes % (24.0-44.0) % Monocytes % (0.0-12.0) % Eosinophils % (0.00-5.0) % Basophils % (0.0-0.4) % Absolute Granulocytes (1.4-6.9) Basophils # (0-0.4) PT 11.9 (9.95-12.35) SECONDS INR 1.05 (0.8-3.0) APTT 28.8 (25.3-37.0) SECONDS Sodium (137-145) mmol/L Potassium (3.5-5.1) mmol/L Chloride (98-107) mmol/L Carbon Dioxide (22-30) mmol/L Anion Gap (5-15) MEQ/L BUN (7-17) mg/dL Creatinine (0.52-1.04) mg/dL Estimated GFR ML/MIN Glucose (74-106) mg/dL Lactic Acid (0.4-2.0) Calcium (8.4-10.2) mg/dL Total Bilirubin (0.2-1.3) mg/dL AST (14-36) U/L ALT (0-35) U/L Alkaline Phosphatase (38-126) U/L Troponin I (0.000-0.034) ng/mL Serum Total Protein (6.3-8.2) g/dL Albumin (3.5-5.0) g/dL Amylase (30-110) U/L Lipase (23-300) U/L Urine Color YELLOW (YELLOW) Urine Appearance CLOUDY (CLEAR) Urine pH 5.0 (5-6) Ur Specific [place] 1.011 (1.005-1.025) Urine Protein 100 (Negative) Urine Ketones NEGATIVE (NEGATIVE) Urine Blood SMALL (0-5) Shiv/ul Urine Nitrite NEGATIVE (NEGATIVE) Urine Bilirubin NEGATIVE (NEGATIVE) Urine Urobilinogen NEGATIVE (0-1) mg/dL Ur Leukocyte Esterase MODERATE (NEGATIVE) Urine WBC (Auto) 51-100 (0-5) /HPF Urine RBC (Auto) 3-5 (0-2) /HPF U Epithel Cells (Auto) NONE (FEW) /HPF Urine Bacteria (Auto) PACKED (NEGATIVE) /HPF Amorphous Crystals FEW (NEGATIVE) /HPF Urine Mucus (Auto) SLIGHT (NEGATIVE) /HPF Urine Culture Reflexed YES (NO) Urine Glucose NEGATIVE (NEGATIVE) mg/dL Slides for Path Review 07/05/20 07/05/20 07/05/20 Range/Units 20:45 20:45 20:45 WBC 8.6 (4.0-10.5) K/mm3 RBC 2.09 L (4.1-5.4) M/mm3 Hgb 6.9 L* (12.0-16.0) gm/dl Hct 22.9 L (35-47) % MCV 109.6 H (78-100) fl MCH 33.0 H (26-32) pg MCHC 30.1 L (32-36) g/dl RDW 14.3 H (11.5-14.0) % Plt Count 177 (150-450) K/mm3 MPV 10.3 (7.5-11.0) fl Gran % 72.8 H (36.0-66.0) % Eos # (Auto) 0.04 (0-0.5) Absolute Lymphs (auto) 1.79 (1.0-4.6) Absolute Monos (auto) 0.50 (0.0-1.3) Lymphocytes % 20.8 L (24.0-44.0) % Monocytes % 5.8 (0.0-12.0) % Eosinophils % 0.5 (0.00-5.0) % Basophils % 0.1 (0.0-0.4) % Absolute Granulocytes 6.25 (1.4-6.9) Basophils # 0.01 (0-0.4) PT (9.95-12.35) SECONDS INR (0.8-3.0) APTT (25.3-37.0) SECONDS Sodium 142 (137-145) mmol/L Potassium 5.0 (3.5-5.1) mmol/L Chloride 111 H (98-107) mmol/L Carbon Dioxide 15 L* (22-30) mmol/L Anion Gap 22.2 H (5-15) MEQ/L BUN 84 H (7-17) mg/dL Creatinine 3.91 H (0.52-1.04) mg/dL Estimated GFR 11.8 ML/MIN Glucose 155 H (74-106) mg/dL Lactic Acid (0.4-2.0) Calcium 9.4 (8.4-10.2) mg/dL Total Bilirubin 0.40 (0.2-1.3) mg/dL AST 26 (14-36) U/L ALT 12 (0-35) U/L Alkaline Phosphatase 79 (38-126) U/L Troponin I 0.035 H (0.000-0.034) ng/mL Serum Total Protein 6.9 (6.3-8.2) g/dL Albumin 3.9 (3.5-5.0) g/dL Amylase 187 H (30-110) U/L Lipase 364 H (23-300) U/L Urine Color (YELLOW) Urine Appearance (CLEAR) Urine pH (5-6) Ur Specific [place] (1.005-1.025) Urine Protein (Negative) Urine Ketones (NEGATIVE) Urine Blood (0-5) Shiv/ul Urine Nitrite (NEGATIVE) Urine Bilirubin (NEGATIVE) Urine Urobilinogen (0-1) mg/dL Ur Leukocyte Esterase (NEGATIVE) Urine WBC (Auto) (0-5) /HPF Urine RBC (Auto) (0-2) /HPF U Epithel Cells (Auto) (FEW) /HPF Urine Bacteria (Auto) (NEGATIVE) /HPF Amorphous Crystals (NEGATIVE) /HPF Urine Mucus (Auto) (NEGATIVE) /HPF Urine Culture Reflexed (NO) Urine Glucose (NEGATIVE) mg/dL Slides for Path Review YES 07/05/20 Range/Units 20:43 WBC (4.0-10.5) K/mm3 RBC (4.1-5.4) M/mm3 Hgb (12.0-16.0) gm/dl Hct (35-47) % MCV (78-100) fl MCH (26-32) pg MCHC (32-36) g/dl RDW (11.5-14.0) % Plt Count (150-450) K/mm3 MPV (7.5-11.0) fl Gran % (36.0-66.0) % Eos # (Auto) (0-0.5) Absolute Lymphs (auto) (1.0-4.6) Absolute Monos (auto) (0.0-1.3) Lymphocytes % (24.0-44.0) % Monocytes % (0.0-12.0) % Eosinophils % (0.00-5.0) % Basophils % (0.0-0.4) % Absolute Granulocytes (1.4-6.9) Basophils # (0-0.4) PT (9.95-12.35) SECONDS INR (0.8-3.0) APTT (25.3-37.0) SECONDS Sodium (137-145) mmol/L Potassium (3.5-5.1) mmol/L Chloride (98-107) mmol/L Carbon Dioxide (22-30) mmol/L Anion Gap (5-15) MEQ/L BUN (7-17) mg/dL Creatinine (0.52-1.04) mg/dL Estimated GFR ML/MIN Glucose (74-106) mg/dL Lactic Acid 5.2 H (0.4-2.0) Calcium (8.4-10.2) mg/dL Total Bilirubin (0.2-1.3) mg/dL AST (14-36) U/L ALT (0-35) U/L Alkaline Phosphatase (38-126) U/L Troponin I (0.000-0.034) ng/mL Serum Total Protein (6.3-8.2) g/dL Albumin (3.5-5.0) g/dL Amylase (30-110) U/L Lipase (23-300) U/L Urine Color (YELLOW) Urine Appearance (CLEAR) Urine pH (5-6) Ur Specific [place] (1.005-1.025) Urine Protein (Negative) Urine Ketones (NEGATIVE) Urine Blood (0-5) Shiv/ul Urine Nitrite (NEGATIVE) Urine Bilirubin (NEGATIVE) Urine Urobilinogen (0-1) mg/dL Ur Leukocyte Esterase (NEGATIVE) Urine WBC (Auto) (0-5) /HPF Urine RBC (Auto) (0-2) /HPF U Epithel Cells (Auto) (FEW) /HPF Urine Bacteria (Auto) (NEGATIVE) /HPF Amorphous Crystals (NEGATIVE) /HPF Urine Mucus (Auto) (NEGATIVE) /HPF Urine Culture Reflexed (NO) Urine Glucose (NEGATIVE) mg/dL Slides for Path Review - Progress Progress: improved, re-examined Progress Note: 07/05/20 22:00 pt is unable to get up to urinateand has pain trying to get onlto bed cortés - will anchor mireles 07/05/20 22:[address] readings which is some delay and the rad reading requested for left hip since this will affect dispo. 07/05/20 22:[address] Menon and pt and will admit for obs to [facility] and make sure can ambulate OK on own , and to make sure stable H/H 07/05/20 23:04 the rad readings from radiology were negative for the hip/shoulders(cxr) but discussed with Dr. Menon to take care with ambulation. Discussed with .: Yahir Will see patient in: hospital (observation) Counseled pt/family regarding: lab results, diagnosis, need for follow-up, rad results - Departure Departure Disposition: Observation Clinical Impression: Urinary tract infectious disease, Fall, Anemia of chronic renal failure, Elevated troponin, Head injury, Chronic renal failure, left acetabular injury, Hypertension Condition: Good Critical Care Time: No Referrals: BIANCA GOSS [Primary Care Provider] -
[2020-07-05] MEDS ORDERED: Sodium Chloride 0.9% 1000 ML 1,000 ML IV SCH (20:00)
[2020-07-05] MEDS ORDERED: Adacel Vial IM ONE (20:36)
[2020-07-05] MEDS ORDERED: MORPHINE SULFATE 10 MG/ML IV ONE (20:36)
[2020-07-05] MEDS ORDERED: MORPHINE SULFATE 10 MG/ML ONE (20:41)
[2020-07-05] MEDS ORDERED: Sodium Chloride 0.9% 1000 ML 1,000 ML ONE (20:51)
[2020-07-05 21:00] LABS: ALBUMIN 3.9 g/dL (3.5-5.0); ANION GAP 22.2 MEQ/L (5-15); BILIRUBIN,TOTAL 0.4 mg/dL (0.2-1.3); Calcium 9.4 mg/dL (8.4-10.2); Creatinine 1 3.91 mg/dL (0.52-1.04); EST GLOMERULAR FILTRATION RATE 11.8 ML/MIN; Total Protein 6.9 g/dL (6.3-8.2)
[2020-07-05 21:04] LABS: Absolute Neutrophil Ct (ANC) 6.25 (1.4-6.9); BASOPHIL % 0.1 % (0.0-0.4); Basophil (Absolute #) 0.01 (0-0.4); Eosinophil % 0.5 % (0.00-5.0); Eosinophil (Absolute #) 0.04 (0-0.5); Hematocrit 22.9 % (35-47); Lymphocyte (Absolute #) 1.79 (1.0-4.6); Lymphocytes % 20.8 % (24.0-44.0); Mean Cell Volume 109.6 fl (78-100); Mean Corpuscular Hgb Concent. 30.1 g/dl (32-36); Mean Platelet Volume 10.3 fl (7.5-11.0); Monocytes % 5.8 % (0.0-12.0); Neutrophil % 72.8 % (36.0-66.0); Platelet Count 177 K/mm3 (150-450); Red Blood Count 2.09 M/mm3 (4.1-5.4); Red Cell Distribution Width 14.3 % (11.5-14.0); White Blood Count 8.6 K/mm3 (4.0-10.5)
[2020-07-05 21:08] LABS: Hemoglobin 6.9 gm/dl (12.0-16.0)
[2020-07-05 21:20] LABS: INR 1.05 (0.8-3.0); PROTIME 11.9 SECONDS (9.95-12.35)
[2020-07-05 22:17] LABS: Slide Review 1 YES
[2020-07-05 22:19] LABS: Amourphous Crystal FEW /HPF (NEGATIVE); Appearance CLOUDY (CLEAR); Bacteria PACKED /HPF (NEGATIVE); Bilirubin NEGATIVE (NEGATIVE); Blood SMALL Ery/ul (0-5); Glucose NEGATIVE (NEGATIVE); Ketones NEGATIVE (NEGATIVE); Leukocyte Esterase MODERATE (NEGATIVE); Mucus SLIGHT /HPF (NEGATIVE); Nitrite NEGATIVE (NEGATIVE); Protein,Urine Dip 100 (Negative); Specific Gravity 1.011 (1.005-1.025); Urobilinogen NEGATIVE mg/dL (0-1); WBC 51-100 /HPF (0-5)
[2020-07-05] MEDS ORDERED: DUONEB 0.5-3 MG/3 ml Neb IH PRN (23:51)
[2020-07-05] MEDS ORDERED: HUMULIN R SQ PRN (23:51)
[2020-07-05] MEDS ORDERED: Zofran 4 MG/2 ML VIAL IV PRN (23:51)
[2020-07-06] MEDS: MORPHINE SULFATE 4 MG INJ IV PRN ×2 (00:07→03:25)
[2020-07-06 00:22] LABS: ABO TYPING O; Antibody Screen NEGATIVE (NEGATIVE); RH TYPING POSITIVE
[2020-07-06 03:31] LABS: CROSS MATCH (PRBC) COMPATIBLE (COMPATIBLE)
--- NOTE | 2020-07-06 06:29 | PCM.HP ---
History of Present Illness - Chief Complaint Chief Complaint: multiple contusions/hematomas; chronic renal failure, elevated troponins, Date: 07/06/20 History of Present Illness: is a 75 year old female seen and examined this am following admission from ER for fall with multiple contusions, anemia, CKD elevated trops pancreatitis and UTI. Patient has multiple medical problems including RA sjogrens anemia CKD mild dementia. Patient reports that she does take steroids for the RA. She reports that she did have a fall at the [facility] assisted living yesterday. She is in extreme pain this am. She did report landing on her knees. She is reporting left sided upper abdominal pain. She has pain on her R forehead Medications & Allergies Home Medications: Home Medication List Gemfibrozil 600 mg [Lopid 600 mg] 600 mg PO BID 01/16/15 [History Confirmed 07/06/20] Folic Acid 1 mg PO DAILY 03/06/17 [History Confirmed 07/05/20] Amlodipine Besylate 5 mg [Norvasc 5 mg] 5 mg PO DAILY 11/26/18 [History Confirmed 07/06/20] Calcium Carbonate/Vitamin D3 [Oyster Shell 500-Vit D3 200 Tb] 1 each PO TID 11/26/18 [History Confirmed 07/05/20] Carvedilol 3.125 mg [Coreg 3.125 MG] 3.125 mg PO BID #60 tablet 02/01/19 [Rx Confirmed 07/05/20] Albuterol 8 gm Mdi Hfa [Ventolin Hfa MDI] 2 puffs PO QID 05/18/19 [History Confirmed 07/05/20] Bumetanide 1 mg PO BID 05/18/19 [History Confirmed 07/05/20] Cholecalciferol (Vitamin D3) [Vitamin D3] 1,000 unit PO DAILY 05/18/19 [History Confirmed 07/05/20] Docusate Sodium [Stool Softener] 200 mg PO DAILY 05/18/19 [History Confirmed 07/05/20] Donepezil HCl [Aricept] 5 mg PO HS 05/18/19 [History Confirmed 07/05/20] Ferrous Sulfate 325 mg [Feosol 325 mg] 325 mg PO BID 05/18/19 [History Confirmed 07/05/20] Gabapentin 200 mg PO BID 05/18/19 [History Confirmed 07/05/20] Magnesium Oxide [Magnesium] 400 mg PO DAILY 05/18/19 [History Confirmed 07/05/20] Paroxetine HCl 20 mg [Paxil 20 MG] 20 mg PO DAILY 05/18/19 [History Confirmed 07/05/20] Prednisone 10 mg [Deltasone 10 mg] 10 mg PO DAILY 05/18/19 [History Confirmed 07/05/20] Quetiapine Fumarate 25 mg [Seroquel 25 MG] 100 mg PO HS 05/18/19 [History Confirmed 07/05/20] Alendronate Sodium 70 mg [Fosamax 70 MG] 70 mg PO WEEKLY 05/22/19 [History Confirmed 07/05/20] Hydrocodone Bit/Acetaminophen [Hydrocodon-Acetaminoph 7.5-325] 1 tab PO Q6H 05/22/19 [History Confirmed 07/06/20] Omeprazole 20 mg PO BID 05/22/19 [History Confirmed 07/06/20] Polyvinyl Alcohol Tears [Artificial Tears 15 ML] 1 drop OP BID 05/22/19 [History Confirmed 07/05/20] Potassium Chloride 10 Meq Tab* [Klor Con 10 MEQ] 10 meq PO BID 05/22/19 [History Confirmed 07/05/20] Fluticasone/Vilanterol [Breo Ellipta 200-25 Mcg INH] 1 each IH DAILY 05/27/19 [History Confirmed 07/05/20] Tofacitinib Citrate [Xeljanz] 5 mg PO DAILY 05/27/19 [History Confirmed 07/05/20] Acetaminophen 325 mg [Tylenol 325 mg] 650 mg PO Q4HPRN PRN 07/05/20 [History Confirmed 07/05/20] Albuterol 8 gm Mdi Hfa [Ventolin Hfa MDI] 2 puff IH Q4HPRN PRN 07/05/20 [History Confirmed 07/05/20] Furosemide [Lasix] 20 mg PO DAILY 07/05/20 [History Confirmed 07/05/20] Oxybutynin Chloride Xl 5 mg [Ditropan XL 5 MG] 5 mg PO BID 07/05/20 [History Confirmed 07/05/20] Sitagliptin Phos/Metformin HCl [Janumet Xr 100-1,000 mg Tablet] 1 tab PO DAILY 07/05/20 [History Confirmed 07/05/20] lisinopriL [Lisinopril] 5 mg PO DAILY 07/05/20 [History Confirmed 07/05/20] Benzonatate [Tessalon Perle] 100 mg PO Q6H 07/06/20 [History Confirmed 07/06/20] Allergies/Adverse Reactions: Allergies Allergy/AdvReac Type Severity Reaction Status Date / Time cefaclor [From Ceclor] Allergy Intermediate Verified 07/05/20 19:54 shellfish derived Allergy Intermediate Verified 07/05/20 19:54 sulfamethoxazole Allergy Intermediate Verified 07/05/20 19:54 venom-honey bee Allergy Intermediate Verified 07/05/20 19:54 [bee venom (honey bee)] cephalexin [From Keflex] Allergy Mild mouth sores Verified 07/05/20 19:54 fentanyl Allergy Verified 07/05/20 19:54 - Past Medical History Past Medical History: Yes Neurological History: Stroke, TIA ENT History: Cataracts Cardiac History: Congestive Heart Failure, High Cholesterol, Hypertension Respiratory History: Asthma, COPD, Pneumonia Endocrine Medical History: Diabetes Type II Musculoskelatal History: Osteoarthritis, Osteoporosis, Rheumatoid Arthritis GI Medical History: Esophageal Disorder, GERD, Other History: Renal Disease Pyscho-Social History: Anxiety, Depression Reproductive Disorders: No Pertinent History Comment: Anemia. broken shoulder, 11/19. hiatal hernia. skin cancer- nose - Female History Are you now?: No - Past Surgical History Past Surgical History: Yes Neuro Surgical History: No Pertinent History Cardiac History: No Pertinent History Respiratory Surgery: No Pertinent History GI Surgical History: No Pertinent History Genitourinary Surgical Hx: No Pertinent History Musculskeletal Surgical Hx: Joint Replacement Female Surgical History: Hysterectomy Other Surgical History: bilateral Knee replacement x2, right hip replacement,bladder lift - Social History Smoking Status: Former smoker How long have you smoked: 20 yrs Exposure to second hand smoke: No Alcohol: None Drug Use: none - Physical Exam Vital Signs: Vital Signs - 24 hr Temp Pulse Resp BP Pulse Ox 07/06/20 05:35 97.5 F 71 114/56 07/06/20 04:00 97.5 F 67 18 98/54 07/06/20 03:30 72 111/56 07/06/20 03:25 75 18 96 07/06/20 01:10 171/77 07/06/20 01:00 97 07/06/20 00:12 97.3 F 84 20 208/93 98 07/05/20 23:09 100 07/05/20 23:00 82 20 192/92 98 07/05/20 22:00 79 20 194/90 100 07/05/20 21:54 78 20 186/88 100 07/05/20 20:47 73 20 178/76 99 07/05/20 19:36 97.4 F 76 20 148/71 100 Wound Assessment: Skin/Wound Assessment Wound/Incision Assessment Start: 07/06/20 00:47 Text: Status: Active Freq: Q6H Protocol: Document 07/06/20 02:00 ADRURY (Rec: 07/06/20 03:48 ADRURY [id number]) Wound/Incision Assessment Left Arm Wound Assessment Shift Assessment Wound Type Skin Tear Wound Stage Non Pressure Wound Drainage Amount Minimal Drainage Description Sanguineous Comment dermabond and steri strips placed in ER Wound Photo Photo Taken Yes Results - Labs Lab/Micro Results: Lab Results-Last 24 Hours 07/05/20 07/05/20 07/05/20 Range/Units 20:43 20:45 20:45 WBC 8.6 (4.0-10.5) K/mm3 RBC 2.09 L (4.1-5.4) M/mm3 Hgb 6.9 L* (12.0-16.0) gm/dl Hct 22.9 L (35-47) % MCV 109.6 H (78-100) fl MCH 33.0 H (26-32) pg MCHC 30.1 L (32-36) g/dl RDW 14.3 H (11.5-14.0) % Plt Count 177 (150-450) K/mm3 MPV 10.3 (7.5-11.0) fl Gran % 72.8 H (36.0-66.0) % Eos # (Auto) 0.04 (0-0.5) Absolute Lymphs (auto) 1.79 (1.0-4.6) Absolute Monos (auto) 0.50 (0.0-1.3) Lymphocytes % 20.8 L (24.0-44.0) % Monocytes % 5.8 (0.0-12.0) % Eosinophils % 0.5 (0.00-5.0) % Basophils % 0.1 (0.0-0.4) % Absolute Granulocytes 6.25 (1.4-6.9) Basophils # 0.01 (0-0.4) PT (9.95-12.35) SECONDS INR (0.8-3.0) APTT (25.3-37.0) SECONDS Sodium 142 (137-145) mmol/L Potassium 5.0 (3.5-5.1) mmol/L Chloride 111 H (98-107) mmol/L Carbon Dioxide 15 L* (22-30) mmol/L Anion Gap 22.2 H (5-15) MEQ/L BUN 84 H (7-17) mg/dL Creatinine 3.91 H (0.52-1.04) mg/dL Estimated GFR 11.8 ML/MIN Glucose 155 H (74-106) mg/dL Lactic Acid 5.2 H (0.4-2.0) Calcium 9.4 (8.4-10.2) mg/dL Total Bilirubin 0.40 (0.2-1.3) mg/dL AST 26 (14-36) U/L ALT 12 (0-35) U/L Alkaline Phosphatase 79 (38-126) U/L Troponin I (0.000-0.034) ng/mL Serum Total Protein 6.9 (6.3-8.2) g/dL Albumin 3.9 (3.5-5.0) g/dL Amylase 187 H (30-110) U/L Lipase 364 H (23-300) U/L Urine Color (YELLOW) Urine Appearance (CLEAR) Urine pH (5-6) Ur Specific [place] (1.005-1.025) Urine Protein (Negative) Urine Ketones (NEGATIVE) Urine Blood (0-5) Shiv/ul Urine Nitrite (NEGATIVE) Urine Bilirubin (NEGATIVE) Urine Urobilinogen (0-1) mg/dL Ur Leukocyte Esterase (NEGATIVE) Urine WBC (Auto) (0-5) /HPF Urine RBC (Auto) (0-2) /HPF U Epithel Cells (Auto) (FEW) /HPF Urine Bacteria (Auto) (NEGATIVE) /HPF Amorphous Crystals (NEGATIVE) /HPF Urine Mucus (Auto) (NEGATIVE) /HPF Urine Culture Reflexed (NO) Urine Glucose (NEGATIVE) mg/dL Slides for Path Review YES ABO Group Rh Factor Antibody Screen (NEGATIVE) Crossmatch (COMPATIBLE) 07/05/20 07/05/20 07/05/20 Range/Units 20:45 20:50 20:50 WBC (4.0-10.5) K/mm3 RBC (4.1-5.4) M/mm3 Hgb (12.0-16.0) gm/dl Hct (35-47) % MCV (78-100) fl MCH (26-32) pg MCHC (32-36) g/dl RDW (11.5-14.0) % Plt Count (150-450) K/mm3 MPV (7.5-11.0) fl Gran % (36.0-66.0) % Eos # (Auto) (0-0.5) Absolute Lymphs (auto) (1.0-4.6) Absolute Monos (auto) (0.0-1.3) Lymphocytes % (24.0-44.0) % Monocytes % (0.0-12.0) % Eosinophils % (0.00-5.0) % Basophils % (0.0-0.4) % Absolute Granulocytes (1.4-6.9) Basophils # (0-0.4) PT 11.9 (9.95-12.35) SECONDS INR 1.05 (0.8-3.0) APTT 28.8 (25.3-37.0) SECONDS Sodium (137-145) mmol/L Potassium (3.5-5.1) mmol/L Chloride (98-107) mmol/L Carbon Dioxide (22-30) mmol/L Anion Gap (5-15) MEQ/L BUN (7-17) mg/dL Creatinine (0.52-1.04) mg/dL Estimated GFR ML/MIN Glucose (74-106) mg/dL Lactic Acid (0.4-2.0) Calcium (8.4-10.2) mg/dL Total Bilirubin (0.2-1.3) mg/dL AST (14-36) U/L ALT (0-35) U/L Alkaline Phosphatase (38-126) U/L Troponin I 0.035 H (0.000-0.034) ng/mL Serum Total Protein (6.3-8.2) g/dL Albumin (3.5-5.0) g/dL Amylase (30-110) U/L Lipase (23-300) U/L Urine Color (YELLOW) Urine Appearance (CLEAR) Urine pH (5-6) Ur Specific [place] (1.005-1.025) Urine Protein (Negative) Urine Ketones (NEGATIVE) Urine Blood (0-5) Shiv/ul Urine Nitrite (NEGATIVE) Urine Bilirubin (NEGATIVE) Urine Urobilinogen (0-1) mg/dL Ur Leukocyte Esterase (NEGATIVE) Urine WBC (Auto) (0-5) /HPF Urine RBC (Auto) (0-2) /HPF U Epithel Cells (Auto) (FEW) /HPF Urine Bacteria (Auto) (NEGATIVE) /HPF Amorphous Crystals (NEGATIVE) /HPF Urine Mucus (Auto) (NEGATIVE) /HPF Urine Culture Reflexed (NO) Urine Glucose (NEGATIVE) mg/dL Slides for Path Review ABO Group Rh Factor Antibody Screen (NEGATIVE) Crossmatch (COMPATIBLE) 07/05/20 07/05/20 07/05/20 Range/Units 22:00 22:00 22:01 WBC (4.0-10.5) K/mm3 RBC (4.1-5.4) M/mm3 Hgb (12.0-16.0) gm/dl Hct (35-47) % MCV (78-100) fl MCH (26-32) pg MCHC (32-36) g/dl RDW (11.5-14.0) % Plt Count (150-450) K/mm3 MPV (7.5-11.0) fl Gran % (36.0-66.0) % Eos # (Auto) (0-0.5) Absolute Lymphs (auto) (1.0-4.6) Absolute Monos (auto) (0.0-1.3) Lymphocytes % (24.0-44.0) % Monocytes % (0.0-12.0) % Eosinophils % (0.00-5.0) % Basophils % (0.0-0.4) % Absolute Granulocytes (1.4-6.9) Basophils # (0-0.4) PT (9.95-12.35) SECONDS INR (0.8-3.0) APTT (25.3-37.0) SECONDS Sodium (137-145) mmol/L Potassium (3.5-5.1) mmol/L Chloride (98-107) mmol/L Carbon Dioxide (22-30) mmol/L Anion Gap (5-15) MEQ/L BUN (7-17) mg/dL Creatinine (0.52-1.04) mg/dL Estimated GFR ML/MIN Glucose (74-106) mg/dL Lactic Acid (0.4-2.0) Calcium (8.4-10.2) mg/dL Total Bilirubin (0.2-1.3) mg/dL AST (14-36) U/L ALT (0-35) U/L Alkaline Phosphatase (38-126) U/L Troponin I (0.000-0.034) ng/mL Serum Total Protein (6.3-8.2) g/dL Albumin (3.5-5.0) g/dL Amylase (30-110) U/L Lipase (23-300) U/L Urine Color YELLOW (YELLOW) Urine Appearance CLOUDY (CLEAR) Urine pH 5.0 (5-6) Ur Specific [place] 1.011 (1.005-1.025) Urine Protein 100 (Negative) Urine Ketones NEGATIVE (NEGATIVE) Urine Blood SMALL (0-5) Shiv/ul Urine Nitrite NEGATIVE (NEGATIVE) Urine Bilirubin NEGATIVE (NEGATIVE) Urine Urobilinogen NEGATIVE (0-1) mg/dL Ur Leukocyte Esterase MODERATE (NEGATIVE) Urine WBC (Auto) 51-100 (0-5) /HPF Urine RBC (Auto) 3-5 (0-2) /HPF U Epithel Cells (Auto) NONE (FEW) /HPF Urine Bacteria (Auto) PACKED (NEGATIVE) /HPF Amorphous Crystals FEW (NEGATIVE) /HPF Urine Mucus (Auto) SLIGHT (NEGATIVE) /HPF Urine Culture Reflexed YES (NO) Urine Glucose NEGATIVE (NEGATIVE) mg/dL Slides for Path Review ABO Group O Rh Factor POSITIVE Antibody Screen NEGATIVE (NEGATIVE) Crossmatch COMPATIBLE COMPATIBLE (COMPATIBLE) 07/05/20 07/05/20 07/06/20 Range/Units 22:50 23:15 02:15 WBC (4.0-10.5) K/mm3 RBC (4.1-5.4) M/mm3 Hgb (12.0-16.0) gm/dl Hct (35-47) % MCV (78-100) fl MCH (26-32) pg MCHC (32-36) g/dl RDW (11.5-14.0) % Plt Count (150-450) K/mm3 MPV (7.5-11.0) fl Gran % (36.0-66.0) % Eos # (Auto) (0-0.5) Absolute Lymphs (auto) (1.0-4.6) Absolute Monos (auto) (0.0-1.3) Lymphocytes % (24.0-44.0) % Monocytes % (0.0-12.0) % Eosinophils % (0.00-5.0) % Basophils % (0.0-0.4) % Absolute Granulocytes (1.4-6.9) Basophils # (0-0.4) PT (9.95-12.35) SECONDS INR (0.8-3.0) APTT (25.3-37.0) SECONDS Sodium (137-145) mmol/L Potassium (3.5-5.1) mmol/L Chloride (98-107) mmol/L Carbon Dioxide (22-30) mmol/L Anion Gap (5-15) MEQ/L BUN (7-17) mg/dL Creatinine (0.52-1.04) mg/dL Estimated GFR ML/MIN Glucose (74-106) mg/dL Lactic Acid 4.2 H (0.4-2.0) Calcium (8.4-10.2) mg/dL Total Bilirubin (0.2-1.3) mg/dL AST (14-36) U/L ALT (0-35) U/L Alkaline Phosphatase (38-126) U/L Troponin I 0.035 H 0.030 (0.000-0.034) ng/mL Serum Total Protein (6.3-8.2) g/dL Albumin (3.5-5.0) g/dL Amylase (30-110) U/L Lipase (23-300) U/L Urine Color (YELLOW) Urine Appearance (CLEAR) Urine pH (5-6) Ur Specific [place] (1.005-1.025) Urine Protein (Negative) Urine Ketones (NEGATIVE) Urine Blood (0-5) Shiv/ul Urine Nitrite (NEGATIVE) Urine Bilirubin (NEGATIVE) Urine Urobilinogen (0-1) mg/dL Ur Leukocyte Esterase (NEGATIVE) Urine WBC (Auto) (0-5) /HPF Urine RBC (Auto) (0-2) /HPF U Epithel Cells (Auto) (FEW) /HPF Urine Bacteria (Auto) (NEGATIVE) /HPF Amorphous Crystals (NEGATIVE) /HPF Urine Mucus (Auto) (NEGATIVE) /HPF Urine Culture Reflexed (NO) Urine Glucose (NEGATIVE) mg/dL Slides for Path Review ABO Group Rh Factor Antibody Screen (NEGATIVE) Crossmatch (COMPATIBLE) - Radiology Impressions Radiology Exams & Impressions: Radiology Procedures Category Date Time Status ABDOMEN AND PELVIS W/0 CONTRAS [CT] Stat Exams 07/05/20 19:51 Taken CERVICAL SPINE WO CONTRAST [CT] Stat Exams 07/05/20 19:52 Taken CHEST 1 VIEW (PORTABLE) Stat Exams 07/05/20 19:51 Taken HEAD WITHOUT CONTRAST [CT] Stat Exams 07/05/20 19:52 Taken HIP SARKIS (4V) INCL PELV IF DONE Stat Exams 07/05/20 19:55 Taken KNEE (3 VIEWS) Stat Exams 07/05/20 19:53 Taken KNEE (3 VIEWS) Stat Exams 07/05/20 19:53 Taken - Other Procedures and Tests Respiratory Therapy 07/06/20 07:00 Respiratory Therapy Assessment DAILY Assessment/Plan (1) Fall Current Visit: Yes Status: Acute Assessment & Plan: Patient has multiple ecchymosis from fall. Attempted to drain L knee hematoma but only 2ml was evacuated out. Patient has abdominal tenderness to palpation LUQ discussed CT imaging with radiologist which was reported as unchanged from previous scan. No reported L sided rib fx or splenic laceration. Code(s): W19.XXXA - UNSPECIFIED FALL, INITIAL ENCOUNTER (2) Chronic renal failure Current Visit: Yes Status: Acute Assessment & Plan: Patient's home medication included Bumex BID and Lasix as well. Patient's CR level was close to 4 and gfr of 11. She is likely stage 4-5. Her diuretics were held today as well as her lisinopril. Patient was started on levaquin for UTI which may need to be switched to rocephin. Will trend cmp and consider nephro consult if necessary. Patient may need to be evaluated as a dialysis candidate. Will also have to monitor for pedal edema and shortness of breath since diuretics are being held. Potassium also being held at this time. Patient would like benefit from compression socks as well. (3) Elevated troponin Current Visit: Yes Status: Acute Assessment & Plan: More likely related to her CKD. She has denied chest pain and ekgs do not indicate STEMI. Will continue to trend. and transfer to cardiac capable facility if necessary Code(s): R74.8 - ABNORMAL LEVELS OF OTHER SERUM ENZYMES (4) Head injury Current Visit: Yes Status: Acute Code(s): S09.90XA - UNSPECIFIED INJURY OF HEAD, INITIAL ENCOUNTER (5) Urinary tract infectious disease Current Visit: Yes Status: Acute Assessment & Plan: Patient is on levaquin. Will continue to monitor kidney function while on antibiotics. Code(s): N39.0 - URINARY TRACT INFECTION, SITE NOT SPECIFIED (6) Hypertension Current Visit: Yes Status: Chronic Qualifiers: Assessment & Plan: Patient's diuretics and JEAN-PIERRE are being held due to CKD. Will continue to monitor bp and have PRN medication available. Patient has been getting morphine for pain as well as her routine pain meds. He bps have been low at times. Will continue to monitor on these medications as well. Code(s): I10 - ESSENTIAL (PRIMARY) HYPERTENSION (7) Anemia Current Visit: No Status: Acute Qualifiers: Anemia type: acquired or hereditary hemolytic anemia Hemolytic anemia type: acquired, autoimmune, other Assessment & Plan: Although patient is not on anticoag mediation, she is on steroids daily that has likely lead to bleeding following her fall. She was transfused two units of blood products. She is on iron supplementation. Requested for FOBT to eval for possible GI bleed as well. Code(s): D64.9 - ANEMIA, UNSPECIFIED (8) Contusion Current Visit: No Status: Acute Assessment & Plan: multiple contusions caused by ground level fall. Patient had imaging which did not indicate fx Code(s): T14.8XXA - OTHER INJURY OF UNSPECIFIED BODY REGION, INITIAL ENCOUNTER (9) Dementia Current Visit: No Status: Acute Assessment & Plan: Will continue on routine home medications. Code(s): F03.90 - UNSPECIFIED DEMENTIA WITHOUT BEHAVIORAL DISTURBANCE (10) Rheumatoid arthritis Current Visit: No Status: Acute Assessment & Plan: Will continue on routine home meds Code(s): M06.9 - RHEUMATOID ARTHRITIS, UNSPECIFIED (11) Scalp hematoma Current Visit: No Status: Acute Qualifiers: Encounter type: initial encounter Qualified Code(s): S00.03XA - Contusion of scalp, initial encounter Code(s): S00.03XA - CONTUSION OF SCALP, INITIAL ENCOUNTER (12) Pancreatitis Current Visit: Yes Status: Acute Assessment & Plan: Elevated amylase and lipase in ER. Repeat was higher. Will need to get repeat labs in am. Patient is on IV fluids and pain medication. She is not complaining of epigastric pain. She may need to have her diet changed. Code(s): K85.90 - ACUTE PANCREATITIS WITHOUT NECROSIS OR INFECTION, UNSP
[2020-07-06] MEDS: DUONEB 0.5-3 MG/3 ml Neb IH SCH ×4 (06:40→17:31)
[2020-07-06] MEDS: Advair Hfa 115/21 Common canister IH SCH ×2 (06:40→19:00)
[2020-07-06] MEDS ORDERED: XYLOCAINE 1% HCL 20 ML MDV ONE (07:31)
--- NOTE | 2020-07-06 07:49 | XRAY ---
Indication: Right temporal hematoma following fall. Multiple contiguous axial images obtained through the head without contrast. Comparison: May 27, 2019. Stable age-appropriate global atrophy, moderate periventricular degenerative micro-ischemia, and old bilateral occipital lobe infarcts. No acute intracranial hemorrhage, abnormal extra-axial fluid collection, or mass effect. Fourth ventricle is midline. New large right frontal parietal scalp hematoma. Bony calvarium intact. Visualized paranasal sinuses and mastoid air cells are clear. Impression: 1. New large right scalp hematoma. No underlying fracture or acute intracranial abnormalities. 2. Stable atrophy, degenerative micro-ischemia, and old bilateral occipital lobe infarcts. Comment: Preliminary interpretation was made by [facility]. No critical discrepancy.
--- NOTE | 2020-07-06 07:53 | XRAY ---
Indication: Neck pain following fall. Multiple contiguous axial images obtained through the cervical spine. Sagittal and coronal reformatted images obtained. Comparison: May 18, 2019. Stable osteopenia. Axial images negative for acute fracture, suspicious bony lesions, or spinal canal stenosis. Stable C4-C6 degenerative endplate spurring, atlantoaxial degenerative arthropathy, and multilevel bilateral degenerative facet hypertrophy. Sagittal and coronal reformatted images again demonstrates cervical lordotic straightening, positional versus paraspinal spasm. Stable dextroscoliosis. No acute compression fracture, subluxation, or jumped facet. Normal appearing craniocervical junction. Visualized noncontrasted soft tissues again demonstrate mild bilateral carotid calcifications. Lung apices are clear. Impression: 1. Stable cervical lordotic straightening, positional versus paraspinal spasm. 2. Continued negative acute fracture/subluxation. 3. Stable osteopenia, multilevel degenerative changes, and dextroscoliosis. Comment: Preliminary interpretation was made by [facility]. No critical discrepancy.
--- NOTE | 2020-07-06 08:01 | XRAY ---
Indication: Pain following fall. Multiple contiguous axial images obtained through the abdomen and pelvis without contrast as ordered. Comparison: January 28, 2019. Lung bases demonstrates subsegmental atelectasis/scarring without infiltrate or effusion. Heart is now borderline enlarged. Stable small hiatal hernia. Stomach is distended with food. Noncontrasted stomach and bowel loops remain nonobstructed. Stable minimal sigmoid diverticulosis, tiny gallstones, small right upper renal cyst, and hysterectomy. No free fluid/air. Urinary bladder demonstrates new intraluminal air either iatrogenic from recent catheterization versus gas-forming bacterial infection. Remaining liver, gallbladder, pancreas, spleen, adrenal glands, kidneys, ureters, and bladder are unremarkable for noncontrast exam. Stable mild scattered vascular calcifications including origin of SMA and both renal arteries. No AAA. Osseous structures intact again with osteopenia, multilevel degenerative spondylosis, old right inferior pubic bone fracture, and right hip arthroplasty. Impression: 1. New urinary bladder intraluminal air either iatrogenic versus gas-forming bacterial infection. 2. Stable small hiatal hernia, sigmoid diverticulosis, cholelithiasis, right renal cyst, arteriosclerotic disease, and chronic bony findings. Comment: Preliminary interpretation was made by [facility]. No critical discrepancy.
--- NOTE | 2020-07-06 08:02 | XRAY ---
Indication: Pain following fall. Comparison: None 3 view right knee demonstrates mild soft tissue swelling, osteopenia, total knee arthroplasty with intact prosthesis, extensive scattered vascular calcifications, and multiple tiny soft tissue calcified granulomas. No other bony, articular, or soft tissue abnormalities.
--- NOTE | 2020-07-06 08:05 | XRAY ---
Indication: Pain following fall. Comparison: None 3 view left knee demonstrates anterior medial soft tissue swelling, osteopenia, total knee arthroplasty with intact prosthesis, small heterotopic ossifications, and extensive scattered vascular calcifications. No other bony, articular, or soft tissue abnormalities.
--- NOTE | 2020-07-06 08:07 | XRAY ---
Indication: Status post fall. Comparison: May 27, 2019. Portable chest rotated with new cardiomegaly. Lungs inflated and clear with stable chronic lung markings and calcified granulomas. Bony thorax intact with again osteopenia, degenerative changes, and levoscoliosis. Impression: New cardiomegaly without CHF. No acute findings. Comment: Preliminary interpretation was made by C. No critical discrepancy.
--- NOTE | 2020-07-06 08:11 | XRAY ---
Indication: Pain following fall. Comparison: July 14, 2007. AP pelvis and 2 view left and right hip demonstrates interval right total hip arthroplasty with intact bipolar prosthesis/acetabular screw. New finding old right superior/inferior pubic bone fractures, lower lumbar degenerative spondylosis, and incompletely visualized left knee arthroplasty. Stable osteopenia and extensive vascular calcifications. No acute fracture, dislocation, or suspicious bony lesions. Impression: Nonacute exam with chronic features. Comment: Preliminary interpretation was made by [facility]. No critical discrepancy.
[2020-07-06] MEDS: NORCO 7.5/325 MG TAB PO SCH ×3 (08:38→20:19)
[2020-07-06 08:48] LABS: Hematocrit 26.6 % (35-47); Hemoglobin 8.2 gm/dl (12.0-16.0); Mean Cell Volume 104.3 fl (78-100); Mean Corpuscular Hemoglobin 32.2 pg (26-32); Mean Corpuscular Hgb Concent. 30.8 g/dl (32-36); Platelet Count 208 K/mm3 (150-450); Red Blood Count 2.55 M/mm3 (4.1-5.4); Red Cell Distribution Width 15.2 % (11.5-14.0); White Blood Count 12.6 K/mm3 (4.0-10.5)
[2020-07-06 08:53] LABS: AMYLASE 196 U/L (30-110); LIPASE 347 U/L (23-300)
[2020-07-06 08:59] LABS: ANION GAP 14.6 MEQ/L (5-15); BILIRUBIN,TOTAL 0.4 mg/dL (0.2-1.3); Calcium 8.5 mg/dL (8.4-10.2); Creatinine 1 4.03 mg/dL (0.52-1.04); EST GLOMERULAR FILTRATION RATE 11.4 ML/MIN; PREALBUMIN 23.02 mg/dL (17.6-36.0); Potassium 4.6 mmol/L (3.5-5.1); Total Protein 5.5 g/dL (6.3-8.2)
[2020-07-06] MEDS: Colace 100 MG PO SCH (09:33)
[2020-07-06] MEDS: Pepcid 20 MG VIAL IV SCH ×2 (09:33→21:03)
[2020-07-06] MEDS: Coreg 3.125 MG PO SCH ×2 (09:34→21:03)
[2020-07-06] MEDS: Calcium 500MG W/Vit D Tablet PO SCH ×3 (09:34→21:02)
[2020-07-06] MEDS: Neurontin 100 MG PO SCH ×2 (09:34→21:02)
[2020-07-06] MEDS: Protonix 40MG Tablet PO SCH ×2 (09:34→21:01)
[2020-07-06] MEDS: LOPID 600 MG PO SCH ×2 (09:35→22:21)
[2020-07-06] MEDS: FEOSOL 325 MG PO SCH ×2 (09:35→21:01)
[2020-07-06] MEDS: Artificial Tears 15 ML OP SCH ×2 (09:35→21:03)
[2020-07-06] MEDS ORDERED: LASIX 20 MG PO SCH (10:00)
[2020-07-06] MEDS ORDERED: NORVASC 5 MG PO SCH ×2 (10:00)
[2020-07-06] MEDS ORDERED: MAG-OX 400 PO SCH (10:00)
[2020-07-06] MEDS ORDERED: NON-FORMULARY ITEM (Magnesium Oxide [Magnesium] 400 MG) PO SCH (10:00)
[2020-07-06] MEDS ORDERED: Zestril 5 MG PO SCH (10:00)
[2020-07-06] MEDS ORDERED: NON-FORMULARY ITEM (Omeprazole [Omeprazole] 20 MG) PO SCH (10:00)
[2020-07-06] MEDS ORDERED: Levofloxacin 500MG/100ML D5W 500 MG/100 ML BAG IV SCH (10:00)
[2020-07-06] MEDS ORDERED: DOCUSATE SODIUM 200 MG PO SCH (10:00)
[2020-07-06] MEDS ORDERED: Paxil 20 MG PO SCH (10:00)
[2020-07-06] MEDS ORDERED: PATIENT OWN MEDICATION PO SCH (10:00)
[2020-07-06] MEDS ORDERED: VITAMIN D PO SCH (10:00)
[2020-07-06] MEDS ORDERED: METFORMIN HCL PO SCH (10:00)
[2020-07-06] MEDS ORDERED: DELTASONE 10 MG PO SCH (10:00)
[2020-07-06] MEDS ORDERED: SITAGLIPTIN PHOS PO SCH (10:00)
[2020-07-06] MEDS ORDERED: NON-FORMULARY ITEM (Fluticasone/Vilanterol [Breo Ellipta 200-25 Mcg Inh] 1 EACH) IH SCH (10:00)
[2020-07-06] MEDS ORDERED: FOLATE 1 MG PO SCH (10:00)
[2020-07-06] MEDS ORDERED: BUMEX 1 MG PO SCH (10:00)
[2020-07-06] MEDS ORDERED: PROTONIX 40 MG IV IV SCH (10:00)
[2020-07-06] MEDS ORDERED: TOFACITINIB CITRATE 5 MG PO SCH (10:00)
[2020-07-06] MEDS ORDERED: [UNRECOGNIZED DRUG - OTHER] PO SCH (10:00)
[2020-07-06] MEDS ORDERED: NON-FORMULARY ITEM (Cholecalciferol (Vitamin D3) [Vitamin D3] 1,000 UNIT) PO SCH (10:00)
[2020-07-06] MEDS ORDERED: Miralax Powder 17GM PACKET PO SCH (11:00)
[2020-07-06] MEDS: Tessalon Perles 100 MG PO SCH ×2 (12:01→18:42)
[2020-07-06 13:17] LABS: ANISOCYTOSIS 1+; BAND 1 % (0.0-2.0); Eosinophil 2 % (0.00-3.0); Lymphocytes 21 % (24-44); Monocyte 7 % (0.0-12.0); Neutrophils 69 % (36.0-66.0); Platelet Estimate NORMAL (NORMAL); Total Cells Counted 100
[2020-07-06] MEDS: Sodium Chloride 0.9% 1000 ML 1,000 ML IV SCH (14:25)
[2020-07-06 15:25] LABS: ALBUMIN 2.8 g/dL (3.5-5.0); ANION GAP 15.1 MEQ/L (5-15); BILIRUBIN,TOTAL 0.4 mg/dL (0.2-1.3); Creatinine 1 3.83 mg/dL (0.52-1.04); EST GLOMERULAR FILTRATION RATE 12.1 ML/MIN; Potassium 4.7 mmol/L (3.5-5.1); Total Protein 5.1 g/dL (6.3-8.2)
[2020-07-06 15:28] LABS: TROPONIN 0.041 ng/mL (0.000-0.034)
[2020-07-06] MEDS ORDERED: Seroquel 100 MG PO SCH (22:00)
[2020-07-06] MEDS ORDERED: NON-FORMULARY ITEM (Donepezil Hcl [Aricept] 5 MG) PO SCH (22:00)
[2020-07-06] MEDS ORDERED: Aricept 10 MG PO SCH (22:00)
[2020-07-07] MEDS: Sodium Chloride 0.9% 1000 ML 1,000 ML IV SCH ×2 (00:53→11:27)
[2020-07-07] MEDS: Tessalon Perles 100 MG PO SCH ×2 (00:53→06:20)
[2020-07-07] MEDS: NORCO 7.5/325 MG TAB PO SCH (02:01)
[2020-07-07] MEDS ORDERED: Fosamax 70 MG PO SCH (06:00)
[2020-07-07] MEDS ORDERED: Fosamax 70 MG PO ONE (06:00)
[2020-07-07] MEDS: DUONEB 0.5-3 MG/3 ml Neb IH SCH ×4 (06:49→19:49)
[2020-07-07] MEDS: Advair Hfa 115/21 Common canister IH SCH ×2 (06:50→19:50)
[2020-07-07 07:05] LABS: Hematocrit 17.9 % (35-47); Mean Cell Volume 105.3 fl (78-100); Mean Corpuscular Hemoglobin 32.9 pg (26-32); Mean Corpuscular Hgb Concent. 31.3 g/dl (32-36); Mean Platelet Volume 9.2 fl (7.5-11.0); Platelet Count 117 K/mm3 (150-450); Red Cell Distribution Width 15.6 % (11.5-14.0); White Blood Count 9.6 K/mm3 (4.0-10.5)
[2020-07-07 07:34] LABS: ALBUMIN 2.4 g/dL (3.5-5.0); AMYLASE 192 U/L (30-110); ANION GAP 13.4 MEQ/L (5-15); BILIRUBIN,TOTAL 0.3 mg/dL (0.2-1.3); Calcium 7.2 mg/dL (8.4-10.2); Creatinine 1 4.41 mg/dL (0.52-1.04); EST GLOMERULAR FILTRATION RATE 10.3 ML/MIN; LIPASE 128 U/L (23-300); Potassium 4.9 mmol/L (3.5-5.1); Total Protein 4.7 g/dL (6.3-8.2)
[2020-07-07 07:35] LABS: Hemoglobin 5.6 gm/dl (12.0-16.0)
[2020-07-07] MEDS ORDERED: Januvia 50 MG PO SCH (08:00)
[2020-07-07] MEDS ORDERED: Glucophage XR 500 MG PO SCH (08:00)
[2020-07-07] MEDS ORDERED: PHARMACY DOSING REQUEST MC ONE (08:35)
[2020-07-07 09:08] LABS: INR 1.32 (0.8-3.0)
[2020-07-07] MEDS: Merrem 1 GM 1 G in Sodium Chloride 100ML MINI-BAG PLUS 100 ML IV SCH (09:22)
[2020-07-07] MEDS: Colace 100 MG PO SCH (10:13)
[2020-07-07] MEDS: TYLENOL 325 MG PO PRN ×2 (10:13→20:28)
[2020-07-07] MEDS: Artificial Tears 15 ML OP SCH ×2 (10:14→21:12)
[2020-07-07] MEDS: PROTONIX 40 MG IV IV SCH (10:14)
[2020-07-07] MEDS: Coreg 3.125 MG PO SCH ×2 (10:14→21:13)
[2020-07-07 10:45] LABS: ABO TYPING O; Antibody Screen NEGATIVE (NEGATIVE); RH TYPING POSITIVE
[2020-07-07 10:49] LABS: CROSS MATCH (PRBC) COMPATIBLE (COMPATIBLE)
[2020-07-07 13:08] LABS: BAND 2 % (0.0-2.0); Eosinophil 1 % (0.00-3.0); Lymphocytes 10 % (24-44); Monocyte 5 % (0.0-12.0); Neutrophils 82 % (36.0-66.0); Platelet Estimate DECREASED (NORMAL); Total Cells Counted 100
[2020-07-07 13:09] LABS: ANISOCYTOSIS 1+; Hypochromia 1+; Poikilocytosis 1+; Polychromasia 1+
[2020-07-07 16:59] LABS: Hematocrit 24.4 % (35-47)
[2020-07-07 17:01] LABS: Hemoglobin 7.8 gm/dl (12.0-16.0)
[2020-07-08 00:36] LABS: Hematocrit 31.6 % (35-47)
[2020-07-08 00:38] LABS: Hemoglobin 10.2 gm/dl (12.0-16.0)
[2020-07-08] MEDS: DUONEB 0.5-3 MG/3 ml Neb IH SCH ×4 (06:16→19:45)
[2020-07-08] MEDS: Advair Hfa 115/21 Common canister IH SCH ×2 (06:16→19:45)
[2020-07-08] MEDS: Sodium Chloride 0.9% 1000 ML 1,000 ML IV SCH ×3 (06:20→20:08)
[2020-07-08 07:18] LABS: ALBUMIN 2.7 g/dL (3.5-5.0); ANION GAP 16.4 MEQ/L (5-15); BILIRUBIN,TOTAL 0.4 mg/dL (0.2-1.3); Creatinine 1 4.2 mg/dL (0.52-1.04); EST GLOMERULAR FILTRATION RATE 10.9 ML/MIN; Potassium 4.4 mmol/L (3.5-5.1); Total Protein 5.1 g/dL (6.3-8.2)
[2020-07-08 07:20] LABS: TROPONIN 0.049 ng/mL (0.000-0.034)
[2020-07-08 08:48] LABS: Hemoglobin 9.1 gm/dl (12.0-16.0); Mean Cell Volume 98.2 fl (78-100); Mean Corpuscular Hemoglobin 31.9 pg (26-32); Mean Corpuscular Hgb Concent. 32.5 g/dl (32-36); Mean Platelet Volume 9.6 fl (7.5-11.0); Platelet Count 93 K/mm3 (150-450); Red Blood Count 2.85 M/mm3 (4.1-5.4); Red Cell Distribution Width 16.1 % (11.5-14.0); White Blood Count 6.8 K/mm3 (4.0-10.5)
[2020-07-08 09:18] LABS: Eosinophil 3 % (0.00-3.0); Lymphocytes 12 % (24-44); Monocyte 4 % (0.0-12.0); Neutrophils 81 % (36.0-66.0); Nucleated Red Blood Cell 1 %; Platelet Estimate DECREASED (NORMAL); Total Cells Counted 100
[2020-07-08 09:19] LABS: Poikilocytosis 1+; Polychromasia 1+
[2020-07-08] MEDS ORDERED: PHARMACY DOSING REQUIRED: VANCOMYCIN IV STA (09:20)
[2020-07-08] MEDS: Merrem 1 GM 1 G in Sodium Chloride 100ML MINI-BAG PLUS 100 ML IV SCH (09:37)
[2020-07-08] MEDS: Colace 100 MG PO SCH (09:51)
[2020-07-08] MEDS: Coreg 3.125 MG PO SCH ×2 (09:51→22:43)
[2020-07-08] MEDS: Artificial Tears 15 ML OP SCH ×2 (09:54→22:43)
[2020-07-08] MEDS ORDERED: Levaquin 250MG/50ML D5W 250 MG/50 ML BAG IV SCH (10:00)
[2020-07-08] MEDS: PROTONIX 40 MG IV IV SCH (10:52)
[2020-07-08] MEDS ORDERED: VANCOMYCIN 1 GRAM/200 ML BAG 1 GM/200 ML PIGGYBACK IV SCH (11:00)
[2020-07-08] MEDS: TYLENOL 325 MG PO PRN ×2 (16:12→20:06)
--- NOTE | 2020-07-08 18:53 | XRAY ---
Indication: Heel wound. Comparison: November 18, 2012 3 nonweightbearing views left foot again demonstrates osteopenia, mild 1st MTP degenerative arthropathy, old 1st metatarsal fracture deformity, tiny heel spurs, and extensive vascular calcifications. No new/acute bony, articular, or soft tissue abnormalities. Comment: Preliminary interpretation was made by [facility]. No critical discrepancy.
[2020-07-09] MEDS: TYLENOL 325 MG PO PRN ×2 (00:39→20:08)
[2020-07-09] MEDS: Sodium Chloride 0.9% 1000 ML 1,000 ML IV SCH ×2 (03:27→05:43)
[2020-07-09] MEDS: DUONEB 0.5-3 MG/3 ml Neb IH SCH (06:40)
[2020-07-09] MEDS: Advair Hfa 115/21 Common canister IH SCH ×2 (06:40→19:14)
[2020-07-09] MEDS: NORCO 7.5/325 MG TAB PO SCH (07:53)
[2020-07-09 09:11] LABS: Hematocrit 30.3 % (35-47); Hemoglobin 9.5 gm/dl (12.0-16.0); Mean Cell Volume 100.3 fl (78-100); Mean Corpuscular Hemoglobin 31.5 pg (26-32); Mean Corpuscular Hgb Concent. 31.4 g/dl (32-36); Mean Platelet Volume 9.7 fl (7.5-11.0); Platelet Count 102 K/mm3 (150-450); Red Blood Count 3.02 M/mm3 (4.1-5.4); Red Cell Distribution Width 16.9 % (11.5-14.0); White Blood Count 6.8 K/mm3 (4.0-10.5)
[2020-07-09 09:17] LABS: ALBUMIN 2.7 g/dL (3.5-5.0); ANION GAP 13.7 MEQ/L (5-15); BILIRUBIN,TOTAL 0.4 mg/dL (0.2-1.3); Calcium 6.9 mg/dL (8.4-10.2); Creatinine 1 3.95 mg/dL (0.52-1.04); EST GLOMERULAR FILTRATION RATE 11.7 ML/MIN; Potassium 4.2 mmol/L (3.5-5.1); Total Protein 5.2 g/dL (6.3-8.2)
[2020-07-09] MEDS: Merrem 1 GM 1 G in Sodium Chloride 100ML MINI-BAG PLUS 100 ML IV SCH (10:03)
[2020-07-09 10:04] LABS: BAND 5 % (0.0-2.0); Eosinophil 1 % (0.00-3.0); Lymphocytes 22 % (24-44); Metamyelocyte 1 %; Neutrophils 71 % (36.0-66.0); Platelet Estimate NORMAL (NORMAL); Total Cells Counted 100
[2020-07-09] MEDS: Colace 100 MG PO SCH (10:04)
[2020-07-09] MEDS: PROTONIX 40 MG IV IV SCH (10:04)
[2020-07-09] MEDS: Coreg 3.125 MG PO SCH ×2 (10:04→20:08)
[2020-07-09] MEDS: Artificial Tears 15 ML OP SCH ×2 (10:06→20:08)
[2020-07-09] MEDS ORDERED: Sodium Chloride 0.9% 10 ML FLUSH Syringe IV PRN (11:45)
[2020-07-10 05:30] LABS: Hematocrit 30.5 % (35-47); Hemoglobin 9.6 gm/dl (12.0-16.0); Mean Corpuscular Hemoglobin 31.5 pg (26-32); Mean Corpuscular Hgb Concent. 31.5 g/dl (32-36); Mean Platelet Volume 9.5 fl (7.5-11.0); Platelet Count 113 K/mm3 (150-450); Red Blood Count 3.05 M/mm3 (4.1-5.4); Red Cell Distribution Width 16.9 % (11.5-14.0); White Blood Count 6.3 K/mm3 (4.0-10.5)
[2020-07-10 05:40] LABS: ALBUMIN 2.6 g/dL (3.5-5.0); ANION GAP 11.9 MEQ/L (5-15); BILIRUBIN,TOTAL 0.4 mg/dL (0.2-1.3); Calcium 7.3 mg/dL (8.4-10.2); Creatinine 1 3.64 mg/dL (0.52-1.04); EST GLOMERULAR FILTRATION RATE 12.9 ML/MIN; Potassium 4.1 mmol/L (3.5-5.1); Total Protein 5.4 g/dL (6.3-8.2)
[2020-07-10] MEDS ORDERED: TROUGH DRUG LEVELS IJ ONE (06:00)
[2020-07-10] MEDS: Advair Hfa 115/21 Common canister IH SCH ×2 (07:52→19:57)
[2020-07-10 08:17] LABS: BAND 3 % (0.0-2.0); Eosinophil 1 % (0.00-3.0); Lymphocytes 24 % (24-44); Metamyelocyte 1 %; Neutrophils 71 % (36.0-66.0); Nucleated Red Blood Cell 1 %; Total Cells Counted 100
[2020-07-10 08:18] LABS: Platelet Estimate NORMAL (NORMAL)
[2020-07-10] MEDS: Coreg 3.125 MG PO SCH (10:12)
[2020-07-10] MEDS: Colace 100 MG PO SCH (10:12)
[2020-07-10] MEDS: PROTONIX 40 MG IV IV SCH (10:12)
[2020-07-10] MEDS: Artificial Tears 15 ML OP SCH ×2 (10:12→21:11)
[2020-07-10] MEDS: Merrem 1 GM 1 G in Sodium Chloride 100ML MINI-BAG PLUS 100 ML IV SCH (10:23)
[2020-07-10] MEDS ORDERED: VANCOMYCIN 1 GRAM/200 ML BAG 1 GM/200 ML PIGGYBACK IV SCH (11:00)
--- NOTE | 2020-07-10 11:18 | PCM.NOTE ---
Date and Time: 07/10/201115 Subjective Assessment: doing ok - Review of Systems Constitutional: Lethargy, Weakness, No Fever, No Chills Eyes: No Symptoms Ears, Nose, & Throat: No Symptoms Respiratory: Orthopnea, No Cough, No Short Of Breath Cardiac: Edema, No Chest Pain, No Syncope Abdominal/Gastrointestinal: No Abdominal Pain, No Nausea, No Vomiting, No Diarrhea Genitourinary Symptoms: No Dysuria Musculoskeletal: No Back Pain, No Neck Pain Skin: No Rash Neurological: No Dizziness, No Focal Weakness, No Sensory Changes Psychological: No Symptoms Endocrine: No Symptoms Hematologic/Lymphatic: No Symptoms Immunological/Allergic: No Symptoms Objective Exam General Appearance: mild distress, alert Neurologic Exam: alert, No motor deficits Skin Exam: normal color, warm, dry Wound Assessment: Skin/Wound Assessment Wound/Incision Assessment Start: 07/06/20 00:47 Text: Status: Active Freq: Q6H Protocol: [facility]20 [facility]Rec: 07/10/20 08:22 RDUHNE [id number]) Wound/Incision Assessment Right Temporal Wound Assessment Shift Assessment Wound Type hematoma Wound Stage Non Pressure Wound Drainage Amount None General Appearance Open to air Comment LARGE RAISED HEMATOMA LOCATED ON FOREHEAD, RIGHT TEMPORAL. REMAINS DARK PURPLE IN COLOR. NO DRAINAGE NOTED. NO DRESSING , OPEN TO AIR. Left Knee Wound Assessment Shift Assessment Wound Type hematoma Wound Stage Non Pressure Wound Drainage Amount None Drainage Odor None/Absent Surrounding Tissue [place] Comment PURPLE HEMATOMA REMAINS ON TOP OF LEFT KNEE, NOT DRAINING AT THIS TIME. OPEN TO AIR. BOTTOM LEFT FOOT Wound Assessment Shift Assessment Wound Type STASIS ULCER VS WART Wound Stage Non Pressure Wound Drainage Amount None Drainage Odor None/Absent Surrounding Tissue Callous Primary Dressing Non-Adherent Gauze Pads Secondary Dressing Gauze Roll/Wrap Comment WOUND ON BOTTOM OF LEFT FOOT, PRIMARY WOUND BED IS CIRCULAR MEASURING 1CM IN DIAMETER, OUTER WOUND BED IS RAISED, BROWNISH IN COLOR AND CALLOUSED. TEXTURE IS HARD AND ROUGH OUTER AREA SURROUNDING WOUND BED MEASURES 2.37 CM LONG AND 3CM WIDE. DRESSING PLACED LAST EVENING REMAINS IN PLACE NO BREAKTHROUGH DRAINAGE IS NOTED . DRESSING CDI Posterior Buttock Wound Assessment Shift Assessment Wound Type Pressure Ulcer Wound Stage Stage II Drainage Amount None Drainage Odor None/Absent General Appearance Open to air Length (cm) (cm) 3 Width (cm) (cm) 3 Wound Bed Greatest Portion Pale [place] Surrounding Tissue Blanched/Dull Comment RIGHT and LEFT BUTTOCK OPEN TO AIR. BARRIER CREAM APPLIED Left Arm Wound Assessment Shift Assessment Wound Type Skin Tear Wound Stage Non Pressure Wound Dressing Status Changed Drainage Amount None Drainage Odor None/Absent General Appearance Well Approximated,Asymptomatic Primary Dressing TEGADERM Comment TEGADERM REMAINS IN PLACE OVER SKIN TEAR, CDI. NO DIFFICULTIES NOTED PRESENTLY. Wound Photo Photo Taken No Eye Exam: PERRL, EOMI, eyes nml inspection Ears, Nose, Throat Exam: normal ENT inspection, pharynx normal, moist mucous membranes Neck Exam: normal inspection, non-tender, supple, full range of motion Respiratory Exam: normal breath sounds, lungs clear, No respiratory distress Cardiovascular Exam: regular rate/rhythm, normal heart sounds Gastrointestinal/Abdomen Exam: soft, No tenderness, No mass Extremity Exam: normal inspection, normal range of motion Back Exam: normal inspection, normal range of motion, No CVA tenderness, No vertebral tenderness Pelvic Exam: deferred Rectal Exam: deferred OBJECTIVE DATA Vital Signs: Vital Signs - 24 hr Temp Pulse Resp BP BP Pulse Ox 07/10/20 09:00 98.9 F 89 19 168/100 98 07/10/20 07:58 82 07/10/20 07:54 83 22 96 07/10/20 04:05 99.7 F 84 20 148/69 97 07/10/20 04:00 84 07/10/20 00:07 99.1 F 86 18 149/79 96 07/10/20 00:00 86 07/09/20 20:00 91 H 07/09/20 19:24 99 F 89 24 175/84 98 07/09/20 19:15 88 26 H 99 07/09/20 16:57 99.5 F 79 14 156/69 98 07/09/20 16:00 75 07/09/20 12:01 99.2 F 75 15 161/95 98 07/09/20 12:00 78 Pain Assessment - Last Documented Pain Intensity 8 Pain Scale Used [facility] Intake and Output: Intake & Output 07/07/20 07/08/20 07/09/20 07/10/20 11:59 11:59 11:59 11:59 Intake Total 2408 4011 3048 1280 Output Total 9007 341 9878 1550 Balance 1208 3211 1698 -270 Weight 80.8 kg 83.5 kg 86 kg 88.7 kg Lab Results: Lab Results-Last 24 Hours 07/07/20 07/09/20 07/09/20 Range/Units 08:10 11:19 16:13 WBC (4.0-10.5) K/mm3 RBC (4.1-5.4) M/mm3 Hgb (12.0-16.0) gm/dl Hct (35-47) % MCV (78-100) fl MCH (26-32) pg MCHC (32-36) g/dl RDW (11.5-14.0) % Plt Count (150-450) K/mm3 MPV (7.5-11.0) fl Segmented Neutrophils (36.0-66.0) % Band Neutrophils (0.0-2.0) % Lymphocytes (Manual) (24-44) % Eosinophils (Manual) (0.00-3.0) % Metamyelocytes % Nucleated RBCs % Platelet Estimate (NORMAL) RBC Morphology Sodium (137-145) mmol/L Potassium (3.5-5.1) mmol/L Chloride (98-107) mmol/L Carbon Dioxide (22-30) mmol/L Anion Gap (5-15) MEQ/L BUN (7-17) mg/dL Creatinine (0.52-1.04) mg/dL Estimated GFR ML/MIN Glucose (74-106) mg/dL POC Glucometer 86 154 H (74 to 106) mg/dL Calcium (8.4-10.2) mg/dL Total Bilirubin (0.2-1.3) mg/dL AST (14-36) U/L ALT (0-35) U/L Alkaline Phosphatase (38-126) U/L Serum Total Protein (6.3-8.2) g/dL Albumin (3.5-5.0) g/dL Stool Occult Blood (NEGATIVE) Random Vancomycin ug/mL SARS-CoV-2 RNA (JOSIE) Not Detected (Not Detected) 07/09/20 07/09/20 07/10/20 Range/Units 20:00 21:34 05:10 WBC (4.0-10.5) K/mm3 RBC (4.1-5.4) M/mm3 Hgb (12.0-16.0) gm/dl Hct (35-47) % MCV (78-100) fl MCH (26-32) pg MCHC (32-36) g/dl RDW (11.5-14.0) % Plt Count (150-450) K/mm3 MPV (7.5-11.0) fl Segmented Neutrophils (36.0-66.0) % Band Neutrophils (0.0-2.0) % Lymphocytes (Manual) (24-44) % Eosinophils (Manual) (0.00-3.0) % Metamyelocytes % Nucleated RBCs % Platelet Estimate (NORMAL) RBC Morphology Sodium (137-145) mmol/L Potassium (3.5-5.1) mmol/L Chloride (98-107) mmol/L Carbon Dioxide (22-30) mmol/L Anion Gap (5-15) MEQ/L BUN (7-17) mg/dL Creatinine (0.52-1.04) mg/dL Estimated GFR ML/MIN Glucose (74-106) mg/dL POC Glucometer 156 H (74 to 106) mg/dL Calcium (8.4-10.2) mg/dL Total Bilirubin (0.2-1.3) mg/dL AST (14-36) U/L ALT (0-35) U/L Alkaline Phosphatase (38-126) U/L Serum Total Protein (6.3-8.2) g/dL Albumin (3.5-5.0) g/dL Stool Occult Blood POSITIVE A (NEGATIVE) Random Vancomycin 8.35 ug/mL SARS-CoV-2 RNA (JOSIE) (Not Detected) 07/10/20 07/10/20 07/10/20 Range/Units 05:10 05:10 06:45 WBC 6.3 (4.0-10.5) K/mm3 RBC 3.05 L (4.1-5.4) M/mm3 Hgb 9.6 L (12.0-16.0) gm/dl Hct 30.5 L (35-47) % MCV 100.0 (78-100) fl MCH 31.5 (26-32) pg MCHC 31.5 L (32-36) g/dl RDW 16.9 H (11.5-14.0) % Plt Count 113 L (150-450) K/mm3 MPV 9.5 (7.5-11.0) fl Segmented Neutrophils 71 H (36.0-66.0) % Band Neutrophils 3 H (0.0-2.0) % Lymphocytes (Manual) 24 (24-44) % Eosinophils (Manual) 1 (0.00-3.0) % Metamyelocytes 1 % Nucleated RBCs 1 % Platelet Estimate NORMAL (NORMAL) RBC Morphology NORMAL Sodium 141 (137-145) mmol/L Potassium 4.1 (3.5-5.1) mmol/L Chloride 118 H (98-107) mmol/L Carbon Dioxide 14 L* (22-30) mmol/L Anion Gap 11.9 (5-15) MEQ/L BUN 65 H (7-17) mg/dL Creatinine 3.64 H (0.52-1.04) mg/dL Estimated GFR 12.9 ML/MIN Glucose 135 H (74-106) mg/dL POC Glucometer 120 H (74 to 106) mg/dL Calcium 7.3 L (8.4-10.2) mg/dL Total Bilirubin 0.40 (0.2-1.3) mg/dL AST 19 (14-36) U/L ALT 13 (0-35) U/L Alkaline Phosphatase 61 (38-126) U/L Serum Total Protein 5.4 L (6.3-8.2) g/dL Albumin 2.6 L (3.5-5.0) g/dL Stool Occult Blood (NEGATIVE) Random Vancomycin ug/mL SARS-CoV-2 RNA (JOSIE) (Not Detected) 07/10/20 Range/Units 10:46 WBC (4.0-10.5) K/mm3 RBC (4.1-5.4) M/mm3 Hgb (12.0-16.0) gm/dl Hct (35-47) % MCV (78-100) fl MCH (26-32) pg MCHC (32-36) g/dl RDW (11.5-14.0) % Plt Count (150-450) K/mm3 MPV (7.5-11.0) fl Segmented Neutrophils (36.0-66.0) % Band Neutrophils (0.0-2.0) % Lymphocytes (Manual) (24-44) % Eosinophils (Manual) (0.00-3.0) % Metamyelocytes % Nucleated RBCs % Platelet Estimate (NORMAL) RBC Morphology Sodium (137-145) mmol/L Potassium (3.5-5.1) mmol/L Chloride (98-107) mmol/L Carbon Dioxide (22-30) mmol/L Anion Gap (5-15) MEQ/L BUN (7-17) mg/dL Creatinine (0.52-1.04) mg/dL Estimated GFR ML/MIN Glucose (74-106) mg/dL POC Glucometer 201 H (74 to 106) mg/dL Calcium (8.4-10.2) mg/dL Total Bilirubin (0.2-1.3) mg/dL AST (14-36) U/L ALT (0-35) U/L Alkaline Phosphatase (38-126) U/L Serum Total Protein (6.3-8.2) g/dL Albumin (3.5-5.0) g/dL Stool Occult Blood (NEGATIVE) Random Vancomycin ug/mL SARS-CoV-2 RNA (JOSIE) (Not Detected) Assessment/Plan (1) Chronic renal failure Current Visit: Yes Status: Acute Qualifiers: Chronic kidney disease stage: stage 4 (severe) Qualified Code(s): N18.4 - Chronic kidney disease, stage 4 (severe) Assessment & Plan: Chief Complaint Diagnosis multiple contusions/hematomas; chronic renal failure, elevated troponins, Admission Date Date 07/06/20 Allergies Allergy/AdvReac Type Severity Reaction Status Date / Time cefaclor [From Ceclor] Allergy Intermediate Verified 07/05/20 19:54 shellfish derived Allergy Intermediate Verified 07/05/20 19:54 sulfamethoxazole Allergy Intermediate Verified 07/05/20 19:54 venom-honey bee Allergy Intermediate Verified 07/05/20 19:54 [bee venom (honey bee)] cephalexin [From Keflex] Allergy Mild mouth sores Verified 07/05/20 19:54 fentanyl Allergy Verified 07/05/20 19:54 Vital Signs (Last 24 hours) Temp Pulse Resp BP BP Pulse Ox 07/10/20 09:00 98.9 F 89 19 168/100 98 07/10/20 07:58 82 07/10/20 07:54 83 22 96 07/10/20 04:05 99.7 F 84 20 148/69 97 07/10/20 04:00 84 07/10/20 00:07 99.1 F 86 18 149/79 96 07/10/20 00:00 86 07/09/20 20:00 91 H 07/09/20 19:24 99 F 89 24 175/84 98 07/09/20 19:15 88 26 H 99 07/09/20 16:57 99.5 F 79 14 156/69 98 07/09/20 16:00 75 07/09/20 12:01 99.2 F 75 15 161/95 98 07/09/20 12:00 78 Home Medications Medication Instructions Recorded Confirmed Last Taken Type Acetaminophen 325 mg [Tylenol 650 mg PO Q4HPRN PRN 07/05/20 07/05/20 Unknown History 325 mg] Albuterol 8 gm Mdi Hfa 2 puff IH Q4HPRN PRN 07/05/20 07/05/20 Unknown History [Ventolin Hfa MDI] Furosemide [Lasix] 20 mg PO DAILY 07/05/20 07/05/20 07/05/20 08:00 History Oxybutynin Chloride Xl 5 mg 5 mg PO BID 07/05/20 07/05/20 07/05/20 19:00 History [Ditropan XL 5 MG] Sitagliptin Phos/Metformin HCl 1 tab PO DAILY 07/05/20 07/05/20 07/05/20 08:00 History [Janumet Xr 100-1,000 mg Tablet] lisinopriL [Lisinopril] 5 mg PO DAILY 07/05/20 07/05/20 07/05/20 08:00 History Benzonatate [Tessalon Perle] 100 mg PO Q6H 07/06/20 07/06/20 Unknown History Current Medications Generic Name Dose Route Start Last Admin Trade Name Freq PRN Reason Stop Dose Admin Acetaminophen 650 mg 07/07/20 09:37 07/09/20 20:08 Tylenol 325 Mg PO 08/06/20 09:36 650 mg Q4H PRN PRN Administration PAIN AND/OR FEVER Albuterol/Ipratropium 3 ml 07/05/20 23:51 Duoneb 0.5-3 Mg/3 Ml Neb IH 08/04/20 23:50 Q4HPRN PRN SHORTNESS OF BREATH/WHEEZING Artificial Tears 0 ml 07/06/20 10:00 07/10/20 10:12 Artificial Tears 15 Ml OP 08/05/20 09:59 15 ml BID PAOLA Administration Carvedilol 3.125 mg 07/06/20 10:00 07/10/20 10:12 Coreg 3.125 Mg PO 08/05/20 09:59 3.125 mg BID PAOLA Administration Docusate Sodium 200 mg 07/06/20 10:00 07/10/20 10:12 Colace 100 Mg PO 08/05/20 09:59 200 mg DAILY PAOLA Administration Heparin Sodium (Beef Lung) 0 units 07/09/20 11:45 Heparin Lock Flush 100 Units/Ml 5ml Syringe IV 08/08/20 11:44 UD PRN Sodium Chloride 1,000 mls @ 100 mls/hr 07/06/20 14:00 07/09/20 05:43 Sodium Chloride 0.9% 1000 Ml IV 08/05/20 13:59 100 mls/hr .Q10H PAOLA Administration Meropenem 1 g/ Sodium Chloride 100 mls @ 100 mls/hr 07/07/20 10:00 07/10/20 10:23 IV 08/06/20 09:59 100 mls/hr Q24H10 PAOLA Administration Vancomycin HCl 1 gm in 200 mls @ 100 mls/hr 07/10/20 11:00 Vancomycin 1 Gram/200 Ml Bag IV 08/09/20 10:59 Q48H PAOLA Pantoprazole Sodium 40 mg 07/07/20 10:00 07/10/20 10:12 Protonix 40 Mg Iv IV 08/06/20 09:59 40 mg DAILY PAOLA Administration Fluticasone/Salmeterol 2 puff 07/06/20 07:00 07/10/20 07:52 Advair Hfa 115/21 Common Canister* IH 08/05/20 06:59 2 puff BIDRT PAOLA Administration Sodium Chloride 10 ml 07/09/20 11:45 Sodium Chloride 0.9% 10 Ml Flush Syringe IV 08/08/20 11:44 PRN PRN Discontinued Medications Generic Name Dose Route Start Last Admin Trade Name Freq PRN Reason Stop Dose Admin Hydrocodone Bitart/Acetaminophen 1 tab 07/06/20 08:00 07/09/20 07:53 [place] 7.5/325 Mg Tab PO 07/11/20 07:59 Not Given Q6H PAOLA Albuterol/Ipratropium 3 ml 07/06/20 07:00 07/09/20 06:40 Duoneb 0.5-3 Mg/3 Ml Neb IH 08/05/20 06:59 3 ml QIDRT PENDING SALE TO [facility] Administration Alendronate Sodium 70 mg 07/07/20 06:00 Fosamax 70 Mg PO 08/06/20 05:59 WEEKLY PENDING SALE TO [facility] Alendronate Sodium 70 mg 07/07/20 06:00 07/07/20 06:20 Fosamax 70 Mg PO 07/07/20 06:01 Not Given ONCE ONE Amlodipine Besylate 2.5 mg 07/06/20 10:00 Norvasc 5 Mg PO 08/05/20 09:59 QAM PENDING SALE TO [facility] Amlodipine Besylate 5 mg 07/06/20 10:00 07/06/20 09:35 Norvasc 5 Mg PO 08/05/20 09:59 5 mg DAILY PENDING SALE TO [facility] Administration Benzonatate 100 mg 07/06/20 12:00 07/07/20 06:20 Tessalon Perles 100 Mg PO 08/05/20 11:59 Not Given Q6HT PENDING SALE TO [facility] Bumetanide 1 mg 07/06/20 10:00 Bumex 1 Mg PO 08/05/20 09:59 DAILY PENDING SALE TO [facility] Calcium Carbonate 1 tab 07/06/20 10:00 07/06/20 21:02 Calcium 500mg W/Vit D Tablet PO 08/05/20 09:59 1 tab TID PENDING SALE TO [facility] Administration Cholecalciferol 1,000 unit 07/06/20 10:00 07/06/20 09:34 Vitamin D PO 08/05/20 09:59 1,000 unit DAILY PENDING SALE TO [facility] Administration Device 1 07/10/20 06:00 07/10/20 10:13 Trough Drug Levels IJ 07/10/20 06:01 1 1XONLY ONE Administration Diphtheria/Tetanus/Acell Pertussis 0.5 ml 07/05/20 20:36 07/05/20 21:42 Adacel Vial IM 07/05/20 20:37 Not Given .ONCE ONE Donepezil HCl 5 mg 07/06/20 22:00 07/06/20 21:01 Aricept 10 Mg PO 08/05/20 21:59 5 mg HS PAOLA Administration Famotidine 20 mg 07/06/20 10:00 07/06/20 21:03 Pepcid 20 Mg Vial IV 08/05/20 09:59 20 mg Q12HT PAOLA Administration Ferrous Sulfate 325 mg 07/06/20 10:00 07/06/20 21:01 Feosol 325 Mg PO 08/05/20 09:59 325 mg BID PAOLA Administration Folic Acid 1 mg 07/06/20 10:00 07/06/20 09:34 Folate 1 Mg PO 08/05/20 09:59 1 mg DAILY PAOLA Administration Furosemide 20 mg 07/06/20 10:00 Lasix 20 Mg PO 08/05/20 09:59 DAILY PAOLA Gabapentin 200 mg 07/06/20 10:00 07/06/20 21:02 Neurontin 100 Mg PO 08/05/20 09:59 200 mg BID PAOLA Administration Gemfibrozil 600 mg 07/06/20 10:00 07/06/20 22:21 Lopid 600 Mg PO 08/05/20 09:59 600 mg BID PAOLA Administration Heparin Sodium (Beef Lung) Confirm 07/08/20 08:22 Heparin Lock Flush 100 Units/Ml 5ml Syringe Administered 07/08/20 08:23 Dose 500 units .ROUTE .STK-MED ONE Sodium Chloride 1,000 mls @ 100 mls/hr 07/05/20 20:00 07/05/20 21:39 Sodium Chloride 0.9% 1000 Ml IV 08/04/20 19:59 100 mls/hr .Q10H PAOLA Administration Sodium Chloride Confirm 07/05/20 20:51 Sodium Chloride 0.9% 1000 Ml Administered 07/05/20 20:52 Dose 1,000 mls @ ud .ROUTE .STK-MED ONE Levofloxacin/Dextrose 500 mg in 100 mls @ 100 mls/hr 07/06/20 10:00 07/06/20 09:33 Levofloxacin 500mg/100ml D5w IV 07/06/20 10:59 100 mls/hr Q24H10 PAOLA Administration Levofloxacin/Dextrose 250 mg in 50 mls @ 50 mls/hr 07/08/20 10:00 Levaquin 250mg/50ml D5w IV 08/07/20 09:59 Q48H PAOLA Vancomycin HCl 1 gm in 200 mls @ 100 mls/hr 07/08/20 11:00 07/08/20 10:52 Vancomycin 1 Gram/200 Ml Bag IV 08/07/20 10:59 100 mls/hr Q72H PAOLA Administration Insulin Human Regular 0 unit 07/05/20 23:51 Humulin R SQ 08/04/20 23:50 UD PRN HYPERGLYCEMIA Lidocaine HCl Confirm 07/06/20 07:31 Xylocaine 1% Hcl 20 Ml Mdv Administered 07/06/20 07:32 Dose 1 ml .ROUTE .STK-MED ONE Lisinopril 5 mg 07/06/20 10:00 Zestril 5 Mg PO 08/05/20 09:59 DAILY PAOLA Magnesium Oxide 400 mg 07/06/20 10:00 07/06/20 09:34 Mag-Ox 400 PO 08/05/20 09:59 400 mg DAILY PAOLA Administration Metformin HCl 1,000 mg 07/07/20 08:00 07/07/20 10:34 Glucophage Xr 500 Mg PO 08/06/20 07:59 Not Given QAM@0800 PAOLA Morphine Sulfate 5 mg 07/05/20 20:36 07/05/20 20:41 Morphine Sulfate 10 Mg/Ml IV 07/05/20 20:37 5 mg STAT ONE Administration Morphine Sulfate Confirm 07/05/20 20:41 Morphine Sulfate 10 Mg/Ml Administered 07/05/20 20:42 Dose 10 mg .ROUTE .STK-MED ONE Morphine Sulfate 4 mg 07/05/20 23:51 07/06/20 03:25 Morphine Sulfate 4 Mg Inj IV 07/10/20 23:50 4 mg Q3H/PRN PRN Administration PAIN Non-Formulary Medication 1 each 07/07/20 08:35 07/08/20 11:23 Pharmacy Dosing Request 07/07/20 08:36 1 each STAT ONE Administration Non-Formulary Medication 1 each 07/08/20 09:20 07/08/20 11:23 Pharmacy Dosing Required: Vancomycin IV 07/08/20 09:21 1 each STAT STA Administration Ondansetron HCl 4 mg 07/05/20 23:51 Zofran 4 Mg/2 Ml Vial IV 08/04/20 23:50 Q6H PRN PRN NAUSEA/VOMITING Pantoprazole Sodium 40 mg 07/06/20 10:00 Protonix 40 Mg Iv IV 08/05/20 09:59 Q24H10 PAOLA Pantoprazole Sodium 40 mg 07/06/20 10:00 07/06/20 21:01 Protonix 40mg Tablet PO 08/05/20 09:59 40 mg BID PAOLA Administration Paroxetine HCl 20 mg 07/06/20 10:00 07/06/20 09:35 Paxil 20 Mg PO 08/05/20 09:59 20 mg DAILY PAOLA Administration Patient Own Med : 0 each 07/06/20 10:00 07/06/20 10:43 Xeljanz 5 Mg PO 08/05/20 09:59 Not Given DAILY PAOLA Polyethylene Glycol 17 gm 07/06/20 11:00 07/06/20 15:02 Miralax Powder 17gm Packet PO 08/05/20 10:59 Not Given DAILY PAOLA Prednisone 10 mg 07/06/20 10:00 07/06/20 09:35 Deltasone 10 Mg PO 08/05/20 09:59 10 mg DAILY PAOLA Administration Quetiapine Fumarate 100 mg 07/06/20 22:00 07/06/20 21:03 Seroquel 100 Mg PO 08/05/20 21:59 100 mg HS PAOLA Administration Sitagliptin Phosphate 100 mg 07/07/20 08:00 07/07/20 10:33 Januvia 50 Mg PO 08/06/20 07:59 Not Given QAM@0800 PAOLA Intake & Output (Last 24 hours) 07/07/20 07/08/20 07/09/20 07/10/20 11:59 11:59 11:59 11:59 Intake Total 2408 4011 3048 1280 Output Total 6269 702 8867 1550 Balance 1208 3211 1698 -270 Weight 80.8 kg 83.5 kg 86 kg 88.7 kg Laboratory Results (Last 24 hours) 07/10/20 07/10/20 07/10/20 10:46 06:45 05:10 WBC RBC Hgb Hct MCV MCH MCHC RDW Plt Count MPV Segmented Neutrophils Band Neutrophils Lymphocytes (Manual) Eosinophils (Manual) Metamyelocytes Nucleated RBCs Platelet Estimate RBC Morphology Sodium 141 Potassium 4.1 Chloride 118 H Carbon Dioxide 14 L* Anion Gap 11.9 BUN 65 H Creatinine 3.64 H Estimated GFR 12.9 Glucose 135 H POC Glucometer 201 H 120 H Calcium 7.3 L Total Bilirubin 0.40 AST 19 ALT 13 Alkaline Phosphatase 61 Serum Total Protein 5.4 L Albumin 2.6 L Stool Occult Blood Random Vancomycin SARS-CoV-2 RNA (JOSIE) 07/10/20 07/10/20 07/09/20 05:10 05:10 21:34 WBC 6.3 RBC 3.05 L Hgb 9.6 L Hct 30.5 L MCV 100.0 MCH 31.5 MCHC 31.5 L RDW 16.9 H Plt Count 113 L MPV 9.5 Segmented Neutrophils 71 H Band Neutrophils 3 H Lymphocytes (Manual) 24 Eosinophils (Manual) 1 Metamyelocytes 1 Nucleated RBCs 1 Platelet Estimate NORMAL RBC Morphology NORMAL Sodium Potassium Chloride Carbon Dioxide Anion Gap BUN Creatinine Estimated GFR Glucose POC Glucometer 156 H Calcium Total Bilirubin AST ALT Alkaline Phosphatase Serum Total Protein Albumin Stool Occult Blood Random Vancomycin 8.35 SARS-CoV-2 RNA (JOSIE) 07/09/20 07/09/20 07/09/20 20:00 16:13 11:19 WBC RBC Hgb Hct MCV MCH MCHC RDW Plt Count MPV Segmented Neutrophils Band Neutrophils Lymphocytes (Manual) Eosinophils (Manual) Metamyelocytes Nucleated RBCs Platelet Estimate RBC Morphology Sodium Potassium Chloride Carbon Dioxide Anion Gap BUN Creatinine Estimated GFR Glucose POC Glucometer 154 H 86 Calcium Total Bilirubin AST ALT Alkaline Phosphatase Serum Total Protein Albumin Stool Occult Blood POSITIVE A Random Vancomycin SARS-CoV-2 RNA (JOSIE) 07/07/20 08:10 WBC RBC Hgb Hct MCV MCH MCHC RDW Plt Count MPV Segmented Neutrophils Band Neutrophils Lymphocytes (Manual) Eosinophils (Manual) Metamyelocytes Nucleated RBCs Platelet Estimate RBC Morphology Sodium Potassium Chloride Carbon Dioxide Anion Gap BUN Creatinine Estimated GFR Glucose POC Glucometer Calcium Total Bilirubin AST ALT Alkaline Phosphatase Serum Total Protein Albumin Stool Occult Blood Random Vancomycin SARS-CoV-2 RNA (JOSIE) Not Detected Orders (Last 24 hours) Category Date Time Status CBC W DIFF AM.LAB Lab 07/10/20 05:10 Completed CMP AM.LAB Lab 07/10/20 05:10 Completed FECAL OCCULT BLOOD - SCREENING Routine Lab 07/09/20 20:00 Completed Manual Differential NC Routine Lab 07/10/20 05:10 Completed POCT GLUCOSE Stat Lab 07/09/20 11:19 Completed POCT GLUCOSE Stat Lab 07/09/20 16:13 Completed POCT GLUCOSE Stat Lab 07/09/20 21:34 Completed POCT GLUCOSE Stat Lab 07/10/20 06:45 Completed POCT GLUCOSE Stat Lab 07/10/20 10:46 Completed Vancomycin, Random Routine Lab 07/10/20 05:10 Completed Heparin Flush 500 units/5 ml [Heparin Lock Flush 100 Med 07/09/20 11:45 Active Units/ml 5ml Syringe] 0 units IV UD PRN NaCl 0.9% 10 ML FLUSH [Sodium Chloride 0.9% 10 ML FLUSH Med 07/09/20 11:45 Active Syringe] 10 ml IV PRN PRN Therapuetic Drug Level Monitor [Trough Drug Levels] Med 07/10/20 06:00 Discontinued 1 IJ 1XONLY ONE Vancomycin/Water For Inj (Peg) [Vancomycin 1 Gram/200 Med 07/10/20 11:00 Active ml Bag] 1 gm in 200 ml IV Q48H (2) Fall Current Visit: Yes Status: Resolved Qualifiers: Encounter type: sequela Qualified Code(s): W19.XXXS - Unspecified fall, sequela Code(s): W19.XXXA - UNSPECIFIED FALL, INITIAL ENCOUNTER (3) Head injury Current Visit: Yes Status: Resolved Qualifiers: Encounter type: sequela Qualified Code(s): S09.90XS - Unspecified injury of head, sequela Code(s): S09.90XA - UNSPECIFIED INJURY OF HEAD, INITIAL ENCOUNTER (4) Anemia of chronic renal failure Current Visit: Yes Status: Chronic Code(s): N18.9 - CHRONIC KIDNEY DISEASE, UNSPECIFIED; D63.1 - ANEMIA IN CHRONIC KIDNEY DISEASE (5) Hypertension Current Visit: Yes Status: Chronic Qualifiers: Code(s): I10 - ESSENTIAL (PRIMARY) HYPERTENSION
[2020-07-10] MEDS ORDERED: BENADRYL 25 MG CAPSULE PO PRN (12:07)
[2020-07-10] MEDS: NORVASC 5 MG PO SCH (12:31)
[2020-07-10] MEDS: SUBLIMAZE 100 MCG/2 ML IV PRN ×2 (12:38→21:15)
[2020-07-10] MEDS ORDERED: Coreg 6.25 MG ONE (19:32)
[2020-07-10] MEDS: Coreg 6.25 MG PO SCH (19:34)
[2020-07-10] MEDS: Sodium Chloride 0.9% 1000 ML 1,000 ML IV SCH ×2 (21:24→21:25)
[2020-07-11] MEDS: Advair Hfa 115/21 Common canister IH SCH ×2 (07:29→17:20)
--- NOTE | 2020-07-11 08:46 | CONS ---
CONSULT DATE: 07/10/2020 HISTORY: A 75 year old female with multiple medical problems, chronic renal failure. She is currently not on dialysis but has had a creatinine as high as 4 during this admission. She also had some elevated troponin issues. She has been seen by Dr. Marin who felt she is not a candidate for any cardiology intervention at this time. Sausage Maker supposedly had seen the patient. She has had multiple falls, contusions and hematomas. PAST MEDICAL HISTORY: As mentioned above. Hypertension, congestive heart failure, hypercholesterolemia, hypertension, stroke, history of transient ischemic attack, chronic obstructive pulmonary disease. History of pneumonia in the past, diabetes mellitus type II, osteoarthritis, rheumatoid arthritis, Sjogren's, anemia, chronic renal disease. She had reflux, anxiety, depression and dementia. She has been on steroids in the past. She had a fall at [place]. Skin cancer, broken shoulder in the past. PAST SURGICAL HISTORY: Hysterectomy. Bilateral knee replacement. Right hip replacement. MEDICATIONS: Prior to admission gemfibrozil, folic acid, amlodipine, calcium carbonate, vitamin D, carvedilol, Albuterol, bumetanide, cholecalciferol, docusate sodium, Aricept, ferrous sulfate, gabapentin, magnesium, paroxetine, prednisone, Seroquel, Fosamax, hydrocodone/acetaminophen, omeprazole, artificial tears, potassium chloride, Breo Ellipta, Xeljanz, Tylenol, Albuterol, furosemide, oxybutynin, Lisinopril, Janumet. She is on IV Merrem and Advair at this time. She has been on Lisinopril and Tessalon prior to admission. FAMILY HISTORY: Heart disease, diabetes. SOCIAL HISTORY: Former smoker. No alcohol abuse. REVIEW OF SYSTEMS: Fourteen systems reviewed as noted above and per admission assessment. Pertinent for multiple medical problems as noted above, significant heart and renal failure, chronic lung disease, multiple severe medical problems. LAB DATA AND TESTS: White count 6.3 low from 9.6, PLT 113,000. Liver function test unremarkable. She had a hip x-ray with no acute fracture. PHYSICAL EXAMINATION: GENERAL: A chronically ill patient who has a small hematoma on the right side of her head. HEENT: Sclera nonicteric. NECK: No JVD. CHEST: Equal excursion, nonlabored breathing. CVS: Irregular-irregular. She has history of atrial fibrillation. ABDOMEN: Obese, soft, nondistended currently. EXTREMITIES: She has got a little bit of redness on the lower part of the lower leg. She has a foot ulcer that podiatry is addressing tomorrow. Regarding the problem needed here was blood blister hematoma on her left leg. She had a hip x-ray with no acute fracture. She had knee soft tissue swelling along this acute fracture. She had knee replacement. She has got some swelling looks like hematoma a little bit of tinting of the skin, might even have a little bit of serous fluid underneath there. No warmth. No redness in that area. Redness in her lower leg closer to the foot and ankle area. NEURO: Alert. She has history of dementia. PSYCH: Appropriate mood and affect. SKIN: She also has history of pressure sores in the past. IMPRESSION: A 75 year old female with multiple significant medical problems. She reportedly is DNR. She was seen by nephrology and cardiology. She had some troponin elevation. Dr. Marin does not feel she is a candidate for any cardiac intervention at this time. She reportedly had been seen by nephrology. I do not see their note at this time. I feel overall she is a very poor surgical candidate, this knee area does not look infected right now. It looks like a hematoma from her fall. It is directly adjacent to her incision from her total knee arthroplasty. I would not recommend intervention at this point. This may eventually drain on its own. It has been a few days since it happened initially anyway. It has been five days or more ago. If it fails to heal or becomes infected likely would defer management of this to orthopedics given her knee replacement in the area. She would be at risk of septic arthritis, septic joint replacement. Otherwise continue medical management at this point as she is a very poor surgical candidate. Podiatry is planning on seeing her tomorrow. At this time I do not feel she is a surgical candidate here. Continue medical management. I will sign off. If things change, if she is sent to [facility], having management regarding her renal failure/cardiac issues and other medical issues, will reconsult if things change but likely feel she would be better served following up with an orthopedic surgeon should this fail to improve with simple medical management. I will sign off at this time on this significantly ill, chronically ill patient.
[2020-07-11] MEDS: Merrem 1 GM 1 G in Sodium Chloride 100ML MINI-BAG PLUS 100 ML IV SCH (08:49)
[2020-07-11] MEDS: Colace 100 MG PO SCH (08:49)
[2020-07-11] MEDS: Coreg 6.25 MG PO SCH ×2 (08:49→21:24)
[2020-07-11] MEDS: NORVASC 5 MG PO SCH (08:49)
[2020-07-11] MEDS: Artificial Tears 15 ML OP SCH ×2 (08:49→21:24)
[2020-07-11] MEDS: SUBLIMAZE 100 MCG/2 ML IV PRN (08:50)
[2020-07-11] MEDS: PROTONIX 40 MG IV IV SCH (08:50)
[2020-07-11] MEDS: TYLENOL 325 MG PO PRN (09:25)
[2020-07-11] MEDS ORDERED: Sodium Chloride 0.9% 1000 ML 1,000 ML IV STA (10:16)
[2020-07-11] MEDS: Hydromorphone 1 mg/ml Injection IV PRN ×3 (10:30→21:24)
[2020-07-11 12:42] LABS: Hematocrit 31.5 % (35-47); Hemoglobin 9.7 gm/dl (12.0-16.0); Mean Cell Volume 101.3 fl (78-100); Mean Corpuscular Hemoglobin 31.2 pg (26-32); Mean Corpuscular Hgb Concent. 30.8 g/dl (32-36); Mean Platelet Volume 9.8 fl (7.5-11.0); Platelet Count 112 K/mm3 (150-450); Red Blood Count 3.11 M/mm3 (4.1-5.4); Red Cell Distribution Width 17.2 % (11.5-14.0); White Blood Count 6.3 K/mm3 (4.0-10.5)
[2020-07-11 12:59] LABS: ALBUMIN 2.8 g/dL (3.5-5.0); ANION GAP 13.5 MEQ/L (5-15); BILIRUBIN,TOTAL 0.4 mg/dL (0.2-1.3); Calcium 8.1 mg/dL (8.4-10.2); Creatinine 1 3.48 mg/dL (0.52-1.04); EST GLOMERULAR FILTRATION RATE 13.6 ML/MIN; Potassium 4.2 mmol/L (3.5-5.1); Total Protein 5.7 g/dL (6.3-8.2)
[2020-07-12] MEDS: TYLENOL 325 MG PO PRN ×3 (00:09→19:54)
[2020-07-12] MEDS: Hydromorphone 1 mg/ml Injection IV PRN ×5 (00:59→19:55)
[2020-07-12] MEDS: Advair Hfa 115/21 Common canister IH SCH ×2 (04:52→17:12)
[2020-07-12 05:28] LABS: Hematocrit 30.5 % (35-47); Hemoglobin 9.4 gm/dl (12.0-16.0); Mean Corpuscular Hemoglobin 30.8 pg (26-32); Mean Corpuscular Hgb Concent. 30.8 g/dl (32-36); Mean Platelet Volume 9.9 fl (7.5-11.0); Platelet Count 107 K/mm3 (150-450); Red Blood Count 3.05 M/mm3 (4.1-5.4); White Blood Count 5.8 K/mm3 (4.0-10.5)
[2020-07-12 05:55] LABS: ALBUMIN 2.7 g/dL (3.5-5.0); ANION GAP 11.6 MEQ/L (5-15); BILIRUBIN,TOTAL 0.4 mg/dL (0.2-1.3); Calcium 8.4 mg/dL (8.4-10.2); Creatinine 1 3.51 mg/dL (0.52-1.04); EST GLOMERULAR FILTRATION RATE 13.4 ML/MIN; Total Protein 5.5 g/dL (6.3-8.2)
[2020-07-12] MEDS: Sodium Chloride 0.9% 1000 ML 1,000 ML IV SCH ×2 (07:37→22:09)
--- NOTE | 2020-07-12 08:01 | PCM.CONS ---
Podiatry HPI - Consult Date of Consultation Date: 07/11/20 Reason for Consult: Left foot wound Consulting Provider: LI MARTINEZ DPM - HPI History of Present Illness: MMs. Salas is a very pleasant 75-year-old female who was admitted from the emergency department due to syncopal episodes with falls and multiple contusions. On admission she was found to have anemia CKD elevated troponin pancreatitis and a positive urine culture for E. coli. Patient has had mild dementia rheumatoid arthritis and Sjogren's as a pertinent medical history. Patient reports that she does take corticosteroids for the rheumatoid. On she had a fall from [facility] assisted living in the fall she landed on her knees which resulted in extreme pain as well as landing on her left upper abdominal side as well as her forehead. It is unclear if there was any loss of consciousness. I am consulted today for concerns over a foot wound on the plantar aspect of the left foot which has been ongoing for an undetermined amount of time. Per her nurses there are no concerning vitals or lab work that suggests sepsis or SIRS criteria. No other lower extremity complaints Medications & Allergies Home Medications: Home Medication List Gemfibrozil 600 mg [Lopid 600 mg] 600 mg PO BID 01/16/15 [History Confirmed 07/06/20] Folic Acid 1 mg PO DAILY 03/06/17 [History Confirmed 07/05/20] Amlodipine Besylate 5 mg [Norvasc 5 mg] 5 mg PO DAILY 11/26/18 [History Confirmed 07/06/20] Calcium Carbonate/Vitamin D3 [Oyster Shell 500-Vit D3 200 Tb] 1 each PO TID 11/26/18 [History Confirmed 07/05/20] Carvedilol 3.125 mg [Coreg 3.125 MG] 3.125 mg PO BID #60 tablet 02/01/19 [Rx Confirmed 07/05/20] Albuterol 8 gm Mdi Hfa [Ventolin Hfa MDI] 2 puffs PO QID 05/18/19 [History Confirmed 07/05/20] Bumetanide 1 mg PO BID 05/18/19 [History Confirmed 07/05/20] Cholecalciferol (Vitamin D3) [Vitamin D3] 1,000 unit PO DAILY 05/18/19 [History Confirmed 07/05/20] Docusate Sodium [Stool Softener] 200 mg PO DAILY 05/18/19 [History Confirmed 07/05/20] Donepezil HCl [Aricept] 5 mg PO HS 05/18/19 [History Confirmed 07/05/20] Ferrous Sulfate 325 mg [Feosol 325 mg] 325 mg PO BID 05/18/19 [History Confirmed 07/05/20] Gabapentin 200 mg PO BID 05/18/19 [History Confirmed 07/05/20] Magnesium Oxide [Magnesium] 400 mg PO DAILY 05/18/19 [History Confirmed 07/05/20] Paroxetine HCl 20 mg [Paxil 20 MG] 20 mg PO DAILY 05/18/19 [History Confirmed 07/05/20] Prednisone 10 mg [Deltasone 10 mg] 10 mg PO DAILY 05/18/19 [History Confirmed 07/05/20] Quetiapine Fumarate 25 mg [Seroquel 25 MG] 100 mg PO HS 05/18/19 [History Confirmed 07/05/20] Alendronate Sodium 70 mg [Fosamax 70 MG] 70 mg PO WEEKLY 05/22/19 [History Confirmed 07/05/20] Hydrocodone Bit/Acetaminophen [Hydrocodon-Acetaminoph 7.5-325] 1 tab PO Q6H 05/22/19 [History Confirmed 07/06/20] Omeprazole 20 mg PO BID 05/22/19 [History Confirmed 07/06/20] Polyvinyl Alcohol Tears [Artificial Tears 15 ML] 1 drop OP BID 05/22/19 [History Confirmed 07/05/20] Potassium Chloride 10 Meq Tab* [Klor Con 10 MEQ] 10 meq PO BID 05/22/19 [History Confirmed 07/05/20] Fluticasone/Vilanterol [Breo Ellipta 200-25 Mcg INH] 1 each IH DAILY 05/27/19 [History Confirmed 07/05/20] Tofacitinib Citrate [Xeljanz] 5 mg PO DAILY 05/27/19 [History Confirmed 07/05/20] Acetaminophen 325 mg [Tylenol 325 mg] 650 mg PO Q4HPRN PRN 07/05/20 [History Confirmed 07/05/20] Albuterol 8 gm Mdi Hfa [Ventolin Hfa MDI] 2 puff IH Q4HPRN PRN 07/05/20 [History Confirmed 07/05/20] Furosemide [Lasix] 20 mg PO DAILY 07/05/20 [History Confirmed 07/05/20] Oxybutynin Chloride Xl 5 mg [Ditropan XL 5 MG] 5 mg PO BID 07/05/20 [History Confirmed 07/05/20] Sitagliptin Phos/Metformin HCl [Janumet Xr 100-1,000 mg Tablet] 1 tab PO DAILY 07/05/20 [History Confirmed 07/05/20] lisinopriL [Lisinopril] 5 mg PO DAILY 07/05/20 [History Confirmed 07/05/20] Benzonatate [Tessalon Perle] 100 mg PO Q6H 07/06/20 [History Confirmed 07/06/20] Allergies/Adverse Reactions: Allergies Allergy/AdvReac Type Severity Reaction Status Date / Time cefaclor [From Ceclor] Allergy Intermediate Verified 07/05/20 19:54 shellfish derived Allergy Intermediate Verified 07/05/20 19:54 sulfamethoxazole Allergy Intermediate Verified 07/05/20 19:54 venom-honey bee Allergy Intermediate Verified 07/05/20 19:54 [bee venom (honey bee)] cephalexin [From Keflex] Allergy Mild mouth sores Verified 07/05/20 19:54 - Past Medical History Past Medical History: Yes Neurological History: Stroke, TIA ENT History: Cataracts Cardiac History: Congestive Heart Failure, High Cholesterol, Hypertension Respiratory History: Asthma, COPD, Pneumonia Endocrine Medical History: Diabetes Type II Musculoskelatal History: Osteoarthritis, Osteoporosis, Rheumatoid Arthritis GI Medical History: Esophageal Disorder, GERD, Other History: Renal Disease Pyscho-Social History: Anxiety, Depression Reproductive Disorders: No Pertinent History Comment: Anemia. broken shoulder, 11/19. hiatal hernia. skin cancer- nose - Female History Are you now?: No - Past Surgical History Past Surgical History: Yes Neuro Surgical History: No Pertinent History Cardiac History: No Pertinent History Respiratory Surgery: No Pertinent History GI Surgical History: No Pertinent History Genitourinary Surgical Hx: No Pertinent History Musculskeletal Surgical Hx: Joint Replacement Female Surgical History: Hysterectomy Other Surgical History: bilateral Knee replacement x2, right hip replacement,bladder lift - Social History Smoking Status: Former smoker How long have you smoked: 20 yrs Exposure to second hand smoke: No Alcohol: None Drug Use: none Physical Exam - Narrative Narrative Physical Exam: Podiatry Physical Exam Vascular: DP and PT pulses are faintly palpable. Capillary refill time is less than 5 seconds. Skin temperature from the tibial tuberosity to the dorsal aspect of the digits is warm to hot at the pretibial area where there is associated cellulitis to cool at the dorsal aspect of the digits bilaterally. Cellulitis extends from the dorsal midfoot to the mid tibial area. This does not jazlyn on elevation. No indications of lymphangitis or lymphadenopathy on palpation of the posterior lymph nodes in the popliteal fossa or the inguinal lymph nodes. Dermatological cellulitis to the bilateral lower extremity potentially venous stasis related turgor is within normal limits. Wound as described below Neurological unable to assess due to patient's mentation Musculoskeletal no pain on palpation of the wound. Wound #1 Location plantar aspect left foot Size: 1 cm x 1.6 cm x 0.2 Description there is a 0.5 cm rim of undermining in the area hyperkeratosis extends 2 cm circumferentially around the wound there is inability to express any purulent drainage the central region of the wound is granular in nature with a slight fibrotic rim 8020% Results - Labs Lab/Micro Results: Lab Results-Last 24 Hours 07/11/20 07/11/20 07/11/20 Range/Units 11:19 12:30 12:30 WBC 6.3 (4.0-10.5) K/mm3 RBC 3.11 L (4.1-5.4) M/mm3 Hgb 9.7 L (12.0-16.0) gm/dl Hct 31.5 L (35-47) % MCV 101.3 H (78-100) fl MCH 31.2 (26-32) pg MCHC 30.8 L (32-36) g/dl RDW 17.2 H (11.5-14.0) % Plt Count 112 L (150-450) K/mm3 MPV 9.8 (7.5-11.0) fl Sodium 142 (137-145) mmol/L Potassium 4.2 (3.5-5.1) mmol/L Chloride 121 H (98-107) mmol/L Carbon Dioxide 12 L* (22-30) mmol/L Anion Gap 13.5 (5-15) MEQ/L BUN 60 H (7-17) mg/dL Creatinine 3.48 H (0.52-1.04) mg/dL Estimated GFR 13.6 ML/MIN Glucose 175 H (74-106) mg/dL POC Glucometer 165 H (74 to 106) mg/dL Calcium 8.1 L (8.4-10.2) mg/dL Total Bilirubin 0.40 (0.2-1.3) mg/dL AST 19 (14-36) U/L ALT 11 (0-35) U/L Alkaline Phosphatase 60 (38-126) U/L Serum Total Protein 5.7 L (6.3-8.2) g/dL Albumin 2.8 L (3.5-5.0) g/dL 07/11/20 07/11/20 07/12/20 Range/Units 16:27 20:18 04:30 WBC 5.8 (4.0-10.5) K/mm3 RBC 3.05 L (4.1-5.4) M/mm3 Hgb 9.4 L (12.0-16.0) gm/dl Hct 30.5 L (35-47) % MCV 100.0 (78-100) fl MCH 30.8 (26-32) pg MCHC 30.8 L (32-36) g/dl RDW 17.0 H (11.5-14.0) % Plt Count 107 L (150-450) K/mm3 MPV 9.9 (7.5-11.0) fl Sodium (137-145) mmol/L Potassium (3.5-5.1) mmol/L Chloride (98-107) mmol/L Carbon Dioxide (22-30) mmol/L Anion Gap (5-15) MEQ/L BUN (7-17) mg/dL Creatinine (0.52-1.04) mg/dL Estimated GFR ML/MIN Glucose (74-106) mg/dL POC Glucometer 153 H 173 H (74 to 106) mg/dL Calcium (8.4-10.2) mg/dL Total Bilirubin (0.2-1.3) mg/dL AST (14-36) U/L ALT (0-35) U/L Alkaline Phosphatase (38-126) U/L Serum Total Protein (6.3-8.2) g/dL Albumin (3.5-5.0) g/dL 07/12/20 07/12/20 Range/Units 04:30 06:53 WBC (4.0-10.5) K/mm3 RBC (4.1-5.4) M/mm3 Hgb (12.0-16.0) gm/dl Hct (35-47) % MCV (78-100) fl MCH (26-32) pg MCHC (32-36) g/dl RDW (11.5-14.0) % Plt Count (150-450) K/mm3 MPV (7.5-11.0) fl Sodium 143 (137-145) mmol/L Potassium 4.0 (3.5-5.1) mmol/L Chloride 120 H (98-107) mmol/L Carbon Dioxide 15 L* (22-30) mmol/L Anion Gap 11.6 (5-15) MEQ/L BUN 56 H (7-17) mg/dL Creatinine 3.51 H (0.52-1.04) mg/dL Estimated GFR 13.4 ML/MIN Glucose 126 H (74-106) mg/dL POC Glucometer 114 H (74 to 106) mg/dL Calcium 8.4 (8.4-10.2) mg/dL Total Bilirubin 0.40 (0.2-1.3) mg/dL AST 16 (14-36) U/L ALT 9 (0-35) U/L Alkaline Phosphatase 64 (38-126) U/L Serum Total Protein 5.5 L (6.3-8.2) g/dL Albumin 2.7 L (3.5-5.0) g/dL Microbiology 07/05/20 22:01 Urine Culture - Final Urine, Void Escherichia Coli Accuchecks Date 07/12/20 Date 07/11/20 Time 06:53 Time 22:00 - Other Procedures and Tests Initial patient examination and evaluation. Patient's clinical exam as well as lab work and vitals demonstrate no indications of sepsis or wound infection at this time. No urgent need for intervention at this time. There is a likelihood of cellulitis to the bilateral lower extremity however this may be due secondary to venous stasis dermatitis. We will consider bedside debridement of the ulcer once her mentation as well as clinical status has improved. At this time I recommend no intervention from a podiatric standpoint Antibiotic management by medicine team
--- NOTE | 2020-07-12 09:10 | PCM.NOTE ---
Date and Time: 07/12/20908 Subjective Assessment: doing ok - Review of Systems Constitutional: No Fever, No Chills Eyes: No Symptoms Ears, Nose, & Throat: No Symptoms Respiratory: No Cough, No Short Of Breath Cardiac: No Chest Pain, No Edema, No Syncope Abdominal/Gastrointestinal: No Abdominal Pain, No Nausea, No Vomiting, No Diarrhea Genitourinary Symptoms: No Dysuria Musculoskeletal: No Back Pain, No Neck Pain Skin: No Rash Neurological: No Dizziness, No Focal Weakness, No Sensory Changes Psychological: No Symptoms Endocrine: No Symptoms Hematologic/Lymphatic: No Symptoms Immunological/Allergic: No Symptoms Objective Exam General Appearance: no apparent distress, alert Neurologic Exam: alert, oriented x 3, cooperative, normal mood/affect, nml cerebellar function, sensation nml, No motor deficits Skin Exam: normal color, warm, dry Wound Assessment: Skin/Wound Assessment Wound/Incision Assessment Start: 07/06/20 00:47 Text: Status: Active Freq: Q6H Protocol: Document 07/12/20 08:00 FEDERICO (Rec: 07/12/20 08:55 FEDERICO [id number]) Wound/Incision Assessment Right Temporal Wound Assessment Shift Assessment Wound Type HEMATOMA Wound Stage Non Pressure Wound Drainage Amount None General Appearance Open to air Left Knee Wound Assessment Shift Assessment Wound Type HEMATOMA Wound Stage Non Pressure Wound Drainage Amount None Drainage Odor None/Absent Surrounding Tissue Board [place] Comment FLUID FILLED BOTTOM LEFT FOOT Wound Assessment Shift Assessment Wound Type ULCER Wound Stage Non Pressure Wound Dressing Status Dry & Intact Drainage Amount None Drainage Odor None/Absent Primary Dressing Non-Adherent Gauze Pads Secondary Dressing Gauze Roll/Wrap Comment UNABLE TO ASSESS WOUND DUE TO DRESSING Posterior Buttock Wound Assessment Shift Assessment Wound Type Pressure Ulcer Wound Stage Stage II Drainage Amount None Drainage Odor None/Absent General Appearance Open to air Length (cm) (cm) 3 Width (cm) (cm) 3 Wound Bed Greatest Portion Pale Board Camp Surrounding Tissue Blanched/Dull Comment RIGHT AND LEFT BUTTOCKS, BARREIR CREAM APPLIED Left Arm Wound Assessment Shift Assessment Wound Type Skin Tear Wound Stage Non Pressure Wound Dressing Status Dry & Intact Drainage Amount None Drainage Odor None/Absent General Appearance Well Approximated,Asymptomatic Primary Dressing TEGADERM Eye Exam: PERRL, EOMI, eyes nml inspection Ears, Nose, Throat Exam: normal ENT inspection, pharynx normal, moist mucous membranes Neck Exam: normal inspection, non-tender, supple, full range of motion Respiratory Exam: normal breath sounds, lungs clear, No respiratory distress Cardiovascular Exam: regular rate/rhythm, normal heart sounds Gastrointestinal/Abdomen Exam: soft, No tenderness, No mass Extremity Exam: normal inspection, normal range of motion Back Exam: normal inspection, normal range of motion, No CVA tenderness, No vertebral tenderness Pelvic Exam: deferred Rectal Exam: deferred OBJECTIVE DATA Vital Signs: Vital Signs - 24 hr Temp Pulse Resp BP Pulse Ox 07/12/20 07:14 97.8 F 72 28 H 176/83 97 07/12/20 04:52 78 18 96 07/12/20 04:00 99.6 F 81 22 95 07/12/20 00:00 100.0 F 80 22 162/87 97 07/11/20 19:58 100.0 F 76 14 167/69 99 07/11/20 17:20 75 18 98 07/11/20 16:30 99.1 F 71 19 150/85 97 07/11/20 11:26 98.1 F 72 14 139/70 95 Pain Assessment - Last Documented Pain Intensity 5 Pain Scale Used 0-10 Pain Scale Intake and Output: Intake & Output 07/09/20 07/10/20 07/11/20 07/12/20 11:59 11:59 11:59 11:59 Intake Total 3048 1280 1483 2310 Output Total 1350 1550 2050 1700 Balance 4276 -270 -601 610 Weight 86 kg 88.7 kg 85.6 kg 83.6 kg Lab Results: Lab Results-Last 24 Hours 07/11/20 07/11/20 07/11/20 Range/Units 11:19 12:30 12:30 WBC 6.3 (4.0-10.5) K/mm3 RBC 3.11 L (4.1-5.4) M/mm3 Hgb 9.7 L (12.0-16.0) gm/dl Hct 31.5 L (35-47) % MCV 101.3 H (78-100) fl MCH 31.2 (26-32) pg MCHC 30.8 L (32-36) g/dl RDW 17.2 H (11.5-14.0) % Plt Count 112 L (150-450) K/mm3 MPV 9.8 (7.5-11.0) fl Sodium 142 (137-145) mmol/L Potassium 4.2 (3.5-5.1) mmol/L Chloride 121 H (98-107) mmol/L Carbon Dioxide 12 L* (22-30) mmol/L Anion Gap 13.5 (5-15) MEQ/L BUN 60 H (7-17) mg/dL Creatinine 3.48 H (0.52-1.04) mg/dL Estimated GFR 13.6 ML/MIN Glucose 175 H (74-106) mg/dL POC Glucometer 165 H (74 to 106) mg/dL Calcium 8.1 L (8.4-10.2) mg/dL Total Bilirubin 0.40 (0.2-1.3) mg/dL AST 19 (14-36) U/L ALT 11 (0-35) U/L Alkaline Phosphatase 60 (38-126) U/L Serum Total Protein 5.7 L (6.3-8.2) g/dL Albumin 2.8 L (3.5-5.0) g/dL 07/11/20 07/11/20 07/12/20 Range/Units 16:27 20:18 04:30 WBC 5.8 (4.0-10.5) K/mm3 RBC 3.05 L (4.1-5.4) M/mm3 Hgb 9.4 L (12.0-16.0) gm/dl Hct 30.5 L (35-47) % MCV 100.0 (78-100) fl MCH 30.8 (26-32) pg MCHC 30.8 L (32-36) g/dl RDW 17.0 H (11.5-14.0) % Plt Count 107 L (150-450) K/mm3 MPV 9.9 (7.5-11.0) fl Sodium (137-145) mmol/L Potassium (3.5-5.1) mmol/L Chloride (98-107) mmol/L Carbon Dioxide (22-30) mmol/L Anion Gap (5-15) MEQ/L BUN (7-17) mg/dL Creatinine (0.52-1.04) mg/dL Estimated GFR ML/MIN Glucose (74-106) mg/dL POC Glucometer 153 H 173 H (74 to 106) mg/dL Calcium (8.4-10.2) mg/dL Total Bilirubin (0.2-1.3) mg/dL AST (14-36) U/L ALT (0-35) U/L Alkaline Phosphatase (38-126) U/L Serum Total Protein (6.3-8.2) g/dL Albumin (3.5-5.0) g/dL 07/12/20 07/12/20 Range/Units 04:30 06:53 WBC (4.0-10.5) K/mm3 RBC (4.1-5.4) M/mm3 Hgb (12.0-16.0) gm/dl Hct (35-47) % MCV (78-100) fl MCH (26-32) pg MCHC (32-36) g/dl RDW (11.5-14.0) % Plt Count (150-450) K/mm3 MPV (7.5-11.0) fl Sodium 143 (137-145) mmol/L Potassium 4.0 (3.5-5.1) mmol/L Chloride 120 H (98-107) mmol/L Carbon Dioxide 15 L* (22-30) mmol/L Anion Gap 11.6 (5-15) MEQ/L BUN 56 H (7-17) mg/dL Creatinine 3.51 H (0.52-1.04) mg/dL Estimated GFR 13.4 ML/MIN Glucose 126 H (74-106) mg/dL POC Glucometer 114 H (74 to 106) mg/dL Calcium 8.4 (8.4-10.2) mg/dL Total Bilirubin 0.40 (0.2-1.3) mg/dL AST 16 (14-36) U/L ALT 9 (0-35) U/L Alkaline Phosphatase 64 (38-126) U/L Serum Total Protein 5.5 L (6.3-8.2) g/dL Albumin 2.7 L (3.5-5.0) g/dL Multi-Disciplinary Progress Notes: Multi-Disciplinary Progress Notes 07/11/20 20:04 Physical Therapy Note by Renee Caal PT. SEEN BY PT THS DATE TO ADDRESS WEAKNESS AND DECREASED INDEPENDENCE W/ FUNCTIONAL MOBILITY. PT. MORE ALERT TODAY. PT. IN BED UPON P.T. ARRIVAL TO ROOM. NURSE ASSISTED W/ FUNCTIONAL MOBILITY. PT. REPORTED SEVERE LE PN W/ ASSISTED MOBILITY. PERFORMED SUPINE TO SIT W/ MOD ASSIST X 2; SIT TO STAND AND STAND-PIVOT TRANSFER W/ RW Q/ MOD-MAX ASSIST X 2. PT. WAS ABLE TO STAND AT WALKER FOR 2-3 SECS W/ MOD ASSIST X 2 AND MAINTAIN SOME WB THROUGH LES. PT. WAS FEARFUL AND CRIED OUT W/ PN, BUT ENCOURAGED HER THAT SHE HAD TO GET OUT OF BED TODAY OR SHE WAS ONLY GOING TO BECOME WEAKER AND HAVE MORE PN WELL RESPIRATORY ISSUES. NSG USED REBECCA LIFT TO RETURN TO BED AFTER ~ 2.5 HOURS IN CHAIR. WILL CONT. PT 5X/WK TO INCREASE STRENGTH AND INCREASE PT. INDEPENDENCE W/ FUNCTIONAL MOBILITY. REHAB PROGNOSIS IS GUARDED D/T SEVERE JOINT DEFORMITY D/T RA, MULTIPLE COMORBIDITIES AND DECREASED PN TOLERANCE. RENEE CAAL, PT Initialized on 07/11/20 20:04 - END OF NOTE 07/11/20 10:55 Case Management Note by Mandie Shaw PATIENT ACUTELY ILL, WILL CONTINUE TO FOLLOW Initialized on 07/11/20 10:55 - END OF NOTE Assessment/Plan (1) Chronic renal failure Current Visit: Yes Status: Acute Qualifiers: Chronic kidney disease stage: stage 4 (severe) Qualified Code(s): N18.4 - Chronic kidney disease, stage 4 (severe) Assessment & Plan: Chief Complaint Diagnosis multiple contusions/hematomas; chronic renal failure,elevated trop Admission Date Date 07/06/20 Allergies Allergy/AdvReac Type Severity Reaction Status Date / Time cefaclor [From Ceclor] Allergy Intermediate Verified 07/05/20 19:54 shellfish derived Allergy Intermediate Verified 07/05/20 19:54 sulfamethoxazole Allergy Intermediate Verified 07/05/20 19:54 venom-honey bee Allergy Intermediate Verified 07/05/20 19:54 [bee venom (honey bee)] cephalexin [From Keflex] Allergy Mild mouth sores Verified 07/05/20 19:54 Vital Signs (Last 24 hours) Temp Pulse Resp BP Pulse Ox 07/12/20 07:14 97.8 F 72 28 H 176/83 97 07/12/20 04:52 78 18 96 07/12/20 04:00 99.6 F 81 22 95 07/12/20 00:00 100.0 F 80 22 162/87 97 07/11/20 19:58 100.0 F 76 14 167/69 99 07/11/20 17:20 75 18 98 07/11/20 16:30 99.1 F 71 19 150/85 97 07/11/20 11:26 98.1 F 72 14 139/70 95 Home Medications Medication Instructions Recorded Confirmed Last Taken Type Acetaminophen 325 mg [Tylenol 650 mg PO Q4HPRN PRN 07/05/20 07/05/20 Unknown History 325 mg] Albuterol 8 gm Mdi Hfa 2 puff IH Q4HPRN PRN 07/05/20 07/05/20 Unknown History [Ventolin Hfa MDI] Furosemide [Lasix] 20 mg PO DAILY 07/05/20 07/05/20 07/05/20 08:00 History Oxybutynin Chloride Xl 5 mg 5 mg PO BID 07/05/20 07/05/20 07/05/20 19:00 History [Ditropan XL 5 MG] Sitagliptin Phos/Metformin HCl 1 tab PO DAILY 07/05/20 07/05/20 07/05/20 08:00 History [Janumet Xr 100-1,000 mg Tablet] lisinopriL [Lisinopril] 5 mg PO DAILY 07/05/20 07/05/20 07/05/20 08:00 History Benzonatate [Tessalon Perle] 100 mg PO Q6H 07/06/20 07/06/20 Unknown History Current Medications Generic Name Dose Route Start Last Admin Trade Name Freq PRN Reason Stop Dose Admin Acetaminophen 650 mg 07/07/20 09:37 07/12/20 04:40 Tylenol 325 Mg PO 08/06/20 09:36 650 mg Q4H PRN PRN Administration PAIN AND/OR FEVER Albuterol/Ipratropium 3 ml 07/05/20 23:51 Duoneb 0.5-3 Mg/3 Ml Neb IH 08/04/20 23:50 Q4HPRN PRN SHORTNESS OF BREATH/WHEEZING Amlodipine Besylate 5 mg 07/10/20 12:06 07/11/20 08:49 Norvasc 5 Mg PO 08/09/20 12:05 5 mg QAM PAOLA Administration Artificial Tears 0 ml 07/06/20 10:00 07/11/20 21:24 Artificial Tears 15 Ml OP 08/05/20 09:59 15 ml BID PAOLA Administration Carvedilol 6.25 mg 07/10/20 22:00 07/11/20 21:24 Coreg 6.25 Mg PO 08/09/20 21:59 6.25 mg BID PAOLA Administration Diphenhydramine HCl 25 mg 07/10/20 12:07 Benadryl 25 Mg Capsule PO 08/09/20 12:06 Q6H PRN PRN ALLERGIES Docusate Sodium 200 mg 07/06/20 10:00 07/11/20 08:49 Colace 100 Mg PO 08/05/20 09:59 200 mg DAILY PAOLA Administration Heparin Sodium (Beef Lung) 0 units 07/09/20 11:45 Heparin Lock Flush 100 Units/Ml 5ml Syringe IV 08/08/20 11:44 UD PRN Hydromorphone HCl 0.4 mg 07/11/20 10:16 07/12/20 00:59 Hydromorphone 1 Mg/Ml Injection IV 07/16/20 10:15 0.4 mg Q2H PRN PRN Administration PAIN Sodium Chloride 1,000 mls @ 80 mls/hr 07/12/20 07:30 07/12/20 07:37 Sodium Chloride 0.9% 1000 Ml IV 08/11/20 07:29 80 mls/hr .[id number] PAOLA Administration Levofloxacin 250 mg 07/12/20 10:00 Levofloxacin 250mg Tablet PO 07/19/20 09:59 DAILY PAOLA Pantoprazole Sodium 40 mg 07/07/20 10:00 07/11/20 08:50 Protonix 40 Mg Iv IV 08/06/20 09:59 40 mg DAILY PAOLA Administration Fluticasone/Salmeterol 2 puff 07/06/20 07:00 07/12/20 04:52 Advair Hfa 115/21 Common Canister* IH 08/05/20 06:59 2 puff BIDRT PAOLA Administration Sodium Chloride 10 ml 07/09/20 11:45 Sodium Chloride 0.9% 10 Ml Flush Syringe IV 08/08/20 11:44 PRN PRN Discontinued Medications Generic Name Dose Route Start Last Admin Trade Name Freq PRN Reason Stop Dose Admin Hydrocodone Bitart/Acetaminophen 1 tab 07/06/20 08:00 07/09/20 07:53 Camilla 7.5/325 Mg Tab PO 07/11/20 07:59 Not Given Q6H PAOLA Albuterol/Ipratropium 3 ml 07/06/20 07:00 07/09/20 06:40 Duoneb 0.5-3 Mg/3 Ml Neb IH 08/05/20 06:59 3 ml QIDRT PAOLA Administration Alendronate Sodium 70 mg 07/07/20 06:00 Fosamax 70 Mg PO 08/06/20 05:59 WEEKLY PAOLA Alendronate Sodium 70 mg 07/07/20 06:00 07/07/20 06:20 Fosamax 70 Mg PO 07/07/20 06:01 Not Given ONCE ONE Amlodipine Besylate 2.5 mg 07/06/20 10:00 Norvasc 5 Mg PO 08/05/20 09:59 QAM PAOLA Amlodipine Besylate 5 mg 07/06/20 10:00 07/06/20 09:35 Norvasc 5 Mg PO 08/05/20 09:59 5 mg DAILY PAOLA Administration Benzonatate 100 mg 07/06/20 12:00 07/07/20 06:20 Tessalon Perles 100 Mg PO 08/05/20 11:59 Not Given Q6HT [facility] Bumetanide 1 mg 07/06/20 10:00 Bumex 1 Mg PO 08/05/20 09:59 DAILY [facility] Calcium Carbonate 1 tab 07/06/20 10:00 07/06/20 21:02 Calcium 500mg W/Vit D Tablet PO 08/05/20 09:59 1 tab TID PAOLA Administration Carvedilol 3.125 mg 07/06/20 10:00 07/10/20 10:12 Coreg 3.125 Mg PO 08/05/20 09:59 3.125 mg BID PAOLA Administration Carvedilol Confirm 07/10/20 19:32 Coreg 6.25 Mg Administered 07/10/20 19:33 Dose 6.25 mg .ROUTE .STK-MED ONE Cholecalciferol 1,000 unit 07/06/20 10:00 11/27/20 09:34 Vitamin D PO 08/05/20 09:59 1,000 unit DAILY PAOLA Administration Device 1 07/10/20 06:00 07/10/20 10:13 Trough Drug Levels IJ 07/10/20 06:01 1 1XONLY ONE Administration Diphtheria/Tetanus/Acell Pertussis 0.5 ml 07/05/20 20:36 07/05/20 21:42 Adacel Vial IM 07/05/20 20:37 Not Given .ONCE ONE Donepezil HCl 5 mg 07/06/20 22:00 07/06/20 21:01 Aricept 10 Mg PO 08/05/20 21:59 5 mg HS PAOLA Administration Famotidine 20 mg 07/06/20 10:00 07/06/20 21:03 Pepcid 20 Mg Vial IV 08/05/20 09:59 20 mg Q12HT PAOLA Administration Fentanyl Citrate 25 mcg 07/10/20 12:05 07/11/20 08:50 Sublimaze 100 Mcg/2 Ml IV 07/15/20 12:04 25 mcg Q4H PRN PRN Administration SEVERE PAIN Ferrous Sulfate 325 mg 07/06/20 10:00 07/06/20 21:01 Feosol 325 Mg PO 08/05/20 09:59 325 mg BID PAOLA Administration Folic Acid 1 mg 07/06/20 10:00 07/06/20 09:34 Folate 1 Mg PO 08/05/20 09:59 1 mg DAILY PAOLA Administration Furosemide 20 mg 07/06/20 10:00 Lasix 20 Mg PO 08/05/20 09:59 DAILY PAOLA Gabapentin 200 mg 07/06/20 10:00 07/06/20 21:02 Neurontin 100 Mg PO 08/05/20 09:59 200 mg BID PAOLA Administration Gemfibrozil 600 mg 07/06/20 10:00 07/06/20 22:21 Lopid 600 Mg PO 08/05/20 09:59 600 mg BID PAOLA Administration Heparin Sodium (Beef Lung) Confirm 07/08/20 08:22 Heparin Lock Flush 100 Units/Ml 5ml Syringe Administered 07/08/20 08:23 Dose 500 units .ROUTE .STK-MED ONE Sodium Chloride 1,000 mls @ 100 mls/hr 07/05/20 20:00 07/05/20 21:39 Sodium Chloride 0.9% 1000 Ml IV 08/04/20 19:59 100 mls/hr .Q10H PAOLA Administration Sodium Chloride Confirm 07/05/20 20:51 Sodium Chloride 0.9% 1000 Ml Administered 07/05/20 20:52 Dose 1,000 mls @ ud .ROUTE .STK-MED ONE Levofloxacin/Dextrose 500 mg in 100 mls @ 100 mls/hr 07/06/20 10:00 07/06/20 09:33 Levofloxacin 500mg/100ml D5w IV 07/06/20 10:59 100 mls/hr Q24H10 PAOLA Administration Levofloxacin/Dextrose 250 mg in 50 mls @ 50 mls/hr 07/08/20 10:00 Levaquin 250mg/50ml D5w IV 08/07/20 09:59 Q48H PAOLA Sodium Chloride 1,000 mls @ 100 mls/hr 07/06/20 14:00 07/10/20 21:25 Sodium Chloride 0.9% 1000 Ml IV 08/05/20 13:59 Not Given .Q10H PAOLA Meropenem 1 g/ Sodium Chloride 100 mls @ 100 mls/hr 07/07/20 10:00 07/11/20 08:49 IV 08/06/20 09:59 100 mls/hr Q24H10 PAOLA Administration Vancomycin HCl 1 gm in 200 mls @ 100 mls/hr 07/08/20 11:00 07/08/20 10:52 Vancomycin 1 Gram/200 Ml Bag IV 08/07/20 10:59 100 mls/hr Q72H PAOLA Administration Vancomycin HCl 1 gm in 200 mls @ 100 mls/hr 07/10/20 11:00 07/10/20 11:45 Vancomycin 1 Gram/200 Ml Bag IV 08/09/20 10:59 100 mls/hr Q48H PAOLA Administration Sodium Chloride 1,000 mls @ 80 mls/hr 07/11/20 10:16 07/11/20 10:47 Sodium Chloride 0.9% 1000 Ml IV 07/11/20 22:45 80 mls/hr .[id number] STA Administration Insulin Human Regular 0 unit 07/05/20 23:51 Humulin R SQ 08/04/20 23:50 UD PRN HYPERGLYCEMIA Lidocaine HCl Confirm 07/06/20 07:31 Xylocaine 1% Hcl 20 Ml Mdv Administered 07/06/20 07:32 Dose 1 ml .ROUTE .STK-MED ONE Lisinopril 5 mg 07/06/20 10:00 Zestril 5 Mg PO 08/05/20 09:59 DAILY PAOLA Magnesium Oxide 400 mg 07/06/20 10:00 07/06/20 09:34 Mag-Ox 400 PO 08/05/20 09:59 400 mg DAILY PAOLA Administration Metformin HCl 1,000 mg 07/07/20 08:00 07/07/20 10:34 Glucophage Xr 500 Mg PO 08/06/20 07:59 Not Given QAM@0800 PAOLA Morphine Sulfate 5 mg 07/05/20 20:36 07/05/20 20:41 Morphine Sulfate 10 Mg/Ml IV 07/05/20 20:37 5 mg STAT ONE Administration Morphine Sulfate Confirm 07/05/20 20:41 Morphine Sulfate 10 Mg/Ml Administered 07/05/20 20:42 Dose 10 mg .ROUTE .STK-MED ONE Morphine Sulfate 4 mg 07/05/20 23:51 07/06/20 03:25 Morphine Sulfate 4 Mg Inj IV 07/10/20 23:50 4 mg Q3H/PRN PRN Administration PAIN Non-Formulary Medication 1 each 07/07/20 08:35 07/08/20 11:23 Pharmacy Dosing Request 07/07/20 08:36 1 each STAT ONE Administration Non-Formulary Medication 1 each 07/08/20 09:20 07/08/20 11:23 Pharmacy Dosing Required: Vancomycin IV 07/08/20 09:21 1 each STAT STA Administration Ondansetron HCl 4 mg 07/05/20 23:51 Zofran 4 Mg/2 Ml Vial IV 08/04/20 23:50 Q6H PRN PRN NAUSEA/VOMITING Pantoprazole Sodium 40 mg 07/06/20 10:00 Protonix 40 Mg Iv IV 08/05/20 09:59 Q24H10 PAOLA Pantoprazole Sodium 40 mg 07/06/20 10:00 11/27/20 21:01 Protonix 40mg Tablet PO 08/05/20 09:59 40 mg BID PAOLA Administration Paroxetine HCl 20 mg 07/06/20 10:00 07/06/20 09:35 Paxil 20 Mg PO 08/05/20 09:59 20 mg DAILY PAOLA Administration Patient Own Med : 0 each 07/06/20 10:00 07/06/20 10:43 Xeljanz 5 Mg PO 08/05/20 09:59 Not Given DAILY PAOLA Polyethylene Glycol 17 gm 07/06/20 11:00 07/06/20 15:02 Miralax Powder 17gm Packet PO 08/05/20 10:59 Not Given DAILY PAOLA Prednisone 10 mg 07/06/20 10:00 07/06/20 09:35 Deltasone 10 Mg PO 08/05/20 09:59 10 mg DAILY PAOLA Administration Quetiapine Fumarate 100 mg 07/06/20 22:00 07/06/20 21:03 Seroquel 100 Mg PO 08/05/20 21:59 100 mg HS PAOLA Administration Sitagliptin Phosphate 100 mg 07/07/20 08:00 07/07/20 10:33 Januvia 50 Mg PO 08/06/20 07:59 Not Given QAM@0800 PAOLA Intake & Output (Last 24 hours) 07/09/20 07/10/20 07/11/20 07/12/20 11:59 11:59 11:59 11:59 Intake Total 3048 1280 1483 2310 Output Total 1350 1550 2050 1700 Balance 8581 -818 -859 642 Weight 86 kg 88.7 kg 85.6 kg 83.6 kg Laboratory Results (Last 24 hours) 07/12/20 07/12/20 07/12/20 06:53 04:30 04:30 WBC 5.8 RBC 3.05 L Hgb 9.4 L Hct 30.5 L MCV 100.0 MCH 30.8 MCHC 30.8 L RDW 17.0 H Plt Count 107 L MPV 9.9 Sodium 143 Potassium 4.0 Chloride 120 H Carbon Dioxide 15 L* Anion Gap 11.6 BUN 56 H Creatinine 3.51 H Estimated GFR 13.4 Glucose 126 H POC Glucometer 114 H Calcium 8.4 Total Bilirubin 0.40 AST 16 ALT 9 Alkaline Phosphatase 64 Serum Total Protein 5.5 L Albumin 2.7 L 07/11/20 07/11/20 07/11/20 20:18 16:27 12:30 WBC RBC Hgb Hct MCV MCH MCHC RDW Plt Count MPV Sodium 142 Potassium 4.2 Chloride 121 H Carbon Dioxide 12 L* Anion Gap 13.5 BUN 60 H Creatinine 3.48 H Estimated GFR 13.6 Glucose 175 H POC Glucometer 173 H 153 H Calcium 8.1 L Total Bilirubin 0.40 AST 19 ALT 11 Alkaline Phosphatase 60 Serum Total Protein 5.7 L Albumin 2.8 L 07/11/20 07/11/20 12:30 11:19 WBC 6.3 RBC 3.11 L Hgb 9.7 L Hct 31.5 L MCV 101.3 H MCH 31.2 MCHC 30.8 L RDW 17.2 H Plt Count 112 L MPV 9.8 Sodium Potassium Chloride Carbon Dioxide Anion Gap BUN Creatinine Estimated GFR Glucose POC Glucometer 165 H Calcium Total Bilirubin AST ALT Alkaline Phosphatase Serum Total Protein Albumin Orders (Last 24 hours) Category Date Time Status Heart-Healthy Diet Diet 07/11/20 Lunch Active CBC AM.LAB Lab 07/12/20 04:30 Completed CBC Urgent Lab 07/11/20 12:30 Completed CMP AM.LAB Lab 07/12/20 04:30 Completed CMP Urgent Lab 07/11/20 12:30 Completed POCT GLUCOSE Stat Lab 07/11/20 11:19 Completed POCT GLUCOSE Stat Lab 07/11/20 16:27 Completed POCT GLUCOSE Stat Lab 07/11/20 20:17 Received POCT GLUCOSE Stat Lab 07/11/20 20:18 Completed POCT GLUCOSE Stat Lab 07/12/20 06:53 Completed Hydromorphone 1 mg/1Ml Inj [Hydromorphone 1 mg/ml Med 07/11/20 10:16 Active Injection] 0.4 mg IV Q2H PRN PRN Levofloxacin [Levofloxacin 250MG Tablet] Med 07/12/20 10:00 Ordered 250 mg PO DAILY NaCl 0.9% 1000 ml [Sodium Chloride 0.9% 1000 ML] 1,000 Med 07/11/20 10:16 Discontinued ml IV 80 mls/hr NaCl 0.9% 1000 ml [Sodium Chloride 0.9% 1000 ML] 1,000 Med 07/12/20 07:30 Active ml IV 80 mls/hr Patient Care Notes (Last 24 hours) 07/12/20 07:39 Nursing Note by Niya Leigh Patient was made MSOF on 07/11/20 @ 10:15 a.m. Initialized on 07/12/20 07:39 - END OF NOTE 07/12/20 06:03 Nursing Note by Renee Cheung Critical lab result for CO2 of 15 called from lab. Result not called to physician at this time due to improvement from 12 yesterday. Will have dayshift notify Dr. Sneed when he comes in to see patient Initialized on 07/12/20 06:03 - END OF NOTE 07/12/20 05:28 Nursing Note by Sara Quintana Pt refused 0400 blood pressure check at this time due to cuff too tight on her arm when it inflates and she cannot tolerate the pain. Initialized on 07/12/20 05:28 - END OF NOTE 07/11/20 20:04 Physical Therapy Note by Renee Caal PT. SEEN BY PT [facility] TO ADDRESS WEAKNESS AND DECREASED INDEPENDENCE W/ FUNCTIONAL MOBILITY. PT. MORE ALERT TODAY. PT. IN BED UPON P.T. ARRIVAL TO ROOM. NURSE ASSISTED W/ FUNCTIONAL MOBILITY. PT. REPORTED SEVERE LE PN W/ ASSISTED MOBILITY. PERFORMED SUPINE TO SIT W/ MOD ASSIST X 2; SIT TO STAND AND STAND-PIVOT TRANSFER W/ RW Q/ MOD-MAX ASSIST X 2. PT. WAS ABLE TO STAND AT WALKER FOR 2-3 SECS W/ MOD ASSIST X 2 AND MAINTAIN SOME WB THROUGH LES. PT. WAS FEARFUL AND CRIED OUT W/ PN, BUT ENCOURAGED HER THAT SHE HAD TO GET OUT OF BED TODAY OR SHE WAS ONLY GOING TO BECOME WEAKER AND HAVE MORE PN WELL RESPIRATORY ISSUES. NSG USED REBECCA LIFT TO RETURN TO BED AFTER ~ 2.5 HOURS IN CHAIR. WILL CONT. PT 5X/WK TO INCREASE STRENGTH AND INCREASE PT. INDEPENDENCE W/ FUNCTIONAL MOBILITY. REHAB PROGNOSIS IS GUARDED D/T SEVERE JOINT DEFORMITY D/T RA, MULTIPLE COMORBIDITIES AND DECREASED PN TOLERANCE. RENEE CAAL PT Initialized on 07/11/20 20:04 - END OF NOTE 07/11/20 15:34 Nursing Note by Niya Leigh WAS HERE 07/10/2020 AT 19:37. NO SURGERY OR PROCEDURE PLANNED AT THIS TIME. Initialized on 07/11/20 15:34 - END OF NOTE 07/11/20 12:56 Nursing Note by JAYASHREE BURNS PT MOVED FROM CHAIR TO BED WITH REBECCA LIFT. PT'S LEFT KNEE HEMATOMA NOW IS FLUID FILLED ON UPPER PORTION. WILL CONTINUE TO MONITOR. Initialized on 07/11/20 12:56 - END OF NOTE 07/11/20 10:55 Case Management Note by Mandie Shaw PATIENT ACUTELY ILL, WILL CONTINUE TO FOLLOW Initialized on 07/11/20 10:55 - END OF NOTE (2) Fall Current Visit: Yes Status: Resolved Qualifiers: Encounter type: sequela Qualified Code(s): W19.XXXS - Unspecified fall, sequela Code(s): W19.XXXA - UNSPECIFIED FALL, INITIAL ENCOUNTER (3) Head injury Current Visit: Yes Status: Resolved Qualifiers: Encounter type: sequela Qualified Code(s): S09.90XS - Unspecified injury of head, sequela Code(s): S09.90XA - UNSPECIFIED INJURY OF HEAD, INITIAL ENCOUNTER (4) Anemia of chronic renal failure Current Visit: Yes Status: Chronic Code(s): N18.9 - CHRONIC KIDNEY DISEASE, UNSPECIFIED; D63.1 - ANEMIA IN CHRONIC KIDNEY DISEASE (5) Hypertension Current Visit: Yes Status: Chronic Qualifiers: Code(s): I10 - ESSENTIAL (PRIMARY) HYPERTENSION
[2020-07-12] MEDS: Coreg 6.25 MG PO SCH (10:24)
[2020-07-12] MEDS: PROTONIX 40 MG IV IV SCH (10:24)
[2020-07-12] MEDS: NORVASC 5 MG PO SCH (10:24)
[2020-07-12] MEDS: Artificial Tears 15 ML OP SCH ×2 (10:26→22:09)
[2020-07-12] MEDS: Colace 100 MG PO SCH (10:27)
[2020-07-12] MEDS: Levofloxacin 250MG Tablet PO SCH (10:29)
[2020-07-12] MEDS ORDERED: Zofran 4 MG/2 ML VIAL IV PRN (15:37)
--- NOTE | 2020-07-12 16:19 | XRAY ---
Indication: Fever and cough. Comparison: July 05, 2020. Portable chest demonstrates new right midlung patchy airspace opacity without consolidation/pleural effusion. Remaining chest unchanged with stable left base subsegmental atelectasis/scarring, tiny hilar calcified granulomas, cardiomegaly, osteopenia, bony degenerative changes, and old right humerus neck fracture.
[2020-07-12] MEDS: Zestril 5 MG PO SCH (16:44)
[2020-07-12] MEDS: COREG 12.5 MG PO SCH ×2 (16:44→19:55)
[2020-07-13] MEDS: TYLENOL 325 MG PO PRN (04:12)
[2020-07-13] MEDS: Hydromorphone 1 mg/ml Injection IV PRN ×4 (04:12→16:27)
[2020-07-13] MEDS: Artificial Tears 15 ML OP SCH ×2 (09:53→21:16)
[2020-07-13] MEDS: Colace 100 MG PO SCH (09:53)
[2020-07-13] MEDS: Sodium Chloride 0.9% 1000 ML 1,000 ML IV SCH ×2 (09:53→22:00)
[2020-07-13] MEDS: NORVASC 5 MG PO SCH (09:54)
[2020-07-13] MEDS: PROTONIX 40 MG IV IV SCH (09:54)
[2020-07-13] MEDS: COREG 12.5 MG PO SCH ×2 (09:54→21:16)
[2020-07-13] MEDS: Zestril 5 MG PO SCH (09:55)
[2020-07-13] MEDS: Levofloxacin 250MG Tablet PO SCH ×2 (09:56→09:57)
--- NOTE | 2020-07-13 10:00 | PCM.NOTE ---
Date and Time: 07/13/20 0958 Subjective Assessment: still running fever, CXR showed pneumonia - Review of Systems Constitutional: Weakness, No Fever, No Chills Eyes: No Symptoms Ears, Nose, & Throat: No Symptoms Respiratory: Orthopnea, Short Of Breath, No Cough Cardiac: Edema, No Chest Pain, No Syncope Abdominal/Gastrointestinal: No Abdominal Pain, No Nausea, No Vomiting, No Diarrhea Genitourinary Symptoms: No Dysuria Musculoskeletal: No Back Pain, No Neck Pain Skin: No Rash Neurological: No Dizziness, No Focal Weakness, No Sensory Changes Psychological: No Symptoms Endocrine: No Symptoms Hematologic/Lymphatic: No Symptoms Immunological/Allergic: No Symptoms Objective Exam General Appearance: no apparent distress, alert Neurologic Exam: alert, oriented x 3, cooperative, normal mood/affect, nml cerebellar function, sensation nml, No motor deficits Skin Exam: normal color, warm, dry Wound Assessment: Skin/Wound Assessment Wound/Incision Assessment Start: 07/06/20 00:47 Text: Status: Active Freq: Q6H Protocol: Document 07/13/20 07:43 [facility] (Rec: 07/13/20 08:05 [facility] [id number]) Wound/Incision Assessment Right Temporal Wound Assessment Shift Assessment Wound Type HEMATOMA Wound Stage Non Pressure Wound Drainage Amount None General Appearance Open to air Left Knee Wound Assessment Shift Assessment Wound Type HEMATOMA Wound Stage Non Pressure Wound Drainage Amount None Drainage Odor None/Absent Surrounding Tissue Dennison Comment FLUID FILLED BOTTOM LEFT FOOT Wound Assessment Shift Assessment Wound Type ULCER Wound Stage Non Pressure Wound Dressing Status Dry & Intact Drainage Amount None Drainage Odor None/Absent Primary Dressing Non-Adherent Gauze Pads Secondary Dressing Gauze Roll/Wrap Comment UNABLE TO ASSESS WOUND DUE TO DRESSING Posterior Buttock Wound Assessment Shift Assessment Wound Type Pressure Ulcer Wound Stage Stage II Drainage Amount None Drainage Odor None/Absent General Appearance Open to air Length (cm) (cm) 3 Width (cm) (cm) 3 Wound Bed Greatest Portion Pale Dennison Surrounding Tissue Blanched/Dull Comment RIGHT AND LEFT BUTTOCKS, BARREIR CREAM APPLIED Left Arm Wound Assessment Shift Assessment Wound Type Skin Tear Wound Stage Non Pressure Wound Dressing Status Dry & Intact Drainage Amount None Drainage Odor None/Absent General Appearance Well Approximated,Asymptomatic Primary Dressing TEGADERM Wound Photo Photo Taken No Comment: previously placed on chart Eye Exam: PERRL, EOMI, eyes nml inspection Ears, Nose, Throat Exam: normal ENT inspection, pharynx normal, moist mucous membranes Neck Exam: normal inspection, non-tender, supple, full range of motion Respiratory Exam: diminished breath sounds, crackles/rales, rhonchi, wheezing, No respiratory distress Cardiovascular Exam: regular rate/rhythm, normal heart sounds Gastrointestinal/Abdomen Exam: soft, No tenderness, No mass Extremity Exam: normal inspection, normal range of motion Back Exam: normal inspection, normal range of motion, No CVA tenderness, No vertebral tenderness Pelvic Exam: deferred Rectal Exam: deferred OBJECTIVE DATA Vital Signs: Vital Signs - 24 hr Temp Pulse Resp BP BP Pulse Ox 07/13/20 08:00 97.9 F 73 18 169/66 156/69 95 07/13/20 04:00 100.2 F 75 21 164/75 98 07/13/20 00:00 99.2 F 72 17 152/64 96 07/12/20 22:30 98 07/12/20 20:00 100.2 F 81 19 163/71 98 07/12/20 17:13 79 18 98 07/12/20 16:00 98.4 F 80 22 179/76 98 07/12/20 11:27 98.1 F 78 18 172/77 99 Pain Assessment - Last Documented Pain Intensity 4 Pain Scale Used [facility] Intake and Output: Intake & Output 07/10/20 07/11/20 07/12/20 07/13/20 11:59 11:59 11:59 11:59 Intake Total 1280 1483 2310 1527 Output Total 1550 2050 1700 2550 Balance -270 567 610 -1023 Weight 88.7 kg 85.6 kg 83.6 kg 83.4 kg Lab Results: Lab Results-Last 24 Hours 07/12/20 07/12/20 07/12/20 Range/Units 11:13 16:07 21:20 POC Glucometer 151 H 164 H 139 H (74 to 106) mg/dL 07/13/20 Range/Units 06:41 POC Glucometer 139 H (74 to 106) mg/dL Radiology Exams: Radiology Procedures Category Date Time Status CHEST 1 VIEW (PORTABLE) Routine Exams 07/12/20 16:04 Completed Portable chest demonstrates new right midlung patchy airspace opacity without consolidation/pleural effusion. Remaining chest unchanged with stable left base subsegmental atelectasis/scarring, tiny hilar calcified granulomas, cardiomegaly, osteopenia, bony degenerative changes, and old right humerus neck fracture Multi-Disciplinary Progress Notes: Multi-Disciplinary Progress Notes 07/13/20 08:42 Case Management Note by Mandie Shaw PATIENT HAD FEVER OVERNIGHT. [facility] WAS NOTIFIED- THEY ARE REQUESTING A COVID TEST AND THAT PATIENT STAY AT [facility] OVER THE WEEKEND AND RE-EVALUATE CASE ON THURSDAY. HS NOTIFIED AND WILL NOTIFY DR. PIPER Initialized on 07/13/20 08:42 - END OF NOTE 07/12/20 12:36 Case Management Note by Mandie Shaw Addendum entered by Mandie Shaw 07/12/20 12:37: ALSO UPDATED PATIENT HOWEVER SHE STILL SEEMS CONFUSED AT THIS TIME IN CONVERSATION Original Note: SON UPDATED THAT [facility] SHOULD BE ABLE TO TAKE PATIENT. THE PLAN WILL BE FOR HER TO DC TOMORROW. HE VERIFIED UNDERSTANDING Initialized on 07/12/20 12:36 - END OF NOTE 07/12/20 12:16 Case Management Note by Mandie Shaw UPDATED PACKET SENT TO [facility] Initialized on 07/12/20 12:16 - END OF NOTE 07/12/20 11:47 Physical Therapy Note by Wen White PT. SEEN BY PT THIS DATE TO CONTINUE REHAB FOR WEAKNESS AND DECREASED INDEPENDENCE W/ FUNCTIONAL MOBILITY. PT.ALERT AND VERY TALKATIVE TODAY. PATIENT FIXATED ON BEING ABLE TO TALK TO SON. NURSING PRESENT AND REASSURED PATIENT MULTIPLE TIMES THEY WOULD FIND HIS NUMBER AND CALL HIM. PATIENT CONFUSED AT TIMES WITH SOME HALLUCINATIONS - HAD JUST RECEIVED DILAUDID PRIOR TO THERAPY. PATIENT SEEING CATS IN ROOM AND USING CALL LIGHT PHONE. PT. IN BED UPON P.T. ARRIVAL TO ROOM. NURSE ASSISTED W/ FUNCTIONAL MOBILITY. PT. CONTINUES TO REPORT SEVERE LE PN W/ ANY ATTEMPT AT RANGE OF MOTION. WAS ABLE TO MOVE LEGS TO EDGE OF BED WITH THERAPIST ASSISTING WITH SLIDING HIPS ONLY USING DRAW SHEET. PATIENT ABLE TO ABD/ADDUCT LEGS INDEP. PERFORMED SUPINE TO SIT W/ MOD ASSIST X 2; SIT TO STAND AND STAND-PIVOT TRANSFER W/ RW AND MAX ASSIST X 2. PT. WAS UNABLE TO GET HIPS OVER FEET TO STAND WITH WALKER PT. WAS FEARFUL AND CRYING OUT WITH PAIN. WITH TRANSFERS PALPABLE CREPITUS IN SHOULDERS. DURING TRANSFER NOTED BLEEDING FROM RIGHT KNEE UNDER TUBIGRIP. HEMATOMA HAD STARTED DRAINING. NURSING WAS PRESENT AND APPLIED 2X2 GAUZES UNDER TUBIGRIP FOR PRESSURE. WILL CONTINUE TO SEE PATIENT 5X WEEK DURING HOSPITALIZATION. REHAB PROGNOSIS IS GUARDED D/T SEVERE JOINT DEFORMITY D/T RA, MULTIPLE COMORBIDITIES AND DECREASED PN TOLERANCE. WEN WHITE, PT Initialized on 07/12/20 11:47 - END OF NOTE Assessment/Plan (1) Chronic renal failure Current Visit: Yes Status: Acute Qualifiers: Chronic kidney disease stage: stage 4 (severe) Qualified Code(s): N18.4 - Chronic kidney disease, stage 4 (severe) (2) Fall Current Visit: Yes Status: Resolved Qualifiers: Encounter type: sequela Qualified Code(s): W19.XXXS - Unspecified fall, sequela Code(s): W19.XXXA - UNSPECIFIED FALL, INITIAL ENCOUNTER (3) Head injury Current Visit: Yes Status: Resolved Qualifiers: Encounter type: sequela Qualified Code(s): S09.90XS - Unspecified injury of head, sequela Code(s): S09.90XA - UNSPECIFIED INJURY OF HEAD, INITIAL ENCOUNTER (4) Anemia of chronic renal failure Current Visit: Yes Status: Chronic Code(s): N18.9 - CHRONIC KIDNEY DISEASE, UNSPECIFIED; D63.1 - ANEMIA IN CHRONIC KIDNEY DISEASE (5) Hypertension Current Visit: Yes Status: Chronic Qualifiers: Code(s): I10 - ESSENTIAL (PRIMARY) HYPERTENSION (6) Pneumonia Current Visit: Yes Status: Acute Qualifiers: Pneumonia type: due to Klebsiella pneumoniae Laterality: right Lung location: middle lobe of lung Qualified Code(s): J15.0 - Pneumonia due to Klebsiella pneumoniae Assessment & Plan: Chief Complaint Diagnosis multiple contusions/hematomas; chronic renal failure,elevated trop Admission Date Date 07/06/20 Allergies Allergy/AdvReac Type Severity Reaction Status Date / Time cefaclor [From Ceclor] Allergy Intermediate Verified 07/05/20 19:54 shellfish derived Allergy Intermediate Verified 07/05/20 19:54 sulfamethoxazole Allergy Intermediate Verified 07/05/20 19:54 venom-honey bee Allergy Intermediate Verified 07/05/20 19:54 [bee venom (honey bee)] cephalexin [From Keflex] Allergy Mild mouth sores Verified 07/05/20 19:54 Vital Signs (Last 24 hours) Temp Pulse Resp BP BP Pulse Ox 07/13/20 08:00 97.9 F 73 18 169/66 156/69 95 07/13/20 04:00 100.2 F 75 21 164/75 98 07/13/20 00:00 99.2 F 72 17 152/64 96 07/12/20 22:30 98 07/12/20 20:00 100.2 F 81 19 163/71 98 07/12/20 17:13 79 18 98 07/12/20 16:00 98.4 F 80 22 179/76 98 07/12/20 11:27 98.1 F 78 18 172/77 99 Home Medications Medication Instructions Recorded Confirmed Last Taken Type Acetaminophen 325 mg [Tylenol 650 mg PO Q4HPRN PRN 07/05/20 07/05/20 Unknown History 325 mg] Albuterol 8 gm Mdi Hfa 2 puff IH Q4HPRN PRN 07/05/20 07/05/20 Unknown History [Ventolin Hfa MDI] Furosemide [Lasix] 20 mg PO DAILY 07/05/20 07/05/20 07/05/20 08:00 History Oxybutynin Chloride Xl 5 mg 5 mg PO BID 07/05/20 07/05/20 07/05/20 19:00 History [Ditropan XL 5 MG] Sitagliptin Phos/Metformin HCl 1 tab PO DAILY 07/05/20 07/05/20 07/05/20 08:00 History [Janumet Xr 100-1,000 mg Tablet] lisinopriL [Lisinopril] 5 mg PO DAILY 07/05/20 07/05/20 07/05/20 08:00 History Benzonatate [Tessalon Perle] 100 mg PO Q6H 07/06/20 07/06/20 Unknown History Current Medications Generic Name Dose Route Start Last Admin Trade Name Freq PRN Reason Stop Dose Admin Acetaminophen 650 mg 07/07/20 09:37 07/13/20 04:12 Tylenol 325 Mg PO 08/06/20 09:36 650 mg Q4H PRN PRN Administration PAIN AND/OR FEVER Albuterol/Ipratropium 3 ml 07/05/20 23:51 Duoneb 0.5-3 Mg/3 Ml Neb IH 08/04/20 23:50 Q4HPRN PRN SHORTNESS OF BREATH/WHEEZING Amlodipine Besylate 5 mg 07/10/20 12:06 07/13/20 09:54 Norvasc 5 Mg PO 08/09/20 12:05 5 mg QAM PAOLA Administration Artificial Tears 0 ml 07/06/20 10:00 07/13/20 09:53 Artificial Tears 15 Ml OP 08/05/20 09:59 1 ml BID PAOLA Administration Carvedilol 12.5 mg 07/12/20 16:30 07/13/20 09:54 Coreg 12.5 Mg PO 08/11/20 16:29 12.5 mg BID PAOLA Administration Diphenhydramine HCl 25 mg 07/10/20 12:07 Benadryl 25 Mg Capsule PO 08/09/20 12:06 Q6H PRN PRN ALLERGIES Docusate Sodium 200 mg 07/06/20 10:00 07/13/20 09:53 Colace 100 Mg PO 08/05/20 09:59 200 mg DAILY PAOLA Administration Heparin Sodium (Beef Lung) 0 units 07/09/20 11:45 Heparin Lock Flush 100 Units/Ml 5ml Syringe IV 08/08/20 11:44 UD PRN Hydromorphone HCl 0.4 mg 07/11/20 10:16 07/13/20 09:52 Hydromorphone 1 Mg/Ml Injection IV 07/16/20 10:15 0.4 mg Q2H PRN PRN Administration PAIN Sodium Chloride 1,000 mls @ 80 mls/hr 07/12/20 07:30 07/13/20 09:53 Sodium Chloride 0.9% 1000 Ml IV 08/11/20 07:29 80 mls/hr .[id number] PAOLA Administration Levofloxacin 250 mg 07/12/20 10:00 07/13/20 09:57 Levofloxacin 250mg Tablet PO 08/11/20 09:59 Not Given Q48H PAOLA Lisinopril 5 mg 07/12/20 16:45 07/13/20 09:55 Zestril 5 Mg PO 08/11/20 16:44 5 mg DAILY PAOLA Administration Ondansetron HCl 4 mg 07/12/20 15:37 07/12/20 15:42 Zofran 4 Mg/2 Ml Vial IV 08/11/20 15:36 4 mg Q6H PRN PRN Administration NAUSEA/VOMITING Pantoprazole Sodium 40 mg 07/07/20 10:00 07/13/20 09:54 Protonix 40 Mg Iv IV 08/06/20 09:59 40 mg DAILY PAOLA Administration Fluticasone/Salmeterol 2 puff 07/06/20 07:00 07/12/20 17:12 Advair Hfa 115/21 Common Canister* IH 08/05/20 06:59 2 puff BIDRT PAOLA Administration Sodium Chloride 10 ml 07/09/20 11:45 Sodium Chloride 0.9% 10 Ml Flush Syringe IV 08/08/20 11:44 PRN PRN Discontinued Medications Generic Name Dose Route Start Last Admin Trade Name Freq PRN Reason Stop Dose Admin Hydrocodone Bitart/Acetaminophen 1 tab 07/06/20 08:00 07/09/20 07:53 Cameron 7.5/325 Mg Tab PO 07/11/20 07:59 Not Given Q6H PAOLA Albuterol/Ipratropium 3 ml 07/06/20 07:00 07/09/20 06:40 Duoneb 0.5-3 Mg/3 Ml Neb IH 08/05/20 06:59 3 ml QIDRT PAOLA Administration Alendronate Sodium 70 mg 07/07/20 06:00 Fosamax 70 Mg PO 08/06/20 05:59 WEEKLY PAOLA Alendronate Sodium 70 mg 07/07/20 06:00 07/07/20 06:20 Fosamax 70 Mg PO 07/07/20 06:01 Not Given ONCE ONE Amlodipine Besylate 2.5 mg 07/06/20 10:00 Norvasc 5 Mg PO 08/05/20 09:59 QAM PAOLA Amlodipine Besylate 5 mg 07/06/20 10:00 07/06/20 09:35 Norvasc 5 Mg PO 08/05/20 09:59 5 mg DAILY PAOLA Administration Benzonatate 100 mg 07/06/20 12:00 07/07/20 06:20 Tessalon Perles 100 Mg PO 08/05/20 11:59 Not Given Q6HT [facility] Bumetanide 1 mg 07/06/20 10:00 Bumex 1 Mg PO 08/05/20 09:59 DAILY PAOLA Calcium Carbonate 1 tab 07/06/20 10:00 07/06/20 21:02 Calcium 500mg W/Vit D Tablet PO 08/05/20 09:59 1 tab TID PAOLA Administration Carvedilol 3.125 mg 07/06/20 10:00 07/10/20 10:12 Coreg 3.125 Mg PO 08/05/20 09:59 3.125 mg BID PAOLA Administration Carvedilol 6.25 mg 07/10/20 22:00 07/12/20 10:24 Coreg 6.25 Mg PO 08/09/20 21:59 6.25 mg BID PAOLA Administration Carvedilol Confirm 07/10/20 19:32 Coreg 6.25 Mg Administered 07/10/20 19:33 Dose 6.25 mg .ROUTE .STK-MED ONE Cholecalciferol 1,000 unit 07/06/20 10:00 07/06/20 09:34 Vitamin D PO 08/05/20 09:59 1,000 unit DAILY [facility] Administration Device 1 07/10/20 06:00 07/10/20 10:13 Trough Drug Levels IJ 07/10/20 06:01 1 1XONLY ONE Administration Diphtheria/Tetanus/Acell Pertussis 0.5 ml 07/05/20 20:36 07/05/20 21:42 Adacel Vial IM 07/05/20 20:37 Not Given .ONCE ONE Donepezil HCl 5 mg 07/06/20 22:00 07/06/20 21:01 Aricept 10 Mg PO 08/05/20 21:59 5 mg HS PAOLA Administration Famotidine 20 mg 07/06/20 10:00 07/06/20 21:03 Pepcid 20 Mg Vial IV 08/05/20 09:59 20 mg Q12HT PAOLA Administration Fentanyl Citrate 25 mcg 07/10/20 12:05 07/11/20 08:50 Sublimaze 100 Mcg/2 Ml IV 07/15/20 12:04 25 mcg Q4H PRN PRN Administration SEVERE PAIN Ferrous Sulfate 325 mg 07/06/20 10:00 07/06/20 21:01 Feosol 325 Mg PO 08/05/20 09:59 325 mg BID PAOLA Administration Folic Acid 1 mg 07/06/20 10:00 07/06/20 09:34 Folate 1 Mg PO 08/05/20 09:59 1 mg DAILY PAOLA Administration Furosemide 20 mg 07/06/20 10:00 Lasix 20 Mg PO 08/05/20 09:59 DAILY PAOLA Gabapentin 200 mg 07/06/20 10:00 07/06/20 21:02 Neurontin 100 Mg PO 08/05/20 09:59 200 mg BID PAOLA Administration Gemfibrozil 600 mg 07/06/20 10:00 07/06/20 22:21 Lopid 600 Mg PO 08/05/20 09:59 600 mg BID PAOLA Administration Heparin Sodium (Beef Lung) Confirm 07/08/20 08:22 Heparin Lock Flush 100 Units/Ml 5ml Syringe Administered 07/08/20 08:23 Dose 500 units .ROUTE .STK-MED ONE Sodium Chloride 1,000 mls @ 100 mls/hr 07/05/20 20:00 07/05/20 21:39 Sodium Chloride 0.9% 1000 Ml IV 08/04/20 19:59 100 mls/hr .Q10H PAOLA Administration Sodium Chloride Confirm 07/05/20 20:51 Sodium Chloride 0.9% 1000 Ml Administered 07/05/20 20:52 Dose 1,000 mls @ ud .ROUTE .STK-MED ONE Levofloxacin/Dextrose 500 mg in 100 mls @ 100 mls/hr 07/06/20 10:00 07/06/20 09:33 Levofloxacin 500mg/100ml D5w IV 07/06/20 10:59 100 mls/hr Q24H10 PAOLA Administration Levofloxacin/Dextrose 250 mg in 50 mls @ 50 mls/hr 07/08/20 10:00 Levaquin 250mg/50ml D5w IV 08/07/20 09:59 Q48H PAOLA Sodium Chloride 1,000 mls @ 100 mls/hr 07/06/20 14:00 07/10/20 21:25 Sodium Chloride 0.9% 1000 Ml IV 08/05/20 13:59 Not Given .Q10H PAOLA Meropenem 1 g/ Sodium Chloride 100 mls @ 100 mls/hr 07/07/20 10:00 07/11/20 08:49 IV 08/06/20 09:59 100 mls/hr Q24H10 PAOLA Administration Vancomycin HCl 1 gm in 200 mls @ 100 mls/hr 07/08/20 11:00 07/08/20 10:52 Vancomycin 1 Gram/200 Ml Bag IV 08/07/20 10:59 100 mls/hr Q72H PAOLA Administration Vancomycin HCl 1 gm in 200 mls @ 100 mls/hr 07/10/20 11:00 07/10/20 11:45 Vancomycin 1 Gram/200 Ml Bag IV 08/09/20 10:59 100 mls/hr Q48H PAOLA Administration Sodium Chloride 1,000 mls @ 80 mls/hr 07/11/20 10:16 07/11/20 10:47 Sodium Chloride 0.9% 1000 Ml IV 07/11/20 22:45 80 mls/hr .[id number] STA Administration Insulin Human Regular 0 unit 07/05/20 23:51 Humulin R SQ 08/04/20 23:50 UD PRN HYPERGLYCEMIA Lidocaine HCl Confirm 07/06/20 07:31 Xylocaine 1% Hcl 20 Ml Mdv Administered 07/06/20 07:32 Dose 1 ml .ROUTE .STK-MED ONE Lisinopril 5 mg 07/06/20 10:00 Zestril 5 Mg PO 08/05/20 09:59 DAILY PAOLA Magnesium Oxide 400 mg 07/06/20 10:00 07/06/20 09:34 Mag-Ox 400 PO 08/05/20 09:59 400 mg DAILY PAOLA Administration Metformin HCl 1,000 mg 07/07/20 08:00 07/07/20 10:34 Glucophage Xr 500 Mg PO 08/06/20 07:59 Not Given QAM@0800 PAOLA Morphine Sulfate 5 mg 07/05/20 20:36 07/05/20 20:41 Morphine Sulfate 10 Mg/Ml IV 07/05/20 20:37 5 mg STAT ONE Administration Morphine Sulfate Confirm 07/05/20 20:41 Morphine Sulfate 10 Mg/Ml Administered 07/05/20 20:42 Dose 10 mg .ROUTE .STK-MED ONE Morphine Sulfate 4 mg 07/05/20 23:51 07/06/20 03:25 Morphine Sulfate 4 Mg Inj IV 07/10/20 23:50 4 mg Q3H/PRN PRN Administration PAIN Non-Formulary Medication 1 each 07/07/20 08:35 07/08/20 11:23 Pharmacy Dosing Request 07/07/20 08:36 1 each STAT ONE Administration Non-Formulary Medication 1 each 07/08/20 09:20 07/08/20 11:23 Pharmacy Dosing Required: Vancomycin IV 07/08/20 09:21 1 each STAT STA Administration Ondansetron HCl 4 mg 07/05/20 23:51 Zofran 4 Mg/2 Ml Vial IV 08/04/20 23:50 Q6H PRN PRN NAUSEA/VOMITING Pantoprazole Sodium 40 mg 07/06/20 10:00 Protonix 40 Mg Iv IV 08/05/20 09:59 Q24H10 PAOLA Pantoprazole Sodium 40 mg 07/06/20 10:00 07/06/20 21:01 Protonix 40mg Tablet PO 08/05/20 09:59 40 mg BID PAOLA Administration Paroxetine HCl 20 mg 07/06/20 10:00 07/06/20 09:35 Paxil 20 Mg PO 08/05/20 09:59 20 mg DAILY PAOLA Administration Patient Own Med : 0 each 07/06/20 10:00 07/06/20 10:43 Xeljanz 5 Mg PO 08/05/20 09:59 Not Given DAILY PAOLA Polyethylene Glycol 17 gm 07/06/20 11:00 07/06/20 15:02 Miralax Powder 17gm Packet PO 08/05/20 10:59 Not Given DAILY PAOLA Prednisone 10 mg 07/06/20 10:00 07/06/20 09:35 Deltasone 10 Mg PO 08/05/20 09:59 10 mg DAILY PAOLA Administration Quetiapine Fumarate 100 mg 07/06/20 22:00 07/06/20 21:03 Seroquel 100 Mg PO 08/05/20 21:59 100 mg HS PAOLA Administration Sitagliptin Phosphate 100 mg 07/07/20 08:00 07/07/20 10:33 Januvia 50 Mg PO 08/06/20 07:59 Not Given QAM@0800 PAOLA Intake & Output (Last 24 hours) 07/10/20 07/11/20 07/12/20 07/13/20 11:59 11:59 11:59 11:59 Intake Total 1280 1483 2310 1527 Output Total 1550 2050 1700 2550 Balance -270 567 610 -1023 Weight 88.7 kg 85.6 kg 83.6 kg 83.4 kg Microbiology Results (Last 24 hours) 07/13/20 09:30 Blood Blood Culture Gram Stain - Pending 07/13/20 09:30 Blood Blood Culture - Pending Laboratory Results (Last 24 hours) 07/13/20 07/12/20 07/12/20 06:41 21:20 16:07 POC Glucometer 139 H 139 H 164 H 07/12/20 11:13 POC Glucometer 151 H Orders (Last 24 hours) Category Date Time Status CHEST 1 VIEW (PORTABLE) Routine Exams 07/12/20 16:04 Completed BLOOD CULTURE Urgent Lab 07/13/20 09:30 Received CBC W DIFF AM.LAB Lab 07/14/20 04:00 Ordered CMP AM.LAB Lab 07/14/20 04:00 Ordered POCT GLUCOSE Stat Lab 07/12/20 11:13 Completed POCT GLUCOSE Stat Lab 07/12/20 16:07 Completed POCT GLUCOSE Stat Lab 07/12/20 21:20 Completed POCT GLUCOSE Stat Lab 07/13/20 06:41 Completed Carvedilol 12.5 mg [Coreg 12.5 mg] Med 07/12/20 16:30 Active 12.5 mg PO BID Levofloxacin [Levofloxacin 250MG Tablet] Med 07/12/20 10:00 Active 250 mg PO Q48H Lisinopril 5 mg [Zestril 5 MG] Med 07/12/20 16:45 Active 5 mg PO DAILY Ondansetron HCl 4 mg/2 ml [Zofran 4 MG/2 ML VIAL] Med 07/12/20 15:37 Active 4 mg IV Q6H PRN PRN Patient Care Notes (Last 24 hours) 07/13/20 08:42 Case Management Note by Mandie Shaw PATIENT HAD FEVER OVERNIGHT. [facility] WAS NOTIFIED- THEY ARE REQUESTING A COVID TEST AND THAT PATIENT STAY AT [facility] OVER THE WEEKEND AND RE-EVALUATE CASE ON THURSDAY. HS NOTIFIED AND WILL NOTIFY DR. PIPER Initialized on 07/13/20 08:42 - END OF NOTE 07/12/20 16:24 Nursing Note by JAYASHREE BURNS DR. CALLED AND UPDATE ON PT'S BP AND CHEST XRAY. NEW ORDERS TO INCREASE COREG TO 12.5 MG PO BID AND ADD HOME MED LISINOPRIL 5 MG DAILY. Initialized on 07/12/20 16:24 - END OF NOTE 07/12/20 12:36 Case Management Note by Mandie Shaw Addendum entered by Mandie Shaw 07/12/20 12:37: ALSO UPDATED PATIENT HOWEVER SHE STILL SEEMS CONFUSED AT THIS TIME IN CONVERSATION Original Note: SON UPDATED THAT [facility] SHOULD BE ABLE TO TAKE PATIENT. THE PLAN WILL BE FOR HER TO DC TOMORROW. HE VERIFIED UNDERSTANDING Initialized on 07/12/20 12:36 - END OF NOTE 07/12/20 12:16 Case Management Note by Mandie Shaw UPDATED PACKET SENT TO [facility] Initialized on 07/12/20 12:16 - END OF NOTE 07/12/20 11:47 Physical Therapy Note by Wen White PT. SEEN BY PT THIS DATE TO CONTINUE REHAB FOR WEAKNESS AND DECREASED INDEPENDENCE W/ FUNCTIONAL MOBILITY. PT.ALERT AND VERY TALKATIVE TODAY. PATIENT FIXATED ON BEING ABLE TO TALK TO SON. NURSING PRESENT AND REASSURED PATIENT MULTIPLE TIMES THEY WOULD FIND HIS NUMBER AND CALL HIM. PATIENT CONFUSED AT TIMES WITH SOME HALLUCINATIONS - HAD JUST RECEIVED DILAUDID PRIOR TO THERAPY. PATIENT SEEING CATS IN ROOM AND USING CALL LIGHT PHONE. PT. IN BED UPON P.T. ARRIVAL TO ROOM. NURSE ASSISTED W/ FUNCTIONAL MOBILITY. PT. CONTINUES TO REPORT SEVERE LE PN W/ ANY ATTEMPT AT RANGE OF MOTION. WAS ABLE TO MOVE LEGS TO EDGE OF BED WITH THERAPIST ASSISTING WITH SLIDING HIPS ONLY USING DRAW SHEET. PATIENT ABLE TO ABD/ADDUCT LEGS INDEP. PERFORMED SUPINE TO SIT W/ MOD ASSIST X 2; SIT TO STAND AND STAND-PIVOT TRANSFER W/ RW AND MAX ASSIST X 2. PT. WAS UNABLE TO GET HIPS OVER FEET TO STAND WITH WALKER PT. WAS FEARFUL AND CRYING OUT WITH PAIN. WITH TRANSFERS PALPABLE CREPITUS IN SHOULDERS. DURING TRANSFER NOTED BLEEDING FROM RIGHT KNEE UNDER TUBIGRIP. HEMATOMA HAD STARTED DRAINING. NURSING WAS PRESENT AND APPLIED 2X2 GAUZES UNDER TUBIGRIP FOR PRESSURE. WILL CONTINUE TO SEE PATIENT 5X WEEK DURING HOSPITALIZATION. REHAB PROGNOSIS IS GUARDED D/T SEVERE JOINT DEFORMITY D/T RA, MULTIPLE COMORBIDITIES AND DECREASED PN TOLERANCE. WEN WHITE, PT Initialized on 07/12/20 11:47 - END OF NOTE Code(s): J18.9 - PNEUMONIA, UNSPECIFIED ORGANISM
[2020-07-13] MEDS: Advair Hfa 115/21 Common canister IH SCH ×2 (11:14→19:10)
[2020-07-14] MEDS: Hydromorphone 1 mg/ml Injection IV PRN (03:13)
[2020-07-14] MEDS: TYLENOL 325 MG PO PRN (03:25)
[2020-07-14 06:06] LABS: Absolute Neutrophil Ct (ANC) 4.18 (1.4-6.9); BASOPHIL % 0.3 % (0.0-0.4); Basophil (Absolute #) 0.02 (0-0.4); Eosinophil (Absolute #) 0.13 (0-0.5); Hematocrit 28.3 % (35-47); Hemoglobin 8.6 gm/dl (12.0-16.0); Lymphocyte (Absolute #) 1.29 (1.0-4.6); Lymphocytes % 20.1 % (24.0-44.0); Mean Cell Volume 101.8 fl (78-100); Mean Corpuscular Hemoglobin 30.9 pg (26-32); Mean Corpuscular Hgb Concent. 30.4 g/dl (32-36); Mean Platelet Volume 9.6 fl (7.5-11.0); Monocyte (Absolute #) 0.79 (0.0-1.3); Monocytes % 12.3 % (0.0-12.0); Neutrophil % 65.3 % (36.0-66.0); Platelet Count 119 K/mm3 (150-450); Red Blood Count 2.78 M/mm3 (4.1-5.4); Red Cell Distribution Width 16.5 % (11.5-14.0); White Blood Count 6.4 K/mm3 (4.0-10.5)
[2020-07-14 06:18] LABS: ALBUMIN 2.5 g/dL (3.5-5.0); ANION GAP 10.8 MEQ/L (5-15); BILIRUBIN,TOTAL 0.4 mg/dL (0.2-1.3); Calcium 8.4 mg/dL (8.4-10.2); Creatinine 1 2.98 mg/dL (0.52-1.04); EST GLOMERULAR FILTRATION RATE 16.2 ML/MIN; Potassium 3.8 mmol/L (3.5-5.1); Total Protein 5.4 g/dL (6.3-8.2)
[2020-07-14] MEDS: Advair Hfa 115/21 Common canister IH SCH ×2 (06:33→07:59)
[2020-07-14] MEDS: Sodium Chloride 0.9% 1000 ML 1,000 ML IV SCH (09:56)
[2020-07-14] MEDS: Zestril 5 MG PO SCH (09:58)
[2020-07-14] MEDS: COREG 12.5 MG PO SCH (09:58)
[2020-07-14] MEDS: Colace 100 MG PO SCH (09:58)
[2020-07-14] MEDS: NORVASC 5 MG PO SCH (10:01)
[2020-07-14] MEDS: PROTONIX 40 MG IV IV SCH (10:01)
--- NOTE | 2020-07-14 10:04 | PCM.NOTE ---
Date and Time: 07/14/20 1001 Subjective Assessment: doing little better. still running low grade fever. COVID test Pending - Review of Systems Constitutional: Fatigue, Lethargy, Weakness, No Fever, No Chills Eyes: No Symptoms Ears, Nose, & Throat: No Symptoms Respiratory: No Cough, No Short Of Breath Cardiac: No Chest Pain, No Edema, No Syncope Abdominal/Gastrointestinal: No Abdominal Pain, No Nausea, No Vomiting, No Diarrhea Genitourinary Symptoms: No Dysuria Musculoskeletal: Joint Swelling, No Back Pain, No Neck Pain Skin: No Rash Neurological: No Dizziness, No Focal Weakness, No Sensory Changes Psychological: No Symptoms Endocrine: No Symptoms Hematologic/Lymphatic: No Symptoms Immunological/Allergic: No Symptoms Objective Exam General Appearance: mild distress, alert Neurologic Exam: alert, oriented x 3, cooperative, motor weakness, No motor deficits Skin Exam: normal color, warm, dry Wound Assessment: Skin/Wound Assessment Wound/Incision Assessment Start: 07/06/20 00:47 Text: Status: Active Freq: Q6H Protocol: Document 07/14/20 08:00 SCOUT (Rec: 07/14/20 08:31 MARLYMAN [id number]) Wound/Incision Assessment Right Temporal Wound Assessment Shift Assessment Wound Type HEMATOMA Wound Stage Non Pressure Wound Drainage Amount None General Appearance Open to air Left Knee Wound Assessment Shift Assessment Wound Type HEMATOMA Wound Stage Non Pressure Wound Drainage Amount None Drainage Odor None/Absent Surrounding Tissue [place] Comment FLUID FILLED BOTTOM LEFT FOOT Wound Assessment Shift Assessment Wound Type ULCER Wound Stage Non Pressure Wound Dressing Status Dry & Intact Drainage Amount None Drainage Odor None/Absent Primary Dressing Non-Adherent Gauze Pads Secondary Dressing Gauze Roll/Wrap Comment UNABLE TO ASSESS WOUND DUE TO DRESSING Posterior Buttock Wound Assessment Shift Assessment Wound Type Pressure Ulcer Wound Stage Stage II Drainage Amount None Drainage Odor None/Absent General Appearance Open to air Length (cm) (cm) 3 Width (cm) (cm) 3 Wound Bed Greatest Portion Pale [place] Surrounding Tissue Blanched/Dull Comment RIGHT AND LEFT BUTTOCKS, BARRIER CREAM APPLIED Left Arm Wound Assessment Shift Assessment Wound Type Skin Tear Wound Stage Non Pressure Wound Dressing Status Dry & Intact Drainage Amount None Drainage Odor None/Absent General Appearance Well Approximated,Asymptomatic Primary Dressing TEGADERM Wound Photo Photo Taken No Comment: previously placed on chart Eye Exam: PERRL, EOMI, eyes nml inspection Ears, Nose, Throat Exam: normal ENT inspection, pharynx normal, moist mucous membranes Neck Exam: normal inspection, JVD Respiratory Exam: crackles/rales, rhonchi, wheezing, No respiratory distress Cardiovascular Exam: regular rate/rhythm, normal heart sounds Gastrointestinal/Abdomen Exam: soft, No tenderness, No mass Extremity Exam: normal inspection, normal range of motion Back Exam: normal inspection, normal range of motion, No CVA tenderness, No vertebral tenderness Pelvic Exam: deferred Rectal Exam: deferred OBJECTIVE DATA Vital Signs: Vital Signs - 24 hr Temp Pulse Resp BP Pulse Ox 07/14/20 07:59 73 16 97 07/14/20 07:37 98.5 F 70 14 136/101 98 07/14/20 06:05 68 17 96 07/14/20 04:00 99.9 F 77 23 136/101 96 07/13/20 23:54 99.1 F 76 23 152/65 96 07/13/20 19:42 99.3 F 74 15 163/69 98 07/13/20 19:11 72 24 98 07/13/20 16:00 73 20 136/61 96 07/13/20 12:00 88 19 140/68 96 07/13/20 11:15 71 21 97 Pain Assessment - Last Documented Pain Intensity 3 Pain Scale Used [facility] Intake and Output: Intake & Output 07/11/20 07/12/20 07/13/20 07/14/20 11:59 11:59 11:59 11:59 Intake Total 1483 2310 1527 2278 Output Total 2050 1700 2550 1750 Balance -567 610 -1023 528 Weight 85.6 kg 83.6 kg 83.4 kg Lab Results: Lab Results-Last 24 Hours 07/13/20 07/13/20 07/13/20 Range/Units 09:00 11:47 16:12 WBC (4.0-10.5) K/mm3 RBC (4.1-5.4) M/mm3 Hgb (12.0-16.0) gm/dl Hct (35-47) % MCV (78-100) fl MCH (26-32) pg MCHC (32-36) g/dl RDW (11.5-14.0) % Plt Count (150-450) K/mm3 MPV (7.5-11.0) fl Gran % (36.0-66.0) % Eos # (Auto) (0-0.5) Absolute Lymphs (auto) (1.0-4.6) Absolute Monos (auto) (0.0-1.3) Lymphocytes % (24.0-44.0) % Monocytes % (0.0-12.0) % Eosinophils % (0.00-5.0) % Basophils % (0.0-0.4) % Absolute Granulocytes (1.4-6.9) Basophils # (0-0.4) Sodium (137-145) mmol/L Potassium (3.5-5.1) mmol/L Chloride (98-107) mmol/L Carbon Dioxide (22-30) mmol/L Anion Gap (5-15) MEQ/L BUN (7-17) mg/dL Creatinine (0.52-1.04) mg/dL Estimated GFR ML/MIN Glucose (74-106) mg/dL POC Glucometer 126 H 124 H (74 to 106) mg/dL Calcium (8.4-10.2) mg/dL Total Bilirubin (0.2-1.3) mg/dL AST (14-36) U/L ALT (0-35) U/L Alkaline Phosphatase (38-126) U/L Serum Total Protein (6.3-8.2) g/dL Albumin (3.5-5.0) g/dL SARS-CoV-2 (PCR) NEGATIVE (NEGATIVE) 07/13/20 07/14/20 07/14/20 Range/Units 20:58 05:20 05:20 WBC 6.4 (4.0-10.5) K/mm3 RBC 2.78 L (4.1-5.4) M/mm3 Hgb 8.6 L (12.0-16.0) gm/dl Hct 28.3 L (35-47) % MCV 101.8 H (78-100) fl MCH 30.9 (26-32) pg MCHC 30.4 L (32-36) g/dl RDW 16.5 H (11.5-14.0) % Plt Count 119 L (150-450) K/mm3 MPV 9.6 (7.5-11.0) fl Gran % 65.3 (36.0-66.0) % Eos # (Auto) 0.13 (0-0.5) Absolute Lymphs (auto) 1.29 (1.0-4.6) Absolute Monos (auto) 0.79 (0.0-1.3) Lymphocytes % 20.1 L (24.0-44.0) % Monocytes % 12.3 H (0.0-12.0) % Eosinophils % 2.0 (0.00-5.0) % Basophils % 0.3 (0.0-0.4) % Absolute Granulocytes 4.18 (1.4-6.9) Basophils # 0.02 (0-0.4) Sodium 143 (137-145) mmol/L Potassium 3.8 (3.5-5.1) mmol/L Chloride 121 H (98-107) mmol/L Carbon Dioxide 14 L* (22-30) mmol/L Anion Gap 10.8 (5-15) MEQ/L BUN 43 H (7-17) mg/dL Creatinine 2.98 H (0.52-1.04) mg/dL Estimated GFR 16.2 ML/MIN Glucose 113 H (74-106) mg/dL POC Glucometer 101 (74 to 106) mg/dL Calcium 8.4 (8.4-10.2) mg/dL Total Bilirubin 0.40 (0.2-1.3) mg/dL AST 19 (14-36) U/L ALT 7 (0-35) U/L Alkaline Phosphatase 55 (38-126) U/L Serum Total Protein 5.4 L (6.3-8.2) g/dL Albumin 2.5 L (3.5-5.0) g/dL SARS-CoV-2 (PCR) (NEGATIVE) 07/14/20 Range/Units 06:32 WBC (4.0-10.5) K/mm3 RBC (4.1-5.4) M/mm3 Hgb (12.0-16.0) gm/dl Hct (35-47) % MCV (78-100) fl MCH (26-32) pg MCHC (32-36) g/dl RDW (11.5-14.0) % Plt Count (150-450) K/mm3 MPV (7.5-11.0) fl Gran % (36.0-66.0) % Eos # (Auto) (0-0.5) Absolute Lymphs (auto) (1.0-4.6) Absolute Monos (auto) (0.0-1.3) Lymphocytes % (24.0-44.0) % Monocytes % (0.0-12.0) % Eosinophils % (0.00-5.0) % Basophils % (0.0-0.4) % Absolute Granulocytes (1.4-6.9) Basophils # (0-0.4) Sodium (137-145) mmol/L Potassium (3.5-5.1) mmol/L Chloride (98-107) mmol/L Carbon Dioxide (22-30) mmol/L Anion Gap (5-15) MEQ/L BUN (7-17) mg/dL Creatinine (0.52-1.04) mg/dL Estimated GFR ML/MIN Glucose (74-106) mg/dL POC Glucometer 97 (74 to 106) mg/dL Calcium (8.4-10.2) mg/dL Total Bilirubin (0.2-1.3) mg/dL AST (14-36) U/L ALT (0-35) U/L Alkaline Phosphatase (38-126) U/L Serum Total Protein (6.3-8.2) g/dL Albumin (3.5-5.0) g/dL SARS-CoV-2 (PCR) (NEGATIVE) Radiology Exams: Radiology Procedures Category Date Time Status CHEST 1 VIEW (PORTABLE) Routine Exams 07/12/20 16:04 Completed Multi-Disciplinary Progress Notes: Multi-Disciplinary Progress Notes 07/13/20 17:55 Physical Therapy Note by Renee Caal PT. IN BED UPON P.T. ARRIVAL TO ROOM. PT. STILL RECEIVING DILLOTID FOR PN MG'T. PT. HAS BEEN CONFUSED AT TIMES AND HALLUCINATING W/ PN MED. NOTED MORE COUGHING TODAY. PERFORMED SUPINE TO SIT W/ MOD-MAX ASSIST X 2. SIT TO STAND MOD-MAX ASSIST X 2. PT. DID BEAR WEIGHT ON LES W/ MAX ASSIST X 2 AND UE/TRUNK SUPPORT ON WALKER. PT. CRIED OUT IN PN AND DID NOT WANT TO GET OUT OF BED BUT WAS ASSURED THAT IT WAS NECESSARY FOR HER RECOVERY AND TO HELP HER LUNGS. REHAB PROGNOSIS IS GUARDED D/T SEVERE WEAKNESS AND JOINT PN/DEFROMITY D/T RA. WILL CONT. PT 5X/WK UNTIL D/C. RENEE CAAL, PT Initialized on 07/13/20 17:55 - END OF NOTE 07/13/20 14:17 Nutrition Note by Bita Matute F/u note: Heart healthy diet and glucerna con't with 25-100% po intake. no recent labs; glucometer 126. fluid balance negative, pt with fever. goal of po intake >=50% not met consistently but improved and ongoing; goal of maintaining glu wnl not met and ongoing. Con't to recommend diet change to house regular. Will con't to monitor and f/u prn. T.Giovani MSRDCD Initialized on 07/13/20 14:17 - END OF NOTE 07/13/20 12:21 Case Management Note by Mandie Shaw COVID RESULTS FAXED TO [facility] Initialized on 07/13/20 12:21 - END OF NOTE 07/13/20 12:19 Case Management Note by Mandie Shaw S/W SON ABOUT UNABLE TO SEND PATIENT TO [facility] TODAY DUE TO FEVER- SWINGBED WAS DISCUSSED WELL WE MAY NEED TO USE THE SWINGBED PROGRAM A BRIDGE TO GET HER TO [facility] ONCE SHE IS FEVER FREE FOR 72 HRS (PER THEIR GUIDELINES). HE VERIFIED UNDERSTANDING AND IS AGREEABLE TO THAT PLAN. HE GAVE TELEPHONE CONSENT FOR SWING BED OVER PHONE Initialized on 07/13/20 12:19 - END OF NOTE Assessment/Plan (1) Pneumonia Current Visit: Yes Status: Acute Qualifiers: Pneumonia type: due to Klebsiella pneumoniae Laterality: right Lung location: middle lobe of lung Qualified Code(s): J15.0 - Pneumonia due to Klebsiella pneumoniae Assessment & Plan: Chief Complaint Diagnosis multiple contusions/hematomas; chronic renal failure,elevated trop Admission Date Date 07/06/20 Allergies Allergy/AdvReac Type Severity Reaction Status Date / Time cefaclor [From Ceclor] Allergy Intermediate Verified 07/05/20 19:54 shellfish derived Allergy Intermediate Verified 07/05/20 19:54 sulfamethoxazole Allergy Intermediate Verified 07/05/20 19:54 venom-honey bee Allergy Intermediate Verified 07/05/20 19:54 [bee venom (honey bee)] cephalexin [From Keflex] Allergy Mild mouth sores Verified 07/05/20 19:54 Vital Signs (Last 24 hours) Temp Pulse Resp BP Pulse Ox 07/14/20 07:59 73 16 97 07/14/20 07:37 98.5 F 70 14 136/101 98 07/14/20 06:05 68 17 96 07/14/20 04:00 99.9 F 77 23 136/101 96 07/13/20 23:54 99.1 F 76 23 152/65 96 07/13/20 19:42 99.3 F 74 15 163/69 98 07/13/20 19:11 72 24 98 07/13/20 16:00 73 20 136/61 96 07/13/20 12:00 88 19 140/68 96 07/13/20 11:15 71 21 97 Home Medications Medication Instructions Recorded Confirmed Last Taken Type Acetaminophen 325 mg [Tylenol 650 mg PO Q4HPRN PRN 07/05/20 07/05/20 Unknown History 325 mg] Albuterol 8 gm Mdi Hfa 2 puff IH Q4HPRN PRN 07/05/20 07/05/20 Unknown History [Ventolin Hfa MDI] Furosemide [Lasix] 20 mg PO DAILY 07/05/20 07/05/20 07/05/20 08:00 History Oxybutynin Chloride Xl 5 mg 5 mg PO BID 07/05/20 07/05/20 07/05/20 19:00 History [Ditropan XL 5 MG] Sitagliptin Phos/Metformin HCl 1 tab PO DAILY 07/05/20 07/05/20 07/05/20 08:00 History [Janumet Xr 100-1,000 mg Tablet] lisinopriL [Lisinopril] 5 mg PO DAILY 07/05/20 07/05/20 07/05/20 08:00 History Benzonatate [Tessalon Perle] 100 mg PO Q6H 07/06/20 07/06/20 Unknown History Current Medications Generic Name Dose Route Start Last Admin Trade Name Freq PRN Reason Stop Dose Admin Acetaminophen 650 mg 07/07/20 09:37 07/14/20 03:25 Tylenol 325 Mg PO 08/06/20 09:36 650 mg Q4H PRN PRN Administration PAIN AND/OR FEVER Albuterol/Ipratropium 3 ml 07/05/20 23:51 Duoneb 0.5-3 Mg/3 Ml Neb IH 08/04/20 23:50 Q4HPRN PRN SHORTNESS OF BREATH/WHEEZING Amlodipine Besylate 5 mg 07/10/20 12:06 07/13/20 09:54 Norvasc 5 Mg PO 08/09/20 12:05 5 mg QAM PAOLA Administration Artificial Tears 0 ml 07/06/20 10:00 07/13/20 21:16 Artificial Tears 15 Ml OP 08/05/20 09:59 15 ml BID PAOLA Administration Carvedilol 12.5 mg 07/12/20 16:30 07/13/20 21:16 Coreg 12.5 Mg PO 08/11/20 16:29 12.5 mg BID PAOLA Administration Diphenhydramine HCl 25 mg 07/10/20 12:07 Benadryl 25 Mg Capsule PO 08/09/20 12:06 Q6H PRN PRN ALLERGIES Docusate Sodium 200 mg 07/06/20 10:00 07/13/20 09:53 Colace 100 Mg PO 08/05/20 09:59 200 mg DAILY PAOLA Administration Heparin Sodium (Beef Lung) 0 units 07/09/20 11:45 Heparin Lock Flush 100 Units/Ml 5ml Syringe IV 08/08/20 11:44 UD PRN Hydromorphone HCl 0.4 mg 07/11/20 10:16 07/14/20 03:13 Hydromorphone 1 Mg/Ml Injection IV 07/16/20 10:15 0.4 mg Q2H PRN PRN Administration PAIN Sodium Chloride 1,000 mls @ 80 mls/hr 07/12/20 07:30 07/13/20 22:00 Sodium Chloride 0.9% 1000 Ml IV 08/11/20 07:29 80 mls/hr .[id number] PAOLA Administration Levofloxacin 250 mg 07/15/20 10:00 Levofloxacin 250mg Tablet PO 08/14/20 09:59 Q48H PAOLA Lisinopril 5 mg 07/12/20 16:45 07/13/20 09:55 Zestril 5 Mg PO 08/11/20 16:44 5 mg DAILY PAOLA Administration Ondansetron HCl 4 mg 07/12/20 15:37 07/12/20 15:42 Zofran 4 Mg/2 Ml Vial IV 08/11/20 15:36 4 mg Q6H PRN PRN Administration NAUSEA/VOMITING Pantoprazole Sodium 40 mg 07/07/20 10:00 07/13/20 09:54 Protonix 40 Mg Iv IV 08/06/20 09:59 40 mg DAILY PAOLA Administration Fluticasone/Salmeterol 2 puff 07/06/20 07:00 07/14/20 07:59 Advair Hfa 115/21 Common Canister* IH 08/05/20 06:59 2 puff BIDRT PAOLA Administration Sodium Chloride 10 ml 07/09/20 11:45 Sodium Chloride 0.9% 10 Ml Flush Syringe IV 08/08/20 11:44 PRN PRN Discontinued Medications Generic Name Dose Route Start Last Admin Trade Name Freq PRN Reason Stop Dose Admin Hydrocodone Bitart/Acetaminophen 1 tab 07/06/20 08:00 07/09/20 07:53 Renner 7.5/325 Mg Tab PO 07/11/20 07:59 Not Given Q6H PAOLA Albuterol/Ipratropium 3 ml 07/06/20 07:00 07/09/20 06:40 Duoneb 0.5-3 Mg/3 Ml Neb IH 08/05/20 06:59 3 ml QIDRT PAOLA Administration Alendronate Sodium 70 mg 07/07/20 06:00 Fosamax 70 Mg PO 08/06/20 05:59 WEEKLY PAOLA Alendronate Sodium 70 mg 07/07/20 06:00 07/07/20 06:20 Fosamax 70 Mg PO 07/07/20 06:01 Not Given ONCE ONE Amlodipine Besylate 2.5 mg 07/06/20 10:00 Norvasc 5 Mg PO 08/05/20 09:59 QAM PAOLA Amlodipine Besylate 5 mg 07/06/20 10:00 07/06/20 09:35 Norvasc 5 Mg PO 08/05/20 09:59 5 mg DAILY PAOLA Administration Benzonatate 100 mg 07/06/20 12:00 07/07/20 06:20 Tessalon Perles 100 Mg PO 08/05/20 11:59 Not Given Q6HT PAOLA Bumetanide 1 mg 07/06/20 10:00 Bumex 1 Mg PO 08/05/20 09:59 DAILY PAOLA Calcium Carbonate 1 tab 07/06/20 10:00 07/06/20 21:02 Calcium 500mg W/Vit D Tablet PO 08/05/20 09:59 1 tab TID PAOLA Administration Carvedilol 3.125 mg 07/06/20 10:00 07/10/20 10:12 Coreg 3.125 Mg PO 08/05/20 09:59 3.125 mg BID PAOLA Administration Carvedilol 6.25 mg 07/10/20 22:00 07/12/20 10:24 Coreg 6.25 Mg PO 08/09/20 21:59 6.25 mg BID PAOLA Administration Carvedilol Confirm 07/10/20 19:32 Coreg 6.25 Mg Administered 07/10/20 19:33 Dose 6.25 mg .ROUTE .STK-MED ONE Cholecalciferol 1,000 unit 07/06/20 10:00 07/06/20 09:34 Vitamin D PO 08/05/20 09:59 1,000 unit DAILY PAOLA Administration Device 1 07/10/20 06:00 07/10/20 10:13 Trough Drug Levels IJ 07/10/20 06:01 1 1XONLY ONE Administration Diphtheria/Tetanus/Acell Pertussis 0.5 ml 07/05/20 20:36 07/05/20 21:42 Adacel Vial IM 07/05/20 20:37 Not Given .ONCE ONE Donepezil HCl 5 mg 07/06/20 22:00 07/06/20 21:01 Aricept 10 Mg PO 08/05/20 21:59 5 mg HS PAOLA Administration Famotidine 20 mg 07/06/20 10:00 07/06/20 21:03 Pepcid 20 Mg Vial IV 08/05/20 09:59 20 mg Q12HT PAOLA Administration Fentanyl Citrate 25 mcg 07/10/20 12:05 07/11/20 08:50 Sublimaze 100 Mcg/2 Ml IV 07/15/20 12:04 25 mcg Q4H PRN PRN Administration SEVERE PAIN Ferrous Sulfate 325 mg 07/06/20 10:00 07/06/20 21:01 Feosol 325 Mg PO 08/05/20 09:59 325 mg BID PAOLA Administration Folic Acid 1 mg 07/06/20 10:00 07/06/20 09:34 Folate 1 Mg PO 08/05/20 09:59 1 mg DAILY PAOLA Administration Furosemide 20 mg 07/06/20 10:00 Lasix 20 Mg PO 08/05/20 09:59 DAILY PAOLA Gabapentin 200 mg 07/06/20 10:00 07/06/20 21:02 Neurontin 100 Mg PO 08/05/20 09:59 200 mg BID PAOLA Administration Gemfibrozil 600 mg 07/06/20 10:00 07/06/20 22:21 Lopid 600 Mg PO 08/05/20 09:59 600 mg BID PAOLA Administration Heparin Sodium (Beef Lung) Confirm 07/08/20 08:22 Heparin Lock Flush 100 Units/Ml 5ml Syringe Administered 07/08/20 08:23 Dose 500 units .ROUTE .STK-MED ONE Sodium Chloride 1,000 mls @ 100 mls/hr 07/05/20 20:00 07/05/20 21:39 Sodium Chloride 0.9% 1000 Ml IV 08/04/20 19:59 100 mls/hr .Q10H PAOLA Administration Sodium Chloride Confirm 07/05/20 20:51 Sodium Chloride 0.9% 1000 Ml Administered 07/05/20 20:52 Dose 1,000 mls @ ud .ROUTE .STK-MED ONE Levofloxacin/Dextrose 500 mg in 100 mls @ 100 mls/hr 07/06/20 10:00 07/06/20 09:33 Levofloxacin 500mg/100ml D5w IV 07/06/20 10:59 100 mls/hr Q24H10 PAOLA Administration Levofloxacin/Dextrose 250 mg in 50 mls @ 50 mls/hr 07/08/20 10:00 Levaquin 250mg/50ml D5w IV 08/07/20 09:59 Q48H PAOLA Sodium Chloride 1,000 mls @ 100 mls/hr 07/06/20 14:00 07/10/20 21:25 Sodium Chloride 0.9% 1000 Ml IV 08/05/20 13:59 Not Given .Q10H PAOLA Meropenem 1 g/ Sodium Chloride 100 mls @ 100 mls/hr 07/07/20 10:00 07/11/20 08:49 IV 08/06/20 09:59 100 mls/hr Q24H10 PAOLA Administration Vancomycin HCl 1 gm in 200 mls @ 100 mls/hr 07/08/20 11:00 07/08/20 10:52 Vancomycin 1 Gram/200 Ml Bag IV 08/07/20 10:59 100 mls/hr Q72H PAOLA Administration Vancomycin HCl 1 gm in 200 mls @ 100 mls/hr 07/10/20 11:00 07/10/20 11:45 Vancomycin 1 Gram/200 Ml Bag IV 08/09/20 10:59 100 mls/hr Q48H PAOLA Administration Sodium Chloride 1,000 mls @ 80 mls/hr 07/11/20 10:16 07/11/20 10:47 Sodium Chloride 0.9% 1000 Ml IV 07/11/20 22:45 80 mls/hr .[id number] STA Administration Insulin Human Regular 0 unit 07/05/20 23:51 Humulin R SQ 08/04/20 23:50 UD PRN HYPERGLYCEMIA Levofloxacin 250 mg 07/12/20 10:00 07/13/20 09:57 Levofloxacin 250mg Tablet PO 08/11/20 09:59 Not Given Q48H PAOLA Lidocaine HCl Confirm 07/06/20 07:31 Xylocaine 1% Hcl 20 Ml Mdv Administered 07/06/20 07:32 Dose 1 ml .ROUTE .STK-MED ONE Lisinopril 5 mg 07/06/20 10:00 Zestril 5 Mg PO 08/05/20 09:59 DAILY PAOLA Magnesium Oxide 400 mg 07/06/20 10:00 07/06/20 09:34 Mag-Ox 400 PO 08/05/20 09:59 400 mg DAILY PAOLA Administration Metformin HCl 1,000 mg 07/07/20 08:00 07/07/20 10:34 Glucophage Xr 500 Mg PO 08/06/20 07:59 Not Given QAM@0800 PAOLA Morphine Sulfate 5 mg 07/05/20 20:36 07/05/20 20:41 Morphine Sulfate 10 Mg/Ml IV 07/05/20 20:37 5 mg STAT ONE Administration Morphine Sulfate Confirm 07/05/20 20:41 Morphine Sulfate 10 Mg/Ml Administered 07/05/20 20:42 Dose 10 mg .ROUTE .STK-MED ONE Morphine Sulfate 4 mg 07/05/20 23:51 07/06/20 03:25 Morphine Sulfate 4 Mg Inj IV 07/10/20 23:50 4 mg Q3H/PRN PRN Administration PAIN Non-Formulary Medication 1 each 07/07/20 08:35 07/08/20 11:23 Pharmacy Dosing Request 07/07/20 08:36 1 each STAT ONE Administration Non-Formulary Medication 1 each 07/08/20 09:20 07/08/20 11:23 Pharmacy Dosing Required: Vancomycin IV 07/08/20 09:21 1 each STAT STA Administration Ondansetron HCl 4 mg 07/05/20 23:51 Zofran 4 Mg/2 Ml Vial IV 08/04/20 23:50 Q6H PRN PRN NAUSEA/VOMITING Pantoprazole Sodium 40 mg 07/06/20 10:00 Protonix 40 Mg Iv IV 08/05/20 09:59 Q24H10 PAOLA Pantoprazole Sodium 40 mg 07/06/20 10:00 07/06/20 21:01 Protonix 40mg Tablet PO 08/05/20 09:59 40 mg BID PAOLA Administration Paroxetine HCl 20 mg 07/06/20 10:00 07/06/20 09:35 Paxil 20 Mg PO 08/05/20 09:59 20 mg DAILY PAOLA Administration Patient Own Med : 0 each 07/06/20 10:00 07/06/20 10:43 Xeljanz 5 Mg PO 08/05/20 09:59 Not Given DAILY PAOLA Polyethylene Glycol 17 gm 07/06/20 11:00 07/06/20 15:02 Miralax Powder 17gm Packet PO 08/05/20 10:59 Not Given DAILY PAOLA Prednisone 10 mg 07/06/20 10:00 07/06/20 09:35 Deltasone 10 Mg PO 08/05/20 09:59 10 mg DAILY PAOLA Administration Quetiapine Fumarate 100 mg 07/06/20 22:00 07/06/20 21:03 Seroquel 100 Mg PO 08/05/20 21:59 100 mg HS PAOLA Administration Sitagliptin Phosphate 100 mg 07/07/20 08:00 07/07/20 10:33 Januvia 50 Mg PO 08/06/20 07:59 Not Given QAM@0800 PAOLA Intake & Output (Last 24 hours) 07/11/20 07/12/20 07/13/20 07/14/20 11:59 11:59 11:59 11:59 Intake Total 1483 2310 1527 2278 Output Total 2050 1700 2550 1750 Balance -567 610 -1023 528 Weight 85.6 kg 83.6 kg 83.4 kg Microbiology Results (Last 24 hours) 07/13/20 09:30 Blood Blood Culture Gram Stain - Pending 07/13/20 09:30 Blood Blood Culture - Pending Laboratory Results (Last 24 hours) 07/14/20 07/14/20 07/14/20 06:32 05:20 05:20 WBC 6.4 RBC 2.78 L Hgb 8.6 L Hct 28.3 L MCV 101.8 H MCH 30.9 MCHC 30.4 L RDW 16.5 H Plt Count 119 L MPV 9.6 Gran % 65.3 Eos # (Auto) 0.13 Absolute Lymphs (auto) 1.29 Absolute Monos (auto) 0.79 Lymphocytes % 20.1 L Monocytes % 12.3 H Eosinophils % 2.0 Basophils % 0.3 Absolute Granulocytes 4.18 Basophils # 0.02 Sodium 143 Potassium 3.8 Chloride 121 H Carbon Dioxide 14 L* Anion Gap 10.8 BUN 43 H Creatinine 2.98 H Estimated GFR 16.2 Glucose 113 H POC Glucometer 97 Calcium 8.4 Total Bilirubin 0.40 AST 19 ALT 7 Alkaline Phosphatase 55 Serum Total Protein 5.4 L Albumin 2.5 L SARS-CoV-2 (PCR) 07/13/20 07/13/20 07/13/20 20:58 16:12 11:47 WBC RBC Hgb Hct MCV MCH MCHC RDW Plt Count MPV Gran % Eos # (Auto) Absolute Lymphs (auto) Absolute Monos (auto) Lymphocytes % Monocytes % Eosinophils % Basophils % Absolute Granulocytes Basophils # Sodium Potassium Chloride Carbon Dioxide Anion Gap BUN Creatinine Estimated GFR Glucose POC Glucometer 101 124 H 126 H Calcium Total Bilirubin AST ALT Alkaline Phosphatase Serum Total Protein Albumin SARS-CoV-2 (PCR) 07/13/20 09:00 WBC RBC Hgb Hct MCV MCH MCHC RDW Plt Count MPV Gran % Eos # (Auto) Absolute Lymphs (auto) Absolute Monos (auto) Lymphocytes % Monocytes % Eosinophils % Basophils % Absolute Granulocytes Basophils # Sodium Potassium Chloride Carbon Dioxide Anion Gap BUN Creatinine Estimated GFR Glucose POC Glucometer Calcium Total Bilirubin AST ALT Alkaline Phosphatase Serum Total Protein Albumin SARS-CoV-2 (PCR) NEGATIVE Orders (Last 24 hours) Category Date Time Status BLOOD CULTURE Urgent Lab 07/13/20 09:30 Received CBC W DIFF AM.LAB Lab 07/14/20 05:20 Completed CMP AM.LAB Lab 07/14/20 05:20 Completed POCT GLUCOSE Stat Lab 07/13/20 11:47 Completed POCT GLUCOSE Stat Lab 07/13/20 16:12 Completed POCT GLUCOSE Stat Lab 07/13/20 20:58 Completed POCT GLUCOSE Stat Lab 07/14/20 06:32 Completed Levofloxacin [Levofloxacin 250MG Tablet] Med 07/15/20 10:00 Active 250 mg PO Q48H Patient Care Notes (Last 24 hours) 07/13/20 17:55 Physical Therapy Note by Renee Caal PT. IN BED UPON P.T. ARRIVAL TO ROOM. PT. STILL RECEIVING DILLOTID FOR PN MG'T. PT. HAS BEEN CONFUSED AT TIMES AND HALLUCINATING W/ PN MED. NOTED MORE COUGHING TODAY. PERFORMED SUPINE TO SIT W/ MOD-MAX ASSIST X 2. SIT TO STAND MOD-MAX ASSIST X 2. PT. DID BEAR WEIGHT ON LES W/ MAX ASSIST X 2 AND UE/TRUNK SUPPORT ON WALKER. PT. CRIED OUT IN PN AND DID NOT WANT TO GET OUT OF BED BUT WAS ASSURED THAT IT WAS NECESSARY FOR HER RECOVERY AND TO HELP HER LUNGS. REHAB PROGNOSIS IS GUARDED D/T SEVERE WEAKNESS AND JOINT PN/DEFROMITY D/T RA. WILL CONT. PT 5X/WK UNTIL D/C. RENEE CAAL PT Initialized on 07/13/20 17:55 - END OF NOTE 07/13/20 14:17 Nutrition Note by Bita Matute F/u note: Heart healthy diet and glucerna con't with 25-100% po intake. no recent labs; glucometer 126. fluid balance negative, pt with fever. goal of po intake >=50% not met consistently but improved and ongoing; goal of maintaining glu wnl not met and ongoing. Con't to recommend diet change to house regular. Will con't to monitor and f/u prn. TMARY LOU JasonCD Initialized on 07/13/20 14:17 - END OF NOTE 07/13/20 12:21 Case Management Note by Mandie Shaw COVID RESULTS FAXED TO [facility] Initialized on 07/13/20 12:21 - END OF NOTE 07/13/20 12:19 Case Management Note by Mandie Shaw S/W SON ABOUT UNABLE TO SEND PATIENT TO [facility] TODAY DUE TO FEVER- SWINGBED WAS DISCUSSED WELL WE MAY NEED TO USE THE SWINGBED PROGRAM A [facility] TO GET HER TO [facility] ONCE SHE IS FEVER FREE FOR 72 HRS (PER THEIR GUIDELINES). HE VERIFIED UNDERSTANDING AND IS AGREEABLE TO THAT PLAN. HE GAVE TELEPHONE CONSENT FOR SWING BED OVER PHONE Initialized on 07/13/20 12:19 - END OF NOTE 07/13/20 11:36 Nursing Note by Vida Vicente Pt up in chair with assist of this nurse, PT and HEALTH RECORD TECHNICIAN. Encouraged to cough and deep breath as well. Initialized on 07/13/20 11:36 - END OF NOTE Code(s): J18.9 - PNEUMONIA, UNSPECIFIED ORGANISM (2) Chronic renal failure Current Visit: Yes Status: Acute Qualifiers: Chronic kidney disease stage: stage 4 (severe) Qualified Code(s): N18.4 - Chronic kidney disease, stage 4 (severe) (3) Fall Current Visit: Yes Status: Resolved Qualifiers: Encounter type: sequela Qualified Code(s): W19.XXXS - Unspecified fall, sequela Code(s): W19.XXXA - UNSPECIFIED FALL, INITIAL ENCOUNTER (4) Head injury Current Visit: Yes Status: Resolved Qualifiers: Encounter type: sequela Qualified Code(s): S09.90XS - Unspecified injury of head, sequela Code(s): S09.90XA - UNSPECIFIED INJURY OF HEAD, INITIAL ENCOUNTER (5) Anemia of chronic renal failure Current Visit: Yes Status: Chronic Code(s): N18.9 - CHRONIC KIDNEY DISEASE, UNSPECIFIED; D63.1 - ANEMIA IN CHRONIC KIDNEY DISEASE (6) Hypertension Current Visit: Yes Status: Chronic Qualifiers: Hypertension type: essential hypertension Code(s): I10 - ESSENTIAL (PRIMARY) HYPERTENSION
[2020-07-14] MEDS: Artificial Tears 15 ML OP SCH (10:09)
[2020-07-14 16:46] VITALS: BP 154/58; PULSE 74; O2SAT 98
[2020-07-15] MEDS ORDERED: Levofloxacin 250MG Tablet PO SCH (10:00)
== END 2020-07-14 15:30 | disposition swing bed (61) | DRG 682 ==
LOC: ED 19:30 → MED SURG 23:51 → ICU 07-07 08:29 → OBSVTOIN 07-07 09:38
PROVIDERS: ADMIT Family Medicine; ATTEND General Practice
DX: I12.9 Hypertensive chronic kidney disease with stage 1 through stage 4 chronic kidney disease, or unspecified chronic kidney disease (principal); J15.0 Pneumonia due to Klebsiella pneumoniae; K85.90 Acute pancreatitis without necrosis or infection, unspecified; N18.4 Chronic kidney disease, stage 4 (severe); N39.0 Urinary tract infection, site not specified; E11.22 Type 2 diabetes mellitus with diabetic chronic kidney disease; R74.8 Abnormal levels of other serum enzymes; S09.90XA Unspecified injury of head, initial encounter; W19.XXXA Unspecified fall, initial encounter; Y92.099 Unspecified place in other non-institutional residence as the place of occurrence of the external cause; D63.1 Anemia in chronic kidney disease; F03.90 Unspecified dementia, unspecified severity, without behavioral disturbance, psychotic disturbance, mood disturbance, and anxiety; M06.9 Rheumatoid arthritis, unspecified; S00.03XA Contusion of scalp, initial encounter; L89.322 Pressure ulcer of left buttock, stage 2; L89.312 Pressure ulcer of right buttock, stage 2; B96.20 Unspecified Escherichia coli [E. coli] as the cause of diseases classified elsewhere; Z79.899 Other long term (current) drug therapy; M35.00 Sjogren syndrome, unspecified; E78.00 Pure hypercholesterolemia, unspecified; J44.9 Chronic obstructive pulmonary disease, unspecified; M54.2 Cervicalgia; S51.812A Laceration without foreign body of left forearm, initial encounter; M25.562 Pain in left knee; M25.561 Pain in right knee; Z86.73 Personal history of transient ischemic attack (TIA), and cerebral infarction without residual deficits
CPT/HCPCS: 12001; 36000; 36415; 36430; 51702; 70450; 71045; 72125; 73522; 73562; 73630; 74176; 80053; 80202; 81001; 82150; 82947; 83010; 83036; 83605; 83690; 84134; 84484; 85014; 85018; 85025; 85027; 85610; 85730; 86078; 86850; 86880; 86900; 86901; 86922; 87040; 87077; 87086; 87186; 93005; 93268; 94640; 94760; 94762; 96374; 97161; 97530; 99232; 99284; G0328; G0378; P9016; U0003; 82274; J1170; J1642; J1956; J2270; J2405; J3010; A9270-GY; J3370

== ENCOUNTER 2020-07-14 10:22 | Inpatient (IN) | payer MEDICARE ==
[2020-07-14] MEDS ORDERED: Aplisol ID ONE (16:30)
[2020-07-14] MEDS ORDERED: BENADRYL 25 MG CAPSULE PO PRN (16:30)
[2020-07-14] MEDS ORDERED: Sodium Chloride 0.9% 10 ML FLUSH Syringe IV PRN (16:30)
[2020-07-14] MEDS ORDERED: Zofran 4 MG/2 ML VIAL IV PRN (16:35)
[2020-07-14] MEDS: Advair Hfa 115/21 Common canister IH SCH (19:47)
[2020-07-14] MEDS: COREG 12.5 MG PO SCH (22:06)
[2020-07-14] MEDS: TYLENOL 325 MG PO PRN (22:07)
[2020-07-14] MEDS: Sodium Chloride 0.9% 1000 ML 1,000 ML IV SCH (22:50)
[2020-07-15] MEDS: Zestril 5 MG PO SCH ×3 (00:32→20:32)
[2020-07-15] MEDS: Robitussin-Dm Syrup PO PRN ×2 (00:33→20:35)
[2020-07-15] MEDS: Advair Hfa 115/21 Common canister IH SCH (07:41)
[2020-07-15] MEDS: NORVASC 5 MG PO SCH (09:01)
[2020-07-15] MEDS: Colace 100 MG PO SCH (09:01)
[2020-07-15] MEDS: COREG 12.5 MG PO SCH ×2 (09:01→20:34)
[2020-07-15] MEDS: PROTONIX 40 MG IV IV SCH (09:01)
[2020-07-15] MEDS ORDERED: Aplisol ID SCH (10:00)
[2020-07-15] MEDS ORDERED: Levofloxacin 250MG Tablet PO SCH (10:00)
[2020-07-15] MEDS ORDERED: Zestril 5 MG PO SCH (10:00)
[2020-07-15] MEDS: Hydromorphone 1 mg/ml Injection IV PRN (10:20)
[2020-07-15] MEDS: Sodium Chloride 0.9% 1000 ML 1,000 ML IV SCH ×2 (11:21→23:17)
[2020-07-15] MEDS: TYLENOL 325 MG PO PRN (20:32)
[2020-07-16] MEDS: Advair Hfa 115/21 Common canister IH SCH ×4 (00:45→21:30)
[2020-07-16] MEDS: DUONEB 0.5-3 MG/3 ml Neb IH PRN ×2 (01:38→09:36)
[2020-07-16] MEDS: TYLENOL 325 MG PO PRN (06:30)
[2020-07-16] MEDS: Colace 100 MG PO SCH ×2 (09:41→09:49)
[2020-07-16] MEDS: COREG 12.5 MG PO SCH ×2 (09:41→21:51)
[2020-07-16] MEDS: NORVASC 5 MG PO SCH (09:41)
[2020-07-16] MEDS: Zestril 5 MG PO SCH ×2 (09:42→21:51)
[2020-07-16] MEDS: PROTONIX 40 MG IV IV SCH (09:51)
[2020-07-16] MEDS: Sodium Chloride 0.9% 1000 ML 1,000 ML IV SCH (11:19)
--- NOTE | 2020-07-16 11:43 | PCM.NOTE ---
Date and Time: 07/16/20 1141 Subjective Assessment: doing ok - Review of Systems Constitutional: No Fever, No Chills Eyes: No Symptoms Ears, Nose, & Throat: No Symptoms Respiratory: No Cough, No Short Of Breath Cardiac: No Chest Pain, No Edema, No Syncope Abdominal/Gastrointestinal: No Abdominal Pain, No Nausea, No Vomiting, No Diarrhea Genitourinary Symptoms: No Dysuria Musculoskeletal: No Back Pain, No Neck Pain Skin: No Rash Neurological: No Dizziness, No Focal Weakness, No Sensory Changes Psychological: No Symptoms Endocrine: No Symptoms Hematologic/Lymphatic: No Symptoms Immunological/Allergic: No Symptoms Objective Exam Wound Assessment: Skin/Wound Assessment Wound/Incision Assessment Start: 07/14/20 17:02 Text: Status: Active Freq: Q6H Protocol: Document 07/16/20 08:00 [facility] (Rec: 07/16/20 08:25 [facility] [id number]) Wound/Incision Assessment Left Arm Wound Assessment Shift Assessment Wound Type Skin Tear Wound Stage Non Pressure Wound Dressing Status Dry & Intact Primary Dressing tegaderm Comment tegaderm CDI Right Buttock Wound Assessment Shift Assessment Wound Type Pressure Ulcer Wound Stage Stage II Comment barrier cream applied Left Buttock Wound Assessment Shift Assessment Wound Type Pressure Ulcer Wound Stage Stage II Comment barrier cream applied Wound Photo Photo Taken No Comment: previously taken on chart OBJECTIVE DATA Vital Signs: Vital Signs - 24 hr Temp Pulse Resp BP Pulse Ox 07/16/20 11:02 177/79 07/16/20 09:39 84 28 H 97 07/16/20 09:27 97.8 F 07/16/20 09:05 85 22 100 07/16/20 02:00 98.8 F 81 24 178/81 97 07/16/20 01:38 80 24 97 07/15/20 20:00 99 F 83 22 202/92 96 07/15/20 12:30 100.4 F 83 22 172/105 98 Pain Assessment - Last Documented Pain Intensity 0 Pain Scale Used FLACC Intake and Output: Intake & Output 07/13/20 07/14/20 07/15/20 07/16/20 11:59 11:59 11:59 11:59 Intake Total 2361 1025 Output Total 850 1350 2500 Balance -850 1011 -1475 Weight 89.5 kg Lab Results: Lab Results-Last 24 Hours 07/15/20 07/15/20 07/16/20 Range/Units 12:12 21:19 06:38 POC Glucometer 104 130 H 103 (74 to 106) mg/dL 07/16/20 Range/Units 10:33 POC Glucometer 122 H (74 to 106) mg/dL Multi-Disciplinary Progress Notes: Multi-Disciplinary Progress Notes 07/16/20 11:33 Case Management Note by Mandie Shaw S/Debbie [facility] AT [facility]- PATIENT MUST BE <99.0 FOR 72 HRS WITHOUT FEVER REDUCING MEDICATION IN ORDER FOR PATIENT TO TRANSFER TO THEIR FACILITY Initialized on 07/16/20 11:33 - END OF NOTE Assessment/Plan (1) Pneumonia Current Visit: No Status: Acute Qualifiers: Laterality: right Lung location: lower lobe of lung Assessment & Plan: Chief Complaint Diagnosis multiple contusions/hematomas; chronic renal failure,elevated trop Allergies Allergy/AdvReac Type Severity Reaction Status Date / Time cefaclor [From Ceclor] Allergy Intermediate Verified 07/05/20 19:54 shellfish derived Allergy Intermediate Verified 07/05/20 19:54 sulfamethoxazole Allergy Intermediate Verified 07/05/20 19:54 venom-honey bee Allergy Intermediate Verified 07/05/20 19:54 [bee venom (honey bee)] cephalexin [From Keflex] Allergy Mild mouth sores Verified 07/05/20 19:54 Vital Signs (Last 24 hours) Temp Pulse Resp BP Pulse Ox 07/17/20 08:05 179/76 07/17/20 08:00 98.6 F 81 22 170/76 96 07/17/20 05:51 77 24 95 07/17/20 00:26 98.2 F 77 28 H 154/72 94 L 07/16/20 21:07 90 28 H 97 07/16/20 20:12 97.7 F 90 28 H 162/75 97 07/16/20 11:02 177/79 07/16/20 09:39 84 28 H 97 07/16/20 09:27 97.8 F Current Medications Generic Name Dose Route Start Last Admin Trade Name Freq PRN Reason Stop Dose Admin Acetaminophen 650 mg 07/14/20 16:30 07/17/20 01:33 Tylenol 325 Mg PO 08/13/20 16:29 650 mg Q4H PRN PRN Administration PAIN AND/OR FEVER Albuterol/Ipratropium 3 ml 07/14/20 16:30 07/17/20 05:48 Duoneb 0.5-3 Mg/3 Ml Neb IH 08/13/20 16:29 3 ml Q4HPRN PRN Administration SHORTNESS OF BREATH/WHEEZING Amlodipine Besylate 5 mg 07/15/20 10:00 07/16/20 09:41 Norvasc 5 Mg PO 08/14/20 09:59 5 mg QAM [facility]A Administration Carvedilol 12.5 mg 07/14/20 22:00 07/16/20 21:51 Coreg 12.5 Mg PO 08/13/20 21:59 12.5 mg BID PAOLA Administration Diphenhydramine HCl 25 mg 07/14/20 16:30 Benadryl 25 Mg Capsule PO 08/13/20 16:29 Q6H PRN PRN ALLERGIES Docusate Sodium 200 mg 07/15/20 10:00 07/16/20 09:49 Colace 100 Mg PO 08/14/20 09:59 Not Given DAILY [facility] Guaifenesin/Dextromethorphan 10 ml 07/15/20 00:17 07/17/20 04:03 Robitussin-Dm Syrup PO 08/14/20 00:16 10 ml Q6H PRN PRN Administration COUGH Hydromorphone HCl 0.4 mg 07/14/20 16:30 07/17/20 02:09 Hydromorphone 1 Mg/Ml Injection IV 07/19/20 16:29 0.4 mg Q2H PRN PRN Administration PAIN Sodium Chloride 1,000 mls @ 80 mls/hr 07/14/20 16:30 07/17/20 00:24 Sodium Chloride 0.9% 1000 Ml IV 08/13/20 16:29 80 mls/hr .[id number] [facility] Administration Azithromycin 500 mg in 250 mls @ 250 mls/hr 07/16/20 13:00 07/16/20 13:00 Zithromax 500 Mg/ 250 Ml Nacl Premix IV 08/15/20 12:59 250 mls/hr Q24H10 [facility] Administration Meropenem 500 mg/ Sodium 100 mls @ 100 mls/hr 07/16/20 13:00 07/16/20 21:51 Chloride IV 08/15/20 12:59 100 mls/hr BID [facility] Administration Lisinopril 5 mg 07/15/20 00:30 07/16/20 21:51 Zestril 5 Mg PO 08/14/20 00:29 5 mg BID [facility] Administration Ondansetron HCl 4 mg 07/14/20 16:35 Zofran 4 Mg/2 Ml Vial IV 08/13/20 16:34 Q6H PRN PRN NAUSEA/VOMITING Pantoprazole Sodium 40 mg 07/15/20 10:00 07/16/20 09:51 Protonix 40 Mg Iv IV 08/14/20 09:59 40 mg DAILY [facility]A Administration Fluticasone/Salmeterol 2 puff 07/14/20 19:00 07/16/20 21:30 Advair Hfa 115/21 Common Canister* IH 08/13/20 18:59 Not Given BIDRT PAOLA Sodium Chloride 10 ml 07/14/20 16:30 Sodium Chloride 0.9% 10 Ml Flush Syringe IV 08/13/20 16:29 PRN PRN Tuberculin PPD 5 unit 07/26/20 10:00 Aplisol ID 07/26/20 10:01 DAILY [facility] Discontinued Medications Generic Name Dose Route Start Last Admin Trade Name Freq PRN Reason Stop Dose Admin Ceftriaxone Sodium/Dextrose 1 g in 50 mls @ 100 mls/hr 07/17/20 10:00 Rocephin 1 Gm-D5w 50 Ml Bag IV 08/16/20 09:59 Q24H10 [facility] Levofloxacin 250 mg 07/15/20 10:00 07/15/20 09:01 Levofloxacin 250mg Tablet PO 08/14/20 09:59 250 mg Q48H PA[facility]A Administration Lisinopril 5 mg 07/15/20 10:00 Zestril 5 Mg PO 08/14/20 09:59 DAILY [facility]A Non-Formulary Medication 1 each 07/16/20 12:44 07/16/20 13:00 Pharmacy Dosing Request MC 07/16/20 12:45 1 each STAT ONE Administration Tuberculin PPD 5 unit 07/15/20 10:00 07/15/20 15:54 Aplisol ID 07/15/20 10:01 5 unit DAILY [facility] Administration Intake & Output (Last 24 hours) 07/14/20 07/15/20 07/16/20 07/17/20 11:59 11:59 11:59 11:59 Intake Total 2361 1025 2818 Output Total 850 1350 2500 650 Balance -850 4608 -2016 2166 Weight 89.5 kg 89.5 kg Laboratory Results (Last 24 hours) 07/17/20 07/16/20 07/16/20 07:44 21:23 15:41 POC Glucometer 108 H 113 H 102 07/16/20 10:33 POC Glucometer 122 H Orders (Last 24 hours) Category Date Time Status Weight,Daily Q7D Care 07/21/20 06:00 Active BMP Q14D Lab 07/28/20 04:00 Ordered POCT GLUCOSE Stat Lab 07/16/20 10:33 Completed POCT GLUCOSE Stat Lab 07/16/20 15:41 Completed POCT GLUCOSE Stat Lab 07/16/20 21:23 Completed POCT GLUCOSE Stat Lab 07/17/20 07:43 Received POCT GLUCOSE Stat Lab 07/17/20 07:44 Completed Azithromycin 500 mg/250 ml [Zithromax 500 MG/ 250 ML Med 07/16/20 13:00 Active NaCl Premix] 500 mg in 250 ml IV Q24H10 Ceftriaxone 1 GM/50 ML PREMIX* [ROCEPHIN 1 Gm-D5w 50 ml Med 07/17/20 10:00 Discontinued Bag] 1 g in 50 ml IV Q24H10 Meropenem [Merrem 500Mg] 500 mg Med 07/16/20 13:00 Active NaCl 0.9% 100 ml Mini-Bag Plus [Sodium Chloride 100ML MINI-BAG PLUS] 100 ml IV BID Pharmacy Dosing Request Med 07/16/20 12:44 Discontinued 1 each STAT ONE Tuberculin,Purif.prot.deriv. [Aplisol] Med 07/26/20 10:00 Active 5 unit ID DAILY Patient Care Notes (Last 24 hours) 07/16/20 12:32 Case Management Note by Mandie Shaw DR. NOTIFIED PATIENT STILL COUGHING, RUNNING FEVER- NOTIFIED COVID TEST WAS NEG AND BLOOD CULTURES ARE SHOWING NO GROWTH. HE WILL CHANGE ANTIBIOTICS AND HOPEFULLY PATIENT IMPROVES IN THE NEXT DAY OR 2. HE WOULD LIKE FAMILY NOTIFIED OF PATIENT'S POOR PROGNOSIS. CALLED AND S/W SAV- PATIENT'S SON. HE WAS NOTIFIED THAT PATIENT IS SIGNIFICANTLY SICK DESPITE CARE AND MEDS GIVEN. HE WAS NOTIFIED THAT HE AND 1 OTHER PERSON COULD COME SEE THE PATIENT. HE WAS NOTIFIED THEY WOULD HAVE TO BE THE SAME 2 VISITORS THE ENTIRE TIME PATIENT IS HERE AND THEY WOULD HAVE TO CHECK IN AT THE LE[facility] DAILY TO BE COVID SCREENED. HE VERIFIED UNDERSTANDING. Initialized on 07/16/20 12:32 - END OF NOTE 07/16/20 11:33 Case Management Note by Mandie Shaw S/W [facility] AT [place]- PATIENT MUST BE <99.0 FOR 72 HRS WITHOUT FEVER REDUCING MEDICATION IN ORDER FOR PATIENT TO TRANSFER TO THEIR FACILITY Initialized on 07/16/20 11:33 - END OF NOTE Code(s): J18.9 - PNEUMONIA, UNSPECIFIED ORGANISM (2) COPD (chronic obstructive pulmonary disease) Current Visit: No Status: Acute
[2020-07-16] MEDS ORDERED: PHARMACY DOSING REQUEST MC ONE (12:44)
[2020-07-16] MEDS: Zithromax 500 MG/ 250 ML NaCl Premix 500 MG/250 ML IVPB IV SCH (13:00)
[2020-07-16] MEDS: MERREM 500MG 500 MG in Sodium Chloride 100ML MINI-BAG PLUS 100 ML IV SCH ×2 (13:00→21:51)
[2020-07-16] MEDS: Robitussin-Dm Syrup PO PRN (21:52)
[2020-07-16] MEDS: Hydromorphone 1 mg/ml Injection IV PRN (23:08)
[2020-07-17] MEDS: Sodium Chloride 0.9% 1000 ML 1,000 ML IV SCH ×2 (00:24→10:01)
[2020-07-17] MEDS: TYLENOL 325 MG PO PRN (01:33)
[2020-07-17] MEDS: Hydromorphone 1 mg/ml Injection IV PRN ×5 (02:09→23:07)
[2020-07-17] MEDS: Robitussin-Dm Syrup PO PRN ×2 (04:03→10:03)
[2020-07-17] MEDS: DUONEB 0.5-3 MG/3 ml Neb IH PRN ×2 (05:48→23:28)
--- NOTE | 2020-07-17 08:11 | PCM.NOTE ---
Podiatry Narrative Note Podiatry Narrative Note: Subjective: Condition improving. Seen with physical therapy while doing dressing change. Objective Medications & Allergies Home Medications: Home Medication List Gemfibrozil 600 mg [Lopid 600 mg] 600 mg PO BID 01/16/15 [History Confirmed 07/06/20] Folic Acid 1 mg PO DAILY 03/06/17 [History Confirmed 07/05/20] Amlodipine Besylate 5 mg [Norvasc 5 mg] 5 mg PO DAILY 11/26/18 [History Confirmed 07/06/20] Calcium Carbonate/Vitamin D3 [Oyster Shell 500-Vit D3 200 Tb] 1 each PO TID [History Confirmed 07/05/20] Carvedilol 3.125 mg [Coreg 3.125 MG] 3.125 mg PO BID #60 tablet 02/01/19 [Rx Confirmed 07/05/20] Albuterol 8 gm Mdi Hfa [Ventolin Hfa MDI] 2 puffs PO QID 05/18/19 [History Confirmed 07/05/20] Bumetanide 1 mg PO BID 05/18/19 [History Confirmed 07/05/20] Cholecalciferol (Vitamin D3) [Vitamin D3] 1,000 unit PO DAILY 05/18/19 [History Confirmed 07/05/20] Docusate Sodium [Stool Softener] 200 mg PO DAILY 05/18/19 [History Confirmed 07/05/20] Donepezil HCl [Aricept] 5 mg PO HS 05/18/19 [History Confirmed 07/05/20] Ferrous Sulfate 325 mg [Feosol 325 mg] 325 mg PO BID 05/18/19 [History Confirmed 07/05/20] Gabapentin 200 mg PO BID 05/18/19 [History Confirmed 07/05/20] Magnesium Oxide [Magnesium] 400 mg PO DAILY 05/18/19 [History Confirmed 0] Paroxetine HCl 20 mg [Paxil 20 MG] 20 mg PO DAILY 05/18/19 [History Confirmed 07/05/20] Prednisone 10 mg [Deltasone 10 mg] 10 mg PO DAILY 05/18/19 [History Confirmed 07/05/20] Quetiapine Fumarate 25 mg [Seroquel 25 MG] 100 mg PO HS 05/18/19 [History Confirmed 07/05/20] Alendronate Sodium 70 mg [Fosamax 70 MG] 70 mg PO WEEKLY 05/22/19 [History Confirmed 07/05/20] Hydrocodone Bit/Acetaminophen [Hydrocodon-Acetaminoph 7.5-325] 1 tab PO Q6H 05/22/19 [History Confirmed 07/06/20] Omeprazole 20 mg PO BID 05/22/19 [History Confirmed 07/06/20] Polyvinyl Alcohol Tears [Artificial Tears 15 ML] 1 drop OP BID 05/22/19 [History Confirmed 07/05/20] Potassium Chloride 10 Meq Tab* [Klor Con 10 MEQ] 10 meq PO BID 05/22/19 [History Confirmed 07/05/20] Fluticasone/Vilanterol [Breo Ellipta 200-25 Mcg INH] 1 each IH DAILY 05/27/19 [History Confirmed 07/05/20] Tofacitinib Citrate [Xeljanz] 5 mg PO DAILY 05/27/19 [History Confirmed 07/05/20] Acetaminophen 325 mg [Tylenol 325 mg] 650 mg PO Q4HPRN PRN 07/05/20 [History Confirmed 07/05/20] Albuterol 8 gm Mdi Hfa [Ventolin Hfa MDI] 2 puff IH Q4HPRN PRN 07/05/20 [History Confirmed 07/05/20] Furosemide [Lasix] 20 mg PO DAILY 07/05/20 [History Confirmed 07/05/20] Oxybutynin Chloride Xl 5 mg [Ditropan XL 5 MG] 5 mg PO BID 07/05/20 [History Confirmed 07/05/20] Sitagliptin Phos/Metformin HCl [Janumet Xr 100-1,000 mg Tablet] 1 tab PO DAILY 07/05/20 [History Confirmed 07/05/20] lisinopriL [Lisinopril] 5 mg PO DAILY 07/05/20 [History Confirmed 07/05/20] Benzonatate [Tessalon Perle] 100 mg PO Q6H 07/06/20 [History Confirmed 07/06/20] Allergies/Adverse Reactions: Allergies Allergy/AdvReac Type Severity Reaction Status Date / Time cefaclor [From Ceclor] Allergy Intermediate Verified 07/05/20 19:54 shellfish derived Allergy Intermediate Verified 07/05/20 19:54 sulfamethoxazole Allergy Intermediate Verified 07/05/20 19:54 venom-honey bee Allergy Intermediate Verified 07/05/20 19:54 [bee venom (honey bee)] cephalexin [From Keflex] Allergy Mild mouth sores Verified 07/05/20 19:54 - Past Medical History Past Medical History: Yes Neurological History: Stroke, TIA ENT History: Cataracts Cardiac History: Congestive Heart Failure, High Cholesterol, Hypertension Respiratory History: Asthma, COPD, Pneumonia Endocrine Medical History: Diabetes Type II Musculoskelatal History: Osteoarthritis, Osteoporosis, Rheumatoid Arthritis GI Medical History: Esophageal Disorder, GERD, Other History: Renal Disease Pyscho-Social History: Anxiety, Depression Reproductive Disorders: No Pertinent History Comment: Anemia. broken shoulder, 11/19. hiatal hernia. skin cancer- nose - Female History Are you now?: No - Past Surgical History Past Surgical History: Yes Neuro Surgical History: No Pertinent History Cardiac History: No Pertinent History Respiratory Surgery: No Pertinent History GI Surgical History: No Pertinent History Genitourinary Surgical Hx: No Pertinent History Musculskeletal Surgical Hx: Joint Replacement Female Surgical History: Hysterectomy Other Surgical History: bilateral Knee replacement x2, right hip replacement,bladder lift - Social History Smoking Status: Former smoker How long have you smoked: 20 yrs Exposure to second hand smoke: No Alcohol: None Drug Use: none Physical Exam - Narrative Narrative Physical Exam: Podiatry Physical Exam Vascular: DP and PT pulses are faintly palpable. Capillary refill time is less than 5 seconds. Skin temperature from the tibial tuberosity to the dorsal aspect of the digits is warm to hot at the pretibial area where there is associated cellulitis to cool at the dorsal aspect of the digits bilaterally. Cellulitis extends from the dorsal midfoot to the mid tibial area. This does not jazlyn on elevation. No indications of lymphangitis or lymphadenopathy on palpation of the posterior lymph nodes in the popliteal fossa or the inguinal lymph nodes. Dermatological cellulitis to the bilateral lower extremity potentially venous stasis related turgor is within normal limits. Wound as described below Neurological unable to assess due to patient's mentation Musculoskeletal no pain on palpation of the wound. Wound #1 Location plantar aspect left foot Size: 1 cm x 1.6 cm x 0.2 Description there is a 0.5 cm rim of undermining in the area hyperkeratosis extends 2 cm circumferentially around the wound there is inability to express any purulent drainage the central region of the wound is granular in nature with a slight fibrotic rim 8020% Results - Other Procedures and Tests Patient examination and evaluation. Patient's clinical exam as well as lab work and vitals demonstrate no indications of sepsis or wound infection at this time. No urgent need for intervention at this time. There is a likelihood of cellulitis to the bilateral lower extremity however this may be due secondary to venous stasis dermatitis. We will consider bedside debridement of the ulcer at bedside Or outpatient once her mentation as well as clinical status has improved. At this time I recommend no intervention from a podiatric standpoint Antibiotic management by medicine team Will follow with you
[2020-07-17] MEDS ORDERED: Sodium Chloride 100ML MINI-BAG PLUS 100 ML IV ONE (09:34)
[2020-07-17] MEDS ORDERED: ROCEPHIN 1 Gm-D5w 50 ml Bag** 1 G/50 ML IVPB IV SCH (10:00)
[2020-07-17] MEDS: Zestril 5 MG PO SCH ×2 (10:01→23:08)
[2020-07-17] MEDS: PROTONIX 40 MG IV IV SCH (10:01)
[2020-07-17] MEDS: NORVASC 5 MG PO SCH (10:02)
[2020-07-17] MEDS: COREG 12.5 MG PO SCH ×2 (10:02→23:08)
[2020-07-17] MEDS: Colace 100 MG PO SCH (10:02)
[2020-07-17] MEDS: MERREM 500MG 500 MG in Sodium Chloride 100ML MINI-BAG PLUS 100 ML IV SCH ×2 (10:37→23:08)
--- NOTE | 2020-07-17 11:39 | PCM.NOTE ---
Date and Time: 07/17/20 1139 Subjective Assessment: doing ok - Review of Systems Constitutional: No Fever, No Chills Eyes: No Symptoms Ears, Nose, & Throat: No Symptoms Respiratory: No Cough, No Short Of Breath Cardiac: No Chest Pain, No Edema, No Syncope Abdominal/Gastrointestinal: No Abdominal Pain, No Nausea, No Vomiting, No Diarrhea Genitourinary Symptoms: No Dysuria Musculoskeletal: No Back Pain, No Neck Pain Skin: No Rash Neurological: No Dizziness, No Focal Weakness, No Sensory Changes Psychological: No Symptoms Endocrine: No Symptoms Hematologic/Lymphatic: No Symptoms Immunological/Allergic: No Symptoms Objective Exam General Appearance: no apparent distress, alert Neurologic Exam: alert, oriented x 3, cooperative, normal mood/affect, nml cerebellar function, sensation nml, No motor deficits Skin Exam: normal color, warm, dry Wound Assessment: Skin/Wound Assessment Wound/Incision Assessment Start: 07/14/20 17:02 Text: Status: Active Freq: Q6H Protocol: Document 07/17/20 08:00 RN (Rec: 07/17/20 09:01 RN [id number]) Wound/Incision Assessment Left Arm Wound Assessment Shift Assessment Wound Type Skin Tear Wound Stage Non Pressure Wound Dressing Status Dry & Intact Primary Dressing TEGADERM Right Buttock Wound Assessment Shift Assessment Wound Type Pressure Ulcer Wound Stage Stage II Comment BARRIER CREAM APPLIED, TURN Q2H Left Buttock Wound Assessment Shift Assessment Wound Type Pressure Ulcer Wound Stage Stage II Comment BARREIR CREAM APPLIED, TURN Q2H Wound Photo Photo Taken No Eye Exam: PERRL, EOMI, eyes nml inspection Ears, Nose, Throat Exam: normal ENT inspection, pharynx normal, moist mucous membranes Neck Exam: normal inspection, non-tender, supple, full range of motion Respiratory Exam: normal breath sounds, lungs clear, No respiratory distress Cardiovascular Exam: regular rate/rhythm, normal heart sounds Gastrointestinal/Abdomen Exam: soft, No tenderness, No mass Extremity Exam: normal inspection, normal range of motion Back Exam: normal inspection, normal range of motion, No CVA tenderness, No vertebral tenderness Pelvic Exam: deferred Rectal Exam: deferred OBJECTIVE DATA Vital Signs: Vital Signs - 24 hr Temp Pulse Resp BP Pulse Ox 07/17/20 11:14 98.5 F 73 20 145/59 97 07/17/20 08:05 179/76 07/17/20 08:00 98.6 F 81 22 170/76 96 07/17/20 05:51 77 24 95 07/17/20 00:26 98.2 F 77 28 H 154/72 94 L 07/16/20 21:07 90 28 H 97 07/16/20 20:12 97.7 F 90 28 H 162/75 97 Pain Assessment - Last Documented Pain Intensity 0 Pain Scale Used FLACC Intake and Output: Intake & Output 07/14/20 07/15/20 07/16/20 07/17/20 11:59 11:59 11:59 11:59 Intake Total 2361 1025 2818 Output Total 850 1350 2500 650 Balance -850 1011 -8966 2168 Weight 89.5 kg 89.5 kg Lab Results: Lab Results-Last 24 Hours 07/16/20 07/16/20 07/17/20 Range/Units 15:41 21:23 07:44 POC Glucometer 102 113 H 108 H (74 to 106) mg/dL 07/17/20 Range/Units 11:10 POC Glucometer 101 (74 to 106) mg/dL Multi-Disciplinary Progress Notes: Multi-Disciplinary Progress Notes 07/16/20 12:32 Case Management Note by Mandie Shaw DR. NOTIFIED PATIENT STILL COUGHING, RUNNING FEVER- NOTIFIED COVID TEST WAS NEG AND BLOOD CULTURES ARE SHOWING NO GROWTH. HE WILL CHANGE ANTIBIOTICS AND HOPEFULLY PATIENT IMPROVES IN THE NEXT DAY OR 2. HE WOULD LIKE FAMILY NOTIFIED OF PATIENT'S POOR PROGNOSIS. CALLED AND S/W SAV- PATIENT'S SON. HE WAS NOTIFIED THAT PATIENT IS SIGNIFICANTLY SICK DESPITE CARE AND MEDS GIVEN. HE WAS NOTIFIED THAT HE AND 1 OTHER PERSON COULD COME SEE THE PATIENT. HE WAS NOTIFIED THEY WOULD HAVE TO BE THE SAME 2 VISITORS THE ENTIRE TIME PATIENT IS HERE AND THEY WOULD HAVE TO CHECK IN AT THE [facility] [employer] DAILY TO BE COVID SCREENED. HE VERIFIED UNDERSTANDING. Initialized on 07/16/20 12:32 - END OF NOTE Assessment/Plan (1) Pneumonia Current Visit: Yes Status: Acute Qualifiers: Laterality: right Lung location: lower lobe of lung Code(s): J18.9 - PNEUMONIA, UNSPECIFIED ORGANISM (2) COPD (chronic obstructive pulmonary disease) Current Visit: No Status: Acute
[2020-07-17] MEDS: Zithromax 500 MG/ 250 ML NaCl Premix 500 MG/250 ML IVPB IV SCH (11:44)
[2020-07-18 05:45] LABS: Creatinine 1 2.78 mg/dL (0.52-1.04); EST GLOMERULAR FILTRATION RATE 17.6 ML/MIN
[2020-07-18] MEDS: Hydromorphone 1 mg/ml Injection IV PRN ×4 (06:38→19:17)
[2020-07-18] MEDS: COREG 12.5 MG PO SCH ×2 (11:08→21:43)
[2020-07-18] MEDS: NORVASC 5 MG PO SCH (11:08)
[2020-07-18] MEDS: Colace 100 MG PO SCH (11:09)
[2020-07-18] MEDS: PROTONIX 40 MG IV IV SCH (11:09)
[2020-07-18] MEDS: Zithromax 500 MG/ 250 ML NaCl Premix 500 MG/250 ML IVPB IV SCH (11:09)
[2020-07-18] MEDS: Zestril 5 MG PO SCH ×2 (11:09→21:43)
[2020-07-18] MEDS: MERREM 500MG 500 MG in Sodium Chloride 100ML MINI-BAG PLUS 100 ML IV SCH ×2 (11:15→21:43)
[2020-07-18] MEDS: Robitussin-Dm Syrup PO PRN (11:37)
--- NOTE | 2020-07-18 11:47 | PCM.NOTE ---
Date and Time: 07/18/20 1146 Subjective Assessment: doing ok - Review of Systems Constitutional: No Fever, No Chills Eyes: No Symptoms Ears, Nose, & Throat: No Symptoms Respiratory: No Cough, No Short Of Breath Cardiac: No Chest Pain, No Edema, No Syncope Abdominal/Gastrointestinal: No Abdominal Pain, No Nausea, No Vomiting, No Diarrhea Genitourinary Symptoms: No Dysuria Musculoskeletal: No Back Pain, No Neck Pain Skin: No Rash Neurological: No Dizziness, No Focal Weakness, No Sensory Changes Psychological: No Symptoms Endocrine: No Symptoms Hematologic/Lymphatic: No Symptoms Immunological/Allergic: No Symptoms Objective Exam General Appearance: no apparent distress, alert Neurologic Exam: alert, oriented x 3, cooperative, normal mood/affect, nml cerebellar function, sensation nml, No motor deficits Skin Exam: normal color, warm, dry Wound Assessment: Skin/Wound Assessment Wound/Incision Assessment Start: 07/14/20 17:02 Text: Status: Active Freq: Q6H Protocol: Document 07/18/20 08:00 [facility]ER[facility] (Rec: 07/18/20 09:47 [facility] [id number]) Wound/Incision Assessment Left Arm Wound Assessment Shift Assessment Wound Type Skin Tear Wound Stage Non Pressure Wound Dressing Status Dry & Intact Primary Dressing TEGADERM Right Buttock Wound Assessment Shift Assessment Wound Type Pressure Ulcer Wound Stage Stage II Comment BARRIER CREAM APPLIED, TURN Q2H Left Buttock Wound Assessment Shift Assessment Wound Type Pressure Ulcer Wound Stage Stage II Comment BARREIR CREAM APPLIED, TURN Q2H Eye Exam: PERRL, EOMI, eyes nml inspection Ears, Nose, Throat Exam: normal ENT inspection, pharynx normal, moist mucous membranes Neck Exam: normal inspection, non-tender, supple, full range of motion Respiratory Exam: normal breath sounds, lungs clear, No respiratory distress Cardiovascular Exam: regular rate/rhythm, normal heart sounds Gastrointestinal/Abdomen Exam: soft, No tenderness, No mass Extremity Exam: normal inspection, normal range of motion Back Exam: normal inspection, normal range of motion, No CVA tenderness, No vertebral tenderness Pelvic Exam: deferred Rectal Exam: deferred OBJECTIVE DATA Vital Signs: Vital Signs - 24 hr Temp Pulse Resp BP Pulse Ox 07/18/20 07:42 98.9 F 51 L 17 172/89 100 07/18/20 07:30 78 24 97 07/18/20 00:35 98 F 82 24 164/79 97 07/17/20 23:28 83 24 96 07/17/20 21:24 82 28 H 100 07/17/20 20:25 98.3 F 82 28 H 161/71 97 Pain Assessment - Last Documented Pain Intensity 5 Pain Scale Used 0-10 Pain Scale Intake and Output: Intake & Output 07/15/20 07/16/20 07/17/20 07/18/20 11:59 11:59 11:59 11:59 Intake Total 2361 1025 2818 1400 Output Total 1350 2500 650 1675 Balance 1011 -1475 2168 -275 Weight 89.5 kg 89.5 kg Lab Results: Lab Results-Last 24 Hours 07/17/20 07/17/20 07/18/20 Range/Units 16:56 22:14 05:00 Creatinine 2.78 H (0.52-1.04) mg/dL Estimated GFR 17.6 ML/MIN POC Glucometer 99 100 (74 to 106) mg/dL 07/18/20 07/18/20 Range/Units 07:05 11:18 Creatinine (0.52-1.04) mg/dL Estimated GFR ML/MIN POC Glucometer 81 81 (74 to 106) mg/dL Multi-Disciplinary Progress Notes: Multi-Disciplinary Progress Notes 07/18/20 11:28 Case Management Note by Mandie Shaw PATIENT'S SON UPDATED ON LIKELY TRANSFER TO [facility] TOMORROW. IF SHE REMAINS FEVER FREE. HE VERIFIED UNDERSTANDING. HE REPORTS HIS FAMILY HAS TALKED ABOUT HOSPICE BUT ARE UNABLE TO PROVIDE 24 CARE AT THIS TIME, THEY WOULD LIKE TO PROCEED WITH THE TRANSFER TO [facility] WHEN ABLE Initialized on 07/18/20 11:28 - END OF NOTE Assessment/Plan (1) Pneumonia Current Visit: Yes Status: Acute Qualifiers: Laterality: right Lung location: lower lobe of lung Code(s): J18.9 - PNEUMONIA, UNSPECIFIED ORGANISM (2) COPD (chronic obstructive pulmonary disease) Current Visit: No Status: Acute
[2020-07-18] MEDS: DUONEB 0.5-3 MG/3 ml Neb IH PRN (22:00)
[2020-07-19] MEDS: Hydromorphone 1 mg/ml Injection IV PRN ×4 (01:50→11:35)
[2020-07-19] MEDS: Sodium Chloride 0.9% 1000 ML 1,000 ML IV SCH (05:32)
[2020-07-19] MEDS: NORVASC 5 MG PO SCH (10:04)
[2020-07-19] MEDS: MERREM 500MG 500 MG in Sodium Chloride 100ML MINI-BAG PLUS 100 ML IV SCH (10:04)
[2020-07-19] MEDS: COREG 12.5 MG PO SCH (10:04)
[2020-07-19] MEDS: Zestril 5 MG PO SCH (10:04)
[2020-07-19] MEDS: PROTONIX 40 MG IV IV SCH (10:04)
[2020-07-19] MEDS: Colace 100 MG PO SCH (10:16)
[2020-07-19] MEDS ORDERED: NYSTOP POWDER 15 GM TP SCH (10:30)
--- NOTE | 2020-07-19 11:07 | PCM.NOTE ---
Date and Time: 07/19/20 1106 Subjective Assessment: doing ok - Review of Systems Constitutional: No Fever, No Chills Eyes: No Symptoms Ears, Nose, & Throat: No Symptoms Respiratory: No Cough, No Short Of Breath Cardiac: No Chest Pain, No Edema, No Syncope Abdominal/Gastrointestinal: No Abdominal Pain, No Nausea, No Vomiting, No Diarrhea Genitourinary Symptoms: No Dysuria Musculoskeletal: No Back Pain, No Neck Pain Skin: No Rash Neurological: No Dizziness, No Focal Weakness, No Sensory Changes Psychological: No Symptoms Endocrine: No Symptoms Hematologic/Lymphatic: No Symptoms Immunological/Allergic: No Symptoms Objective Exam General Appearance: no apparent distress, alert Neurologic Exam: alert, oriented x 3, cooperative, normal mood/affect, nml cerebellar function, sensation nml, No motor deficits Skin Exam: normal color, warm, dry Wound Assessment: Skin/Wound Assessment Wound/Incision Assessment Start: 07/14/20 17:02 Text: Status: Active Freq: Q6H Protocol: Document 07/19/20 08:00 MS (Rec: 07/19/20 09:37 MS [id number]) Wound/Incision Assessment Left Knee Wound Assessment Shift Assessment Wound Type HEMATOMA Comment COVERED WITH DRESSING, NO SHADOWING OF DRAINAGE NOTED. Left Arm Wound Assessment Shift Assessment Wound Type Skin Tear Wound Stage Non Pressure Wound Dressing Status Dry & Intact Primary Dressing TEGADERM Comment NO CHANGE NOTED Right Buttock Wound Assessment Shift Assessment Wound Type Pressure Ulcer Wound Stage Stage II Comment BARRIER CREAM APPLIED, TURN Q2H NO CHANGE NOTED Left Buttock Wound Assessment Shift Assessment Wound Type Pressure Ulcer Wound Stage Stage II Comment BARRIER CREAM APPLIED, TURN Q2H NO CHANGE NOTED Wound Photo Comment: PHOTOS PREVIOUSLY TAKEN, ON CHART Eye Exam: PERRL, EOMI, eyes nml inspection Ears, Nose, Throat Exam: normal ENT inspection, pharynx normal, moist mucous membranes Neck Exam: normal inspection, non-tender, supple, full range of motion Respiratory Exam: normal breath sounds, lungs clear, No respiratory distress Cardiovascular Exam: regular rate/rhythm, normal heart sounds Gastrointestinal/Abdomen Exam: soft, No tenderness, No mass Extremity Exam: normal inspection, normal range of motion Back Exam: normal inspection, normal range of motion, No CVA tenderness, No vertebral tenderness Pelvic Exam: deferred Rectal Exam: deferred OBJECTIVE DATA Vital Signs: Vital Signs - 24 hr Temp Pulse Resp BP Pulse Ox 07/19/20 08:00 98.1 F 101 H 22 172/78 93 L 07/19/20 06:56 101 H 22 93 L 07/19/20 02:00 98.4 F 79 24 182/84 97 07/18/20 22:01 80 26 H 96 07/18/20 20:13 99.2 F 81 26 H 137/64 96 07/18/20 19:26 77 18 95 07/18/20 14:00 97.7 F 74 18 146/73 95 Pain Assessment - Last Documented Pain Intensity 4 Pain Scale Used FLACC Intake and Output: Intake & Output 07/16/20 07/17/20 07/18/20 07/19/20 11:59 11:59 11:59 11:59 Intake Total 1025 2818 1400 1434 Output Total 2500 650 1675 1700 Balance -1475 2168 -275 -266 Weight 89.5 kg Lab Results: Lab Results-Last 24 Hours 07/18/20 07/18/20 07/18/20 Range/Units 11:18 15:59 20:43 POC Glucometer 81 91 132 H (74 to 106) mg/dL 07/19/20 Range/Units 07:13 POC Glucometer 92 (74 to 106) mg/dL Multi-Disciplinary Progress Notes: Multi-Disciplinary Progress Notes 07/19/20 08:31 Case Management Note by Mandie Shaw UPDATE FAXED TO [facility] AT THIS TIME Initialized on 07/19/20 08:31 - END OF NOTE 07/18/20 13:58 Physical Therapy Note by Tung Ruano Spoke with Elio; Did not feel that pt could tolerate PT today. Pt has not tolerated PROM well. PT held today. Initialized on 07/18/20 13:58 - END OF NOTE 07/18/20 11:28 Case Management Note by Mandie Shaw PATIENT'S SON UPDATED ON LIKELY TRANSFER TO [facility] TOMORROW. IF SHE REMAINS FEVER FREE. HE VERIFIED UNDERSTANDING. HE REPORTS HIS FAMILY HAS TALKED ABOUT HOSPICE BUT ARE UNABLE TO PROVIDE 24 CARE AT THIS TIME, THEY WOULD LIKE TO PROCEED WITH THE TRANSFER TO [facility] WHEN ABLE Initialized on 07/18/20 11:28 - END OF NOTE Assessment/Plan (1) Pneumonia Current Visit: Yes Status: Resolved Qualifiers: Laterality: right Lung location: lower lobe of lung Code(s): J18.9 - PNEUMONIA, UNSPECIFIED ORGANISM (2) COPD (chronic obstructive pulmonary disease) Current Visit: No Status: Acute
[2020-07-19] MEDS: Zithromax 500 MG/ 250 ML NaCl Premix 500 MG/250 ML IVPB IV SCH (11:29)
[2020-07-19] MEDS: DUONEB 0.5-3 MG/3 ml Neb IH PRN (11:57)
[2020-07-19 12:24] VITALS: BP 197/82; PULSE 77
[2020-07-19 13:13] VITALS: O2SAT 98
[2020-07-19] MEDS ORDERED: Hydromorphone 1 mg/ml Injection IV PRN (16:32)
--- NOTE | 2020-07-19 16:39 | PCM.DS ---
Discharge Summary Date of Admission: 07/14/20 15:30 Admitting Physician: SANDHYA PIPER Primary Care Provider: [facility] Allergies Allergies cefaclor [From Ceclor] Allergy (Intermediate, Verified 07/05/20 19:54) shellfish derived Allergy (Intermediate, Verified 07/05/20 19:54) sulfamethoxazole Allergy (Intermediate, Verified 07/05/20 19:54) venom-honey bee [bee venom (honey bee)] Allergy (Intermediate, Verified 07/05/20 19:54) cephalexin [From Keflex] Allergy (Mild, Verified 07/05/20 19:54) mouth sores Hospital Summary - Hospital Course Hospital Course: Chief Complaint Diagnosis multiple contusions/hematomas; chronic renal failure,elevated trop Allergies Allergy/AdvReac Type Severity Reaction Status Date / Time cefaclor [From Ceclor] Allergy Intermediate Verified 07/05/20 19:54 shellfish derived Allergy Intermediate Verified 07/05/20 19:54 sulfamethoxazole Allergy Intermediate Verified 07/05/20 19:54 venom-honey bee Allergy Intermediate Verified 07/05/20 19:54 [bee venom (honey bee)] cephalexin [From Keflex] Allergy Mild mouth sores Verified 07/05/20 19:54 Vital Signs (Last 24 hours) Temp Pulse Resp BP Pulse Ox 07/19/20 12:50 98 07/19/20 12:24 98.6 F 77 28 H 197/82 95 07/19/20 11:59 76 20 94 L 07/19/20 08:00 98.1 F 101 H 22 172/78 93 L 07/19/20 06:56 101 H 22 93 L 07/19/20 02:00 98.4 F 79 24 182/84 97 07/18/20 22:01 80 26 H 96 07/18/20 20:13 99.2 F 81 26 H 137/64 96 07/18/20 19:26 77 18 95 Home Medications Medication Instructions Recorded Confirmed Last Taken Type Acetaminophen 325 mg [Tylenol 650 mg PO Q4H PRN PRN tablet 07/19/20 Unknown Rx 325 mg] Albuterol/Ipratropium 3ml Neb* 3 ml IH Q4HPRN PRN ampul.neb 07/19/20 Unknown Rx [DUONEB 0.5-3 MG/3 ml Neb] Amlodipine Besylate 5 mg 5 mg PO QAM tablet 07/19/20 Unknown Rx [Norvasc 5 mg] Carvedilol 12.5 mg [Coreg 12.5 12.5 mg PO BID tablet 07/19/20 Unknown Rx mg] Diphenhydramine HCl 25 mg 25 mg PO Q6H PRN PRN capsule 07/19/20 Unknown Rx [Benadryl 25 mg Capsule] Fluticasone/Salmeterol 2 puff IH BIDRT aer.w.adap 07/19/20 Unknown Rx [Advair Hfa Common canister*] Guaifenesin/Dextromethorphan 10 ml PO Q6H PRN #10 liquid 07/19/20 Unknown Rx [Robitussin Cough-Chest Dm Liq] Lisinopril 5 mg [Zestril 5 5 mg PO BID tablet 07/19/20 Unknown Rx MG] Nystatin Powder 15 gm [Nystop 1 gm TP BID powder 07/19/20 Unknown Rx Powder 15 gm] PANTOPRAZOLE 40 mg Tablet 40 mg PO DAILY #15 tab 07/19/20 Unknown Rx [Protonix 40MG Tablet] Current Medications Generic Name Dose Route Start Last Admin Trade Name Freq PRN Reason Stop Dose Admin Acetaminophen 650 mg 07/14/20 16:30 07/17/20 01:33 Tylenol 325 Mg PO 08/13/20 16:29 650 mg Q4H PRN PRN Administration PAIN AND/OR FEVER Albuterol/Ipratropium 3 ml 07/14/20 16:30 07/19/20 11:57 Duoneb 0.5-3 Mg/3 Ml Neb IH 08/13/20 16:29 3 ml Q4HPRN PRN Administration SHORTNESS OF BREATH/WHEEZING Amlodipine Besylate 5 mg 07/15/20 10:00 07/19/20 10:04 Norvasc 5 Mg PO 08/14/20 09:59 5 mg QAM PAOLA Administration Carvedilol 12.5 mg 07/14/20 22:00 07/19/20 10:04 Coreg 12.5 Mg PO 08/13/20 21:59 12.5 mg BID PAOLA Administration Diphenhydramine HCl 25 mg 07/14/20 16:30 Benadryl 25 Mg Capsule PO 08/13/20 16:29 Q6H PRN PRN ALLERGIES Docusate Sodium 200 mg 07/15/20 10:00 07/19/20 10:16 Colace 100 Mg PO 08/14/20 09:59 Not Given DAILY PAOLA Guaifenesin/Dextromethorphan 10 ml 07/15/20 00:17 07/18/20 11:37 Robitussin-Dm Syrup PO 08/14/20 00:16 10 ml Q6H PRN PRN Administration COUGH Hydromorphone HCl 0.4 mg 07/19/20 16:32 Hydromorphone 1 Mg/Ml Injection IV 07/24/20 16:31 Q2H PRN PRN PAIN Sodium Chloride 1,000 mls @ 10 mls/hr 07/14/20 16:30 07/19/20 05:32 Sodium Chloride 0.9% 1000 Ml IV 08/13/20 16:29 80 mls/hr .Q24H PAOLA Administration Azithromycin 500 mg in 250 mls @ 250 mls/hr 07/16/20 13:00 07/19/20 11:29 Zithromax 500 Mg/ 250 Ml Nacl Premix IV 08/15/20 12:59 250 mls/hr Q24H10 PAOLA Administration Meropenem 500 mg/ Sodium 100 mls @ 100 mls/hr 07/16/20 13:00 07/19/20 10:04 Chloride IV 08/15/20 12:59 100 mls/hr BID PAOLA Administration Lisinopril 5 mg 07/15/20 00:30 07/19/20 10:04 Zestril 5 Mg PO 08/14/20 00:29 5 mg BID PAOLA Administration Nystatin 1 gm 07/19/20 10:30 Nystop Powder 15 Gm TP 08/18/20 10:29 BID PAOLA Ondansetron HCl 4 mg 07/14/20 16:35 Zofran 4 Mg/2 Ml Vial IV 08/13/20 16:34 Q6H PRN PRN NAUSEA/VOMITING Pantoprazole Sodium 40 mg 07/15/20 10:00 07/19/20 10:04 Protonix 40 Mg Iv IV 08/14/20 09:59 40 mg DAILY PAOLA Administration Fluticasone/Salmeterol 2 puff 07/14/20 19:00 07/16/20 21:30 Advair Hfa 115/21 Common Canister* IH 08/13/20 18:59 Not Given BIDRT PAOLA Sodium Chloride 10 ml 07/14/20 16:30 Sodium Chloride 0.9% 10 Ml Flush Syringe IV 08/13/20 16:29 PRN PRN Tuberculin PPD 5 unit 07/26/20 10:00 Aplisol ID 07/26/20 10:01 DAILY PAOLA Discontinued Medications Generic Name Dose Route Start Last Admin Trade Name Freq PRN Reason Stop Dose Admin Hydromorphone HCl 0.4 mg 07/14/20 16:30 07/19/20 11:35 Hydromorphone 1 Mg/Ml Injection IV 07/19/20 16:29 0.4 mg Q2H PRN PRN Administration PAIN Ceftriaxone Sodium/Dextrose 1 g in 50 mls @ 100 mls/hr 07/17/20 10:00 Rocephin 1 Gm-D5w 50 Ml Bag IV 08/16/20 09:59 Q24H10 PAOLA Sodium Chloride Confirm 07/17/20 09:34 Sodium Chloride 100ml Mini-Bag Plus Administered 07/17/20 09:35 Dose 100 mls @ ud IV .STK-MED ONE Levofloxacin 250 mg 07/15/20 10:00 07/15/20 09:01 Levofloxacin 250mg Tablet PO 08/14/20 09:59 250 mg Q48H PAOLA Administration Lisinopril 5 mg 07/15/20 10:00 Zestril 5 Mg PO 08/14/20 09:59 DAILY PAOLA Non-Formulary Medication 1 each 07/16/20 12:44 07/16/20 13:00 Pharmacy Dosing Request MC 07/16/20 12:45 1 each STAT ONE Administration Tuberculin PPD 5 unit 07/15/20 10:00 07/15/20 15:54 Aplisol ID 07/15/20 10:01 5 unit DAILY PAOLA Administration Intake & Output (Last 24 hours) 07/17/20 07/18/20 07/19/20 12 11:59 11:59 11:59 11:59 Intake Total 2818 1400 1434 60 Output Total 268 9033 1706 700 Balance 2168 -275 -266 -640 Weight 89.5 kg Laboratory Results (Last 24 hours) 07/19/20 07/19/20 07/18/20 11:34 07:13 20:43 POC Glucometer 99 92 132 H Orders (Last 24 hours) Category Date Time Status Weight,Daily Q7D Care 07/21/20 06:00 Active Ensure High Protein Diet 07/19/20 Breakfast Active Discharge Routine Discharge 07/19/20 Ordered Discharge/Telephone Order Routine Discharge 07/19/20 Active BMP Q14D Lab 07/28/20 04:00 Ordered POCT GLUCOSE Stat Lab 07/18/20 15:59 Completed POCT GLUCOSE Stat Lab 07/18/20 20:43 Completed POCT GLUCOSE Stat Lab 07/19/20 07:13 Completed POCT GLUCOSE Stat Lab 07/19/20 11:34 Completed Hydromorphone 1 mg/1Ml Inj [Hydromorphone 1 mg/ml Med 07/19/20 16:32 Active Injection] 0.4 mg IV Q2H PRN PRN Nystatin Powder 15 gm [Nystop Powder 15 gm] Med 07/19/20 10:30 Active 1 gm TP BID Tuberculin,Purif.prot.deriv. [Aplisol] Med 07/26/20 10:00 Active 5 unit ID DAILY Oxygen NASAL CANNULA 2 lpm RT 07/19/20 13:12 Active PT Clarification Order ROUTINE Ther 07/19/20 11:32 Active Patient Care Notes (Last 24 hours) 07/19/20 14:03 Case Management Note by Mandie Shaw SON NOTIFIED OF ORDER TO TRANSFER TO [facility]- HE VERIFIED UNDERSTANDING Initialized on 07/19/20 14:03 - END OF NOTE 07/19/20 11:10 Case Management Note by Mandie Shaw S/W RADHA AT [facility]- THEY ARE READY FOR PATIENT TODAY Initialized on 07/19/20 11:10 - END OF NOTE 07/19/20 08:31 Case Management Note by Mandie Shaw UPDATE FAXED TO [facility] AT THIS TIME Initialized on 07/19/20 08:31 - END OF NOTE 07/19/20 03:55 Nursing Note by Homer Padron patient ate almost whole cup of pudding during med pass Initialized on 07/19/20 03:55 - END OF NOTE - Vitals & Intake/Output Vital Signs: Vital Signs Temperature 98.6 F 07/19/20 12:24 Pulse Rate 77 07/19/20 12:24 Respiratory Rate 28 H 07/19/20 12:24 Blood Pressure 197/82 07/19/20 12:24 O2 Sat by Pulse Oximetry 98 07/19/20 12:50 Intake & Output: Intake & Output 07/17/20 07/18/20 07/19/20 07/20/20 11:59 11:59 11:59 11:59 Intake Total 2818 1400 1434 60 Output Total 650 1675 1700 700 Balance 2168 -275 -266 -640 Weight 89.5 kg - Lab Result Diagrams: 07/18/20 05:00 Lab Results-Last 24 Hrs: Lab Results-Last 24 Hours 07/18/20 07/19/20 07/19/20 Range/Units 20:43 07:13 11:34 POC Glucometer 132 H 92 99 (74 to 106) mg/dL Micro Results-Entire Visit: Accuchecks Date 07/19/20 Date 07/19/20 Time 11:34 Time 07:13 - Procedures and Test Procedures and Tests throughout Hospitalization: Therapy Orders & Screens 07/14/20 16:30 PT Eval & Treat ( Order) ONCE Reason for Eval:: WEAKNESS Diagnosis: multiple contusions/hematomas; chronic renal failure,elevated trop 07/14/20 19:48 Respiratory Therapy Assessment DAILY Comment: Diagnosis: multiple contusions/hematomas; chronic renal failure,elevated trop 07/19/20 11:32 PT Clarification Order ROUTINE Comment: Physician Instructions: Reason For Exam: PT Clarification: PT TO RX 5X/WK TOLERATED TO ADDRESS INCREASING PT. INDEPENDENCE W/ FUNCTIONAL MOBILITY TOLERATED. 07/19/20 13:12 Oxygen NASAL CANNULA 2 lpm Comment: Diagnosis: multiple contusions/hematomas; chronic renal failure,elevated trop Discharge Exam General Appearance: no apparent distress, alert Neurologic Exam: alert, oriented x 3, cooperative, normal mood/affect, nml cerebellar function, sensation nml, No motor deficits Eye Exam: PERRL, EOMI, eyes nml inspection Ears, Nose, Throat Exam: normal ENT inspection, pharynx normal, moist mucous membranes Neck Exam: normal inspection, non-tender, supple, full range of motion Respiratory Exam: normal breath sounds, lungs clear, No respiratory distress Cardiovascular Exam: regular rate/rhythm, normal heart sounds Gastrointestinal/Abdomen Exam: soft, No tenderness, No mass Pelvic Exam: deferred Rectal Exam: deferred Back Exam: normal inspection, normal range of motion, No CVA tenderness, No vertebral tenderness Extremity Exam: normal inspection, normal range of motion Skin Exam: normal color, warm, dry Wound Assessment: Skin/Wound Assessment Wound/Incision Assessment Start: 07/14/20 17:02 Text: Status: Active Freq: Q6H Protocol: Document 07/19/20 14:00 MS (Rec: 07/19/20 16:38 MS [id number]) Wound/Incision Assessment Left Knee Wound Assessment Shift Assessment Wound Type HEMATOMA Comment COVERED WITH DRESSING, NO SHADOWING OF DRAINAGE NOTED. Left Arm Wound Assessment Shift Assessment Wound Type Skin Tear Wound Stage Non Pressure Wound Dressing Status Dry & Intact Primary Dressing TEGADERM Comment NO CHANGE NOTED Right Buttock Wound Assessment Shift Assessment Wound Type Pressure Ulcer Wound Stage Stage II Comment BARRIER CREAM APPLIED, TURN Q2H NO CHANGE NOTED Left Buttock Wound Assessment Shift Assessment Wound Type Pressure Ulcer Wound Stage Stage II Comment BARRIER CREAM APPLIED, TURN Q2H NO CHANGE NOTED Final Diagnosis/Problem List - Final Discharge Diagnosis/Problem (1) Pneumonia Current Visit: Yes Status: Resolved Code(s): J18.9 - PNEUMONIA, UNSPECIFIED ORGANISM (2) COPD (chronic obstructive pulmonary disease) Current Visit: No Status: Chronic - Discharge Discharge Date: 07/19/20 Disposition: Home, Self-Care Condition: Stable Prescriptions: New Fluticasone/Salmeterol 115/21 [Advair Hfa 115/21 Common canister*] 2 puff IH BIDRT aer.w.adap Diphenhydramine HCl 25 mg [Benadryl 25 mg Capsule] 25 mg PO Q6H PRN PRN capsule PRN Reason: Allergies Carvedilol 12.5 mg [Coreg 12.5 mg] 12.5 mg PO BID tablet Albuterol/Ipratropium 3ml Neb* [DUONEB 0.5-3 MG/3 ml Neb] 3 ml IH Q4HPRN PRN ampul.neb PRN Reason: Shortness Of Breath/Wheezing Amlodipine Besylate 5 mg [Norvasc 5 mg] 5 mg PO QAM tablet Nystatin Powder 15 gm [Nystop Powder 15 gm] 1 gm TP BID powder PANTOPRAZOLE 40 mg Tablet [Protonix 40MG Tablet] 40 mg PO DAILY #15 tab Guaifenesin/Dextromethorphan [Robitussin Cough-Chest Dm Liq] 10 ml PO Q6H PRN #10 liquid PRN Reason: Cough Acetaminophen 325 mg [Tylenol 325 mg] 650 mg PO Q4H PRN PRN tablet PRN Reason: Pain And/Or Fever Lisinopril 5 mg [Zestril 5 MG] 5 mg PO BID tablet Continue Docusate Sodium [Stool Softener] 200 mg PO DAILY Hydrocodone Bit/Acetaminophen [Hydrocodon-Acetaminoph 7.5-325] 1 tab PO Q6H Discontinued Gemfibrozil 600 mg [Lopid 600 mg] 600 mg PO BID Folic Acid 1 mg PO DAILY Calcium Carbonate/Vitamin D3 [Oyster Shell 500-Vit D3 200 Tb] 1 each PO TID Amlodipine Besylate 5 mg [Norvasc 5 mg] 5 mg PO DAILY Carvedilol 3.125 mg [Coreg 3.125 MG] 3.125 mg PO BID #60 tablet Albuterol 8 gm Mdi Hfa [Ventolin Hfa MDI] 2 puffs PO QID Bumetanide 1 mg PO BID Cholecalciferol (Vitamin D3) [Vitamin D3] 1,000 unit PO DAILY Donepezil HCl [Aricept] 5 mg PO HS Ferrous Sulfate 325 mg [Feosol 325 mg] 325 mg PO BID Gabapentin 200 mg PO BID Magnesium Oxide [Magnesium] 400 mg PO DAILY Paroxetine HCl 20 mg [Paxil 20 MG] 20 mg PO DAILY Prednisone 10 mg [Deltasone 10 mg] 10 mg PO DAILY Quetiapine Fumarate 25 mg [Seroquel 25 MG] 100 mg PO HS Potassium Chloride 10 Meq Tab* [Klor Con 10 MEQ] 10 meq PO BID Omeprazole 20 mg PO BID Polyvinyl Alcohol Tears [Artificial Tears 15 ML] 1 drop OP BID Alendronate Sodium 70 mg [Fosamax 70 MG] 70 mg PO WEEKLY Fluticasone/Vilanterol [Breo Ellipta 200-25 Mcg INH] 1 each IH DAILY Tofacitinib Citrate [Xeljanz] 5 mg PO DAILY lisinopriL [Lisinopril] 5 mg PO DAILY Sitagliptin Phos/Metformin HCl [Janumet Xr 100-1,000 mg Tablet] 1 tab PO DAILY Furosemide [Lasix] 20 mg PO DAILY Oxybutynin Chloride Xl 5 mg [Ditropan XL 5 MG] 5 mg PO BID Acetaminophen 325 mg [Tylenol 325 mg] 650 mg PO Q4HPRN PRN PRN Reason: Pain Albuterol 8 gm Mdi Hfa [Ventolin Hfa MDI] 2 puff IH Q4HPRN PRN PRN Reason: Shortness Of Breath Benzonatate [Tessalon Perle] 100 mg PO Q6H Additional Instructions: [facility] ORDERS- 2L/NC ACHS ACCU CHECKS HEART HEALTHY, DIABETIC DIET ENSURE HIGH PROTEIN PT/OT EVAL AND TREAT SEE ATTACHED MED LIST CHA CATH TO [facility] FOR PALLIATIVE/COMFORT CARE. Follow up with: BIANCA GOSS [Primary Care Provider] -
[2020-07-26] MEDS ORDERED: Aplisol ID SCH (10:00)
== END 2020-07-19 15:47 | DRG 195 ==
LOC: ICU 15:30
PROVIDERS: ADMIT General Practice; ATTEND General Practice
DX: J18.9 Pneumonia, unspecified organism (principal); J44.9 Chronic obstructive pulmonary disease, unspecified; Z79.899 Other long term (current) drug therapy; L89.322 Pressure ulcer of left buttock, stage 2; L89.312 Pressure ulcer of right buttock, stage 2; E11.9 Type 2 diabetes mellitus without complications; Z11.59 Encounter for screening for other viral diseases
CPT/HCPCS: 36415; 82565; 82947; 94640; 94760; 99231; J0456; J1170; A9270-GY